=== PATIENT | female | born 1935 | race Caucasian/White ===

== ENCOUNTER → 2016-05-24 | Outpatient (CLI) | payer MEDICARE ==
[~2016-05-24] MED LIST: AMLO10TA4 PO; ASPI-587 PO; CARV12.5 PO; CATHETER FLUSH 10 ML SYR IV PRN; CEFU500T34 PO; CLN.1T PO; CLON-406 PO; HCT25T PO; IOHEXOL 350 MG/ML 100 ML (OMNIPAQUE 350) VIAL IV ONE; IRB150T PO; IRBE300T13 PO; LEVO75TA6 PO; MAGN250T7 PO; NS 100 ML (IVPB) BAG IV ONE; VERA240T PO
--- OUTSIDE RECORDS SUMMARY | 2016-05-24 09:01 | XMS REPORT ---
Author Author SOLO HERNANDEZ [facility] eClinicalWorks Address Unknown Phone Unavailable Care Team Providers Care Picker Tender Helper Name Role Phone SOLO HERNANDEZ CP Unavailable Allergies, Adverse Reactions, Alerts Substance Reaction Event Type N.K.D.A. Info Not Available Non Drug Allergy Problems Problem Type Condition Code Onset Dates Condition Status Assessment Dental examination Z01.20 Active Medications Medication Code System Code Instructions Start Date End Date Status Dosage Amlodipine Besylate [facility] [address]-53 not defined Aspirin [facility] [address]-04 not defined Irbesartan [facility] [address]-57 not defined Levothyroxine Sodium [facility] [address]-22 not defined Tramadol HCl ND 0 not defined Atorvastatin Calcium [facility] [address]-91 not defined Hydrochlorothiazide [facility] [address]-35 not defined Doxycycline [facility] [address]-91 not defined Clonidine HCl [facility] [address]-75 not defined ProAir HFA [facility] [address]-50 not defined Carvedilol [facility] [address]-10 not defined Procedures Procedure Coding System Code Date INTRAORL-PERIAPICAL 1 FILM 60753 CPT-4 D0220 Jun 01, 2015 BITEWING - SINGLE FILM CPT-4 D0270 Jun 01, 2015 LTD ORAL EVALUATION - PROBLEM FOCUS CPT-4 D0140 Jun 01, 2015 Vital Signs Date/Time: Jun 01, 2015 Blood Pressure Diastolic 65 mmHg Blood Pressure Systolic 136 mmHg Results No Known Results Summary Purpose eClinicalWorks Submission
[2016-05-24 09:54] LABS: ALBUMIN 4.3 G/DL (3.2-4.5); BILIRUBIN,TOTAL 0.6 MG/DL (0.1-1.0); CALCIUM 9.4 MG/DL (8.5-10.1); CREATININE SERUM 1.01 MG/DL (0.60-1.30); POTASSIUM 4.3 MMOL/L (3.6-5.0); TOTAL PROTEIN 7.5 G/DL (6.4-8.2)
--- NOTE | 2016-05-24 11:15 | Diagnostic Imaging Report ---
EXAMINATION: CT angiogram of the neck. TECHNIQUE: Thin section axial, coronal and sagittal images of the neck was performed in an angiogram protocol with MIP reconstruction algorithm utilized. INDICATION: Possible subclavian steal. Coronary artery disease. 80 mL of Omnipaque 350 is administered intravenously. FINDINGS: There is a segment of complete occlusion in the proximal left subclavian artery, about 1.7 cm in length. The ostium of the artery from the arch is patent. There is presumably retrograde flow in the left vertebral artery which appears patent. The left vertebral artery is slightly larger compared to the right vertebral artery. The basilar artery caliber is attenuated. The aortic arch otherwise appears patent. The proximal left common carotid artery demonstrates mild soft plaque with no significant stenosis. There is a calcified plaque at the carotid bifurcation on the left with no significant stenosis in the common or internal carotid artery. There is mild proximal stenosis in the left external carotid artery origin. The right internal carotid artery is patent with no significant stenosis. The right external carotid is also patent. The common carotid artery demonstrates mild soft plaque with less than 25% stenosis at its mid to distal segments. There is also 20% stenosis from mild soft plaque in the proximal brachiocephalic artery. The right subclavian artery is patent. The soft tissues in the neck demonstrate symmetric appearance of the parotid glands and the submandibular glands. The thyroid gland demonstrates a 0.9 cm hypodense lesion in the left thyroid lobe. This is nonspecific and its smooth margins may favor benign etiology. No significant lymphadenopathy is seen. The lung apices demonstrate mild paraseptal emphysema. The osseous structures demonstrate advanced degenerative changes in the cervical spine mostly around C5/6 discs. There is fusion of the right facet joints at C4/5 level. 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 The left vertebral artery is patent and has probably retrograde flow into the left subclavian artery, which can be confirmed by Doppler ultrasound. Report was stat faxed to office of KIM Gold, @ 11:11 AM/harry. Dictated by: Dictated on workstation # [id number]
--- NOTE | 2016-05-26 08:30 | ECHOCARDIOGRAPHY REPORT ---
PROCEDURE PHYSICIAN: SARAH ALCARAZ DATE OF PROCEDURE: 05/24/2016 TWO DIMENSIONAL ECHOCARDIOGRAM REPORT PRIMARY PHYSICIAN: OTHER PHYSICIAN: REFERRING PHYSICIAN: Dr. Romeo ORDERING PHYSICIAN: INDICATION FOR THE PROCEDURE: AV heart block, hypertension MEASUREMENTS DERIVED VALUES LV DIAMETER (LAX) NORMALS NORMALS Diastolic 3.6 (3.6-5.2) Eject. Fract. 60% (60%+/-6%) Systolic (2.3-3.9) Diastolic Vol. % Shortening (0.22-0.42) Systolic Vol. Aortic Root IVS THICKNESS Diastolic 1. (0.6-1.1) LVPW THICKNESS Diastolic 1. (0.6-1.1) LA DIAMETER Systolic 3. (2.1-3.7) FINDINGS: 1. Technical quality is good. 2. The left ventricle is normal in size with normal contractility. Systolic function appeared to be normal. Estimated ejection fraction is 60%. 3. The left atrium is normal in size. No clot or thrombus were seen within the left atrium. 4. The right atrium and right ventricle are normal in size. No clot or thrombus were seen within the right side. 5. Mitral valve is normal in morphology with mild mitral regurgitation noted by color Doppler flow. Doppler across the mitral valve showed equalization of E:A, which is suggestive of diastolic dysfunction. 6. Aortic valve was not well visualized. There is no significant aortic stenosis or regurgitation was seen. 7. Tricuspid valve is normal in morphology with mild tricuspid regurgitation noted by color Doppler flow. Doppler across tricuspid valve estimated pulmonary artery pressure of 27+ right atrial pressure. 8. Pulmonic valve is functioning normally. 9. No pericardial effusion. CONCLUSION: 1. Normal left ventricular size and systolic function. Estimated ejection fraction 60%. Diastolic dysfunction is suggested by Doppler. 2. Mild mitral and tricuspid regurgitation. 3. Estimated pulmonary artery pressure of 35 mmHg. 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
== END ==
LOC: RAD 08:56
PROVIDERS: ATTEND Physician Assistant
DX: I10 Essential (primary) hypertension (principal); E78.2 Mixed hyperlipidemia; I65.23 Occlusion and stenosis of bilateral carotid arteries; I44.30 Unspecified atrioventricular block
CPT/HCPCS: 36415; 70498; 80053; 80061; 93306

== ENCOUNTER → 2016-12-07 | Outpatient (CLI) | payer MEDICARE ==
[2016-12-07 13:00] LABS: CREATININE SERUM 1.01 MG/DL (0.60-1.30)
--- NOTE | 2016-12-07 14:27 | Diagnostic Imaging Report ---
PROCEDURE: CT abdomen and pelvis with contrast. TECHNIQUE: Multiple contiguous axial images were obtained through the abdomen and pelvis after administration of intravenous contrast. INDICATION: Diarrhea. Abdominal pain. Bloody stool. COMPARISON: None. FINDINGS: Included views of the lung bases are clear. CT abdomen: Moderate air and stool is seen scattered throughout the colon. Normal appendix cannot be adequately identified, but there is no pericecal inflammation. There is colonic diverticulosis, but no CT evidence of acute diverticulitis. The liver, kidneys, adrenal glands, spleen, and pancreas have a normal CT appearance. There is no loculated fluid collection, free fluid, nor free air within the abdomen. No abnormal mesenteric or retroperitoneal adenopathy is seen. Bony structures show no acute abnormalities. CT pelvis: Small droplet of gas is noted within the nongravity-dependent portion of the urinary bladder. Otherwise, urinary bladder is grossly unremarkable. There is no loculated fluid collection, free fluid, nor free air within the pelvis. No abnormal lymph nodes are seen. Bony structures show no acute abnormalities. Finally, there is moderate calcified aortic and arterial atherosclerosis. IMPRESSION: 1. Moderate colonic air and stool. Please correlate for constipation. 2. Colonic diverticulosis, but no CT evidence of acute diverticulitis. 3. Small droplet of gas within the non-gravity dependent portion of the urinary bladder. Correlation for history of recent instrumentation is recommended. Alternatively, findings can be seen with gas-forming cystitis. Dictated by: Dictated on workstation # [id number]
== END ==
LOC: RAD 12:09
PROVIDERS: ATTEND Family Medicine
DX: K57.30 Diverticulosis of large intestine without perforation or abscess without bleeding (principal); N32.9 Bladder disorder, unspecified; K59.00 Constipation, unspecified
CPT/HCPCS: 36415; 74177; 82565; 84520

== ENCOUNTER → 2017-08-21 | Outpatient (CLI) | payer MEDICARE ==
[~2017-08-21] MED LIST changes: -CATHETER FLUSH 10 ML SYR IV PRN; -IOHEXOL 350 MG/ML 100 ML (OMNIPAQUE 350) VIAL IV ONE; -NS 100 ML (IVPB) BAG IV ONE
[2017-08-21 09:42] LABS: ALBUMIN 4.3 GM/DL (3.2-4.5); BILIRUBIN,DIRECT 0.2 MG/DL (0.0-0.3); BILIRUBIN,INDIRECT 0.5 MG/DL; BILIRUBIN,TOTAL 0.7 MG/DL (0.1-1.0)
--- NOTE | 2017-08-21 10:47 | Diagnostic Imaging Report ---
INDICATION: Hypertension. TECHNIQUE: Multiple Real-time grayscale images were obtained over the kidneys in various projections bilaterally. Duplex Doppler and color Doppler images were also obtained of the renal arteries. FINDINGS: The right kidney measures 10.1 x 4.4 x 4.2 cm. The left kidney measures 9.6 x 4.9 x 5.1 cm. Both kidneys demonstrate normal renal cortical thickness and echogenicity. There is no hydronephrosis, calculus, or mass. Bilateral ureteral jets are seen within the bladder. The proximal renal arteries are not well-seen although the renal artery to aortic ratio is within normal limits bilaterally. The urinary bladder is normal in appearance. The IVC is not seen. IMPRESSION: Unremarkable sonographic appearance of the kidneys. Spectral analysis shows no definitive evidence of renal artery stenosis. Dictated by: Dictated on workstation # [id number]
== END ==
LOC: RAD 08:18
PROVIDERS: ATTEND Internal Medicine Cardiovascular Disease
DX: I10 Essential (primary) hypertension (principal); E78.2 Mixed hyperlipidemia; I49.5 Sick sinus syndrome; I65.23 Occlusion and stenosis of bilateral carotid arteries; R55 Syncope and collapse
CPT/HCPCS: 36415; 80061; 80076; 93975

== ENCOUNTER → 2017-12-28 | Outpatient (CLI) | payer MEDICARE ==
--- NOTE | 2017-12-28 14:53 | Diagnostic Imaging Report ---
PROCEDURE: CT chest without contrast. TECHNIQUE: Multiple contiguous axial images were obtained through the chest without the use of intravenous contrast. INDICATION: Followup pulmonary nodules. COMPARISON: No prior studies are available for comparison. FINDINGS: No axillary lymphadenopathy is seen. Hilar and mediastinal evaluation is limited without intravenous contrast, but no gross abnormality is identified. There is a left chest wall cardiac pacemaker. No pericardial or pleural fluid is identified. The central airways are patent. Tiny micronodule in the right upper lobe, image 8, is seen measuring 2 mm. Tiny 2-3 mm nodule in the superior segment of the right lower lobe is also seen, image 24, as well as right upper lobe, image 25. Subpleural nodule in the lateral aspect of the right middle lobe is seen measuring 4 mm, indeterminate. Lower lobes are clear. Upper abdomen is unremarkable. IMPRESSION: Micronodules, as described and likely of no clinical significance. No dominant parenchymal mass or evidence of thoracic lymphadenopathy is seen. Dictated by: Dictated on workstation # [id number]
== END ==
LOC: RAD 14:14
PROVIDERS: ATTEND Thoracic Surgery (Cardiothoracic Vascular Surgery)
DX: R91.8 Other nonspecific abnormal finding of lung field (principal)
CPT/HCPCS: 71250

== ENCOUNTER → 2018-10-19 | Outpatient (CLI) | payer MEDICARE | LOC: CARD 11:08 | PROVIDERS: ATTEND Physician Assistant | DX: I10 Essential (primary) hypertension (principal); E78.2 Mixed hyperlipidemia; I49.5 Sick sinus syndrome; I08.2 Rheumatic disorders of both aortic and tricuspid valves | CPT/HCPCS: 93306 ==

== ENCOUNTER 2020-05-05 21:07 | Inpatient (IN) | payer MEDICARE ==
[~2020-05-05] VITALS: Ht 157.5 cm; Wt 72.5 kg
--- NOTE | 2020-05-05 21:16 | ED Lower Extremity ---
General Stated Complaint: FALL/L HIP PAIN Source: patient Exam Limitations: no limitations History of Present Illness Date Seen by Provider: May 05, 2020 Time Seen by Provider: 21:14 Initial Comments By EMS from home after she tripped and fell landing directly on the left hip. She did was unable to get up and is now unable to move without left hip pain. S he did not hit her head. Onset: just prior to arrival Severity: moderate Pain/Injury Location: left hip Method of Injury: fell Modifying Factors: Worse With Movement Allergies and Home Medications Allergies Coded Allergies: No Known Drug Allergies (Unverified , 10/27/13) Home Medications Amlodipine Besylate 10 Mg Tablet, 10 MG PO DAILY Prescribed by: DANIELA NICOLE on 10/28/13 0948 Aspirin 81 Mg Tablet.dr, 81 MG PO DAILY, (Reported) Carvedilol 12.5 Mg Tablet, 12.5 MG PO BID Prescribed by: DANIELA NICOLE on 10/28/13 0948 Cefuroxime Axetil 500 Mg Tablet, 500 MG PO BID Prescribed by: DANIELA NICOLE on 10/28/13 0948 Clonidine Hcl 0.1 Mg Tab, 0.1 MG PO TID Prescribed by: DANIELA NICOLE on 10/28/13 0948 Hydrochlorothiazide 25 Mg Tab, 25 MG PO DAILY@0900 Prescribed by: DANIELA NICOLE on 10/28/13 0948 Irbesartan 150 Mg Tab, 300 MG PO DAILY Prescribed by: DANIELA NICOLE on 10/28/13 0948 Levothyroxine Sodium 75 Mcg Tablet, 75 MCG PO DAILY, (Reported) Magnesium Oxide 250 Mg Tablet, 250 MG PO DAILY, (Reported) Patient Home Medication List Home Medication List Reviewed: Yes Review of Systems Constitutional: see HPI EENTM: see HPI Respiratory: no symptoms reported Cardiovascular: no symptoms reported Genitourinary: no symptoms reported Musculoskeletal: see HPI Skin: no symptoms reported Psychiatric/Neurological: No Symptoms Reported Past Tdopjbo-Acmovx-Hoaoms Hx Immunizations Up To Date Tetanus Booster (TDap): Unknown PED Vaccines UTD: No Past Medical History Reproductive Disorders: Yes (HX TUBAL LIGATION) Female Reproductive Disorders: Denies Sexually Transmitted Disease: No HIV/AIDS: No Chronic Constipation Hypothyroidsim Cataract Hearing Impairment: Denies Adverse Reaction/Blood Tranf: No Family Medical History Family history: Cardiovascular disease 19 MOTHER (PT'S MOTHER AND 6 OR 8 SISTERS ALL WITH HEART ATTACKS) G8 SISTER Family history: Coronary thrombosis 19 MOTHER (PT'S MOM AND 6-8 SISTERS ALL FROM HEART ATTACKS) G8 SISTER Physical Exam Vital Signs Vital Signs - First Documented 05/05/20 21:07 Temp 36.5 Pulse 80 Resp 18 B/P (MAP) 180/69 (106) Pulse Ox 98 O2 Delivery Room Air Capillary Refill : Height, Weight, BMI Height: 5'2.00" Weight: 161lbs. oz. 73.935475hy; BMI Method: General Appearance: WD/WN, no apparent distress Neck: non-tender, full range of motion Respiratory: no respiratory distress, no accessory muscle use Gastrointestinal: normal bowel sounds, non tender, soft Hips: right hip non-tender, right hip normal inspection, right hip normal range of motion; left hip pain, left hip soft tissue tenderness Legs: bilateral leg non-tender, bilateral leg normal inspection, bilateral leg normal range of motion Knees: bilateral knee non-tender, bilateral knee normal inspection, bilateral knee normal range of motion Ankles: bilateral ankle non-tender, bilateral ankle normal inspection, bilateral ankle normal range of motion Feet: bilateral foot non-tender, bilateral foot normal inspection, bilateral foot normal range of motion Neurologic/Psychiatric: alert, normal mood/affect, oriented x 3 Skin: normal color, warm/dry DP foot 1+ symmetrical Progress/Results/Core Measures Results/Orders Lab Results Laboratory Tests Test 05/05/20 21:20 05/05/20 21:35 Range/Units White Blood Count 14.7 H 4.3-11.0 10^3/uL Red Blood Count 3.82 3.80-5.11 10^6/uL Hemoglobin 12.5 11.5-16.0 g/dL Hematocrit 37 35-52 % Mean Corpuscular Volume 98 80-99 fL Mean Corpuscular Hemoglobin 33 25-34 pg Mean Corpuscular Hemoglobin Concent 33 32-36 g/dL Red Cell Distribution Width 13.0 10.0-14.5 % Platelet Count 315 130-400 10^3/uL Mean Platelet Volume 9.6 9.0-12.2 fL Immature Granulocyte % (Auto) 1 % Neutrophils (%) (Auto) 78 H 42-75 % Lymphocytes (%) (Auto) 13 12-44 % Monocytes (%) (Auto) 6 0-12 % Eosinophils (%) (Auto) 3 0-10 % Basophils (%) (Auto) 1 0-10 % Neutrophils # (Auto) 11.5 H 1.8-7.8 10^3/uL Lymphocytes # (Auto) 1.9 1.0-4.0 10^3/uL Monocytes # (Auto) 0.9 0.0-1.0 10^3/uL Eosinophils # (Auto) 0.4 H 0.0-0.3 10^3/uL Basophils # (Auto) 0.1 0.0-0.1 10^3/uL Immature Granulocyte # (Auto) 0.1 0.0-0.1 10^3/uL Prothrombin Time 13.1 12.2-14.7 SEC INR Comment 1.0 0.8-1.4 Sodium Level 132 L 135-145 MMOL/L Potassium Level 4.3 3.6-5.0 MMOL/L Chloride Level 99 98-107 MMOL/L Carbon Dioxide Level 22 21-32 MMOL/L Anion Gap 11 5-14 MMOL/L Blood Urea Nitrogen 29 H 7-18 MG/DL Creatinine 1.16 0.60-1.30 MG/DL Estimat Glomerular Filtration Rate 45 BUN/Creatinine Ratio 25 Glucose Level 128 H 70-105 MG/DL Calcium Level 9.0 8.5-10.1 MG/DL Corrected Calcium 8.8 8.5-10.1 MG/DL Total Bilirubin 0.3 0.1-1.0 MG/DL Aspartate Amino Transf (AST/SGOT) 28 5-34 U/L Alanine Aminotransferase (ALT/SGPT) 27 0-55 U/L Alkaline Phosphatase 121 40-136 U/L Total Protein 8.3 H 6.4-8.2 GM/DL Albumin 4.2 3.2-4.5 GM/DL My Orders Orders - ERICKSON PARKER APRN Pelvis With Left Hip 2-3 Views (05/05/20 21:12) Cbc With Automated Diff (05/05/20 21:16) Comprehensive Metabolic Panel (05/05/20 21:16) Protime With Inr (05/05/20 21:16) Chest 1 View, Ap/Pa Only (05/05/20 21:16) Ua Culture If Indicated (05/05/20 21:16) Crowley Cath (05/05/20 21:16) Manual Differential (05/05/20 21:20) Vital Signs/I&O 05/05/20 21:07 Temp 36.5 Pulse 80 Resp 18 B/P (MAP) 180/69 (106) Pulse Ox 98 O2 Delivery Room Air Departure Communication (Admissions) Time/Spoke to Admitting Phy: 22:[address] MALAGON and Dr. Restrepo, will admit, n.p.o. after midnight plan to repair this tomorrow. Impression Primary Impression: Hip fracture, left Disposition: 09 ADMITTED INPATIENT Condition: Stable Admissions Decision to Admit Reason: Admit from ER (Trauma) Decision to Admit/Date: May 05, 2020 Time/Decision to Admit Time: 22:02 Departure-Patient Inst. Referrals: ISADORA MALAGON MD (PCP) Primary Care Physician SUSANA DELUCA DO (Family) Primary Care Physician ERICKSON PARKER APRN May 05, 2020 21:16
[2020-05-05 21:32] LABS: BASOPHILS # (AUTO) 0.1 10^3/uL (0.0-0.1); BASOPHILS % (AUTO) 1 % (0-10); EOSINOPHILS # (AUTO) 0.4 10^3/uL (0.0-0.3); EOSINOPHILS % (AUTO) 3 % (0-10); HEMATOCRIT 37 % (35-52); HEMOGLOBIN 12.5 g/dL (11.5-16.0); LYMPHOCYTES # (AUTO) 1.9 10^3/uL (1.0-4.0); LYMPHOCYTES % (AUTO) 13 % (12-44); MEAN CORPUSCULAR HEMOGLOBIN 33 pg (25-34); MEAN CORPUSCULAR HGB CONC 33 g/dL (32-36); MEAN CORPUSCULAR VOLUME 98 fL (80-99); MEAN PLATELET VOLUME 9.6 fL (9.0-12.2); MONOCYTES # (AUTO) 0.9 10^3/uL (0.0-1.0); MONOCYTES % (AUTO) 6 % (0-12); NEUTROPHILS # (AUTO) 11.5 10^3/uL (1.8-7.8); NEUTROPHILS % (AUTO) 78 % (42-75); PLATELET COUNT 315 10^3/uL (130-400); WHITE BLOOD COUNT 14.7 10^3/uL (4.3-11.0)
[2020-05-05 21:41] LABS: BILIRUBIN,URINE NEGATIVE (NEGATIVE); CLARITY,URINE CLEAR; COLOR,URINE YELLOW; GLUCOSE, URINE (UA) NEGATIVE (NEGATIVE); KETONES,URINE NEGATIVE (NEGATIVE); LEUKOCYTE ESTERASE ,URINE NEGATIVE (NEGATIVE); NITRITE,URINE NEGATIVE (NEGATIVE); PROTEIN,URINE NEGATIVE (NEGATIVE)
[2020-05-05 21:42] LABS: ALBUMIN 4.2 GM/DL (3.2-4.5)
[2020-05-05 21:43] LABS: POTASSIUM 4.3 MMOL/L (3.6-5.0)
[2020-05-05 21:44] LABS: PROTHROMBIN TIME PATIENT 13.1 SEC (12.2-14.7)
[2020-05-05 21:45] LABS: TOTAL PROTEIN 8.3 GM/DL (6.4-8.2)
[2020-05-05 21:47] LABS: BILIRUBIN,TOTAL 0.3 MG/DL (0.1-1.0)
[2020-05-05 21:49] LABS: CREATININE SERUM 1.16 MG/DL (0.60-1.30)
[2020-05-05 22:05] LABS: BACTERIA,URINE NEGATIVE /HPF
[2020-05-05 22:06] LABS: AMORPHOUS SEDIMENT,UR RARE AMOR URATES /LPF
[2020-05-05 22:18] LABS: EOSINOPHILS % (MANUAL) 1 %; LYMPHOCYTES % (MANUAL) 10 %; MONOCYTES % (MANUAL) 5 %; NEUTROPHILS % (MANUAL) 84 %; RBC MORPH NORMAL
[2020-05-05] MEDS ORDERED: fentaNYL INJECTION 100 MCG/2 ML AMP ONE (23:22)
[2020-05-05] MEDS ORDERED: fentaNYL INJECTION 100 MCG/2 ML AMP IVP ONE (23:30)
--- NOTE | 2020-05-05 23:55 | NUR ---
MARA VALDEZ admitted to room 420-1, with an admitting diagnosis of L HIP FRACTURE, on 05/05/20 from ED via [facility], accompanied by STAFF.MARA VALDEZ introduced to surroundings, call light, bed controls, phone, TV, temperature control, lights, meal times, smoking policy, visitor policy, side rail policy, bathrooms and showers. Patient Rights given to patient in the handbook. MARA VALDEZ verbalizes understanding that [facility] is not responsible for the loss or damage to any personal effects or valuables that are kept in the patients posession during their hospitalization. MARA VALDEZ verbalizes understanding of Interdisciplinary Patient Education. Patient and/or family were informed about the Rapid Response Team and its purpose.
[2020-05-06] VITALS (12 sets, daily range): BP systolic 111–197; BP diastolic 43–93
[2020-05-06] MEDS ORDERED: ONDANSETRON 4 MG/2 ML (SDV) Z0FRAN IV PRN (00:30)
[2020-05-06] MEDS: LACTATED RINGERS 1,000 ML IV SCH ×3 (00:41→20:01)
[2020-05-06] MEDS: fentaNYL INJECTION 100 MCG/2 ML AMP IV PRN ×3 (00:42→07:39)
--- NOTE | 2020-05-06 07:18 | Progress Note-Pre Operative ---
Pre-Operative Progress Note H&P Reviewed The H&P was reviewed, patient examined and no changes noted. Date Seen by Provider: May 06, 2020 Time Seen by Provider: 06:55 Date H&P Reviewed: May 06, 2020 Time H&P Reviewed: 06:05 Pre-Operative Diagnosis: displaced left neck of femur fracture ZAHIDA MONTAÑO MD May 06, 2020 07:18
--- NOTE | 2020-05-06 07:19 | Progress Note-Post Operative ---
Post-Operative Progess Note Surgeon (s)/Process Analyst (s) Surgeon ZAHIDA MONTAÑO MD Process Analyst: Frederick Do Pre-Operative Diagnosis displaced left neck of femur fracture Post-Operative Diagnosis displaced left neck of femur fracture Procedure & Operative Findings Date of Procedure 05/06/20 Procedure Performed/Findings left hip bipolar replacement Anesthesia Type GETA Estimated Blood Loss Estimated blood loss (mL): 200 ml Specimens/Packing Specimens Removed femoral head Packing: none ZAHIDA MONTAÑO MD May 06, 2020 07:19
--- NOTE | 2020-05-06 07:38 | Diagnostic Imaging Report ---
INDICATION: Left hip fracture. FINDINGS: Portable chest. The lungs are well-aerated. There are no infiltrates. Heart is mildly enlarged. Pacemaker present on the left with leads in good position. No pneumothorax or pleural effusion. No evidence of rib fracture. IMPRESSION: No acute abnormalities demonstrated in the chest when compared with previous CT scan of 12/28/2017. Dictated by: Dictated on workstation # [id number]
--- NOTE | 2020-05-06 07:40 | Diagnostic Imaging Report ---
INDICATION: Fall. FINDINGS: 3 views. Bony pelvis is intact. SI joints show mild degenerative change. There is a femoral neck fracture. Femoral head is in good alignment with the acetabulum. Pubic rami are intact. IMPRESSION: Left femoral neck fracture. Dictated by: Dictated on workstation # [id number]
[2020-05-06] MEDS ORDERED: TEMAZEPAM 15 MG (RESTORIL) CAP PO PRN (07:45)
[2020-05-06] MEDS ORDERED: ONDANSETRON 4 MG/2 ML (SDV) Z0FRAN IVP PRN ×2 (07:45→10:45)
[2020-05-06] MEDS ORDERED: diphenhydrAMINE 50 MG/ML INJ (BENADRYL) IVP PRN (07:45)
[2020-05-06] MEDS: DOCUSATE SODIUM 100 MG (COLACE) CAP PO SCH ×2 (07:55→20:13)
[2020-05-06] MEDS: polyethylene glycoL POWDER 17 GM (MIRALAX) PACK PO SCH ×2 (07:55→20:12)
[2020-05-06] MEDS: SENNOSIDES 8.6 MG (SENOKOT) TAB PO SCH ×2 (07:56→20:13)
[2020-05-06] MEDS: cloNIDine 0.1 MG (CATAPRES) TAB PO SCH ×2 (08:51→20:13)
--- NOTE | 2020-05-06 08:51 | HISTORY AND PHYSICAL ---
DATE OF SERVICE: ADMISSION HISTORY AND PHYSICAL REASON FOR ADMISSION: Displaced left femoral neck fracture. HISTORY OF PRESENT ILLNESS: The patient is an 84-year-old female, who fell at home landing on her left hip. She presented to the ER with complaints of left hip pain, was found to have a displaced left femoral neck fracture for which she was admitted. She denies antecedent pain. REVIEW OF SYSTEMS: No recent chest pain, shortness of breath or dysuria. ALLERGIES: No known drug allergies. MEDICATIONS: Amlodipine, aspirin, carvedilol, clonidine, hydrochlorothiazide and levothyroxine. PAST MEDICAL HISTORY: Significant for hypertension and hypothyroidism. PRIMARY CARE PROVIDER: Dr. Barton. PAST SURGICAL HISTORY: Tubal ligation and cataracts. FAMILY HISTORY: Significant for coronary artery disease. PHYSICAL EXAMINATION: GENERAL: The patient is a well-developed, well-nourished, in distress. HEENT: Normocephalic, atraumatic. Pupils are equal, round, reactive to light. Oropharynx is clear. NECK: Supple, no lymphadenopathy. LUNGS: Clear to auscultation bilaterally. HEART: Regular rate and rhythm. ABDOMEN: Soft, nontender and nondistended. EXTREMITIES: Left lower extremity is slightly shortened and rotated. She has symmetric pulses. She has intact dorsiflexion and plantarflexion of toes with intact sensation to light touch. No skin lesions are noted. Radiographs revealed a displaced left femoral neck fracture. IMPRESSION: Left displaced femoral neck fracture. PLAN: Left hip bipolar replacement. Risks, benefits, options, ramifications and recovery will be discussed with the patient. She understands and wishes to proceed. Job ID: [id number] DocumentID: [id number] Dictated Date: 05/06/2020 06:01:52 Core Filer Date: 05/06/2020 08:50:02 Dictated By: ZAHIDA MONTAÑO MD
--- NOTE | 2020-05-06 09:03 | History & Physical ---
History of Present Illness History of Present Illness Reason for visit/HPI PT IS AN 84 Y/O FEMALE WHO IS A CLINIC PATIENT IN MY PRACTICE. SHE PRESENTED TO THE HOSPITAL AFTER FALLING AT HOME WHEN TURNING FROM SHUTTING A DOOR. SHE STATES THAT SHE FELL AT HOME AND HIT HER LEFT HIP ON THE FLOOR. SHE STATES THAT SHE HAD IMMEDIATE PAIN AND KNEW THAT HE HAD FRACTURED HER HIP. SHE DENIES FEELING ILL, CHEST PAIN, SHORTNESS OF BREATH, ABDOMINAL PAIN, OR NAUSEA ON ADMISSION. Date of Admission May 05, 2020 at 21:47 Date Seen by a Provider: May 06, 2020 Time Seen by a Provider: 09:00 I consulted on this patient on 05/06/20 09:02 Attending Physician Connor Restrepo MD Admitting Physician Isadora Barton MD Consult Allergies and Home Medications Allergies Coded Allergies: No Known Drug Allergies (Unverified , 10/27/13) Home Medications Amlodipine Besylate 10 Mg Tablet, 10 MG PO DAILY Prescribed by: DANIELA NICOLE on 10/28/13 09 Aspirin 81 Mg Tablet.dr, 81 MG PO DAILY, (Reported) Carvedilol 12.5 Mg Tablet, 12.5 MG PO BID Prescribed by: DANIELA NICOLE on 10/28/1348 Cefuroxime Axetil 500 Mg Tablet, 500 MG PO BID Prescribed by: DANIELA NICOLE on 10/28/13 09 Clonidine Hcl 0.1 Mg Tab, 0.1 MG PO TID Prescribed by: DANIELA NICOLE on 10/28/13947 Hydrochlorothiazide 25 Mg Tab, 25 MG PO DAILY@0900 Prescribed by: DANIELA NICOLE on 10/28/13947 Irbesartan 150 Mg Tab, 300 MG PO DAILY Prescribed by: DANIELA NICOLE on 10/28/13 0948 Levothyroxine Sodium 75 Mcg Tablet, 75 MCG PO DAILY, (Reported) Magnesium Oxide 250 Mg Tablet, 250 MG PO DAILY, (Reported) Patient Home Medication List Home Medication List Reviewed: Yes Past Ecligow-Ajsjxx-Jdatxm Hx Past Med/Social Hx: Reviewed Nursing Past Med/Soc Hx Patient Social History Living Status: LIVES AT HOME ALONE Employed/Student: retired Alcohol Use: Denies Use Recreational Drug Use: No 2nd Hand Smoke Exposure: No Physical Abuse Screen: No Sexual Abuse: No Recent Foreign Travel: No Contact w/other who traveled: No Recent Hopitalizations: No Recent Infectious Disease Expo: No Immunizations Up To Date Tetanus Booster (TDap): Unknown Pediatric: No Seasonal Allergies Seasonal Allergies: No Past Medical History Surgeries: Pacemaker Currently Using CPAP: Yes Cardiac: Hypertension Reproductive: Yes (HX TUBAL LIGATION) Sexually Transmitted Disease: No HIV/AIDS: No Female Reproductive Disorders: Denies Tubal Ligation, Menopausal Gastrointestinal: Chronic Constipation Endocrine: Hypothyroidsim HEENT: Cataract Hearing Impairment: Denies History of Blood Disorders: No Adverse Reaction to Blood Bell: No Family History Reviewed Nursing Family Hx Family history: Cardiovascular disease 19 MOTHER (PT'S MOTHER AND 6 OR 8 SISTERS ALL WITH HEART ATTACKS) G8 SISTER Family history: Coronary thrombosis 19 MOTHER (PT'S MOM AND 6-8 SISTERS ALL FROM HEART ATTACKS) G8 SISTER Heart Disease, CAD Over 55 Years Old, Hypertension, Vascular Disease Review of Systems Constitutional: No chills, No fever, No malaise, No weakness EENTM: hearing loss; No hoarseness, No throat pain Respiratory: No cough, No dyspnea on exertion, No short of breath Cardiovascular: No chest pain, No palpitations Gastrointestinal: No abdominal pain, No constipation, No diarrhea, No nausea, No vomiting Genitourinary: no symptoms reported Musculoskeletal: joint pain (LEFT HIP PAIN) Skin: no symptoms reported Psychiatric/Neurological: Denies Anxiety, Denies Depressed, Denies Weakness All Other Systems Reviewed Negative Unless Noted: Yes Physical Exam Vital Signs Vital Signs - First Documented 05/05/20 05/06/20 21:07 04:00 Temp 36.5 Pulse 80 Resp 18 B/P (MAP) 180/69 (106) Pulse Ox 98 O2 Delivery Room Air O2 Flow Rate 2.00 Capillary Refill : Less Than 3 SecondsLess Than 3 Seconds Height, Weight, BMI Height: 5'2.00" Weight: 161lbs. oz. 73.114658zs; 29.22 BMI Method: General Appearance: No Apparent Distress, WD/WN Eyes: Bilateral Eye Normal Inspection, Bilateral Eye PERRL, Bilateral Eye EOMI HEENT: PERRL/EOMI, Pharynx Normal Neck: Full Range of Motion, Non Tender, Supple Respiratory: Chest Non Tender, Lungs Clear, Normal Breath Sounds, No Accessory Muscle Use, No Respiratory Distress Cardiovascular: Regular Rate, Rhythm, Normal Peripheral Pulses Gastrointestinal: Normal Bowel Sounds, No Organomegaly, No Pulsatile Mass, Non Tender, Soft Rectal: Deferred Extremity: Normal Capillary Refill, Non Tender, No Calf Tenderness, No Pedal Edema, Other (TENDERNESS TO PALPATION OVER LEFT LATERAL HIP) Neurologic/Psychiatric: Alert, Oriented x3, No Motor/Sensory Deficits, Normal Mood/Affect, 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 RESTREPO - PLANNING ON SURGICAL INTERVENTION THIS MORNING. - DISCUSSED WITH PATIENT, WILL CONSULT IRF TOMORROW FOR PLACEMENT ON MONDAY IF POSSIBLE. HYPERTENSION - WILL RESTART HOME REGIMEN AFTER SURGERY. HYPOTHYROIDISM - RESTART LEVOTHYROXINE DVT PROPHYLAXIS WITH LOVENOX. GI PROPHLYAXIS WITH PROTONIX Admission Diagnosis LEFT FEMORAL NECK FRACTURE HYPERTENSION HYPOTHYROIDISM Admission Status: Inpatient Order (span 2 midnights) Reason for Inpatient Admission: INPT ADMISSION FOR LEFT HIP FRACTURE - WILL NEED AT LEAST 48 HOURS FOR TREATMETN AND STABILIZATION Clinical Quality Measures DVT/VTE Risk/Contraindication: Risk Factor Score Per Nursin RFS Level Per Nursing on Admit: 4+=Very High ISADORA BARTON MD May 06, 2020 09:03
[2020-05-06] MEDS ORDERED: ISOFLURANE (FORANE) 15 ML/15 MIN INHALATION ONE (09:28)
[2020-05-06] MEDS ORDERED: LIDOCAINE PF 2% 5 ML (XYLOCAINE) VIAL ONE (09:28)
[2020-05-06] MEDS ORDERED: BUPIVACAINE 0.5% 30 ML (SENSORCAINE) VIAL ONE (09:28)
[2020-05-06] MEDS ORDERED: proPOfol 200 MG/20 ML (DIPRIVAN) VIAL IV ONE (09:28)
[2020-05-06] MEDS ORDERED: ROCURONIUM 10 MG/ML 5 ML SYRINGE IV ONE (09:28)
[2020-05-06] MEDS ORDERED: fentaNYL INJECTION 100 MCG/2 ML AMP ONE (09:28)
[2020-05-06] MEDS ORDERED: ONDANSETRON 4 MG/2 ML (SDV) Z0FRAN ONE ×2 (09:28→10:50)
[2020-05-06] MEDS ORDERED: MIDAZOLAM 2 MG/2 ML (VERSED) VIAL ONE (09:29)
[2020-05-06] MEDS ORDERED: SEVOFLURANE (ULTANE) 15 ML INHAL SOLN ONE ×6 (09:48→11:16)
[2020-05-06] MEDS: TROLAMINE (ASPERCREME) 10% CR 90 GM TUBE TOP SCH ×2 (09:56→20:12)
[2020-05-06] MEDS ORDERED: ceFAZolin INJECTION 2,000 MG ONE (10:25)
[2020-05-06] MEDS ORDERED: LACTATED RINGERS 1,000 ML IV PRN (10:45)
[2020-05-06] MEDS ORDERED: HYDROmorphone 2 MG/ML VIAL (DILAUDID) IV ONE (10:45)
[2020-05-06] MEDS ORDERED: morphine INJ 10 MG/ML 1ML (SYR OR VIAL) IVP ONE (10:45)
[2020-05-06] MEDS ORDERED: hydrALAZINE (APESOLINE) 20 MG/ML VIAL ONE (11:01)
[2020-05-06] MEDS ORDERED: ESMOLOL 100 MG/10 ML (BREVIBLOC) VIAL ONE (11:01)
[2020-05-06] MEDS ORDERED: ceFAZolin 2 GM IV Premixed 50 ML IV NR (11:30)
--- NOTE | 2020-05-06 12:01 | Progress Note ---
Standard Progress Note Progress Notes/Assess & Plan Date Seen by a Provider: May 06, 2020 Time Seen by a Provider: 11:57 Progress/Assessment & Plan post op check no complaints radiographs--HW well positioned without fracture LLE- 2 plus DP pulse with brisk cap refill intact DF and PF of toes and ankle s/p L hip bipolar mobilize as able ZAHIDA MONTAÑO MD May 06, 2020 12:01
--- NOTE | 2020-05-06 13:50 | Diagnostic Imaging Report ---
INDICATION: Left hip arthroplasty AP view left hip shows postoperative changes from left hip arthroplasty. Prosthesis position appears good. Alignment is normal. There is no acute fracture or dislocation. IMPRESSION: Good alignment left hip following joint arthroplasty. Dictated by: Dictated on workstation # [id number]
--- NOTE | 2020-05-06 14:06 | Physical Therapy Evaluation ---
PT Evaluation-General Medical Diagnosis Admission Date May 05, 2020 at 21:47 Medical Diagnosis: bipolar hip arthroplasty left side Onset Date: May 05, 2020 Therapy Diagnosis Therapy Diagnosis: impaired mobility, strength, endurance, ROM Height/Weight Height (Feet): 5 Height (Inches): 2.00 Weight (Pounds): 161 Precautions Precautions/Isolations: Fall Prevention, Standard Precautions Weight Bear Status Right Lower Extremity: Right Full Weight Bearing Left Lower Extremity: Left Weight Bearing/Tolerated n Referral Physician: Hi Reason for Referral: Evaluation/Treatment Medical History Additional Medical History Past Medical History Surgeries: Pacemaker Currently Using CPAP: Yes Cardiac: Hypertension Reproductive: Yes (HX TUBAL LIGATION) Sexually Transmitted Disease: No HIV/AIDS: No Female Reproductive Disorders: Denies Tubal Ligation, Menopausal Gastrointestinal: Chronic Constipation Endocrine: Hypothyroidsim HEENT: Cataract Reviewed History: Yes Social History Home: Single Level Prior Prior Level of Function SCALE: Activities may be completed with or without assistive devices. 3-Fvbyiyuhya-ualmigx completes the activity by him/herself with no assistance from a helper. 5-Set-up or Clean-up Assistance-helper sets up or cleans up; patient completes activity. [place] assists only prior to or following the activity. 4-Supervision or Touching Assistance-helper provides verbal cues and/or touching/steadying and/or contact guard assistance as patient completes activity. Assistance may be provided throughout the activity or intermittently. 3-Partial/Moderate Assistance-helper does LESS THAN HALF the effort. [place] lifts, holds or supports trunk or limbs, but provides less than half the effort. 2-Substantial/Maximal Assistance-helper does MORE THAN HALF the effort. [place] lifts or holds trunk or limbs and provides more than half the effort. 9-Znchfkwvh-sosyua does ALL the effort. Patient does none of the effort to complete the activity. Or, the assistance of 2 or more helpers is required for the patient to complete the activity. If activity was not attempted, code reason: 7-Patient Refused. 9-Not Applicable-not attempted and the patient did not perform the activity before the current illness, exacerbation or injury. 10-Not Attempted due to Environmental Limitations-(lack of equipment, weather restraints, etc.). 88-Not Attempted due to Medical Conditions or Safety Concerns. Bed Mobility: 6 Transfers (B,C,W/C): 6 Gait: 6 Indoor Mobility (Ambulation): Independent uses a 4 wheeled walker PT Evaluation-Current Subjective Patient in bed pre tx, agrees to PT, states she has no pain. Pt/Family Goals to be independent at home Objective Patient Orientation: Person, Place, Situation Attachments: Crowley Catheter, IV Sensory Hearing: Functional Sensation Right Lower Extremit: Intact Sensation Left Lower Extremity: Intact Transfers Roll Left to Right (QC): 4 Lying to Sitting/Side of Bed(Q: 3 Sit to Stand (QC): 4 Chair/Hya-cy-Xaopi Xfer(QC): 4 min assist for supine to sit, CGA for sit to stand and transfers, no dizziness or light headedness or nausea Gait Does the Patient Walk?: Yes Mode of Locomotion: Walk Anticipated Mode of Locomotion: Walk Distance: 3' Gait Assistive Device: FWW Comments/Gait Description slow, antalgic, but not unsteady, able to advance her left leg well Balance Sitting Static: Normal Sitting Dynamic: Normal Standing Static: Good Standing Dynamic: Good Treatment LLE hip protocol x10 (AP, QS, GS, HS, SAQ, hip abd/add) Assessment/Needs Patient has impaired mobility, strength, endurance, ROM post left hip arthroplasty. Patient in hip chair post tx with nurse call, phone, tray, all needs met. Patient did very well for her first time up. Rehab Potential: Fair PT Group Home Goals Speech Language Pathologist Assistant Goals PT Speech Language Pathologist Assistant Goals Time Frame: May 13, 2020 Roll Left & Right (QC): 6 Sit to Lying (QC): 4 Lying-Sitting on Side/Bed(QC): 4 Sit to Stand (QC): 4 Chair/Cod-de-Dvhqy Xfer(QC): 4 Walk 10 feet (QC): 4 Walk 50ft with 2 Turns (QC): 4 PT Plan Problem List Problem List: Activity Tolerance, Functional Strength, Safety, Balance, Gait, Transfer, Bed Mobility, ROM Treatment/Plan Treatment Plan: Continue Plan of Care Treatment Plan: Bed Mobility, Education, Functional Activity Geri, Functional Strength, Gait, Safety, Therapeutic Exercise, Transfers Treatment Duration: May 13, 2020 Frequency: 6 times per week Estimated Hrs Per Day: .25 hour per day Patient and/or Family Agrees t: Yes Safety Risks/Education Patient Education: Gait Training, Transfer Techniques, Reviewed Precautions, Correct Positioning, Safety Issues Teaching Recipient: Patient Teaching Methods: Demonstration, Discussion Response to Teaching: Reinforcement Needed Discharge Recommendations Plan Patient will perform bed mobility and transfer training, balance and endurance training, functional strengthening, stair training, gait training, and education, to improve functional mobility and independence at home. Therapy Discharge Recommendati: Scheduled Assistance, Home & Family, Post Acute PT Time/GCodes Time In: 1335 Time Out: 1400 Total Billed Treatment Time: 25 Total Billed Treatment 1 visit RIKA 10' FA 15' BECKIE MAYO PT May 06, 2020 14:05
[2020-05-06] MEDS ORDERED: CEFUROXIME INJECTION 750 MG in WATER (STERILE) FOR INJECTION 10 ML IV SCH (15:45)
--- NOTE | 2020-05-06 18:36 | OPERATIVE REPORT ---
DATE OF SERVICE: 05/06/2020 PREOPERATIVE DIAGNOSIS: Displaced left femoral neck fracture. POSTOPERATIVE DIAGNOSIS: Displaced left femoral neck fracture. PROCEDURE: Left hip bipolar replacement. SURGEON: Cnonor Montaño MD RIGGING FOREMAN: Frederick Do, who assisted throughout the procedure and closed the incision. ANESTHESIA: General endotracheal by Dr. Oh. ESTIMATED BLOOD LOSS: 200 mL. DRAINS: None. COMPLICATIONS: None. POSTOPERATIVE PLAN: Routine protocol. MATERIALS: Synthes pressfit 3 femur with a neutral 43 liner. Patient was transferred to recovery room awake and in stable condition. STATEMENT OF MEDICAL NECESSITY: The patient is an 84-year-old female who fell last evening and presented to the Emergency Department with a displaced left femoral neck fracture. In order to maintain her ambulatory status, she elected to proceed with surgical intervention. DESCRIPTION OF PROCEDURE: After risks and benefits of procedure were discussed and questions were answered, informed consent was signed and placed on chart, the operative site was confirmed in the preoperative holding area initialed by the surgeon. The patient was then transferred to the operating room and after adequate levels of general endotracheal anesthetic were obtained, the patient was carefully placed in the right lateral decubitus position, being careful to place an axillary roll and pad all bony prominences. The left hip and lower extremity were prepped and draped in the usual sterile fashion. A standard lateral approach was utilized. The iliotibial band was incised in line with the incision. The abductor tendon was released 2 cm proximal to its attachment leaving a good cuff for later reapproximation. The capsule was opened. The hip fracture was identified and the cutting guide was used to complete the femoral neck cut. The head was then removed and sized to a size 43. The acetabulum was irrigated. No loose bodies were noted on direct visualization and palpation. The proximal femur was then prepared with a box chisel followed by the T-handle reamer and sequential broaches up to a size 3 with the 3 broach. Excellent fill was noted. A neutral neck was placed with 43 mm liner. The hip was reduced and found to be stable in all planes with no impingement noted. The trials were removed. The joint was further irrigated with pulse lavage. The prosthesis was placed in 10 degrees of anteversion with excellent fill noted. The neck was irrigated and the head liner construct was placed. The hip was then reduced and taken through range of motion after inspecting the acetabulum to make sure that there were no loose bodies. The hip was then taken through range of motion with no impingement noted and no instability in any plane. The wound was further irrigated with pulse lavage. The capsule and abductor tendon were reapproximated with #5 Tevdek in gwhtmj-fy-fkupz interrupted fashion. The wound was further irrigated. The iliotibial band was closed in a running fashion with #1 Vicryl. Subcutaneous tissues were irrigated with pulse lavage. A 0 Vicryl was used for deep subcutaneous tissue, 2-0 Vicryl for the superficial subcutaneous tissue, fara used on the skin. A soft dressing was applied. The patient was transferred to the recovery room awake and in stable condition. Job ID: [id number] DocumentID: [id number] Dictated Date: 05/06/2020 11:30:54 Dining Room Coordinator Date: 05/06/2020 18:35:56 Dictated By: CONNOR MONTAÑO MD
--- NOTE | 2020-05-06 19:20 | NUR ---
notified dr nielsen that the patients BP is elevated at this time. Dr. Nielsen requested to administer BP medication at this time and to continue assessment
[2020-05-06] MEDS ORDERED: ceFAZolin INJECTION 1,000 MG in WATER (STERILE) FOR INJECTION 10 ML IV SCH (19:30)
[2020-05-06] MEDS: HYDROcodone/APAP 7.5 MG/325 MG (LORTAB, LORCET PLUS) TABLET PO PRN (20:13)
[2020-05-06] MEDS ORDERED: ENOXAPARIN 40 MG/0.4 ML (LOVENOX) SYR SC SCH (20:30)
[2020-05-06] MEDS ORDERED: amLODIPine 10 MG (NORVASC) TAB PO SCH (21:00)
[2020-05-06] MEDS: CARVEDILOL 12.5 MG (COREG) TABLET PO SCH (21:32)
[2020-05-06] MEDS: amLODIPine 5 MG (NORVASC) TAB PO SCH (21:32)
[2020-05-07] VITALS (8 sets, daily range): BP systolic 115–213; BP diastolic 65–84
[2020-05-07] MEDS: HYDROcodone/APAP 7.5 MG/325 MG (LORTAB, LORCET PLUS) TABLET PO PRN (01:06)
[2020-05-07] MEDS: ACETAMINOPHEN 325 MG TABLET PO PRN ×3 (01:23→21:21)
[2020-05-07] MEDS: fentaNYL INJECTION 100 MCG/2 ML AMP IVP PRN ×2 (01:29→23:51)
[2020-05-07] MEDS: LACTATED RINGERS 1,000 ML IV SCH ×2 (01:49→17:51)
[2020-05-07] MEDS ORDERED: ceFAZolin INJECTION 1,000 MG in WATER (STERILE) FOR INJECTION 10 ML IV SCH ×4 (04:00)
[2020-05-07 06:12] LABS: WHITE BLOOD COUNT 16.2 10^3/uL (4.3-11.0)
[2020-05-07] MEDS: PANTOPRAZOLE 40 MG (PROTONIX) TAB PO SCH (06:37)
[2020-05-07] MEDS: MULTIVIT W/MINERALS TAB (THERAGRAN M) PO SCH (06:37)
[2020-05-07 06:41] LABS: ALBUMIN 3.6 GM/DL (3.2-4.5); BILIRUBIN,TOTAL 0.3 MG/DL (0.1-1.0); CALCIUM 8.4 MG/DL (8.5-10.1); CREATININE SERUM 1.11 MG/DL (0.60-1.30); POTASSIUM 4.3 MMOL/L (3.6-5.0); TOTAL PROTEIN 6.9 GM/DL (6.4-8.2)
--- NOTE | 2020-05-07 07:53 | Progress Note ---
Standard Progress Note Progress Notes/Assess & Plan Date Seen by a Provider: May 07, 2020 Time Seen by a Provider: 07:52 Progress/Assessment & Plan post op check no complaints radiographs--HW well positioned without fracture LLE- 2 plus DP pulse with brisk cap refill intact DF and PF of toes and ankle s/p L hip bipolar mobilize as able Final Diagnosis no complaints Laboratory Tests Test 05/07/20 05:46 Range/Units White Blood Count 16.2 H 4.3-11.0 10^3/uL Red Blood Count 3.12 L 3.80-5.11 10^6/uL Hemoglobin 10.0 L 11.5-16.0 g/dL Hematocrit 31 L 35-52 % Mean Corpuscular Volume 98 80-99 fL Mean Corpuscular Hemoglobin 32 25-34 pg Mean Corpuscular Hemoglobin Concent 33 32-36 g/dL Red Cell Distribution Width 13.2 10.0-14.5 % Platelet Count 263 130-400 10^3/uL Mean Platelet Volume 10.0 9.0-12.2 fL Sodium Level 135 135-145 MMOL/L Potassium Level 4.3 3.6-5.0 MMOL/L Chloride Level 102 98-107 MMOL/L Carbon Dioxide Level 23 21-32 MMOL/L Anion Gap 10 5-14 MMOL/L Blood Urea Nitrogen 25 H 7-18 MG/DL Creatinine 1.11 0.60-1.30 MG/DL Estimat Glomerular Filtration Rate 47 BUN/Creatinine Ratio 23 Glucose Level 129 H 70-105 MG/DL Calcium Level 8.4 L 8.5-10.1 MG/DL Corrected Calcium 8.7 8.5-10.1 MG/DL Total Bilirubin 0.3 0.1-1.0 MG/DL Aspartate Amino Transf (AST/SGOT) 34 5-34 U/L Alanine Aminotransferase (ALT/SGPT) 20 0-55 U/L Alkaline Phosphatase 96 40-136 U/L Total Protein 6.9 6.4-8.2 GM/DL Albumin 3.6 3.2-4.5 GM/DL Vital Signs Date Time Temp Pulse Resp B/P (MAP) Pulse Ox O2 Delivery O2 Flow Rate FiO2 05/07/20 04:19 36.6 73 16 180/78 (112) 96 Room Air 05/07/20 01:53 37.4 05/07/20 01:23 38.0 05/07/20 00:59 37.4 80 18 187/79 (115) 95 Room Air 05/06/20 20:30 Room Air 05/06/20 19:07 36.7 78 19 197/79 (118) 96 Room Air 05/06/20 15:41 36.5 86 20 149/63 (91) 96 Room Air 05/06/20 12:20 36.4 18 143/87 (105) 96 Room Air 05/06/20 12:20 Room Air 05/06/20 12:10 Room Air 05/06/20 12:10 18 146/85 (105) 96 Room Air 05/06/20 12:06 OxyMask 3 05/06/20 12:00 18 128/89 (102) 100 OxyMask 3 05/06/20 12:00 36.9 63 18 182/72 (108) 92 Room Air 05/06/20 11:55 OxyMask 6 05/06/20 11:50 18 114/43 (66) 100 OxyMask 6 05/06/20 11:40 OxyMask 6 05/06/20 11:40 18 111/70 (84) 100 OxyMask 6 05/06/20 11:30 18 140/93 (109) 100 OxyMask 6 05/06/20 11:26 OxyMask 6 05/06/20 11:26 36.1 18 128/54 (78) 99 OxyMask 6 05/06/20 08:47 79 16 142/65 (90) 97 Room Air 05/06/20 08:00 Room Air I & O 05/07/20 06:59 Intake Total 1600 ml Output Total 1975 ml Balance -375 ml LLE--dressing in place, No calf tenderness. neg Carey's. NVI distally s/p L hip bipolar PT/OT IRU? ZAHIDA MONTAÑO MD May 07, 2020 07:53
--- NOTE | 2020-05-07 08:18 | Anesthesia-General Post-Op ---
General Patient Condition Mental Status/LOC: Same as Preop Cardiovascular: Satisfactory Nausea/Vomiting: Absent Respiratory: Satisfactory Pain: Controlled Complications: Absent Post Op Complications Complications None Follow Up Care/Instructions Patient Instructions None needed. Anesthesia/Patient Condition Patient Condition Patient is doing well, no complaints, stable vital signs, no apparent adverse anesthesia problems. No complications reported per nursing. HEATHER WHITTINGTON CRNA May 07, 2020 08:18
[2020-05-07] MEDS: cloNIDine 0.1 MG (CATAPRES) TAB PO SCH ×2 (08:22→20:40)
[2020-05-07] MEDS: ASPIRIN E.C. 81 MG (ECOTRIN) TAB PO SCH (08:22)
[2020-05-07] MEDS: SENNOSIDES 8.6 MG (SENOKOT) TAB PO SCH ×2 (08:22→20:40)
[2020-05-07] MEDS: DOCUSATE SODIUM 100 MG (COLACE) CAP PO SCH ×2 (08:22→20:40)
[2020-05-07] MEDS: CARVEDILOL 12.5 MG (COREG) TABLET PO SCH ×2 (08:23→20:39)
[2020-05-07] MEDS: amLODIPine 5 MG (NORVASC) TAB PO SCH ×2 (08:23→20:39)
[2020-05-07] MEDS: ENOXAPARIN 40 MG/0.4 ML (LOVENOX) SYR SC SCH (08:23)
[2020-05-07] MEDS: LOSARTAN 100 MG (COZAAR) TABLET PO SCH (08:23)
[2020-05-07] MEDS: polyethylene glycoL POWDER 17 GM (MIRALAX) PACK PO SCH ×2 (08:23→20:40)
--- NOTE | 2020-05-07 08:33 | Progress Note ---
Subjective All Other Systems Reviewed All Other Systems Reviewed: Yes Objective Exam Vital Signs Vital Signs - First Documented 05/05/20 05/06/20 21:07 04:00 Temp 36.5 Pulse 80 Resp 18 B/P (MAP) 180/69 (106) Pulse Ox 98 O2 Delivery Room Air O2 Flow Rate 2.00 Capillary Refill : Less Than 3 SecondsLess Than 3 Seconds General Appearance: No Apparent Distress, WD/WN Eyes: Bilateral Eye Normal Inspection, Bilateral Eye PERRL, Bilateral Eye EOMI HEENT: PERRL/EOMI, Pharynx Normal Neck: Full Range of Motion, Non Tender, Supple Respiratory: Chest Non Tender, Lungs Clear, Normal Breath Sounds, No Accessory Muscle Use, No Respiratory Distress Cardiovascular: Regular Rate, Rhythm, Normal Peripheral Pulses Gastrointestinal: Normal Bowel Sounds, No Organomegaly, No Pulsatile Mass, Non Tender, Soft Rectal: Deferred Extremity: Normal Capillary Refill, Non Tender, No Calf Tenderness, No Pedal Edema, Other (TENDERNESS TO PALPATION OVER LEFT LATERAL HIP) Neurologic/Psychiatric: Alert, Oriented x3, No Motor/Sensory Deficits, Normal Mood/Affect, circular tank cooper II-XII Norm as Tested Skin: Normal Color, Warm/Dry Lymphatic: No Adenopathy Results Lab Laboratory Tests 05/07/20 05:46: White Blood Count 16.2H, Red Blood Count 3.12L, Hemoglobin 10.0L, Hematocrit 31L , Mean Corpuscular Volume 98, Mean Corpuscular Hemoglobin 32, Mean Corpuscular Hemoglobin Concent 33, Red Cell Distribution Width 13.2, Platelet Count 263, Mean Platelet Volume 10.0, Sodium Level 135, Potassium Level 4.3, Chloride Level 102, Carbon Dioxide Level 23, Anion Gap 10, Blood Urea Nitrogen 25H, Creatinine 1.11, Estimat Glomerular Filtration Rate 47, BUN/Creatinine Ratio 23, Glucose Level 129H, Calcium Level 8.4L, Corrected Calcium 8.7, Total Bilirubin 0.3, Aspartate Amino Transf (AST/SGOT) 34, Alanine Aminotransferase (ALT/SGPT) 20, Alkaline Phosphatase 96, Total Protein 6.9, Albumin 3.6 Assessment/Plan Assessment/Plan Admission Dx LEFT FEMORAL NECK FRACTURE HYPERTENSION HYPOTHYROIDISM Admission Dx LEFT FEMORAL NECK FRACTURE HYPERTENSION HYPOTHYROIDISM Clinical Quality Measures Admission Status Admission Dx LEFT FEMORAL NECK FRACTURE HYPERTENSION HYPOTHYROIDISM DVT/VTE Risk/Contraindication: Risk Factor Score Per Nursin RFS Level Per Nursing on Admit: 4+=Very High ISADORA MALAGON MD May 07, 2020 08:33
[2020-05-07] MEDS: TROLAMINE (ASPERCREME) 10% CR 90 GM TUBE TOP SCH ×2 (08:46→20:40)
[2020-05-07] MEDS ORDERED: IRBESARTAN 150 MG (AVAPRO) TAB PO SCH (09:00)
--- NOTE | 2020-05-07 09:14 | NUR ---
IRF Evaluation Determination: Accepted Chart review complete and findings discussed with Dr. Meadows - patient accepted. Anticipated admit date is unknown. Will continue to follow. Thank you for this referral. Addendum: 05/07/20 at 0954 by AUGUST Madelyn ISAAC SW notified of acceptance and intends to visit with patient about options. This chief writer is working remotely; therefore, unable to visit with patient in-person. SW to update this chief writer of conversation.
--- NOTE | 2020-05-07 10:02 | NUR ---
Notified Dr. Barton that patients BP is 190/79 at this time. Patient states she feels as if she is having a hot flash. Dr. Barton calls and requests a one time dose of her clonidine and 25mg of IV Benadryl at this time. Orders placed and medications administered.
[2020-05-07] MEDS ORDERED: cloNIDine 0.1 MG (CATAPRES) TAB PO NR (10:15)
[2020-05-07] MEDS ORDERED: diphenhydrAMINE 50 MG/ML INJ (BENADRYL) IVP NR (10:15)
--- NOTE | 2020-05-07 10:20 | NUR ---
Contacted Dr. Barton and informed her that the patient is crying in her room and very upset. Patient states she feels like everything has gotten "off track" since she did not get her BP medication yesterday AM because of her surgery. Dr. Barton orders a one time .5mg of IV lorazepam now and 0.5 q6 PRN. Orders placed and medications administered at this time.
[2020-05-07] MEDS ORDERED: LORazepam INJ 2 MG/ML (ATIVAN) VIAL ONE (10:29)
[2020-05-07] MEDS ORDERED: LORazepam INJ 2 MG/ML (ATIVAN) VIAL IVP NR (10:30)
[2020-05-07] MEDS ORDERED: LORazepam 0.5 MG (ATIVAN) TABLET PO PRN (10:30)
--- NOTE | 2020-05-07 11:18 | Physical Therapy Daily Note ---
PT Daily Note-Current Subjective Patient very anxious and tearful up on PT entering room. PT was able to calm patient and encourage patient recovery and returning to home soon. Pain Numeric Pain Scale: 8 Location: Left Location Body Site: Hip Pain Description: Acute Mental Status Patient Orientation: Normal For Age Attachments: Crowley Catheter, IV Transfers SCALE: Activities may be completed with or without assistive devices. 9-Rvazsfadqu-dkalsko completes the activity by him/herself with no assistance from a helper. 5-Set-up or Clean-up Assistance-helper sets up or cleans up; patient completes activity. Homer assists only prior to or following the activity. 4-Supervision or Touching Assistance-helper provides verbal cues and/or touching/steadying and/or contact guard assistance as patient completes activity. Assistance may be provided throughout the activity or intermittently. 3-Partial/Moderate Assistance-helper does LESS THAN HALF the effort. Homer lifts, holds or supports trunk or limbs, but provides less than half the effort. 2-Substantial/Maximal Assistance-helper does MORE THAN HALF the effort. Homer lifts or holds trunk or limbs and provides more than half the effort. 7-Tsfgjvpue-ghmtof does ALL the effort. Patient does none of the effort to comp lete the activity. Or, the assistance of 2 or more helpers is required for the patient to complete the activity. If activity was not attempted, code reason: 7-Patient Refused. 9-Not Applicable-not attempted and the patient did not perform the activity before the current illness, exacerbation or injury. 10-Not Attempted due to Environmental Limitations-(lack of equipment, weather restraints, etc.). 88-Not Attempted due to Medical Conditions or Safety Concerns. Lying to Sitting/Side of Bed(Q: 2 Sit to Stand (QC): 3 Chair/Kys-nb-Jrwuk Xfer(QC): 3 Weight Bearing Right Lower Extremity: Right Full Weight Bearing Left Lower Extremity: Left Weight Bearing/Tolerated n Gait Training Does the Patient Walk?: Yes Distance: 75' Walk 10 feet (QC): 4 Walk 50 ft with 2 Turns(QC): 4 Walk 150 ft (QC): 88 Gait Assistive Device: FWW slow, steady, slightly antalgic Exercises Supine Ex: Ankle pumps, Quad Set, Heel Slides Supine Reps: 10 (AAROM left LE) Assessment Patient tolerated treatment well and reports desire to transition to ARU when physician is "okay" with it. PT to increase activity as tolerated. Review of hip precautions. PT Fpc Goals Fpc Goals PT Fpc Goals Time Frame: May 13, 2020 Roll Left & Right (QC): 6 Sit to Lying (QC): 4 Lying-Sitting on Side/Bed(QC): 4 Sit to Stand (QC): 4 Chair/Ixz-ja-Crsnn Xfer(QC): 4 Walk 10 feet (QC): 4 Walk 50ft with 2 Turns (QC): 4 PT Plan Treatment/Plan Treatment Plan: Continue Plan of Care Treatment Plan: Bed Mobility, Education, Functional Activity Geri, Functional Strength, Gait, Safety, Therapeutic Exercise, Transfers Treatment Duration: May 13, 2020 Frequency: 6 times per week Estimated Hrs Per Day: .25 hour per day Patient and/or Family Agrees t: Yes Time/GCodes Time In: 1022 Time Out: 1050 Total Billed Treatment Time: 28 Total Billed Treatment 1 visit EX 13 min GT 15 min JOELLE GARZON PT May 07, 2020 11:18
--- NOTE | 2020-05-07 11:51 | NUR ---
CM/SS: Visited with pt as per plan for discharge related to her recent injury. Plan: Undetermined at this time - possible in patient rehabilitation services Summary- Pt reports having a rough morning and that she is feeling better. She reports being from home living with her daughter and son in law. She seems open at this time to go to rehab to get to feeling better and stronger, and be able to return home. Pt just wants to do what she needs to in order to be able to go home. This worker will follow up.
--- NOTE | 2020-05-07 12:07 | Occupational Therapy Eval ---
OT Evaluation-General/PLF Medical Diagnosis Admission Date May 05, 2020 at 21:47 Medical Diagnosis: bipolar hip arthroplasty left side Onset Date: May 05, 2020 Therapy Diagnosis Therapy Diagnosis: Decreased ADL skills Height/Weight Height (Feet): 5 Height (Inches): 2.00 Weight (Pounds): 161 Precautions Precautions/Isolations: Fall Prevention, Standard Precautions Weight Bear Status Weight Bearing Restriction: Weight Bearing/Tolerated Referral Physician: Lauro Referral Reason: Activity Tolerance, Self Care, Evaluation/Treatment, Strengthening/ROM Medical History Reviewed History: Yes Social History Home: Single Level Current Living Status: Children (Daughter and son in law) Entry Into Home: Ramp ADL-Prior Level of Function SCALE: Activities may be completed with or without assistive devices. 7-Hvvsiubeyg-nsjyyoh completes the activity by him/herself with no assistance from a helper. 5-Set-up or Clean-up Assistance-helper sets up or cleans up; patient completes activity. Branch assists only prior to or following the activity. 4-Supervision or Touching Assistance-helper provides verbal cues and/or touching/steadying and/or contact guard assistance as patient completes act ivity. Assistance may be provided throughout the activity or intermittently. 3-Partial/Moderate Assistance-helper does LESS THAN HALF the effort. Branch lifts, holds or supports trunk or limbs, but provides less than half the effort. 2-Substantial/Maximal Assistance-helper does MORE THAN HALF the effort. Branch lifts or holds trunk or limbs and provides more than half the effort. 0-Rmzdggsvh-dxbixf does ALL the effort. Patient does none of the effort to complete the activity. Or, the assistance of 2 or more helpers is required for the patient to complete the activity. If activity was not attempted, code reason: 7-Patient Refused. 9-Not Applicable-not attempted and the patient did not perform the activity before the current illness, exacerbation or injury. 10-Not Attempted due to Environmental Limitations-(lack of equipment, weather restraints, etc.). 88-Not Attempted due to Medical Conditions or Safety Concerns. ADL PLOF Comments Pt. reports that she lives with her daughter and son in law. They both work during the day but check in on her. Pt. uses a 4 ww for mobility in the home, and uses it to transport items such as laundry. Pt. verbalizes that she cooks and cleans, and has been fully independent with her personal care needs such as bathing/dressing/toileting. She also states that she has a lift chair at home, but does not use the "lift" part of it. Self Care: Independent Functional Cognition: Independent DME/Equipment: Bath Chair, Shower Hose Brace Maker, Tub/Shower OT Current Status Subjective Pt. reports no pain. She is having a hard time keeping her eyes open and states that she is "really comfortable" right now. She has received pain medication and states, "I'm just dozing a little." Appearance Pt. is up in hip chair. She reports that she was up approximately 15 minutes prior to this with PT, and that she ambulated. She has been up in chair since that time, and is waiting on lunch. Mental Status/Objective Patient Orientation: Person, Place Attachments: IV Current Upper Extremity ROM WFL. Pt. is able to flex bilateral shoulders to functional level to take care of her needs. Upper Extremity Coordination intact Upper Extremity Strength WFL ADL-Treatment Eating (QC): 6 (Per pt., she is eating well. She requested coffee while OT in there. OT brought coffee to her and pt. was able to hold cup and drink with no difficulty.) Lower Body Dressing (QC): 2 (Due to hip precautions and activity analysis, pt. will require max assist to complete LE dressing tasks.) On/Off Footwear (QC): 2 (See above) Other Treatments Pt. up in chair. Participates in UE assessment. Pt. is groggy and reports that she was just up with PT, and now is resting comfortably in chair. Pt. is educated regarding her hip precautions, and OT goals. Including being independent with daily tasks such as LE dressing and bathing. OT also educates pt. that AE will be brought in and used with pt to increase independence overall. Pt. verbalizes understanding and agrees to treatment. All needs were met for pt. Coffee retrieved and call light/phone within reach. Education OT Patient Education: Correct positioning, Modified ADL techniques, Progress toward Goal/Update tx plan, Purpose of tx/functional activities, Reviewed precautions, Rehab process Teaching Recipient: Patient Teaching Methods: Demonstration, Discussion Response to Teaching: Verbalize Understanding OT Short Term Goals Short Term Goals Time Frame: May 14, 2020 Eatin Oral hygiene: 5 Toileting hygiene: 3 Shower/bathe self: 3 Upper body dressin Lower body dressin Putting on/taking off footwear: 4 OT Prison Goals Construction Engineer Goals Time Frame: May 21, 2020 Eating (QC): 6 Oral Hygiene (QC): 6 Toileting Hygiene (QC): 6 Shower/Bathe Self (QC): 4 Upper Body Dressing (QC): 6 Lower Body Dressing (QC): 6 On/Off Footwear (QC): 6 Additional Goals: 1-Demonstrate ADL Tasks, 2-Verbalize Understanding, 3- ImproveStrength/Geri 1=Demonstrate adherence to instructed precautions during ADL tasks. 2=Patient will verbalize/demonstrate understanding of assistive devices/modifications for ADL. 3=Patient will improve strength/tolerance for activity to enable patient to perform ADL's. OT Education/Plan Problem List/Assessment Assessment: Decreased Activ Tolerance, Impaired I ADL's, Impaired Self-Care Skills Discharge Recommendations Plan/Recommendations: Continue POC Therapy Discharge Recommendati: Post Acute OT Equpiment Recommendations-D/C: Extended Bath Bench, Hip Kit Treatment Plan/Plan of Care Treatment,Training & Education: Yes Patient would benefit from OT for education, treatment and training to promote independence in ADL's, mobility, safety and/or upper extremity function for ADL 's. Plan of Care: ADL Retraining, Functional Mobility, UE Funct Exercise/Act Treatment Duration: May 21, 2020 Frequency: 5 times per week Estimated Hrs Per Day: .25 hour per day Agreement: Yes Rehab Potential: Good Time/GCodes Start Time: 11:20 Stop Time: 11:33 Total Time Billed (hr/min): 13 Billed Treatment Time 1, MARILYN PARR OT May 07, 2020 12:07
--- NOTE | 2020-05-07 14:21 | Physical Therapy Daily Note ---
PT Daily Note-Current Subjective Patient is very lethargic and groggy. Per RN, she issued patient IV ativan. Patient is currently not safe to perform activity and is currently up in chair. Mental Status Patient Orientation: Listless Attachments: IV Transfers SCALE: Activities may be completed with or without assistive devices. 7-Lfhusakhfm-tgrhwxm completes the activity by him/herself with no assistance from a helper. 5-Set-up or Clean-up Assistance-helper sets up or cleans up; patient completes activity. Orange assists only prior to or following the activity. 4-Supervision or Touching Assistance-helper provides verbal cues and/or touching/steadying and/or contact guard assistance as patient completes activity. Assistance may be provided throughout the activity or intermittently. 3-Partial/Moderate Assistance-helper does LESS THAN HALF the effort. Orange lifts, holds or supports trunk or limbs, but provides less than half the effort. 2-Substantial/Maximal Assistance-helper does MORE THAN HALF the effort. Orange lifts or holds trunk or limbs and provides more than half the effort. 8-Odoiblsts-zgsuhi does ALL the effort. Patient does none of the effort to complete the activity. Or, the assistance of 2 or more helpers is required for the patient to complete the activity. If activity was not attempted, code reason: 7-Patient Refused. 9-Not Applicable-not attempted and the patient did not perform the activity before the current illness, exacerbation or injury. 10-Not Attempted due to Environmental Limitations-(lack of equipment, weather restraints, etc.). 88-Not Attempted due to Medical Conditions or Safety Concerns. Sit to Lying (QC): 1 Sit to Stand (QC): 2 Chair/Cvs-cq-Uqcis Xfer(QC): 2 PT assist with return to bed with abduction pillow in place. Weight Bearing Right Lower Extremity: Right Full Weight Bearing Left Lower Extremity: Left Weight Bearing/Tolerated n Assessment Patient had difficulty keeping eyes open and is unsafe to perform activity. Physician notified. Plan to transfer to ARU in a.m. PT Long-Term Goals Soil Sampler Goals PT Long-Term Goals Time Frame: May 13, 2020 Roll Left & Right (QC): 6 Sit to Lying (QC): 4 Lying-Sitting on Side/Bed(QC): 4 Sit to Stand (QC): 4 Chair/Kxd-hx-Cbckn Xfer(QC): 4 Walk 10 feet (QC): 4 Walk 50ft with 2 Turns (QC): 4 PT Plan Treatment/Plan Treatment Plan: Continue Plan of Care Treatment Plan: Bed Mobility, Education, Functional Activity Geri, Functional Strength, Gait, Safety, Therapeutic Exercise, Transfers Treatment Duration: May 13, 2020 Frequency: 6 times per week Estimated Hrs Per Day: .25 hour per day Patient and/or Family Agrees t: Yes Time/GCodes Time In: 1300 Time Out: 1314 Total Billed Treatment Time: 14 Total Billed Treatment 1 visit FA 14 min JOELLE GARZON PT May 07, 2020 14:21
[2020-05-08] MEDS: LACTATED RINGERS 1,000 ML IV SCH (02:30)
[2020-05-08 03:35] VITALS: BP 114/56
[2020-05-08] MEDS: MULTIVIT W/MINERALS TAB (THERAGRAN M) PO SCH (06:01)
[2020-05-08] MEDS: PANTOPRAZOLE 40 MG (PROTONIX) TAB PO SCH (06:01)
[2020-05-08] MEDS: ACETAMINOPHEN 325 MG TABLET PO PRN (06:02)
[2020-05-08 06:54] LABS: HEMOGLOBIN 8.9 g/dL (11.5-16.0); WHITE BLOOD COUNT 12.5 10^3/uL (4.3-11.0)
--- NOTE | 2020-05-08 06:57 | Progress Note ---
Standard Progress Note Progress Notes/Assess & Plan Date Seen by a Provider: May 08, 2020 Time Seen by a Provider: 06:56 Progress/Assessment & Plan post op check no complaints radiographs--HW well positioned without fracture LLE- 2 plus DP pulse with brisk cap refill intact DF and PF of toes and ankle s/p L hip bipolar mobilize as able Final Diagnosis feeling better today Vital Signs Date Time Temp Pulse Resp B/P (MAP) Pulse Ox O2 Delivery O2 Flow Rate FiO2 05/08/20 03:35 37.0 83 20 114/56 (75) 94 Room Air 05/07/20 23:36 37.2 84 20 115/67 (83) 96 Room Air 05/07/20 21:33 94 Room Air 05/07/20 20:40 Room Air 05/07/20 20:01 36.4 82 18 139/65 (89) 95 Room Air 05/07/20 16:49 36.4 76 16 158/67 (97) 97 Room Air 05/07/20 12:00 36.5 83 20 151/65 (93) 96 Room Air 05/07/20 09:59 79 16 190/80 (116) 97 Room Air 05/07/20 08:00 37.2 76 16 213/84 (127) 96 Room Air 05/07/20 08:00 Room Air I & O 05/08/20 07:00 Intake Total 1400 ml Output Total 2175 ml Balance -775 ml Laboratory Tests Test 05/07/20 16:01 05/08/20 06:37 Range/Units Glucometer 114 H 70-110 MG/DL L hip incision clean and dry. no calf tenderness. Neg Carey's s/p L hip bipolar heplock IV DC Carline SANTIAGO to IRU continue PT/OT ZAHIDA MONTAÑO MD May 08, 2020 06:57
--- NOTE | 2020-05-08 07:00 | NUR ---
IVF's discontinued and Crowley catheter removed at this time. 400cc urine noted in bag. Patient instructed to call for assistance when needing to toilet; she verbalizes understanding and has call light within reach.
[2020-05-08 08:00] VITALS: BP 193/76
--- NOTE | 2020-05-08 09:33 | Progress Note ---
Subjective Subjective Date Seen by Provider: May 08, 2020 Time Seen by Provider: 07:45 Pt doing well and is being discharged to IRU today. Has been able to ambulate some with a walker. Does complain of some constipation. Wants her pain medication changed to Tramadol because the medication she is on is making her hot and itchy. Review of Systems General: No Chills, No Appetite HEENT: No Head Aches, No Visual Changes Pulmonary: No Dyspnea, No Cough Cardiovascular: No: Chest Pain, Palpitations Gastrointestinal: Constipation; No: Diarrhea Genitourinary: No Dysuria, No Hematuria Musculoskeletal: No: neck pain, shoulder pain Neurological: No: Weakness, Confusion All Other Systems Reviewed All Other Systems Reviewed: Yes Objective Exam Vital Signs Vital Signs - First Documented 05/05/20 05/06/20 21:07 04:00 Temp 36.5 Pulse 80 Resp 18 B/P (MAP) 180/69 (106) Pulse Ox 98 O2 Delivery Room Air O2 Flow Rate 2.00 Capillary Refill : Less Than 3 SecondsLess Than 3 Seconds General Appearance: No Apparent Distress, WD/WN Eyes: Bilateral Eye Normal Inspection, Bilateral Eye PERRL, Bilateral Eye EOMI HEENT: PERRL/EOMI, Pharynx Normal Neck: Normal Inspection, Supple Respiratory: Chest Non Tender, Lungs Clear, Normal Breath Sounds, No Accessory Muscle Use, No Respiratory Distress Cardiovascular: Regular Rate, Rhythm, Normal Peripheral Pulses Gastrointestinal: Non Tender; No Guarding, No Rebound; Tenderness (mild, upper abdomen) Rectal: Deferred Extremity: Normal Capillary Refill, Non Tender, No Calf Tenderness, No Pedal Edema, Other (TENDERNESS TO PALPATION OVER LEFT LATERAL HIP; mild tenderness to left calf diffusely, negative Carey's sign) Neurologic/Psychiatric: Alert, Oriented x3, No Motor/Sensory Deficits, Normal Mood/Affect Skin: Normal Color, Warm/Dry Lymphatic: No Adenopathy Results Lab Laboratory Tests 05/07/20 16:01: Glucometer 114H 05/08/20 06:37: White Blood Count 12.5H, Red Blood Count 2.70L, Hemoglobin 8.9L, Hematocrit 27L, Mean Corpuscular Volume 100H, Mean Corpuscular Hemoglobin 33, Mean Corpuscular Hemoglobin Concent 33, Red Cell Distribution Width 13.2, Platelet Count 223, Mean Platelet Volume 10.0 Microbiology 05/06/20 MRSA Screen - Final, Complete MRSA not isolated Assessment/Plan Assessment/Plan Assessment and Plan Left hip fracture with bipolar hip replacement -discharge to IRU -change pain medication to Tramadol Insomnia -requesting Tylenol PM HTN -continue to monitor BP constipation -suppository Lovenox for DVT prophylaxis. Protonix for GI prophylaxis. Clinical Quality Measures DVT/VTE Risk/Contraindication: Risk Factor Score Per Nursin RFS Level Per Nursing on Admit: 4+=Very High MORENITA CHAO MED STUDENT May 08, 2020 09:33
[2020-05-08] MEDS ORDERED: ENOX40DI8 SC (09:34)
[2020-05-08] MEDS ORDERED: ACET-3075 PO (09:35)
[2020-05-08] MEDS ORDERED: LIDO1ADH78 TP (09:35)
[2020-05-08] MEDS ORDERED: TROL85CR11 TOP (09:35)
[2020-05-08] MEDS ORDERED: TRAM50TA3 PO (09:35)
[2020-05-08] MEDS: LOSARTAN 100 MG (COZAAR) TABLET PO SCH (09:41)
[2020-05-08] MEDS: CARVEDILOL 12.5 MG (COREG) TABLET PO SCH (09:41)
[2020-05-08] MEDS: SENNOSIDES 8.6 MG (SENOKOT) TAB PO SCH (09:41)
[2020-05-08] MEDS: DOCUSATE SODIUM 100 MG (COLACE) CAP PO SCH (09:42)
[2020-05-08] MEDS: polyethylene glycoL POWDER 17 GM (MIRALAX) PACK PO SCH (09:42)
[2020-05-08] MEDS: cloNIDine 0.1 MG (CATAPRES) TAB PO SCH (09:42)
[2020-05-08] MEDS: amLODIPine 5 MG (NORVASC) TAB PO SCH (09:42)
[2020-05-08] MEDS: ASPIRIN E.C. 81 MG (ECOTRIN) TAB PO SCH (09:42)
[2020-05-08] MEDS: ENOXAPARIN 40 MG/0.4 ML (LOVENOX) SYR SC SCH (09:49)
[2020-05-08] MEDS: TROLAMINE (ASPERCREME) 10% CR 90 GM TUBE TOP SCH (09:49)
[2020-05-08] MEDS ORDERED: BISACODYL 10 MG SUPP (DULCOLAX) PR NR (10:15)
--- NOTE | 2020-05-08 10:15 | NUR ---
MARA VALDEZ discharged to ARU. notified of discharge and report given to PAOLA HUANG. MARA VALDEZ belongings sent with PATIENT. Skin dry and intact; no breakdown noted. MARA VALDEZ discharged with saline lock, . Vital signs are/are stable at time of discharge. Condition is/ stable at time of discharge. Discharge instructions and copies of H&P, discharge summary, physician's order, lab reports, consultation reports, other dictated reports, diagnostic imaging reports, Advance Directive, eMAR, vital signs, intake and output sent with PATIENT. Patient discharged from 1 on at . MARA VALDEZ left floor via WC, accompanied by STAFF. MARA VALDEZ and family/DPOA notified and verbalize understanding of discharge to ARU.
--- NOTE | 2020-05-08 12:20 | NUR ---
CM/SS: Pt will be discharged today to ARU -Inpatient Rehab Unit. Pt was moved to the 2nd floor to ARU at time of discharge from 4th floor medical. Flying Squad Worker for ARU is Isabelle Santiago. She will follow up with pt related to discharge planning when deemed appropriate.
--- NOTE | 2020-05-08 18:34 | DISCHARGE SUMMARY ---
DATE OF SERVICE: 05/08/2020 DIAGNOSES: 1. Displaced left femoral neck fracture. 2. Hypertension. 3. Hypothyroidism. PROCEDURE: Left hip bipolar replacement. HISTORY: The patient is an 84-year-old female who was admitted following a fall at home. She was found to have a displaced left femoral neck fracture. She underwent treatment with the bipolar hip replacement the morning following her injury. Postoperatively, she was doing very well. Her wound was clean and dry. She was advancing well with physical therapy. She was tolerating her diet well and tolerating pain with oral pain medication. CONDITION AT DISCHARGE: Good. DISCHARGE DISPOSITION: Transfer to the inpatient rehabilitation unit for continued physical and occupational therapy. Job ID: [id number] DocumentID: [id number] Dictated Date: 05/08/2020 06:54:15 College Professor Date: 05/08/2020 18:34:30 Dictated By: ZAHIDA MONTAÑO MD
[2020-05-08] MEDS ORDERED: polyethylene glycoL POWDER 17 GM (MIRALAX) PACK PO SCH (21:00)
== END 2020-05-08 10:15 | DRG 522 ==
LOC: EDUNIT# 21:07 → ER 21:08 → 4TH 21:47
PROVIDERS: ADMIT Orthopaedic Surgery; ATTEND Orthopaedic Surgery
PROC: 0SRB0JZ Replacement of Left Hip Joint with Synthetic Substitute, Open Approach (ICD-10-PCS; principal; 2020-05-06 10:02)
DX: S72.002A Fracture of unspecified part of neck of left femur, initial encounter for closed fracture (principal); I10 Essential (primary) hypertension; E03.9 Hypothyroidism, unspecified; G47.00 Insomnia, unspecified; K59.09 Other constipation; Z20.828 Contact with and (suspected) exposure to other viral communicable diseases; Z79.82 Long term (current) use of aspirin; Z79.899 Other long term (current) drug therapy
CPT/HCPCS: 36415; 51702; 71045; 73501; 80053; 81000; 82962; 85007; 85027; 85610; 87081; 87635

== ENCOUNTER 2020-05-08 10:15 | Inpatient (IN) | payer MEDICARE ==
[~2020-05-08] VITALS: Ht 160 cm; Wt 70.8 kg
[~2020-05-08 10:15] MED LIST changes: +ACET-3075 PO; +ACETAMINOPHEN 500 MG TAB (TYLENOL) PO PRN; +ALPRAZolam 0.25 MG (XANAX) TAB PO PRN; +BISACODYL 10 MG SUPP (DULCOLAX) PR PRN; +CALCIUM CARBONATE 500 MG (TUMS) TAB.CHEW PO PRN; +DOCUSATE SODIUM 100 MG (COLACE) CAP PO PRN; +DOCUSATE SODIUM 100 MG (COLACE) CAP PO SCH; +ENOX40DI8 SC; +FLEET ENEMA ADULT 1 EA BTL PR PRN; +LACTULOSE SYRUP 10GM/15ML (ENULOSE) 30ML UDC PO PRN; +LIDO1ADH78 TP; +LOPERAMIDE 2 MG (IMODIUM) TABLET PO PRN; +MELATONIN 3 MG TABLET PO PRN; +ONDANSETRON 4 MG (ZOFRAN) ORAL DISSOLVE TAB PO PRN; +SENNA W/DOCUSATE (SENOKOT S) TABLET PO SCH; +TRAM50TA3 PO; +TROL85CR11 TOP; +diphenhydrAMINE 25 MG TAB (BENADRYL) PO PRN; +guaiFENesin/CODEINE (ROBITUSSIN AC) 10ML UDC PO PRN; +polyethylene glycoL POWDER 17 GM (MIRALAX) PACK PO SCH
--- NOTE | 2020-05-08 10:15 | NUR ---
MARA VALDEZ admitted to room 224-1, with an admitting diagnosis of ORIF OF LEFT HIP, on 05/08/20 from 4TH FLOOR via W/C, accompanied by STAFF.MARA VALDEZ introduced to surroundings, call light, bed controls, phone, TV, temperature control, lights, meal times, smoking policy, visitor policy, side rail policy, bathrooms and showers. Patient Rights given to patient in the handbook.MARA VALDEZ verbalizes understanding that [facility] is not responsible for the loss or damage to any personal effects or valuables that are kept in the patients posession during their hospitalization. The following Patient Care Plans were discussed with the PT: Discharge Planning,PAIN CONTROL],TESTS AND PROCEDURES, and PT/OT/ST. MARA VALDEZ verbalizes understanding of Interdisciplinary Patient Education. Patient and/or family were informed about the Rapid Response Team and its purpose.
[2020-05-08] MEDS ORDERED: ONDANSETRON 4 MG (ZOFRAN) ORAL DISSOLVE TAB PO PRN (10:30)
[2020-05-08] MEDS ORDERED: guaiFENesin/CODEINE (ROBITUSSIN AC) 10ML UDC PO PRN (10:30)
[2020-05-08] MEDS ORDERED: DOCUSATE SODIUM 100 MG (COLACE) CAP PO SCH (10:30)
[2020-05-08] MEDS ORDERED: polyethylene glycoL POWDER 17 GM (MIRALAX) PACK PO SCH (10:30)
[2020-05-08] MEDS ORDERED: DOCUSATE SODIUM 100 MG (COLACE) CAP PO PRN (10:30)
[2020-05-08] MEDS ORDERED: LACTULOSE SYRUP 10GM/15ML (ENULOSE) 30ML UDC PO PRN (10:30)
[2020-05-08] MEDS ORDERED: CALCIUM CARBONATE 500 MG (TUMS) TAB.CHEW PO PRN (10:30)
[2020-05-08] MEDS ORDERED: diphenhydrAMINE 25 MG TAB (BENADRYL) PO PRN (10:30)
[2020-05-08] MEDS ORDERED: ACETAMINOPHEN 500 MG TAB (TYLENOL) PO PRN (10:30)
[2020-05-08] MEDS ORDERED: FLEET ENEMA ADULT 1 EA BTL PR PRN (10:30)
[2020-05-08] MEDS ORDERED: LOPERAMIDE 2 MG (IMODIUM) TABLET PO PRN (10:30)
[2020-05-08] MEDS ORDERED: SENNA W/DOCUSATE (SENOKOT S) TABLET PO SCH (10:30)
[2020-05-08] MEDS ORDERED: ALPRAZolam 0.25 MG (XANAX) TAB PO PRN (10:30)
--- NOTE | 2020-05-08 11:13 | Occupational Therapy Eval ---
OT Evaluation-General/PLF Medical Diagnosis Admission Date May 08, 2020 at 10:15 Medical Diagnosis: bipolar hip L Onset Date: May 06, 2020 Therapy Diagnosis Therapy Diagnosis: Decreased ADL skills Height/Weight Height (Feet): 5 Height (Inches): 2.00 Weight (Pounds): 161 Precautions Precautions/Isolations: Standard Precautions Weight Bear Status Weight Bearing Restriction: Weight Bearing/Tolerated Location Restriction: L LE Referral Physician: Abdiel Referral Reason: Activity Tolerance, Self Care, Evaluation/Treatment, Strengthening/ROM Medical History Pertinent Medical History: HTN Additional Medical History HTN, pacemaker Current History Pt underwent bipolar hip: L side precautions Reviewed History: Yes Social History Home: Single Level Current Living Status: Children (daughter and son in law) Entry Into Home: Ramp ADL-Prior Level of Function SCALE: Activities may be completed with or without assistive devices. 7-Smmtdmrhaj-esazsqz completes the activity by him/herself with no assistance from a helper. 5-Set-up or Clean-up Assistance-helper sets up or cleans up; patient completes activity. [place] assists only prior to or following the activity. 4-Supervision or Touching Assistance-helper provides verbal cues and/or touching/steadying and/or contact guard assistance as patient completes activity. Assistance may be provided throughout the activity or intermittently. 3-Partial/Moderate Assistance-helper does LESS THAN HALF the effort. [place] lifts, holds or supports trunk or limbs, but provides less than half the effort. 2-Substantial/Maximal Assistance-helper does MORE THAN HALF the effort. [place] lifts or holds trunk or limbs and provides more than half the effort. 0-Zucykdaqd-xaaint does ALL the effort. Patient does none of the effort to complete the activity. Or, the assistance of 2 or more helpers is required for the patient to complete the activity. If activity was not attempted, code reason: 7-Patient Refused. 9-Not Applicable-not attempted and the patient did not perform the activity before the current illness, exacerbation or injury. 10-Not Attempted due to Environmental Limitations-(lack of equipment, weather restraints, etc.). 88-Not Attempted due to Medical Conditions or Safety Concerns. 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 Seen with PT for OT/ PT co-treat this morning. Pt states pain upon stance/ ambulation, though does not rate. Pt very pleasant. PT evaluation OT evaluation: [id number] (10) OT/ PT co-treat: 5630-6475 (50) OT addresses ADLs, UE movement, strength of UE, problem solving, sequencing as PT addresses fx transfers, gait, LE movement/ strength. OT individual tx: [id number] (15) Current Glasses/Contacts: Yes Hearing Aids: No Dentures/Partials: No Hand Dominance: Right Upper Extremity ROM WFL BUE Upper Extremity Coordination WFL BUE Upper Extremity Sensation WFL BUE Upper Extremity Strength WFL BUE Edema: none noted. ADL-Treatment Eating (QC): 6 Oral Hygiene (QC): 6 (seated in chair per clinical judgment) Shower/Bathe Self (QC): 4 (CGA in stance, SBA all tasks with cues for LHS use due to precautions.) Upper Body Dressing (QC): 5 (s/u) Lower Body Dressing (QC): 2 (max prior to treatment due to precautions and inability to bend >90*. Pt is educated on AE and given cues throughout dressing task. Completes with SBA-CGA in stance.) On/Off Footwear (QC): 1 (TD due to precautions. Pt is educated on sock aide and dressing stick for donning/ doffing. Completes with minimal cues for socks. Requires assist for REYNA hose. ) Toileting Hygiene (QC): 4 (CGA in stance. ) Other Treatments OT evaluation: 2625-4873 (10) OT/ PT co-treat: [id number] (50) OT addresses ADLs, UE movement, strength of UE, problem solving, sequencing as PT addresses fx transfers, gait, LE movement/ strength. OT/ PT co-treat. Pt completes sit to stands with SBA-CGA with increased time allotted. Pt ambulates to gym, completes bed transfer with A from PT. Pt states pain upon supine position. Pt is educated on ARU process and OT role. Pt completes all tasks with increased time, good cognition/ problem solving. Pt is educated on precautions. Sit to stand and ambulates across uneven surface/ small step with CGA. Pt introduced to room, desires shower. Pt is prepped, completes shower transfer with CGA and cues for hand/ body placement. Pt sit to clinical office technician shower during bottom care with CGA and use of gbs. Pt doffs hands from gbs in stance during sarthak care with SBA throughout. No LOB. Pt able to recall 1/3 post shower to prep for dressing tasks. Socks donned prior to transfers. Pt sit to stand and SPT to w/c to complete dressing in bathroom. Completes as outlined with increased cues/ education on AE. Pt ambulates from bathroom to chair, completing LB exercises while OT explains sock aide process. Pt dons B socks with min cues/ SBA. Pt is left in recliner with all needs met, call light in reach. OT individual tx: [id number] (15) Pt in bathroom upon entry. Pt completes sarthak care in sit. Pt commode transfer from sit with CGA, use of walker for support in stance. Pt's pants drop to floor upon stance, states, "I need my grabber." Pt is handed bakery assistant, completes pant donning with CGA. Pt ambulates to bed, sit to supine with mod A with LB. Pt is adjusted in bed, denies abductor pillow as desires suppository from nursing. Pt is educated on HEP/ handout with demonstration throughout. Pt completes each exercise, instructed to complete 10- 15 reps, 2-3x per day. Pt denies questions, all needs met, call light in reach, pt in bed. Education OT Patient Education: Correct positioning, Exercise program, Home exercise program, Modified ADL techniques, Purpose of tx/functional activities, Reviewed precautions, Rehab process, Safety issues, Transfer techniques, Use of adapted equipment Teaching Recipient: Patient Teaching Methods: Demonstration, Handout, Discussion Response to Teaching: Verbalize Understanding, Return Demonstration OT Short Term Goals Short Term Goals Time Frame: May 15, 2020 Toileting hygiene: 4 Shower/bathe self: 4 Upper body dressin Lower body dressin Putting on/taking off footwear: 6 OT Half-Way Goals Nanotechnician Goals Time Frame: May 22, 2020 Eating (QC): 6 Oral Hygiene (QC): 6 Toileting Hygiene (QC): 6 Shower/Bathe Self (QC): 6 Upper Body Dressing (QC): 6 Lower Body Dressing (QC): 6 On/Off Footwear (QC): 6 Additional Goals: 1-Demonstrate ADL Tasks, 2-Verbalize Understanding, 3- ImproveStrength/Geri 1=Demonstrate adherence to instructed precautions during ADL tasks. 2=Patient will verbalize/demonstrate understanding of assistive devices/modifications for ADL. 3=Patient will improve strength/tolerance for activity to enable patient to perform ADL's. OT Education/Plan Problem List/Assessment Assessment: Decreased Activ Tolerance, Dependent Transfers, Impaired Bed Mobility, Impaired Funct Balance, Impaired I ADL's, Impaired Self-Care Skills Discharge Recommendations Plan/Recommendations: Continue POC Therapy Discharge Recommendati: Home & Family Equpiment Recommendations-D/C: Sock Aide, Dressing Stick Treatment Plan/Plan of Care Treatment,Training & Education: Yes Patient would benefit from OT for education, treatment and training to promote independence in ADL's, mobility, safety and/or upper extremity function for ADL's. Plan of Care: ADL Retraining, Caregiver Training, Concurrent Therapy, Functional Mobility, Group Exercise/Act as Ind, UE Funct Exercise/Act Treatment Duration: May 22, 2020 Frequency: At least 5 of 7 days/Wk (IRF) Estimated Hrs Per Day: 1.5 hours per day Agreement: Yes Rehab Potential: Good Time/GCodes Start Time: 10:30 Stop Time: 11:30 Total Time Billed (hr/min): 75 (60+15) Billed Treatment Time OT evaluation: 9301-3423 (10) OT/ PT co-treat: [id number] (50) OT addresses ADLs, UE movement, strength of UE, problem solving, sequencing as PT addresses fx transfers, gait, LE movement/ strength. 1, EVM (10), ADL 2 (30), FA (20)= 60 OT individual tx: [id number] (15) 1, ADL (15) Total: 75 MONTEZ AVITIA OTR May 08, 2020 11:13
--- NOTE | 2020-05-08 11:43 | Physical Therapy Evaluation ---
PT Evaluation-General Medical Diagnosis Admission Date May 08, 2020 at 10:15 Medical Diagnosis: bipolar hip L Onset Date: May 07, 2020 Therapy Diagnosis Therapy Diagnosis: impaired mobility, strength, endurance, ROM Height/Weight Height (Feet): 5 Height (Inches): 2.00 Weight (Pounds): 161 Precautions Precautions/Isolations: Fall Prevention, Standard Precautions Referral Physician: Flor Meadows DO Reason for Referral: Evaluation/Treatment Medical History Pertinent Medical History: HTN Additional Medical History Past Medical History Surgeries: Pacemaker Currently Using CPAP: Yes Cardiac: Hypertension Reproductive: Yes (HX TUBAL LIGATION) Sexually Transmitted Disease: No HIV/AIDS: No Female Reproductive Disorders: Denies Tubal Ligation, Menopausal Gastrointestinal: Chronic Constipation Endocrine: Hypothyroidsim HEENT: Cataract Reviewed History: Yes Social History Home: Single Level Prior Prior Level of Function SCALE: Activities may be completed with or without assistive devices. 4-Srxwyzulbc-wzthegt completes the activity by him/herself with no assistance from a helper. 5-Set-up or Clean-up Assistance-helper sets up or cleans up; patient completes activity. [place] assists only prior to or following the activity. 4-Supervision or Touching Assistance-helper provides verbal cues and/or touching/steadying and/or contact guard assistance as patient completes activity. Assistance may be provided throughout the activity or intermittently. 3-Partial/Moderate Assistance-helper does LESS THAN HALF the effort. [place] lifts, holds or supports trunk or limbs, but provides less than half the effort. 2-Substantial/Maximal Assistance-helper does MORE THAN HALF the effort. [place] lifts or holds trunk or limbs and provides more than half the effort. 3-Ufcrvnmmk-ovcwdi does ALL the effort. Patient does none of the effort to complete the activity. Or, the assistance of 2 or more helpers is required for the patient to complete the activity. If activity was not attempted, code reason: 7-Patient Refused. 9-Not Applicable-not attempted and the patient did not perform the activity before the current illness, exacerbation or injury. 10-Not Attempted due to Environmental Limitations-(lack of equipment, weather restraints, etc.). 88-Not Attempted due to Medical Conditions or Safety Concerns. Bed Mobility: 6 Transfers (B,C,W/C): 6 Gait: 6 Indoor Mobility (Ambulation): Independent uses a 4 wheeled walker at home PT Evaluation-Current Subjective Patient on commode pre tx, agrees to PT, states she has very little pain in left hip at this time, will be co-treating with OT due to poor patient mobility, strength, endurance, safety and decrease risk of falls, coordinate UE and LE during activity. Pt/Family Goals to be independent at home Objective Patient Orientation: Person, Place, Situation Sensory Vision: Wears Glasses Hearing: Functional Sensation Right Lower Extremit: Intact Sensation Left Lower Extremity: Intact Transfers Roll Left & Right (QC): 3 Sit to Lying (QC): 3 Lying to Sitting/Side of Bed(Q: 3 Sit to Stand (QC): 4 Chair/Uks-wb-Karfg Xfer(QC): 4 Toilet Transfer (QC): 4 Car Transfer (QC): 3 Patient performed bed mobility with min assist, supine <-> sit with mod assist, sit <-> stand CGA, transfers CGA, car transfer min assist. Occasional cues for hand placement and safety. Educated on hip precautions. Gait Does the Patient Walk?: Yes Mode of Locomotion: Walk Anticipated Mode of Locomotion: Walk Walk 10 feet (QC): 4 Walk 50 ft with 2 Turns(QC): 4 Walk 150 ft (QC): 88 Walking 10ft/uneven surface-QC: 4 Distance: 120', 100' Gait Assistive Device: FWW Comments/Gait Description Patient can ambulate 120' with a rolling walker with CGA (including 50' with at least 2 turns of 90 degrees and 10' over an uneven surface), gait is antalgic, slow, circumducts left leg Wheelchair Training Does the Pt Use a Wheelchair?: No Wheel 50 ft with 2 turns (QC): 9 Wheel 150 ft (QC): 9 Stairs #of Steps: 1 1 Step (curb) (QC): 4 4 Steps (QC): 88 12 Steps (QC): 88 Walking Assistive Device: Walker Patient can go up and down 1 step using a rolling walker with CGA, cues or foot placement. Balance Sitting Static: Normal Sitting Dynamic: Normal Standing Static: Good Standing Dynamic: Good Picking up an Object (QC): 88 Treatment Dressing and bathing, seated LE exercises x20 (LAQ and AP). PT worked on bed mobility and transfers, ambulation, stairs, positioning and safety during dressing and bathing, LE exercise, OT worked on dressing and bathing, UE positioning and safety during activity. Assessment/Needs Rehab Potential: Fair PT Short Term Goals Short Term Goals Time Frame: May 15, 2020 Roll Left & Right: 6 Sit to lyin (Jennifer) Lying to sitting on side of be: 3 (Jennifer) Sit to stand: 4 (SBA) Chair/pbw-ey-aavcg transfer: 4 (SBA) Walk 10 feet: 4 Walk 50 feet with two turns: 4 Walk 150 feet: 4 PT Group Home Goals Group Home Goals PT Group Home Goals Time Frame: May 29, 2020 Roll Left & Right (QC): 6 Sit to Lying (QC): 6 Lying-Sitting on Side/Bed(QC): 6 Sit to Stand (QC): 6 Chair/Jsg-bd-Jhsjp Xfer(QC): 6 Toilet Transfer (QC): 6 Car Transfer (QC): 4 Does the Patient Walk: Yes Walk 10 feet (QC): 6 Walk 50ft with 2 Turns (QC): 6 Walk 150 ft (QC): 6 Walking 10ft on Uneven Surface: 4 1 Step (curb) (QC): 4 4 Steps (QC): 4 12 Steps (QC): 88 Picking up an Object (QC): 88 Wheel 50 feet with 2 turns (QC: 9 Wheel 150 feet: 9 PT Plan Problem List Problem List: Activity Tolerance, Functional Strength, Safety, Balance, Gait, Transfer, Bed Mobility, ROM Treatment/Plan Treatment Plan: Continue Plan of Care Treatment Plan: Bed Mobility, Education, Functional Activity Geri, Functional Strength, Group Therapy, Gait, Safety, Therapeutic Exercise, Transfers Treatment Duration: May 29, 2020 Frequency: At least 5 of 7 days/Wk (IRF) Estimated Hrs Per Day: 1.5 hours per day Patient and/or Family Agrees t: Yes Safety Risks/Education Patient Education: Gait Training, Transfer Techniques, Steps, Reviewed Precautions, Correct Positioning, Safety Issues Teaching Recipient: Patient Teaching Methods: Demonstration, Discussion Response to Teaching: Reinforcement Needed Discharge Recommendations Plan Patient will perform bed mobility and transfer training, balance and endurance training, functional strengthening, stair training, gait training, and education, to improve functional mobility and independence at home. Therapy Discharge Recommendati: Home & Family Time/GCodes Time In: 1015 Time Out: 1130 Total Billed Treatment PT eval from 7608-2061, OT eval from [id number], co-treat from [id number]. RIKA 15' FA 50' BECKIE MAYO PT May 08, 2020 11:43
[2020-05-08] MEDS ORDERED: ACETAMINOPHEN 325 MG TABLET PO PRN ×2 (13:00→18:15)
--- NOTE | 2020-05-08 13:36 | ST Cognitive Linguistic Eval ---
Speech Evaluation-General Medical Diagnosis bipolar hip L Onset Date: May 07, 2020 Therapy Diagnosis Therapy Diagnosis: Cognitive-communication Referral Referring Physician: Dr. Meadows Medical History Pertinent Medical History: HTN Reviewed History: Yes Social History Current Living Status: Children (daughter and son in law) Speech PLF-Current Status Prior Level of Function Patient lived at home with her daughter and son in law where she was independent with her daily needs. Subjective Patient was pleasant and cooperative with the cognitive assessment. Language Eval: Auditory Comprehends Simple Yes/No Ques: Functional Indent/Objects Multiple [place]: Functional Ident/Pics in Multiple [place]: Functional Follows 1-Step Commands: Functional Follows Complex Directions: Functional Follows General Conversations: Functional Language Eval: Verbal Language Completes Spontaneous Greeting: Functional Produces Auto, Serial Info: Functional Imitates Simple Words/Phrases: Functional Word Finding: Functional Requests Basic Needs: Functional States Basic Personal Info: Functional Expresses Complex Ideas: Functional Objective Cognitive Domain Attention: WNL Memory: WNL Problem Solving: Functional Executive Functions: WNL Visuospatial Skills: WNL Composite Severity Rating: WNL Clock Drawing Severity Rating: WNL Objective Formal/Standardized Tests [facility] Mental Status ([facility]) Results 28/30, within normal limits Oral Motor/Speech Production Within Normal Limits Impression Patient is a pleasant 84 y/o female who was admitted to the ARU s/p fractured hip from a fall. Patient was given the SLUMS with a score of 28/30 obtained. This score is within the normal range of function. Patient does not need further ST services at this time. Speech Patient Assess Expression of Ideas/Wants: Expression (4) Understanding Verbal Content: Understands (4) Brief Interview-Mental Status: Yes Repetition of Three Words: Three (3) Temporal Orientation: Year: Correct (3) Temporal Orientation: Month: Accurate within 5 days(2) Temporal Orientation: Day: Correct (1) Recall : Wear to say "Sock": Yes, no cue required (2) Recall : Color: Yes, no cue required (2) Recall : Bed: Yes,after cueing (1) Memory/Recall Ability: Current season, That he or she is in a hsp/hsp unit Speech-Plan Patient/Family Goals Patient/Family Goals: Patient plans on returning to her home upon discharge from rehab. Treatment Plan Speech Therapy Treatment Plan: Discontinue ST Treatment Duration: May 08, 2020 Frequency: 1 time per week Estimated Hrs Per Day: .5 hour per day Rehab Potential: Fair Barriers to Learning: Patient's age Pt/Family Agrees to Plan: Yes Safety Risks/Education Teaching Recipient: Patient Teaching Methods: Demonstration, Discussion Response to Teaching: Verbalize Understanding, Return Demonstration Education Topics Provided: Safety within her room, communication of wants/needs. Time Speech Therapy Time In: 11:45 Speech Therapy Time Out: 12:15 Total Billed Time: 30 Billed Treatment Time 1, PAMELANDDEWAYNE Beal May 08, 2020 13:36
--- NOTE | 2020-05-08 13:59 | Physical Therapy Daily Note ---
PT Daily Note-Current Subjective Patient agrees to PT. No c/o. Pain Numeric Pain Scale: 3 Location: Left Location Body Site: Hip Pain Description: Acute Mental Status Patient Orientation: Normal For Age Transfers SCALE: Activities may be completed with or without assistive devices. 3-Wanseemokf-uxrtueq completes the activity by him/herself with no assistance from a helper. 5-Set-up or Clean-up Assistance-helper sets up or cleans up; patient completes activity. [place] assists only prior to or following the activity. 4-Supervision or Touching Assistance-helper provides verbal cues and/or touching/steadying and/or contact guard assistance as patient completes activity. Assistance may be provided throughout the activity or intermittently. 3-Partial/Moderate Assistance-helper does LESS THAN HALF the effort. [place] lifts, holds or supports trunk or limbs, but provides less than half the effort. 2-Substantial/Maximal Assistance-helper does MORE THAN HALF the effort. [place] lifts or holds trunk or limbs and provides more than half the effort. 8-Wsnkizzvp-kzvksu does ALL the effort. Patient does none of the effort to complete the activity. Or, the assistance of 2 or more helpers is required for the patient to complete the activity. If activity was not attempted, code reason: 7-Patient Refused. 9-Not Applicable-not attempted and the patient did not perform the activity before the current illness, exacerbation or injury. 10-Not Attempted due to Environmental Limitations-(lack of equipment, weather restraints, etc.). 88-Not Attempted due to Medical Conditions or Safety Concerns. Sit to Stand (QC): 4 Toilet Transfer (QC): 4 Gait Training Does the Patient Walk?: Yes Distance: 15' Walk 10 feet (QC): 4 Gait Assistive Device: FWW slow and antalgic Exercises Seated Therapy Exercises: Ankle pumps, Long arc quads Seated Reps: 15 Assessment Patient tolerated treatment well. Increase activity as tolerated by patient. PT Short Term Goals Short Term Goals Time Frame: May 15, 2020 Roll Left & Right: 6 Sit to lyin (Jennifer) Lying to sitting on side of be: 3 (Jennifer) Sit to stand: 4 (SBA) Chair/hje-hf-hircf transfer: 4 (SBA) Walk 10 feet: 4 Walk 50 feet with two turns: 4 Walk 150 feet: 4 PT Mcc Goals Crown Buffer Goals PT Crown Buffer Goals Time Frame: May 29, 2020 Roll Left & Right (QC): 6 Sit to Lying (QC): 6 Lying-Sitting on Side/Bed(QC): 6 Sit to Stand (QC): 6 Chair/Gxv-jm-Mmbmb Xfer(QC): 6 Toilet Transfer (QC): 6 Car Transfer (QC): 4 Walk 10 feet (QC): 6 Walk 50ft with 2 Turns (QC): 6 Walk 150 ft (QC): 6 Walking 10ft on Uneven Surface: 4 1 Step (curb) (QC): 4 4 Steps (QC): 4 12 Steps (QC): 88 Picking up an Object (QC): 88 Wheel 50 feet with 2 turns (QC: 9 Wheel 150 feet: 9 PT Plan Treatment/Plan Treatment Plan: Continue Plan of Care Treatment Plan: Bed Mobility, Education, Functional Activity Geri, Functional Strength, Group Therapy, Gait, Safety, Therapeutic Exercise, Transfers Treatment Duration: May 29, 2020 Frequency: At least 5 of 7 days/Wk (IRF) Estimated Hrs Per Day: 1.5 hours per day Patient and/or Family Agrees t: Yes Time/GCodes Time In: 1325 Time Out: 1335 Total Billed Treatment Time: 10 Total Billed Treatment 1 visit FA 10 min JOELLE GARZON PT May 08, 2020 13:59
[2020-05-08] MEDS: BISACODYL 10 MG SUPP (DULCOLAX) PR PRN (14:58)
[2020-05-08 18:00] VITALS: BP 180/70
[2020-05-08 18:11] VITALS: BP 122/62
[2020-05-08] MEDS ORDERED: ONDANSETRON 4 MG/2 ML (SDV) Z0FRAN IVP PRN (18:15)
[2020-05-08] MEDS ORDERED: diphenhydrAMINE 50 MG/ML INJ (BENADRYL) IVP PRN (18:15)
[2020-05-08] MEDS ORDERED: TEMAZEPAM 15 MG (RESTORIL) CAP PO PRN (18:15)
[2020-05-08] MEDS: DOCUSATE SODIUM 100 MG (COLACE) CAP PO SCH (20:25)
[2020-05-08] MEDS: CARVEDILOL 12.5 MG (COREG) TABLET PO SCH (20:25)
[2020-05-08] MEDS: cloNIDine 0.1 MG (CATAPRES) TAB PO SCH (20:25)
[2020-05-08] MEDS: polyethylene glycoL POWDER 17 GM (MIRALAX) PACK PO SCH (20:25)
[2020-05-08] MEDS: amLODIPine 5 MG (NORVASC) TAB PO SCH (20:25)
[2020-05-08] MEDS: SENNOSIDES 8.6 MG (SENOKOT) TAB PO SCH (20:25)
[2020-05-08] MEDS: TROLAMINE (ASPERCREME) 10% CR 90 GM TUBE TOP SCH (20:26)
--- NOTE | 2020-05-08 20:27 | PM&R Post Admission Assessment ---
PM&R HP Date of Visit: May 08, 2020 Time of Visit: 11:30 History of Present Illness CC: Left femoral neck fracture s/p repair Dr Restrepo POD # 2 HPI: This is an 84yoWF clinic patient of Dr Barton who presents to IRF in need of aggressive therapy in order to return to independent living after suffering a fall and left femoral neck fracture s/p uncomplicated repair. Currently she has labile HTN and pain is controlled. BM regimen will be maintained. Reviewed H&P and therapy notes. PLOF was independent without use of AD. Lives with daughter. Past Filiqqi-Cmiuml-Kbmxkc Hx Past Med/Social Hx: Reviewed Nursing Past Med/Soc Hx, Reviewed and Corrections made Patient Social History Marrital Status: single Employed/Student: retired Alcohol Use: Denies Use Recreational Drug Use: No Smoking Status: Never a Smoker 2nd Hand Smoke Exposure: No Physical Abuse Screen: No Sexual Abuse: No Recent Foreign Travel: No Contact w/other who traveled: No Recent Hopitalizations: No Recent Infectious Disease Expo: No Immunizations Up To Date Tetanus Booster (TDap): Unknown Pediatric: No Seasonal Allergies Seasonal Allergies: No Past Medical History Surgeries: Orthopedic, Pacemaker Currently Using CPAP: Yes Cardiac: Hypertension Reproductive: Yes (HX TUBAL LIGATION) Sexually Transmitted Disease: No HIV/AIDS: No Female Reproductive Disorders: Denies Tubal Ligation, Menopausal Gastrointestinal: Chronic Constipation Endocrine: Hypothyroidsim HEENT: Cataract Hearing Impairment: Denies History of Blood Disorders: No Adverse Reaction to Blood Bell: No Family History Family history: Cardiovascular disease 19 MOTHER (PT'S MOTHER AND 6 OR 8 SISTERS ALL WITH HEART ATTACKS) G8 SISTER Family history: Coronary thrombosis 19 MOTHER (PT'S MOM AND 6-8 SISTERS ALL FROM HEART ATTACKS) G8 SISTER Heart Disease, CAD Over 55 Years Old, Hypertension, Vascular Disease Prior Level of Function Bed Mobility: 6 Transfers: 6 Gait: 6 Indoor Mobility (Ambulation): Independent Self Care: Independent Functional Cognition: Independent 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 Drive Self: No Current Level of Fuctioning Roll Left to Right: 3 Sit to Lyin Lying to Sitting/Side of Bed: 3 Sit to Stand: 4 Chair/Mnc-xe-Hnjyy Xfer: 4 Car Transfer: 3 Does the Patient Walk: Yes Mode of Locomotion: Walk Anticipated Mode of Locomotion: Walk Walk 10 feet: 4 Walk 50 ft with 2 Turns: 4 Walk 150 ft: 88 Walking 10ft on uneven surface: 4 Gait Assistive Device: FWW Does the Pt Use a Wheelchair: No Wheel 50 ft with 2 turns: 9 Wheel 150 ft: 9 #of Steps: 1 1 Step (curb): 4 4 Steps: 88 Walking Assistive Device: Walker 12 Steps: 88 Picking up an Object: 88 Eatin Oral Hygiene: 6 (seated in chair per clinical judgment) Shower/Bathe Self: 4 (CGA in stance, SBA all tasks with cues for LHS use due to precautions.) Upper Body Dressin (s/u) Lower Body Dressin (max prior to treatment due to precautions and inability to bend >90*. Pt is educated on AE and given cues throughout dressing task. Completes with SBA-CGA in stance.) On/Off Footwear: 1 (TD due to precautions. Pt is educated on sock aide and dressing stick for donning/ doffing. Completes with minimal cues for socks. Requires assist for REYNA hose. ) Toileting Hygiene: 4 (CGA in stance. ) PM&R Allergy/Meds/Data Review Allergies Coded Allergies: hydrocodone (Verified Allergy, Unknown, Rash, 05/08/20) Home Medications Scheduled Acetaminophen/Diphenhydramine (Tylenol Pm Ex-Strength Caplet), 1 EACH PO HS Amlodipine Besylate (Norvasc), 10 MG PO DAILY Aspirin (Aspir 81), 81 MG PO DAILY, (Reported) Carvedilol (Coreg Tablet), 12.5 MG PO BID Clonidine Hcl (Catapres Tab), 0.1 MG PO TID Enoxaparin Sodium (Enoxaparin Sodium), 40 MG SC DAILY@0900 Irbesartan (Avapro), 300 MG PO DAILY Levothyroxine Sodium (Levothyroxine 75 Mcg Tab), 75 MCG PO DAILY, (Reported) Lidocaine (Lidocaine), 1 EACH TP Q12H Magnesium Oxide (Magnesium), 250 MG PO DAILY, (Reported) Tramadol HCl (Tramadol HCl), 50 MG PO QID Trolamine Salicylate (Trolamine Salicylate), 0 GM TOP QID Discontinued Medications Cefuroxime Axetil (Ceftin Tablet (Non-Formulary)), 500 MG PO BID Hydrochlorothiazide (Hctz), 25 MG PO DAILY@0900 Current Medications Current Medications Reviewed Review of Systems Constitutional: see HPI, weakness Gastrointestinal: constipation Musculoskeletal: back pain, joint pain Physical Exam Physical Exam Vital Signs Vital Signs - First Documented 05/08/20 18:00 Temp 37.0 Pulse 76 Resp 18 B/P (MAP) 180/70 (106) Pulse Ox 97 O2 Delivery Room Air Capillary Refill : Height, Weight, BMI Height: 5'2.00" Weight: 161lbs. oz. 73.452131pk; 28.75 BMI Method: General Appearance: No Apparent Distress, WD/WN, Chronically ill Eyes: Bilateral Eye Normal Inspection, Bilateral Eye PERRL HEENT: PERRL/EOMI, Normal ENT Inspection, Pharynx Normal Neck: Full Range of Motion, Normal Inspection, Non Tender, Supple, Carotid Bruit Respiratory: Chest Non Tender, Lungs Clear, Normal Breath Sounds, No Accessory Muscle Use, No Respiratory Distress Cardiovascular: Regular Rate, Rhythm, No Edema, No Gallop, No JVD, No Murmur, Normal Peripheral Pulses Gastrointestinal: Normal Bowel Sounds, No Organomegaly, No Pulsatile Mass, Non Tender, Soft Back: Normal Inspection, No CVA Tenderness, No Vertebral Tenderness Extremity: Normal Capillary Refill, Normal Inspection, Normal Range of Motion (except left leg due to post op site), Non Tender, No Calf Tenderness, No Pedal Edema Neurologic/Psychiatric: Alert, Oriented x3, No Motor/Sensory Deficits, Normal Mood/Affect Skin: Normal Color, Warm/Dry Lymphatic: No Adenopathy PM&R Medical Assessment & Plan REHAB/MEDICAL ASSESSMENT AND PLAN: REHAB IMPAIRMENT GROUP: Left hip fracture ETIOLOGIC DIAGNOSIS: Left hip fracture The comorbidities that impact the patients function and/or functional outcome by: advanced age, falls risk, HTN OOC REHAB PLAN: The patient is being admitted to our comprehensive inpatient rehabilitation facility and can tolerate the intensity of service consisting of at least: 180 minutes of therapy a day, 5 out of 7 days a week Rehab treatment will consist of: PT OT will focus on regaining function of left leg after hip fracture in order to return to independent living The patient/family has a good understanding of our discharge process and will benefit from an interdisciplinary inpatient rehabilitation program. The patient has potential to make improvement and is in need of at least two of the following multidisciplinary therapies including but not limited to physical, occupational, speech, and prosthetics and orthotics. Additionally the patient will need services from respiratory, nutritional services, wound care, psychology, etc. (Customize this to each patient). Given the patients complex condition and risk of further medical complications, rehabilitation services cannot be safely or effectively provided at a lower level of care such as a chcf facility. BARRIERS TO DISCHARGE: Advanced age ESTIMATED LOS: 10 days DISPOSITION: Home with daughter RELEVANT CHANGES SINCE PREADMISSION SCREENING: I have compared the patients medical and functional status at the time of the preadmission screening and there are: no changes PROGNOSIS: Good REHABILITATION GOALS: 1.PT OT will focus on regaining function of left leg after hip fracture in order to return to independent living All the above goals were reviewed with the patient and he/she is in agreement. By signing this document, I acknowledge that I have personally performed a full physical examination on this patient within 24 hours of admission to this inpatient rehabilitation facility and have determined the patient to be able to tolerate the above course of treatment at an intensive level for a reasonable period of time. I will be completing a detailed individualized Plan of Care for this patient by day #4 of the patients stay based upon the Preadmission Screen, the Post-Admission Evaluation, and the therapy evaluations. Admission Dx/Comorbidities: (1) Hip fracture, left Status: Acute ICD Codes: S72.002A - Fracture of unspecified part of neck of left femur, initial encounter for closed fracture (2) Hypertension ICD Codes: I10 - Essential (primary) hypertension (3) Hypothyroidism ICD Codes: E03.9 - Hypothyroidism, unspecified (4) Advanced age ICD Codes: R54 - Age-related physical debility (5) Fall ICD Codes: W19.XXXA - Unspecified fall, initial encounter (6) Anemia ICD Codes: D64.9 - Anemia, unspecified Assessment/Plan Assessment and Plan Assess & Plan/Chief Complaint Assessment: Left hip fracture s/p repair HTN Hypothyroidism Advanced age Post op anemia Fall Plan: IRF protocol Home meds Monitor BP ART SEBASTIAN DO May 08, 2020 20:27
[2020-05-08] MEDS: LORazepam 0.5 MG (ATIVAN) TABLET PO PRN (20:36)
[2020-05-08] MEDS ORDERED: SENNOSIDES 8.6 MG (SENOKOT) TAB PO SCH (21:00)
--- NOTE | 2020-05-08 21:31 | Individualized Plan of Care ---
Individualized Plan of Care Rehab Nursing IPOC Order Admission Date May 08, 2020 at 10:15 Current Orders Orders Admission Order(Inpt,Obs,Sdc) (05/08/20 05:18) Vital Signs: Per Unit Policy ( 08,16,00 (05/08/20 05:18) Felix Sanford 09,21 (05/08/20 05:18) Sequential Compression Device Q4H (05/08/20 05:18) Spray Booth Operator-Inpt Rehab Con (05/08/20 05:18) Rehab Nursing Orders-Ipoc (05/08/20 05:18) Physical Therapy Rehab Orders (05/08/20 05:18) Occupational Therapy Rehab Ord (05/08/20 05:18) Speech Therapy Rehab Orders (05/08/20 05:18) General/Regular (05/08/20 Breakfast) Intake & Output 06,14,22 (05/08/20 05:18) Precautions (Aru) (05/08/20 05:18) Weekly Weight WEEK (05/08/20 05:18) Rehab-Intensity Of Therapy (05/08/20 05:18) Initiate Admission Nursing Pro .admission (05/08/20 05:18) Acetaminophen Tablet (Tylenol Tablet) (05/08/20 05:30) Alprazolam Tablet (Xanax Tablet) (05/08/20 05:30) Calcium Carbonate Chew Tablet (Antacid C (05/08/20 05:30) Diphenhydramine Tablet (Benadryl Tablet) (05/08/20 05:30) Docusate Sodium Capsule (Colace Capsule) (05/08/20 09:00) Docusate Sodium Capsule (Colace Capsule) (05/08/20 05:30) Bisacodyl Suppository (Dulcolax Supposit (05/08/20 05:30) Lactulose Oral Solution (Enulose Oral So (05/08/20 05:30) Na Phos/Na Biphos Enema (Fleet Enema Sami (05/08/20 05:30) Guaifenesin/Codeine Syrup (Robitussin Ac (05/08/20 05:30) Loperamide Tablet (Imodium Tablet) (05/08/20 05:30) Melatonin Tablet (Melatonin Tablet) (05/08/20 05:30) Polyethylene Glycol Powder Pkt (Miralax (05/08/20 09:00) Ondansetron Oral Dissolve Tab (Zofran (05/08/20 05:30) Senna S Tablet (Senokot S Tablet) (05/08/20 09:00) Admission Arrival Bed Request (05/08/20 10:42) Ambulate 08,, (05/08/20 11:35) Sequential Compression Device Q4H (05/08/20 11:35) Dvt/Vte Risk - Notifiy Physici Q4H (05/08/20 11:35) Tramadol Tablet (Ultram Tablet) (05/08/20 12:00) Tramadol Tablet (Ultram Tablet) (05/08/20 11:49) Acetaminophen Tablet (Tylenol Tablet) (05/08/20 10:30) Alprazolam Tablet (Xanax Tablet) (05/08/20 10:30) Calcium Carbonate Chew Tablet (Antacid C (05/08/20 10:30) Diphenhydramine Tablet (Benadryl Tablet) (05/08/20 10:30) Docusate Sodium Capsule (Colace Capsule) (05/08/20 10:30) Docusate Sodium Capsule (Colace Capsule) (05/08/20 10:30) Bisacodyl Suppository (Dulcolax Supposit (05/08/20 10:30) Lactulose Oral Solution (Enulose Oral So (05/08/20 10:30) Na Phos/Na Biphos Enema (Fleet Enema Sami (05/08/20 10:30) Guaifenesin/Codeine Syrup (Robitussin Ac (05/08/20 10:30) Loperamide Tablet (Imodium Tablet) (05/08/20 10:30) Melatonin Tablet (Melatonin Tablet) (05/08/20 10:30) Polyethylene Glycol Powder Pkt (Miralax (05/08/20 10:30) Ondansetron Oral Dissolve Tab (Zofran (05/08/20 10:30) Senna S Tablet (Senokot S Tablet) (05/08/20 10:30) Tramadol Tablet (Ultram Tablet) (05/08/20 12:15) Acetaminophen Tablet/Caplet (Tylenol T (05/08/20 13:00) Patient Visit (05/08/20 ) Functional Activities, Ea 15 (05/08/20 ) Patient Visit (05/08/20 ) Pt Eval Moderate Complexity (05/08/20 ) Functional Activities, Ea 15 (05/08/20 ) Patient Visit (05/08/20 ) Speech Sound Lang Comp (05/08/20 ) General/Regular (05/08/20 Dinner) Code/Resuscitation (05/08/20 18:10) Abduction Pillow: Apply (Order (05/08/20 18:10) Catheter(Urinary) Discontinue (05/08/20 18:10) Dressing Order (Intervention) DAILY (05/08/20 18:10) Hemovac Drain Care (05/08/20 18:10) Incentive Spirometry (Nursing) Q2H (05/08/20 18:10) Aspirin Enteric Coated Tablet (Ecotrin T (05/09/20 09:00) Carvedilol Tablet (Coreg Tablet) (05/08/20 21:00) Docusate Sodium Capsule (Colace Capsule) (05/08/20 21:00) Enoxaparin Injection (Lovenox Injection) (05/09/20 09:00) Lorazepam Tablet (Ativan Tablet) (05/08/20 18:15) Losartan Tablet (Cozaar Tablet) (05/09/20 09:00) Therapeutic Multivitamin Tab (Vitamins, (05/09/20 07:00) Pantoprazole Tablet (Protonix Tablet) (05/09/20 07:00) Temazepam Capsule (Restoril Capsule) (05/08/20 18:15) Sennosides Tablet (Senokot Tablet) (05/08/20 21:00) Trolamine 10% Cream (Aspercreme 10% Crea (05/08/20 21:00) Acetaminophen Tablet/Caplet (Tylenol T (05/08/20 18:15) Ondansetron Injection (Zofran Injectio (05/08/20 18:15) Amlodipine Tablet (Norvasc Tablet) (05/08/20 21:00) Clonidine Tablet (Catapres Tablet) (05/08/20 21:00) Diphenhydramine Injection (Benadryl Inje (05/08/20 18:15) Fentanyl Injection (Sublimaze Injection (05/08/20 18:15) Polyethylene Glycol Powder Pkt (Miralax (05/08/20 21:00) Tramadol Tablet (Ultram Tablet) (05/08/20 18:15) Sennosides Tablet (Senokot Tablet) (05/08/20 21:00) Cbc With Automated Diff (05/09/20 06:00) Comprehensive Metabolic Panel (05/09/20 06:00) Rehab Nursing Orders: Ongoing Assess. of Cognitive Status, Ongoing Assess. of Function Status, Bladder Management, Bladder Scan, Bladder Training, Bowel Management, Bowel Training, Disease Management & Educaiton, DVT Prophylaxis, Fall Prevention, Fluid/Electrolyte/Nutrition Mgmt, Infection Prevention, Medication Management & Education, Management of Risks & Complications, Nutrition Management, Pain Management, Patient/Family Support, Safety Management Intensity of Therapy to be met Patient to be seen: Min.3h per day/5 of 7d PT IPOC Problem List: Activity Tolerance, Functional Strength, Safety, Balance, Gait, Transfer, Bed Mobility, ROM Treatment Plan: Continue Plan of Care Bed Mobility, Education, Functional Activity Geri, Functional Strength, Group Therapy, Gait, Safety, Therapeutic Exercise, Transfers Treatment Duration: May 29, 2020 Frequency: At least 5 of 7 days/Wk (IRF) Estimated Hrs Per Day: 1.5 hours per day OT IPOC Problems: Decreased Activ Tolerance, Dependent Transfers, Impaired Bed Mobility, Impaired Funct Balance, Impaired I ADL's, Impaired Self-Care Skills OT Treatment, Training and Edu: Yes Plan of Care: ADL Retraining, Caregiver Training, Concurrent Therapy, Functional Mobility, Group Exercise/Act as Ind, UE Funct Exercise/Act Treatment Duration: May 22, 2020 Frequency: At least 5 of 7 days/Wk (IRF) Estimated Hrs Per Day: 1.[address] IPOC Speech Therapy Treatment Plan: Discontinue ST Treatment Duration: May 08, 2020 Frequency: 1 time per week Estimated Hrs Per Day: .5 hour per day Spray Booth Operator/Case Mgmt Spray Booth Operator/Case Managemen: Discharge Planning Dietitian/Test Administrator Dietitian/Test Administrator to monitor nutritional status and make changes and/or recommendations as needed and work with speech pathology on dietary upgrades as the occur. Physician IPOC Medical Issues being managed closely and that require the 24 hour availability of a physician: Recent fall and left hip fracture with labile HTN will require close monitoring of decompensation Medical Issues: Bowel/Bladder Function, DVT Prophylaxis, Falls Precautions, Fluid/Electrolyte/Nutrition Balance, Infection Protection, Pain Management Brief Synthesis of Preadmission Screen, Post-Admission Evaluation, and Therapy Evaluations: PT OT will focus on regaining function with the use of AD in order to strengthen left leg after hip fracture and prevent falls in order to return to independent living Medical Prognosis: Good Anticipated Length of Stay: 14 days ART SEBASTIAN DO May 08, 2020 21:31
[2020-05-09 05:27] VITALS: BP 180/70
[2020-05-09] MEDS: MULTIVIT W/MINERALS TAB (THERAGRAN M) PO SCH (05:46)
[2020-05-09] MEDS: PANTOPRAZOLE 40 MG (PROTONIX) TAB PO SCH (05:46)
[2020-05-09 06:36] LABS: BASOPHILS % (AUTO) 0 % (0-10); EOSINOPHILS # (AUTO) 0.1 10^3/uL (0.0-0.3); EOSINOPHILS % (AUTO) 1 % (0-10); HEMATOCRIT 28 % (35-52); HEMOGLOBIN 9.1 g/dL (11.5-16.0); LYMPHOCYTES # (AUTO) 3.3 10^3/uL (1.0-4.0); LYMPHOCYTES % (AUTO) 28 % (12-44); MEAN CORPUSCULAR HEMOGLOBIN 33 pg (25-34); MEAN CORPUSCULAR HGB CONC 33 g/dL (32-36); MEAN CORPUSCULAR VOLUME 99 fL (80-99); MEAN PLATELET VOLUME 10.4 fL (9.0-12.2); MONOCYTES # (AUTO) 1.2 10^3/uL (0.0-1.0); MONOCYTES % (AUTO) 10 % (0-12); NEUTROPHILS % (AUTO) 59 % (42-75); PLATELET COUNT 244 10^3/uL (130-400); WHITE BLOOD COUNT 11.8 10^3/uL (4.3-11.0)
[2020-05-09 06:53] LABS: ALBUMIN 3.6 GM/DL (3.2-4.5); POTASSIUM 4.5 MMOL/L (3.6-5.0)
[2020-05-09 06:54] LABS: CALCIUM 8.6 MG/DL (8.5-10.1)
[2020-05-09 06:56] LABS: TOTAL PROTEIN 7.1 GM/DL (6.4-8.2)
[2020-05-09 06:58] LABS: BILIRUBIN,TOTAL 0.5 MG/DL (0.1-1.0)
[2020-05-09 06:59] LABS: CREATININE SERUM 0.93 MG/DL (0.60-1.30)
[2020-05-09 08:00] VITALS: BP 125/54
--- NOTE | 2020-05-09 08:33 | Physical Therapy Daily Note ---
PT Daily Note-Current Subjective Pt rates pain 2-3/10 during activity. No pain at rest. "The more I do the better it feels." Mental Status Patient Orientation: Person, Place, Situation Transfers SCALE: Activities may be completed with or without assistive devices. 8-Injgpghemi-canpfem completes the activity by him/herself with no assistance from a helper. 5-Set-up or Clean-up Assistance-helper sets up or cleans up; patient completes activity. [place] assists only prior to or following the activity. 4-Supervision or Touching Assistance-helper provides verbal cues and/or touching/steadying and/or contact guard assistance as patient completes activity. Assistance may be provided throughout the activity or intermittently. 3-Partial/Moderate Assistance-helper does LESS THAN HALF the effort. [place] lifts, holds or supports trunk or limbs, but provides less than half the effort. 2-Substantial/Maximal Assistance-helper does MORE THAN HALF the effort. [place] lifts or holds trunk or limbs and provides more than half the effort. 0-Fzsmxmupy-vundig does ALL the effort. Patient does none of the effort to complete the activity. Or, the assistance of 2 or more helpers is required for the patient to complete the activity. If activity was not attempted, code reason: 7-Patient Refused. 9-Not Applicable-not attempted and the patient did not perform the activity before the current illness, exacerbation or injury. 10-Not Attempted due to Environmental Limitations-(lack of equipment, weather restraints, etc.). 88-Not Attempted due to Medical Conditions or Safety Concerns. Exercises Supine Ex: LE Protocol Supine Reps: 15 Treatments Pt donned shorts with manager urology, mod (I). Pt transfers CGA. Pt amb with FWW and WBAT (L) x 125ft. Pt performed LE ther ex per protocol. Assessment Current Status: Excellent Progress Pt progressing nicely. All mobility mod (I). Pt aware and shows safe mobility. Pt back in recliner with call light and all needs met. PT Short Term Goals Short Term Goals Time Frame: May 15, 2020 Roll Left & Right: 6 Sit to lyin (Jennifer) Lying to sitting on side of be: 3 (Jennifer) Sit to stand: 4 (SBA) Chair/xno-gp-lgpsj transfer: 4 (SBA) Walk 10 feet: 4 Walk 50 feet with two turns: 4 Walk 150 feet: 4 PT Lance Crewmember/Mlrs Sergeant Goals Custodial Goals PT Custodial Goals Time Frame: May 29, 2020 Roll Left & Right (QC): 6 Sit to Lying (QC): 6 Lying-Sitting on Side/Bed(QC): 6 Sit to Stand (QC): 6 Chair/Cgq-ap-Neivm Xfer(QC): 6 Toilet Transfer (QC): 6 Car Transfer (QC): 4 Does the Patient Walk: Yes Walk 10 feet (QC): 6 Walk 50ft with 2 Turns (QC): 6 Walk 150 ft (QC): 6 Walking 10ft on Uneven Surface: 4 1 Step (curb) (QC): 4 4 Steps (QC): 4 12 Steps (QC): 88 Picking up an Object (QC): 88 Wheel 50 feet with 2 turns (QC: 9 Wheel 150 feet: 9 PT Plan Treatment/Plan Treatment Plan: Continue Plan of Care Treatment Plan: Bed Mobility, Education, Functional Activity Geri, Functional Strength, Group Therapy, Gait, Safety, Therapeutic Exercise, Transfers Treatment Duration: May 29, 2020 Frequency: At least 5 of 7 days/Wk (IRF) Estimated Hrs Per Day: 1.5 hours per day Patient and/or Family Agrees t: Yes Time/GCodes Time In: 810 Time Out: 835 Total Billed Treatment Time: 25 Total Billed Treatment 1, gait 15', ther ex 10' BO MONTES DE OCA CPTA May 09, 2020 08:33
[2020-05-09] MEDS: CARVEDILOL 12.5 MG (COREG) TABLET PO SCH ×2 (08:44→19:49)
[2020-05-09] MEDS: ASPIRIN E.C. 81 MG (ECOTRIN) TAB PO SCH (08:44)
[2020-05-09] MEDS: cloNIDine 0.1 MG (CATAPRES) TAB PO SCH ×2 (08:44→19:48)
[2020-05-09] MEDS: SENNOSIDES 8.6 MG (SENOKOT) TAB PO SCH ×2 (08:44→19:48)
[2020-05-09] MEDS: DOCUSATE SODIUM 100 MG (COLACE) CAP PO SCH ×2 (08:47→19:49)
[2020-05-09] MEDS: amLODIPine 5 MG (NORVASC) TAB PO SCH ×2 (08:47→19:50)
[2020-05-09] MEDS: LOSARTAN 100 MG (COZAAR) TABLET PO SCH (08:49)
[2020-05-09] MEDS: TROLAMINE (ASPERCREME) 10% CR 90 GM TUBE TOP SCH ×2 (08:51→19:51)
[2020-05-09] MEDS: ENOXAPARIN 40 MG/0.4 ML (LOVENOX) SYR SC SCH (08:55)
--- NOTE | 2020-05-09 09:00 | NUR ---
Stated rested well after Ativan at HS, has own home CPAP machine but mask not fitting well and states new one ordered but not received yet; RT notified for possible new mask or different machine. Medicated with Ultram prior to PT treatment. Denies pain at rest but 4/10 with ambulation. States no difficulty in voiding since baxter catheter DC'd yesterday.
[2020-05-09] MEDS: BISACODYL 10 MG SUPP (DULCOLAX) PR PRN (11:40)
--- NOTE | 2020-05-09 11:50 | PM&R Progress Note ---
Subjective HPI/CC On Admission Date Seen by Provider: May 09, 2020 Time Seen by Provider: 10:30 Subjective/Events-last exam Pain controlled with Ultram Hgb 9.1 BP labile No BM yet so will need to increase laxatives Non-compliant with CPAP at home Standby assist currently Ativan helped her Review of Systems Musculoskeletal: leg pain Objective Exam Vital Signs Vital Signs Date Time Temp Pulse Resp B/P (MAP) Pulse Ox O2 Delivery O2 Flow Rate FiO2 05/10/20 05:08 37.2 73 18 112/56 (74) 96 Room Air Capillary Refill : Less Than 3 Seconds General Appearance: No Apparent Distress, WD/WN, Chronically ill HEENT: PERRL/EOMI, Normal ENT Inspection, Pharynx Normal Neck: Full Range of Motion, Normal Inspection, Non Tender, Supple, Carotid Bruit Respiratory: Chest Non Tender, Lungs Clear, Normal Breath Sounds, No Accessory Muscle Use, No Respiratory Distress Cardiovascular: Regular Rate, Rhythm, No Edema, No Gallop, No JVD, No Murmur, Normal Peripheral Pulses Gastrointestinal: Normal Bowel Sounds, No Organomegaly, No Pulsatile Mass, Non Tender, Soft Back: Normal Inspection, No CVA Tenderness, No Vertebral Tenderness Extremity: Normal Capillary Refill, Normal Inspection, Normal Range of Motion (except left leg due to post op site), Non Tender, No Calf Tenderness, No Pedal Edema Neurologic/Psychiatric: Alert, Oriented x3, No Motor/Sensory Deficits, Normal Mood/Affect Skin: Normal Color, Warm/Dry Lymphatic: No Adenopathy Results/Procedures Lab Patient resulted labs reviewed. FIM Transfers Therapy Code Descriptions/Definitions Functional [place] Measure: 0=Not Assessed/NA 4=Minimal Assistance 1=Total Assistance 5=Supervision or Setup 2=Maximal Assistance 6=Modified [place] 3=Moderate Assistance 7=Complete IndependenceSCALE: Activities may be completed with or without assistive devices. 6-Iqjtfollgp-gwaeqto completes the activity by him/herself with no assistance from a helper. 5-Set-up or Clean-up Assistance-helper sets up or cleans up; patient completes activity. [place] assists only prior to or following the activity. 4-Supervision or Touching Assistance-helper provides verbal cues and/or touching/steadying and/or contact guard assistance as patient completes activity. Assistance may be provided throughout the activity or intermittently. 3-Partial/Moderate Assistance-helper does LESS THAN HALF the effort. [place] lifts, holds or supports trunk or limbs, but provides less than half the effort. 2-Substantial/Maximal Assistance-helper does MORE THAN HALF the effort. [place] lifts or holds trunk or limbs and provides more than half the effort. 3-Uahjopfkw-xzcdug does ALL the effort. Patient does none of the effort to complete the activity. Or, the assistance of 2 or more helpers is required for the patient to complete the activity. If activity was not attempted, code reason: 7-Patient Refused. 9-Not Applicable-not attempted and the patient did not perform the activity before the current illness, exacerbation or injury. 10-Not Attempted due to Environmental Limitations-(lack of equipment, weather restraints, etc.). 88-Not Attempted due to Medical Conditions or Safety Concerns. Roll Left to Right (QC): 3 Sit to Lying (QC): 3 Sit to Stand (QC): 4 Chair/Ppx-ed-Swfpb Xfer(QC): 4 Car Transfer (QC): 3 Gait Training Does the Patient Walk?: Yes Distance: 15' Walk 10 feet (QC): 4 Walk 50 ft with 2 Turns(QC): 4 Walk 150 ft (QC): 88 Walking 10ft/uneven surface-QC: 4 Gait Assistive Device: FWW Wheelchair Training Does the Pt Use a Wheelchair?: No Wheel 50 ft with 2 turns (QC): 9 Wheel 150 ft (QC): 9 Stair Training #of Steps: 1 1 Step (curb) (QC): 4 4 Steps (QC): 88 12 Steps (QC): 88 Balance Picking up an Object (QC): 88 ADL-Treatment Eating (QC): 6 Oral Hygiene (QC): 6 (seated in chair per clinical judgment) Shower/Bathe Self (QC): 4 (CGA in stance, SBA all tasks with cues for LHS use due to precautions.) Upper Body Dressing (QC): 5 (s/u) Lower Body Dressing (QC): 2 (max prior to treatment due to precautions and inability to bend >90*. Pt is educated on AE and given cues throughout dressing task. Completes with SBA-CGA in stance.) On/Off Footwear (QC): 1 (TD due to precautions. Pt is educated on sock aide and dressing stick for donning/ doffing. Completes with minimal cues for socks. Requires assist for REYNA hose. ) Toileting Hygiene (QC): 4 (CGA in stance. ) Assessment/Plan Assessment and Plan Assess & Plan/Chief Complaint Assessment: Left hip fracture s/p repair HTN Hypothyroidism Advanced age Post op anemia Fall Plan: IRF protocol Home meds Monitor BP 05/09/20: Pain control Monitor closely Monitor O2 at night due to no CPAP (1) Hip fracture, left Status: Acute (2) Hypertension (3) Hypothyroidism (4) Advanced age (5) Fall (6) Anemia ART SEBASTIAN DO May 09, 2020 11:50
--- NOTE | 2020-05-09 14:00 | NUR ---
No BM x3 days, medicated with dulcolax suppository, expelled small BM.
[2020-05-09] MEDS ORDERED: CATHETER FLUSH 10 ML SYR IV PRN (17:00)
[2020-05-09 17:29] VITALS: BP 160/71
[2020-05-09] MEDS: LORazepam 0.5 MG (ATIVAN) TABLET PO PRN (19:48)
[2020-05-09] MEDS: MELATONIN 3 MG TABLET PO PRN (19:48)
[2020-05-09] MEDS: polyethylene glycoL POWDER 17 GM (MIRALAX) PACK PO SCH (19:50)
[2020-05-09] MEDS: CATHETER FLUSH 10 ML SYR IV SCH ×2 (19:55→20:36)
[2020-05-09] MEDS: fentaNYL INJECTION 100 MCG/2 ML AMP IVP PRN ×2 (20:36→22:13)
[2020-05-09] MEDS ORDERED: BACLOFEN 10 MG (LIORESAL) TAB ONE (22:22)
[2020-05-09] MEDS: BACLOFEN 10 MG (LIORESAL) TAB PO PRN (22:43)
[2020-05-10] MEDS: fentaNYL INJECTION 100 MCG/2 ML AMP IVP PRN ×2 (00:41→02:43)
[2020-05-10] MEDS: LORazepam 0.5 MG (ATIVAN) TABLET PO PRN (04:24)
[2020-05-10 05:08] VITALS: BP 112/56
[2020-05-10] MEDS: PANTOPRAZOLE 40 MG (PROTONIX) TAB PO SCH (06:40)
[2020-05-10] MEDS: CATHETER FLUSH 10 ML SYR IV SCH ×3 (06:40→21:23)
[2020-05-10] MEDS: BACLOFEN 10 MG (LIORESAL) TAB PO PRN ×2 (06:40→20:40)
[2020-05-10] MEDS: MULTIVIT W/MINERALS TAB (THERAGRAN M) PO SCH (06:40)
--- NOTE | 2020-05-10 06:49 | NUR ---
Pt has complained of pain in left hip and both legs all night long. Fentanyl IV given several times and is effective for a short period of time. New order received for Baclofen q6hrs prn muscle spasms and has helped some but pt cont to rate pain at 7-8 on a scale of 1-10. Will cont to monitor.
--- NOTE | 2020-05-10 07:30 | PM&R Progress Note ---
Subjective HPI/CC On Admission Date Seen by Provider: May 10, 2020 Time Seen by Provider: 10:00 Subjective/Events-last exam 05/10/20: Pain issues at night last night required multiple meds Oxycodone will be Rx in case that happens again Nerve pain in the legs and feet seemed to be the issue BM after suppository Pain controlled with Ultram Hgb 9.1 BP labile No BM yet so will need to increase laxatives Non-compliant with CPAP at home Standby assist currently [facility] helped her Review of Systems General: Fatigue, Malaise Objective Exam Vital Signs Vital Signs Date Time Temp Pulse Resp B/P (MAP) Pulse Ox O2 Delivery O2 Flow Rate FiO2 05/11/20 06:31 136/63 (87) 05/11/20 05:17 36.5 72 18 96 Room Air Capillary Refill : Less Than 3 Seconds General Appearance: No Apparent Distress, WD/WN, Chronically ill HEENT: PERRL/EOMI, Normal ENT Inspection, Pharynx Normal Neck: Full Range of Motion, Normal Inspection, Non Tender, Supple, Carotid Bruit Respiratory: Chest Non Tender, Lungs Clear, Normal Breath Sounds, No Accessory Muscle Use, No Respiratory Distress Cardiovascular: Regular Rate, Rhythm, No Edema, No Gallop, No JVD, No Murmur, Normal Peripheral Pulses Gastrointestinal: Normal Bowel Sounds, No Organomegaly, No Pulsatile Mass, Non Tender, Soft Back: Normal Inspection, No CVA Tenderness, No Vertebral Tenderness Extremity: Normal Capillary Refill, Normal Inspection, Normal Range of Motion (except left leg due to post op site), Non Tender, No Calf Tenderness, No Pedal Edema Neurologic/Psychiatric: Alert, Oriented x3, No Motor/Sensory Deficits, Normal Mood/Affect Skin: Normal Color, Warm/Dry Lymphatic: No Adenopathy Results/Procedures Lab Laboratory Tests 05/11/20 05:40 Patient resulted labs reviewed. FIM Transfers Therapy Code Descriptions/Definitions Functional [place] Measure: 0=Not Assessed/NA 4=Minimal Assistance 1=Total Assistance 5=Supervision or Setup 2=Maximal Assistance 6=Modified [place] 3=Moderate Assistance 7=Complete IndependenceSCALE: Activities may be completed with or without assistive devices. 0-Bonynvdfap-ythjinm completes the activity by him/herself with no assistance from a helper. 5-Set-up or Clean-up Assistance-helper sets up or cleans up; patient completes activity. [place] assists only prior to or following the activity. 4-Supervision or Touching Assistance-helper provides verbal cues and/or touching/steadying and/or contact guard assistance as patient completes activity. Assistance may be provided throughout the activity or intermittently. 3-Partial/Moderate Assistance-helper does LESS THAN HALF the effort. [place] lifts, holds or supports trunk or limbs, but provides less than half the effort. 2-Substantial/Maximal Assistance-helper does MORE THAN HALF the effort. [place] lifts or holds trunk or limbs and provides more than half the effort. 3-Bsgzucmct-nhypzq does ALL the effort. Patient does none of the effort to complete the activity. Or, the assistance of 2 or more helpers is required for the patient to complete the activity. If activity was not attempted, code reason: 7-Patient Refused. 9-Not Applicable-not attempted and the patient did not perform the activity before the current illness, exacerbation or injury. 10-Not Attempted due to Environmental Limitations-(lack of equipment, weather restraints, etc.). 88-Not Attempted due to Medical Conditions or Safety Concerns. Roll Left to Right (QC): 3 Sit to Lying (QC): 3 Sit to Stand (QC): 4 Chair/Gwq-sn-Qglbl Xfer(QC): 4 Car Transfer (QC): 3 Gait Training Does the Patient Walk?: Yes Distance: 15' Walk 10 feet (QC): 4 Walk 50 ft with 2 Turns(QC): 4 Walk 150 ft (QC): 88 Walking 10ft/uneven surface-QC: 4 Gait Assistive Device: FWW Wheelchair Training Does the Pt Use a Wheelchair?: No Wheel 50 ft with 2 turns (QC): 9 Wheel 150 ft (QC): 9 Stair Training #of Steps: 1 1 Step (curb) (QC): 4 4 Steps (QC): 88 12 Steps (QC): 88 Balance Picking up an Object (QC): 88 ADL-Treatment Eating (QC): 6 Oral Hygiene (QC): 6 (seated in chair per clinical judgment) Shower/Bathe Self (QC): 4 (CGA in stance, SBA all tasks with cues for LHS use due to precautions.) Upper Body Dressing (QC): 5 (s/u) Lower Body Dressing (QC): 2 (max prior to treatment due to precautions and inability to bend >90*. Pt is educated on AE and given cues throughout dressing task. Completes with SBA-CGA in stance.) On/Off Footwear (QC): 1 (TD due to precautions. Pt is educated on sock aide and dressing stick for donning/ doffing. Completes with minimal cues for socks. Requires assist for REYNA hose. ) Toileting Hygiene (QC): 4 (CGA in stance. 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
[2020-05-10] MEDS: SENNOSIDES 8.6 MG (SENOKOT) TAB PO SCH ×2 (08:25→20:41)
[2020-05-10] MEDS: ASPIRIN E.C. 81 MG (ECOTRIN) TAB PO SCH (08:26)
[2020-05-10] MEDS: CARVEDILOL 12.5 MG (COREG) TABLET PO SCH ×2 (08:26→20:41)
[2020-05-10] MEDS: LOSARTAN 100 MG (COZAAR) TABLET PO SCH (08:26)
[2020-05-10] MEDS: amLODIPine 5 MG (NORVASC) TAB PO SCH ×2 (08:26→20:41)
[2020-05-10] MEDS: cloNIDine 0.1 MG (CATAPRES) TAB PO SCH ×2 (08:26→20:41)
[2020-05-10] MEDS: DOCUSATE SODIUM 100 MG (COLACE) CAP PO SCH ×2 (08:26→20:41)
[2020-05-10] MEDS: TROLAMINE (ASPERCREME) 10% CR 90 GM TUBE TOP SCH ×2 (08:32→20:43)
[2020-05-10] MEDS: ENOXAPARIN 40 MG/0.4 ML (LOVENOX) SYR SC SCH (08:32)
[2020-05-10 17:59] VITALS: BP 150/66
--- NOTE | 2020-05-10 18:00 | NUR ---
A MUCH BETTER DAY WITH LITTLE PAIN. WAS MEDICATED X 2 DURING THE DAY. PAIN HAS INCREASED SINCE EVENING. BM X 3 TODAY.
[2020-05-10 18:40] VITALS: BP_SYST 150; BP_SYST 94; BP_DIAS 50; BP_DIAS 66
[2020-05-10] MEDS: polyethylene glycoL POWDER 17 GM (MIRALAX) PACK PO SCH (20:41)
[2020-05-11] MEDS: MULTIVIT W/MINERALS TAB (THERAGRAN M) PO SCH (04:26)
[2020-05-11] MEDS: PANTOPRAZOLE 40 MG (PROTONIX) TAB PO SCH (04:26)
[2020-05-11] MEDS: CATHETER FLUSH 10 ML SYR IV SCH ×3 (04:26→19:59)
[2020-05-11] MEDS: amLODIPine 5 MG (NORVASC) TAB PO SCH ×2 (04:26→19:59)
[2020-05-11] MEDS: cloNIDine 0.1 MG (CATAPRES) TAB PO SCH ×2 (04:26→19:59)
[2020-05-11] MEDS: CARVEDILOL 12.5 MG (COREG) TABLET PO SCH ×2 (04:26→19:58)
[2020-05-11] MEDS: LOSARTAN 100 MG (COZAAR) TABLET PO SCH (04:28)
[2020-05-11 05:17] VITALS: BP 188/75
[2020-05-11 06:03] LABS: BASOPHILS # (AUTO) 0.1 10^3/uL (0.0-0.1); BASOPHILS % (AUTO) 1 % (0-10); EOSINOPHILS # (AUTO) 0.4 10^3/uL (0.0-0.3); EOSINOPHILS % (AUTO) 4 % (0-10); HEMATOCRIT 24 % (35-52); HEMOGLOBIN 7.9 g/dL (11.5-16.0); LYMPHOCYTES # (AUTO) 2.6 10^3/uL (1.0-4.0); LYMPHOCYTES % (AUTO) 27 % (12-44); MEAN CORPUSCULAR HEMOGLOBIN 32 pg (25-34); MEAN CORPUSCULAR HGB CONC 33 g/dL (32-36); MEAN CORPUSCULAR VOLUME 99 fL (80-99); MEAN PLATELET VOLUME 10.4 fL (9.0-12.2); MONOCYTES % (AUTO) 11 % (0-12); NEUTROPHILS # (AUTO) 5.5 10^3/uL (1.8-7.8); NEUTROPHILS % (AUTO) 57 % (42-75); PLATELET COUNT 275 10^3/uL (130-400); WHITE BLOOD COUNT 9.7 10^3/uL (4.3-11.0)
[2020-05-11 06:25] LABS: ALBUMIN 3.2 GM/DL (3.2-4.5); POTASSIUM 4.3 MMOL/L (3.6-5.0)
[2020-05-11 06:26] LABS: CALCIUM 8.1 MG/DL (8.5-10.1)
[2020-05-11 06:27] LABS: TOTAL PROTEIN 6.3 GM/DL (6.4-8.2)
[2020-05-11 06:29] LABS: BILIRUBIN,TOTAL 0.6 MG/DL (0.1-1.0)
[2020-05-11 06:31] VITALS: BP 136/63
[2020-05-11 06:31] LABS: CREATININE SERUM 0.99 MG/DL (0.60-1.30)
[2020-05-11] MEDS: SENNOSIDES 8.6 MG (SENOKOT) TAB PO SCH ×2 (08:59→20:00)
[2020-05-11] MEDS: DOCUSATE SODIUM 100 MG (COLACE) CAP PO SCH ×2 (08:59→19:59)
[2020-05-11] MEDS: ASPIRIN E.C. 81 MG (ECOTRIN) TAB PO SCH (08:59)
--- NOTE | 2020-05-11 08:59 | Occupational Ther Daily Note ---
OT Current Status-Daily Note Subjective Pt alert, sitting in recliner. Pt agrees to therapy. No c/o pain at this time. Mental Status/Objective Patient Orientation: Person, Place, Time, Situation Attachments: IV ADL-Treatment Pt stated that she had a shower yesterday and did not need one today. Pt then stated that she had already brushed teeth, toileted. Pt able to complete lower body dressing using customer service correspondence clerk with SBA after set up. Therapy Code Descriptions/Definitions Functional [place] Measure: 0=Not Assessed/NA 4=Minimal Assistance 1=Total Assistance 5=Supervision or Setup 2=Maximal Assistance 6=Modified [place] 3=Moderate Assistance 7=Complete IndependenceSCALE: Activities may be completed with or without assistive devices. 1-Gpzmumgcjp-eepmwsp completes the activity by him/herself with no assistance from a helper. 5-Set-up or Clean-up Assistance-helper sets up or cleans up; patient completes activity. [place] assists only prior to or following the activity. 4-Supervision or Touching Assistance-helper provides verbal cues and/or touc robin/steadying and/or contact guard assistance as patient completes activity. Assistance may be provided throughout the activity or intermittently. 3-Partial/Moderate Assistance-helper does LESS THAN HALF the effort. [place] lifts, holds or supports trunk or limbs, but provides less than half the effort. 2-Substantial/Maximal Assistance-helper does MORE THAN HALF the effort. [place] lifts or holds trunk or limbs and provides more than half the effort. 9-Bolbhoymj-vsycbh does ALL the effort. Patient does none of the effort to complete the activity. Or, the assistance of 2 or more helpers is required for the patient to complete the activity. If activity was not attempted, code reason: 7-Patient Refused. 9-Not Applicable-not attempted and the patient did not perform the activity before the current illness, exacerbation or injury. 10-Not Attempted due to Environmental Limitations-(lack of equipment, weather restraints, etc.). 88-Not Attempted due to Medical Conditions or Safety Concerns. Lower Body Dressing (QC): 4 (SBA) Other Treatment Pt ambulated to therapy gym using FWW, SBA. Pt completed 10 min arm bike at 20 miguel resistance, 5 min forward rotation/5 min backward rotation, to increase strength and activity tolerance for daily functional tasks. Resistive clothes pin exercises with 1# wt attached to wrists completed 1 set each hand in sitting then 1 set each hand in standing. Pt then ambulated to kitchen area to work on kitchen mobility for safety. Pt was able to demonstrate understanding of safe mobility. Pt then ambulated back to therapy gym to complete B UE exercises with 2# wts, 3 exercises 2sets of 15 reps(bicep curls and shldr presses) then 2 sets of 10 reps (lateral shldr lifts). Pt then ambulated back to room. After session, pt sitting in recliner with call light/phone in reach. All needs met in room. 2nd session-Pt alert, sitting in recliner. Pt was able to complete 1 of 6 theraband exercises by self, skilled instruction for technique and sequence to complete the other 5. Pt was able to demonstrate knowledge of each exercise after education. Pt will need continued skilled instruction to be able to complete exercises. After session, pt sitting in recliner with call light/phone in reach. All needs met in room. Education OT Patient Education: Other (kitchen mobility/safety.) Teaching Recipient: Patient Teaching Methods: Demonstration, Discussion Response to Teaching: Verbalize Understanding, Return Demonstration, Reinforcement Needed OT Short Term Goals Short Term Goals Time Frame: May 15, 2020 Toileting hygiene: 4 Shower/bathe self: 4 Upper body dressin Lower body dressin Putting on/taking off footwear: 6 OT Rn Faculty Goals Care Home Goals Time Frame: May 22, 2020 Eating (QC): 6 Oral Hygiene (QC): 6 Toileting Hygiene (QC): 6 Shower/Bathe Self (QC): 6 Upper Body Dressing (QC): 6 Lower Body Dressing (QC): 6 On/Off Footwear (QC): 6 Additional Goals: 1-Demonstrate ADL Tasks, 2-Verbalize Understanding, 3- ImproveStrength/Geri 1=Demonstrate adherence to instructed precautions during ADL tasks. 2=Patient will verbalize/demonstrate understanding of assistive devices/modifications for ADL. 3=Patient will improve strength/tolerance for activity to enable patient to perform ADL's. OT Education/Plan Problem List/Assessment Assessment: Decreased Activ Tolerance, Decreased UE Strength, Impaired Self- Care Skills Discharge Recommendations Plan/Recommendations: Continue POC Treatment Plan/Plan of Care Patient would benefit from OT for education, treatment and training to promote independence in ADL's, mobility, safety and/or upper extremity function for ADL's. Plan of Care: ADL Retraining, Caregiver Training, Concurrent Therapy, Functional Mobility, Group Exercise/Act as Ind, UE Funct Exercise/Act Treatment Duration: May 22, 2020 Frequency: At least 5 of 7 days/Wk (IRF) Estimated Hrs Per Day: 1.5 hours per day Agreement: Yes Rehab Potential: Fair Time/GCodes Start Time: 07:45 ([id number]) Stop Time: 13:00 ([id number]) Billed Treatment Time 1st session: 1 visit-ADL 1 (20 min) EX 2 (30 min) FA 2 (25 min) 2nd session: 1 visit-EX 1 (15 min) LUIS MANUEL FLAHERTY May 11, 2020 08:59
[2020-05-11] MEDS: TROLAMINE (ASPERCREME) 10% CR 90 GM TUBE TOP SCH ×2 (09:00→19:58)
[2020-05-11] MEDS: ENOXAPARIN 40 MG/0.4 ML (LOVENOX) SYR SC SCH (09:00)
--- NOTE | 2020-05-11 10:25 | PM&R Progress Note ---
Subjective HPI/CC On Admission Date Seen by Provider: May 11, 2020 Time Seen by Provider: 10:30 Subjective/Events-last exam 05/11/20: Pain medication of Oxycodone at night really helped her along with the Baclofen and she slept all night long Lidocaine Patch will be placed, ordered by Dr. Barton Labile BP monitored 05/10/20: Pain issues at night last night required multiple meds Oxycodone will be Rx in case that happens again Nerve pain in the legs and feet seemed to be the issue BM after suppository Pain controlled with Ultram Hgb 9.1 BP labile No BM yet so will need to increase laxatives Non-compliant with CPAP at home Standby assist currently Ativan helped her Review of Systems General: Fatigue, Malaise Musculoskeletal: leg pain Neurological: Weakness, Incoordination Objective Exam Vital Signs Vital Signs Date Time Temp Pulse Resp B/P (MAP) Pulse Ox O2 Delivery O2 Flow Rate FiO2 05/12/20 06:06 36.7 80 18 141/63 (89) 99 Room Air Capillary Refill : Less Than 3 Seconds General Appearance: No Apparent Distress, WD/WN, Chronically ill HEENT: PERRL/EOMI, Normal ENT Inspection, Pharynx Normal Neck: Full Range of Motion, Normal Inspection, Non Tender, Supple, Carotid Bruit Respiratory: Chest Non Tender, Lungs Clear, Normal Breath Sounds, No Accessory Muscle Use, No Respiratory Distress Cardiovascular: Regular Rate, Rhythm, No Edema, No Gallop, No JVD, No Murmur, Normal Peripheral Pulses Gastrointestinal: Normal Bowel Sounds, No Organomegaly, No Pulsatile Mass, Non Tender, Soft Back: Normal Inspection, No CVA Tenderness, No Vertebral Tenderness Extremity: Normal Capillary Refill, Normal Inspection, Normal Range of Motion (except left leg due to post op site), Non Tender, No Calf Tenderness, No Pedal Edema Neurologic/Psychiatric: Alert, Oriented x3, No Motor/Sensory Deficits, Normal Mood/Affect Skin: Normal Color, Warm/Dry Lymphatic: No Adenopathy Results/Procedures Lab Patient resulted labs reviewed. FIM Transfers Therapy Code Descriptions/Definitions Functional [place] Measure: 0=Not Assessed/NA 4=Minimal Assistance 1=Total Assistance 5=Supervision or Setup 2=Maximal Assistance 6=Modified [place] 3=Moderate Assistance 7=Complete IndependenceSCALE: Activities may be completed with or without assistive devices. 1-Cgknbpsjft-xxxmjjz completes the activity by him/herself with no assistance from a helper. 5-Set-up or Clean-up Assistance-helper sets up or cleans up; patient completes activity. [place] assists only prior to or following the activity. 4-Supervision or Touching Assistance-helper provides verbal cues and/or touching/steadying and/or contact guard assistance as patient completes activity. Assistance may be provided throughout the activity or intermittently. 3-Partial/Moderate Assistance-helper does LESS THAN HALF the effort. [place] lifts, holds or supports trunk or limbs, but provides less than half the effort. 2-Substantial/Maximal Assistance-helper does MORE THAN HALF the effort. [place] lifts or holds trunk or limbs and provides more than half the effort. 1-Yxaugeygi-eubxju does ALL the effort. Patient does none of the effort to complete the activity. Or, the assistance of 2 or more helpers is required for the patient to complete the activity. If activity was not attempted, code reason: 7-Patient Refused. 9-Not Applicable-not attempted and the patient did not perform the activity before the current illness, exacerbation or injury. 10-Not Attempted due to Environmental Limitations-(lack of equipment, weather restraints, etc.). 88-Not Attempted due to Medical Conditions or Safety Concerns. Roll Left to Right (QC): 3 Sit to Lying (QC): 3 Sit to Stand (QC): 4 Chair/Afe-vx-Hzder Xfer(QC): 4 Car Transfer (QC): 3 Gait Training Does the Patient Walk?: Yes Distance: 15' Walk 10 feet (QC): 4 Walk 50 ft with 2 Turns(QC): 4 Walk 150 ft (QC): 88 Walking 10ft/uneven surface-QC: 4 Gait Assistive Device: FWW Wheelchair Training Does the Pt Use a Wheelchair?: No Wheel 50 ft with 2 turns (QC): 9 Wheel 150 ft (QC): 9 Stair Training #of Steps: 1 1 Step (curb) (QC): 4 4 Steps (QC): 88 12 Steps (QC): 88 Balance Picking up an Object (QC): 88 ADL-Treatment Eating (QC): 6 Oral Hygiene (QC): 6 (seated in chair per clinical judgment) Shower/Bathe Self (QC): 4 (CGA in stance, SBA all tasks with cues for LHS use due to precautions.) Upper Body Dressing (QC): 5 (s/u) Lower Body Dressing (QC): 2 (max prior to treatment due to precautions and inability to bend >90*. Pt is educated on AE and given cues throughout dressing task. Completes with SBA-CGA in stance.) On/Off Footwear (QC): 1 (TD due to precautions. Pt is educated on sock aide and dressing stick for donning/ doffing. Completes with minimal cues for socks. Requires assist for REYNA hose. ) Toileting Hygiene (QC): 4 (CGA in stance. 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
--- NOTE | 2020-05-11 10:44 | NUR ---
States slept better and felt "like a brand new woman" this morning. Dr. Barton made morning rounds and started lidocaine patch. Did not use CPAP last night but states slept well without it. B/P much improved after antihypertensives to 139/62.
--- NOTE | 2020-05-11 12:05 | Physical Therapy Daily Note ---
PT Daily Note-Current Subjective Pt. very pleasant and agrees to Rx. No c/o pain, very motivated Pain Location: No Pain Reported Mental Status Patient Orientation: Normal For Age Attachments: Other-See Comments (mask while out of room) Transfers SCALE: Activities may be completed with or without assistive devices. 4-Fwislngtvx-lofabea completes the activity by him/herself with no assistance from a helper. 5-Set-up or Clean-up Assistance-helper sets up or cleans up; patient completes activity. [place] assists only prior to or following the activity. 4-Supervision or Touching Assistance-helper provides verbal cues and/or touching/steadying and/or contact guard assistance as patient completes activity. Assistance may be provided throughout the activity or intermittently. 3-Partial/Moderate Assistance-helper does LESS THAN HALF the effort. [place] lifts, holds or supports trunk or limbs, but provides less than half the effort. 2-Substantial/Maximal Assistance-helper does MORE THAN HALF the effort. [place] lifts or holds trunk or limbs and provides more than half the effort. 5-Infxfzutl-rxntnt does ALL the effort. Patient does none of the effort to complete the activity. Or, the assistance of 2 or more helpers is required for the patient to complete the activity. If activity was not attempted, code reason: 7-Patient Refused. 9-Not Applicable-not attempted and the patient did not perform the activity before the current illness, exacerbation or injury. 10-Not Attempted due to Environmental Limitations-(lack of equipment, weather restraints, etc.). 88-Not Attempted due to Medical Conditions or Safety Concerns. Roll Left & Right (QC): 6 Sit to Lying (QC): 4 Lying to Sitting/Side of Bed(Q: 4 Sit to Stand (QC): 6 Chair/Uft-ie-Lpftf Xfer(QC): 6 Gait Training Does the Patient Walk?: Yes Walk 10 feet (QC): 6 Walk 50 ft with 2 Turns(QC): 6 Walk 150 ft (QC): 6 Gait Persons Needed: 1 Gait Assistive Device: FWW great alignment, equal step length, appropriate use of device, abides precautions etc. Stair Training pt. declines stairs stating she has a ramp at home and has difficulty with stairs for years and would rather not Exercises Supine Ex: Ankle pumps, Quad Set, Rolling, Glut sets, Heel Slides, Short Arc Quads, Scooting, Straight leg raise (assisted left), Hip abd/add (assisted left) Supine Reps: 15 Seated Therapy Exercises: Ankle pumps, Sit to stand, Long arc quads Seated Reps: 15 NuStep Minutes: 8 NuStep Workload: 3 Treatments 5 m on Nustep using hands and LEs, 5 mins no hands, legs only and 10 shallow leg presses on Nustep Assessment Current Status: Good Progress pt. is dependent for in out bed and requires min assist LLE, and expresses that she wants to work on this aspect specifically in the afternoon PT Short Term Goals Short Term Goals Time Frame: May 15, 2020 Roll Left & Right: 6 Sit to lyin (Jennifer) Lying to sitting on side of be: 3 (Jennifer) Sit to stand: 4 (SBA) Chair/uvw-nl-jfzbq transfer: 4 (SBA) Walk 10 feet: 4 Walk 50 feet with two turns: 4 Walk 150 feet: 4 PT Zone Maintenance Technician Goals Penit[facility]iary Goals PT Zone Maintenance Technician Goals Time Frame: May 29, 2020 Roll Left & Right (QC): 6 Sit to Lying (QC): 6 Lying-Sitting on Side/Bed(QC): 6 Sit to Stand (QC): 6 Chair/Nrj-kg-Sipif Xfer(QC): 6 Toilet Transfer (QC): 6 Car Transfer (QC): 4 Does the Patient Walk: Yes Walk 10 feet (QC): 6 Walk 50ft with 2 Turns (QC): 6 Walk 150 ft (QC): 6 Walking 10ft on Uneven Surface: 4 1 Step (curb) (QC): 4 4 Steps (QC): 4 12 Steps (QC): 88 Picking up an Object (QC): 88 Wheel 50 feet with 2 turns (QC: 9 Wheel 150 feet: 9 PT Plan Treatment/Plan Treatment Plan: Continue Plan of Care Treatment Plan: Bed Mobility, Education, Functional Activity Geri, Functional Strength, Group Therapy, Gait, Safety, Therapeutic Exercise, Transfers Treatment Duration: May 29, 2020 Frequency: At least 5 of 7 days/Wk (IRF) Estimated Hrs Per Day: 1.5 hours per day Patient and/or Family Agrees t: Yes Safety Risks/Education Patient Education: Gait Training, Transfer Techniques, Reviewed Precautions, Correct Positioning, Disease Process, Safety Issues Teaching Recipient: Patient Teaching Methods: Demonstration, Discussion Response to Teaching: Verbalize Understanding, Return Demonstration Time/GCodes Time In: 1100 Time Out: 1200 Total Billed Treatment Time: 60 Total Billed Treatment 1,GT15m,EX25m,FA20m ELVIRA ARREGUIN PATIENT TRANSITION SPECIALIST May 11, 2020 12:05
--- NOTE | 2020-05-11 13:29 | Physical Therapy Daily Note ---
PT Daily Note-Current Subjective Pt. up in chair, agrees to Rx. Pain Numeric Pain Scale: 5-Moderate Pain Location: Left Location Body Site: Hip Pain Description: Pressure Mental Status Patient Orientation: Normal For Age Attachments: Other-See Comments (mask) Transfers SCALE: Activities may be completed with or without assistive devices. 4-Gpldoazkhd-udrzgwg completes the activity by him/herself with no assistance from a helper. 5-Set-up or Clean-up Assistance-helper sets up or cleans up; patient completes activity. [place] assists only prior to or following the activity. 4-Supervision or Touching Assistance-helper provides verbal cues and/or touching/steadying and/or contact guard assistance as patient completes activity. Assistance may be provided throughout the activity or intermittently. 3-Partial/Moderate Assistance-helper does LESS THAN HALF the effort. [place] lifts, holds or supports trunk or limbs, but provides less than half the effort. 2-Substantial/Maximal Assistance-helper does MORE THAN HALF the effort. [place] lifts or holds trunk or limbs and provides more than half the effort. 8-Xsguhzxui-ssbvvt does ALL the effort. Patient does none of the effort to complete the activity. Or, the assistance of 2 or more helpers is required for the patient to complete the activity. If activity was not attempted, code reason: 7-Patient Refused. 9-Not Applicable-not attempted and the patient did not perform the activity before the current illness, exacerbation or injury. 10-Not Attempted due to Environmental Limitations-(lack of equipment, weather restraints, etc.). 88-Not Attempted due to Medical Conditions or Safety Concerns. worked on sup to sit and sit to sup x 2 trials with pt needing CGA to min for LLE in to bed but SBA out of bed Gait Training Gait Assistive Device: FWW 165ft x 2 SBA Exercises Supine Ex: Ankle pumps, Heel Slides, Hip abd/add Supine Reps: 12 Assessment Current Status: Good Progress PT Short Term Goals Short Term Goals Time Frame: May 15, 2020 Roll Left & Right: 6 Sit to lyin (Jennifer) Lying to sitting on side of be: 3 (Jennifer) Sit to stand: 4 (SBA) Chair/fte-km-mkrbv transfer: 4 (SBA) Walk 10 feet: 4 Walk 50 feet with two turns: 4 Walk 150 feet: 4 PT Deaf And Hard Of Hearing Teacher Goals Deaf And Hard Of Hearing Teacher Goals PT Deaf And Hard Of Hearing Teacher Goals Time Frame: May 29, 2020 Roll Left & Right (QC): 6 Sit to Lying (QC): 6 Lying-Sitting on Side/Bed(QC): 6 Sit to Stand (QC): 6 Chair/Nbf-yz-Luuxf Xfer(QC): 6 Toilet Transfer (QC): 6 Car Transfer (QC): 4 Does the Patient Walk: Yes Walk 10 feet (QC): 6 Walk 50ft with 2 Turns (QC): 6 Walk 150 ft (QC): 6 Walking 10ft on Uneven Surface: 4 1 Step (curb) (QC): 4 4 Steps (QC): 4 12 Steps (QC): 88 Picking up an Object (QC): 88 Wheel 50 feet with 2 turns (QC: 9 Wheel 150 feet: 9 PT Plan Treatment/Plan Treatment Plan: Continue Plan of Care Treatment Plan: Bed Mobility, Education, Functional Activity Geri, Functional Strength, Group Therapy, Gait, Safety, Therapeutic Exercise, Transfers Treatment Duration: May 29, 2020 Frequency: At least 5 of 7 days/Wk (IRF) Estimated Hrs Per Day: 1.5 hours per day Patient and/or Family Agrees t: Yes Safety Risks/Education Patient Education: Gait Training, Transfer Techniques Time/GCodes Time In: 1300 Time Out: 1330 Total Billed Treatment Time: 30 Total Billed Treatment 1,GT15m,DANNIm ELVIRA ARREGUIN SUPERVISOR PASTRY May 11, 2020 13:29
[2020-05-11] MEDS: LIDOCAINE 4% (SALONPAS) PATCH TOP SCH (13:42)
--- NOTE | 2020-05-11 15:35 | NUR ---
RD ASSESSMENT PMHx: HTN; chronic constipation; hypothyroidism; PT INTERACTION: Pt was awake and pleasant during nutrition assessment. Pt states current appetite is good, and that we provide "too much food." Note avg PO intake 72% x3d, per chart review. Pt states following a regular diet at home, and has no issues with chewing/swallowing food. Pt states some recent issues with nausea, and constipation. Note last BM was 05/10, and pt currently on bowel regimen of colace BID, senna BID, and miralax BID, per chart review. Pt states no recent wt changes. Note unable to determine recent wt hx, per chart review. ABNORMAL NUTRITION-RELATED LAB VALUES LOW: Na 132; Ca 8.1; Pro 6.3; HIGH: BUN 32; glu 111; AST 35 Est. kcal needs: 6918-9497 kcal | 20-25 kcal/kg Est. Pro needs: 57-71 g Pro | 0.8-1.0 g Pro/kg PES STATEMENT: Given current appetite and PO intake, no nutrition diagnosis at this time (NO-1.1). INTERVENTION: Continue with current diet order of Regular diet. Will continue to follow and reassess as pt needs, intake, and status change. Mercedes FORD, MS RD LD [phone] cell
--- NOTE | 2020-05-11 16:25 | Progress Note ---
Standard Progress Note Progress Notes/Assess & Plan Date Seen by a Provider: May 11, 2020 Time Seen by a Provider: 16:24 Progress/Assessment & Plan no complaints LLE--no calf tenderness. Neg Carey's s/p L hip bipolar september fu with me in two weeks ZAHIDA MONTAÑO MD May 11, 2020 16:25
--- NOTE | 2020-05-11 16:34 | NUR ---
CM/SS ADMISSION Patient was admitted to ARU 05/08 from internal referral for left hip fracture. She was functioning independently before without any assistive devices but suffered a fracture after a trip and a fall. Patient resides with her daughter Bakari Maldonado and PRASANNA. She will return there when medically and functionally able to do so. PCP: Dr. Gwendolyn Barton MD [place], [place] PHARMACY: [facility] INSURANCE: Medicare only DME: Has CPAP, new mask ordered through her established provider, Cheryl Rodriguez. Has 4WW with seat, walk-in tub with seat and hand held wand, handicap commode, grab bars left in shower. Discussed hip kit as private pay item for patient/family to pursue. HHC: Patient has selected [facility] for any HHC needs after review of Medicare Compare HHC agencies in her service area. BARRIERS TO DISCHARGE: None noted,will continue intermittent review for post hospital care planning. CONTACTS: Bakari Maldonado, Daughter [address] [place] [address] One child in [place] and two in [place]. Patient understands the purpose and process of the weekly patient care conference and that her first review would be May 13. She, however, has personally targeted that date for her discharge and has communicated that to staff, to be determined by her progress, performance, safety.
[2020-05-11 18:06] VITALS: BP 161/69
[2020-05-11] MEDS: BACLOFEN 10 MG (LIORESAL) TAB PO PRN (19:58)
[2020-05-11] MEDS: polyethylene glycoL POWDER 17 GM (MIRALAX) PACK PO SCH (20:00)
[2020-05-11] MEDS: PATCH REMOVAL TP SCH (20:00)
[2020-05-11] MEDS: LORazepam 0.5 MG (ATIVAN) TABLET PO PRN (21:40)
[2020-05-11] MEDS: MELATONIN 3 MG TABLET PO PRN (21:40)
[2020-05-12] MEDS: CATHETER FLUSH 10 ML SYR IV SCH ×4 (05:25→21:26)
[2020-05-12 06:06] VITALS: BP 141/63
[2020-05-12] MEDS: MULTIVIT W/MINERALS TAB (THERAGRAN M) PO SCH (06:19)
[2020-05-12] MEDS: PANTOPRAZOLE 40 MG (PROTONIX) TAB PO SCH (06:19)
[2020-05-12] MEDS: CARVEDILOL 12.5 MG (COREG) TABLET PO SCH ×2 (08:34→20:31)
[2020-05-12] MEDS: LOSARTAN 100 MG (COZAAR) TABLET PO SCH (08:34)
[2020-05-12] MEDS: LIDOCAINE 4% (SALONPAS) PATCH TOP SCH (08:34)
[2020-05-12] MEDS: cloNIDine 0.1 MG (CATAPRES) TAB PO SCH ×2 (08:34→20:32)
[2020-05-12] MEDS: amLODIPine 5 MG (NORVASC) TAB PO SCH ×2 (08:34→20:32)
[2020-05-12] MEDS: ENOXAPARIN 40 MG/0.4 ML (LOVENOX) SYR SC SCH (08:34)
[2020-05-12] MEDS: SENNOSIDES 8.6 MG (SENOKOT) TAB PO SCH ×2 (08:34→20:32)
[2020-05-12] MEDS: DOCUSATE SODIUM 100 MG (COLACE) CAP PO SCH ×2 (08:34→20:31)
[2020-05-12] MEDS: ASPIRIN E.C. 81 MG (ECOTRIN) TAB PO SCH (08:34)
[2020-05-12] MEDS: TROLAMINE (ASPERCREME) 10% CR 90 GM TUBE TOP SCH ×2 (08:35→20:36)
--- NOTE | 2020-05-12 08:58 | Occupational Ther Daily Note ---
OT Current Status-Daily Note Subjective Pt alert, sitting in recliner. Pt agrees to therapy. Pt c/o fatigue, no pain. Mental Status/Objective Patient Orientation: Person, Place, Time, Situation ADL-Treatment Pt agrees to shower. Pt ambulated using FWW to gather clothing from closet with SBA. Pt then transported clothing using FWW to bathroom. Transferred to toilet with supervision. Clothing manipulation, supervision using grabbars. Doffed lower body clothing using delinquent tax collector by self. Transferred into shower with supervision. Completed shower using shower bench, grabbar, long handle sponge and hand held shower. SBA while standing to cleanse buttocks and sarthak area, all other areas sitting on shower bench. Pt rinsed and dried self sitting on shower bench. Transferred out of shower with supervision. Pt then was able to complete donning upper body clothing independently. Used delinquent tax collector to thread brief/shorts over feet then SBA while pt stood to hike pants over hips. Used sock aide to don socks, independently. Independently completed oral care standing at sink. Therapy Code Descriptions/Definitions Functional [place] Measure: 0=Not Assessed/NA 4=Minimal Assistance 1=Total Assistance 5=Supervision or Setup 2=Maximal Assistance 6=Modified [place] 3=Moderate Assistance 7=Complete IndependenceSCALE: Activities may be completed with or without assistive devices. 7-Nhmmnowyzm-aeygbln completes the activity by him/herself with no assistance fr om a helper. 5-Set-up or Clean-up Assistance-helper sets up or cleans up; patient completes activity. [place] assists only prior to or following the activity. 4-Supervision or Touching Assistance-helper provides verbal cues and/or touching/steadying and/or contact guard assistance as patient completes activity. Assistance may be provided throughout the activity or intermittently. 3-Partial/Moderate Assistance-helper does LESS THAN HALF the effort. [place] lifts, holds or supports trunk or limbs, but provides less than half the effort. 2-Substantial/Maximal Assistance-helper does MORE THAN HALF the effort. [place] lifts or holds trunk or limbs and provides more than half the effort. 9-Xujclnyzp-rzdxmc does ALL the effort. Patient does none of the effort to complete the activity. Or, the assistance of 2 or more helpers is required for the patient to complete the activity. If activity was not attempted, code reason: 7-Patient Refused. 9-Not Applicable-not attempted and the patient did not perform the activity before the current illness, exacerbation or injury. 10-Not Attempted due to Environmental Limitations-(lack of equipment, weather restraints, etc.). 88-Not Attempted due to Medical Conditions or Safety Concerns. Eating (QC): 6 (Per clinical judgement, pt able to complete independently.) Oral Hygiene (QC): 6 Bathing Location: L Arm, R Arm, L Upper Leg, R Upper Leg, L Lower Leg (including foot), R Lower Leg (including foot), Chest, Abdomen, Buttocks, Perineal Area Shower/Bathe Self (QC): 4 Upper Body Dressing (QC): 6 Lower Body Dressing (QC): 4 On/Off Footwear: 4 Toileting Hygiene (QC): 4 Toilet Transfer (QC): 4 Other Treatment Pt ambulated to laundry room to wash clothing. SBA for pt to complete placing clothing in washer, adding detergent and manipulating controls. Pt then ambu lated to therapy gym to complete B UE strengthening for daily functional tasks. Arm bike for 12 min at 20 miguel resistance, 6 min forward and 6 min backward rotation. Resistive clothes pins with 1# wt attached to wrists, 25 each hand. After session, pt sitting in recliner with call light/phone in reach. All needs met in room. OT Short Term Goals Short Term Goals Time Frame: May 15, 2020 Toileting hygiene: 4 Shower/bathe self: 4 Upper body dressin Lower body dressin Putting on/taking off footwear: 6 OT Half-Way Goals Half-Way Goals Time Frame: May 22, 2020 Eating (QC): 6 Oral Hygiene (QC): 6 Toileting Hygiene (QC): 6 Shower/Bathe Self (QC): 6 Upper Body Dressing (QC): 6 Lower Body Dressing (QC): 6 On/Off Footwear (QC): 6 Additional Goals: 1-Demonstrate ADL Tasks, 2-Verbalize Understanding, 3- ImproveStrength/Geri 1=Demonstrate adherence to instructed precautions during ADL tasks. 2=Patient will verbalize/demonstrate understanding of assistive devices/modifications for ADL. 3=Patient will improve strength/tolerance for activity to enable patient to perform ADL's. OT Education/Plan Problem List/Assessment Assessment: Decreased Activ Tolerance, Decreased UE Strength, Impaired Funct Balance, Impaired Self-Care Skills Discharge Recommendations Plan/Recommendations: Continue POC Treatment Plan/Plan of Care Patient would benefit from OT for education, treatment and training to promote independence in ADL's, mobility, safety and/or upper extremity function for ADL's. Plan of Care: ADL Retraining, Caregiver Training, Concurrent Therapy, Functional Mobility, Group Exercise/Act as Ind, UE Funct Exercise/Act Treatment Duration: May 22, 2020 Frequency: At least 5 of 7 days/Wk (IRF) Estimated Hrs Per Day: 1.5 hours per day Agreement: Yes Rehab Potential: Fair Time/GCodes Start Time: 07:30 Stop Time: 09:00 Total Time Billed (hr/min): 90 Billed Treatment Time 1 visit-ADL 4 (60 min) EX 2 (30 min) LUIS MANUEL FLAHERTY May 12, 2020 08:58
--- NOTE | 2020-05-12 10:13 | PM&R Progress Note ---
Subjective HPI/CC On Admission Date Seen by Provider: May 12, 2020 Time Seen by Provider: 10:30 Subjective/Events-last exam 05/12/20: Pt doing pretty well Dramatically improved Hgb stable Iron is within normal limits at 68 Pain is well controlled DC is planned tomorrow 05/11/20: Pain medication of Oxycodone at night really helped her along with the Baclofen and she slept all night long Lidocaine Patch will be placed, ordered by Dr. Barton Labile BP monitored 05/10/20: Pain issues at night last night required multiple meds Oxycodone will be Rx in case that happens again Nerve pain in the legs and feet seemed to be the issue BM after suppository Pain controlled with Ultram Hgb 9.1 BP labile No BM yet so will need to increase laxatives Non-compliant with CPAP at home Standby assist currently Ativan helped her Review of Systems General: Fatigue Musculoskeletal: leg pain Objective Exam Vital Signs Vital Signs Date Time Temp Pulse Resp B/P (MAP) Pulse Ox O2 Delivery O2 Flow Rate FiO2 05/13/20 05:55 36.5 74 18 178/73 (108) 97 Room Air Capillary Refill : Less Than 3 Seconds General Appearance: No Apparent Distress, WD/WN, Chronically ill HEENT: PERRL/EOMI, Normal ENT Inspection, Pharynx Normal Neck: Full Range of Motion, Normal Inspection, Non Tender, Supple, Carotid Bruit Respiratory: Chest Non Tender, Lungs Clear, Normal Breath Sounds, No Accessory Muscle Use, No Respiratory Distress Cardiovascular: Regular Rate, Rhythm, No Edema, No Gallop, No JVD, No Murmur, Normal Peripheral Pulses Gastrointestinal: Normal Bowel Sounds, No Organomegaly, No Pulsatile Mass, Non Tender, Soft Back: Normal Inspection, No CVA Tenderness, No Vertebral Tenderness Extremity: Normal Capillary Refill, Normal Inspection, Normal Range of Motion (except left leg due to post op site), Non Tender, No Calf Tenderness, No Pedal Edema Neurologic/Psychiatric: Alert, Oriented x3, No Motor/Sensory Deficits, Normal Mood/Affect Skin: Normal Color, Warm/Dry Lymphatic: No Adenopathy Results/Procedures Lab Patient resulted labs reviewed. FIM Transfers Therapy Code Descriptions/Definitions Functional [place] Measure: 0=Not Assessed/NA 4=Minimal Assistance 1=Total Assistance 5=Supervision or Setup 2=Maximal Assistance 6=Modified [place] 3=Moderate Assistance 7=Complete IndependenceSCALE: Activities may be completed with or without assistive devices. 6-Onexawlvgr-khqylyz completes the activity by him/herself with no assistance from a helper. 5-Set-up or Clean-up Assistance-helper sets up or cleans up; patient completes activity. [place] assists only prior to or following the activity. 4-Supervision or Touching Assistance-helper provides verbal cues and/or touching/steadying and/or contact guard assistance as patient completes activity. Assistance may be provided throughout the activity or intermittently. 3-Partial/Moderate Assistance-helper does LESS THAN HALF the effort. [place] lifts, holds or supports trunk or limbs, but provides less than half the effort. 2-Substantial/Maximal Assistance-helper does MORE THAN HALF the effort. [place] lifts or holds trunk or limbs and provides more than half the effort. 0-Iullhpyvc-y[place]yuk does ALL the effort. Patient does none of the effort to complete the activity. Or, the assistance of 2 or more helpers is required for the patient to complete the activity. If activity was not attempted, code reason: 7-Patient Refused. 9-Not Applicable-not attempted and the patient did not perform the activity bef ore the current illness, exacerbation or injury. 10-Not Attempted due to Environmental Limitations-(lack of equipment, weather r estraints, etc.). 88-Not Attempted due to Medical Conditions or Safety Concerns. Roll Left to Right (QC): 6 Sit to Lying (QC): 4 Sit to Stand (QC): 6 Chair/Sgg-sf-Qsteo Xfer(QC): 6 Car Transfer (QC): 3 Gait Training Does the Patient Walk?: Yes Distance: 15' Walk 10 feet (QC): 6 Walk 50 ft with 2 Turns(QC): 6 Walk 150 ft (QC): 6 Walking 10ft/uneven surface-QC: 4 Gait Persons Needed: 1 Gait Assistive Device: FWW Wheelchair Training Does the Pt Use a Wheelchair?: No Wheel 50 ft with 2 turns (QC): 9 Wheel 150 ft (QC): 9 Stair Training #of Steps: 1 1 Step (curb) (QC): 4 4 Steps (QC): 88 12 Steps (QC): 88 Balance Picking up an Object (QC): 88 ADL-Treatment Eating (QC): 6 Oral Hygiene (QC): 6 (seated in chair per clinical judgment) Shower/Bathe Self (QC): 4 (CGA in stance, SBA all tasks with cues for LHS use due to precautions.) Upper Body Dressing (QC): 5 (s/u) Lower Body Dressing (QC): 4 (SBA) On/Off Footwear (QC): 1 (TD due to precautions. Pt is educated on sock aide and dressing stick for donning/ doffing. Completes with minimal cues for socks. Requires assist for REYNA hose. ) Toileting Hygiene (QC): 4 (CGA in stance. ) Assessment/Plan Assessment and Plan Assess & Plan/Chief Complaint Assessment: Left hip fracture s/p repair HTN Hypothyroidism Advanced age Post op anemia Fall Plan: IRF protocol Home meds Monitor BP 05/09/20: Pain control Monitor closely Monitor O2 at night due to no CPAP 05/10/20: Oxycodone added for severe pain last general operator closely 05/11/20: Pain management Monitor BP 05/12/20: DC tomorrow Monitor closely (1) Hip fracture, left Status: Acute (2) Hypertension (3) Hypothyroidism (4) Advanced age (5) Fall (6) Anemia ART SEBASTIAN DO May 12, 2020 10:13
--- NOTE | 2020-05-12 10:57 | Physical Therapy Daily Note ---
PT Daily Note-Current Subjective Patient in recliner pre tx, agrees to PT, has 6/10 pain in left hip. Appearance Patient in recliner post tx with nurse call, phone, tray, all needs met. Mental Status Patient Orientation: Normal For Age Transfers SCALE: Activities may be completed with or without assistive devices. 3-Ktkulvkhgg-sbkguyh completes the activity by him/herself with no assistance from a helper. 5-Set-up or Clean-up Assistance-helper sets up or cleans up; patient completes activity. [place] assists only prior to or following the activity. 4-Supervision or Touching Assistance-helper provides verbal cues and/or touching/steadying and/or contact guard assistance as patient completes activity. Assistance may be provided throughout the activity or intermittently. 3-Partial/Moderate Assistance-helper does LESS THAN HALF the effort. [place] lifts, holds or supports trunk or limbs, but provides less than half the effort. 2-Substantial/Maximal Assistance-helper does MORE THAN HALF the effort. [place] lifts or holds trunk or limbs and provides more than half the effort. 3-Dmnyhvcvo-zfmvkw does ALL the effort. Patient does none of the effort to complete the activity. Or, the assistance of 2 or more helpers is required for the patient to complete the activity. If activity was not attempted, code reason: 7-Patient Refused. 9-Not Applicable-not attempted and the patient did not perform the activity before the current illness, exacerbation or injury. 10-Not Attempted due to Environmental Limitations-(lack of equipment, weather restraints, etc.). 88-Not Attempted due to Medical Conditions or Safety Concerns. Roll Left & Right (QC): 6 Sit to Lying (QC): 3 Lying to Sitting/Side of Bed(Q: 6 Sit to Stand (QC): 6 Chair/Ovh-at-Qoeyg Xfer(QC): 6 Toilet Transfer (QC): 6 Car Transfer (QC): 3 Patient performs bed mobility with independence, supine to sit with indepen dence, sit to supine with min assist, sit <-> stand and transfers with independence, car transfer min assist. Gait Training Distance: 400', 150' Walk 10 feet (QC): 6 Walk 50 ft with 2 Turns(QC): 6 Walk 150 ft (QC): 6 Walking 10ft/uneven surface-QC: 6 Gait Assistive Device: FWW Patient can ambulate 400' with a rolling walker with independence (including 50' with at least 2 turns of 90 degrees and 10' over an uneven surface), she ambulates slowly, circumducts left leg and has decreased knee flexion Wheelchair Training Does the Pt Use a Wheelchair?: No Wheel 50 ft with 2 turns (QC): 9 Wheel 150 ft (QC): 9 Stair Training Stair Training: Handrails/: 2 handrails #of Steps: 4 1 Step (curb) (QC): 4 4 Steps (QC): 4 12 Steps (QC): 88 Stairs: Pattern: Step to Patient can go up and down 4 steps using 2 handrails with CGA, cues for foot placement Balance Picking up an Object (QC): 88 Exercises Standing: Hip Abduction, Heel/toe raises, Marching, Mini squats Standing Reps: 15 NuStep Minutes: 15 NuStep Workload: 4 (seat adjusted to not violate her hip flexion precautions) Treatments bed mobility and transfers, ambulation, stairs, functional strengthening Assessment Current Status: Fair Progress Patient is now independent with most mobility but needs assist with left leg getting into bed and into and out of car. PT Short Term Goals Short Term Goals Time Frame: May 15, 2020 Roll Left & Right: 6 Sit to lyin (Jennifer) Lying to sitting on side of be: 3 (Jennifer) Sit to stand: 4 (SBA) Chair/kjm-ny-ytrbn transfer: 4 (SBA) Walk 10 feet: 4 Walk 50 feet with two turns: 4 Walk 150 feet: 4 PT Sales Representative Adding Mach[employer] Goals Custodial Goals PT Custodial Goals Time Frame: May 29, 2020 Roll Left & Right (QC): 6 Sit to Lying (QC): 6 Lying-Sitting on Side/Bed(QC): 6 Sit to Stand (QC): 6 Chair/Spj-cw-Ezejp Xfer(QC): 6 Toilet Transfer (QC): 6 Car Transfer (QC): 4 Does the Patient Walk: Yes Walk 10 feet (QC): 6 Walk 50ft with 2 Turns (QC): 6 Walk 150 ft (QC): 6 Walking 10ft on Uneven Surface: 4 1 Step (curb) (QC): 4 4 Steps (QC): 4 12 Steps (QC): 88 Picking up an Object (QC): 88 Wheel 50 feet with 2 turns (QC: 9 Wheel 150 feet: 9 PT Plan Problem List Problem List: Activity Tolerance, Functional Strength, Safety, Balance, Gait, Transfer, Bed Mobility, ROM Treatment/Plan Treatment Plan: Continue Plan of Care Treatment Plan: Bed Mobility, Education, Functional Activity Geri, Functional Strength, Group Therapy, Gait, Safety, Therapeutic Exercise, Transfers Treatment Duration: May 29, 2020 Frequency: At least 5 of 7 days/Wk (IRF) Estimated Hrs Per Day: 1.5 hours per day Patient and/or Family Agrees t: Yes Safety Risks/Education Patient Education: Gait Training, Transfer Techniques, Steps, Correct Positioning, Safety Issues Teaching Recipient: Patient Teaching Methods: Demonstration, Discussion Response to Teaching: Reinforcement Needed Time/GCodes Time In: 1000 Time Out: 1100 Total Billed Treatment Time: 60 Total Billed Treatment 1 visit EX 25' FA 35' BECKIE MAYO PT May 12, 2020 10:57
--- NOTE | 2020-05-12 13:03 | NUR ---
CM/SS DISCHARGE PLANNING As discussed yesterday, patient had targeted May 13 as her date of discharge. Explored with physician and therapy team, all were in agreement. Notified patient and she is very pleased. Updated daughter Bakari Maldonado and she is equally pleased and supportive. Patient resides with Bakari and her spouse, they have prepared the home for her return and will be available to her to monitor/assist as needed. Bakari inquired about throw rugs in the home and agreed to remove those until a future date in patient's recovery. HHC: Reviewed patient status, no need identified. DME: FWW was ordered through patient/daughter preferred agency, [facility]. Agency understands to deliver walker to patient room before 1000 tomorrow. Daughter Bakari will purchase a Hip Kit at [facility] later today, scenario writer reserved. Therapy team and communication board updated. Finalize discharge tomorrow.
--- NOTE | 2020-05-12 14:35 | Physical Therapy Daily Note ---
PT Daily Note-Current Subjective Pt agreeable and denies pain. Pt says she is going home tomorrow. Mental Status Patient Orientation: Person, Place, Situation Transfers SCALE: Activities may be completed with or without assistive devices. 0-Hrakmvjxlq-tkahqmj completes the activity by him/herself with no assistance from a helper. 5-Set-up or Clean-up Assistance-helper sets up or cleans up; patient completes activity. [place] assists only prior to or following the activity. 4-Supervision or Touching Assistance-helper provides verbal cues and/or touching/steadying and/or contact guard assistance as patient completes activity. Assistance may be provided throughout the activity or intermittently. 3-Partial/Moderate Assistance-helper does LESS THAN HALF the effort. [place] lift s, holds or supports trunk or limbs, but provides less than half the effort. 2-Substantial/Maximal Assistance-helper does MORE THAN HALF the effort. [place] lifts or holds trunk or limbs and provides more than half the effort. 1-Ekvfpajgf-efvmau does ALL the effort. Patient does none of the effort to complete the activity. Or, the assistance of 2 or more helpers is required for the patient to complete the activity. If activity was not attempted, code reason: 7-Patient Refused. 9-Not Applicable-not attempted and the patient did not perform the activity before the current illness, exacerbation or injury. 10-Not Attempted due to Environmental Limitations-(lack of equipment, weather restraints, etc.). 88-Not Attempted due to Medical Conditions or Safety Concerns. Gait Training Gait Assistive Device: FWW Pt amb with FWW and CGA 2 x 125ft at good speed, WBAT (L) LE. Exercises Supine Ex: LE Protocol Supine Reps: 20 Treatments Pt used BR mod (I) Assessment Current Status: Excellent Progress Pt sofia very well. Pt demonstrates mod (I) functional mobility. Pt resting in recliner with call light and all needs met. PT Short Term Goals Short Term Goals Time Frame: May 15, 2020 Roll Left & Right: 6 Sit to lyin (Jennifer) Lying to sitting on side of be: 3 (Jennifer) Sit to stand: 4 (SBA) Chair/uay-mf-vgykw transfer: 4 (SBA) Walk 10 feet: 4 Walk 50 feet with two turns: 4 Walk 150 feet: 4 PT Prison Goals Prison Goals PT Wood Grainer Goals Time Frame: May 29, 2020 Roll Left & Right (QC): 6 Sit to Lying (QC): 6 Lying-Sitting on Side/Bed(QC): 6 Sit to Stand (QC): 6 Chair/Zfl-bx-Evpgl Xfer(QC): 6 Toilet Transfer (QC): 6 Car Transfer (QC): 4 Does the Patient Walk: Yes Walk 10 feet (QC): 6 Walk 50ft with 2 Turns (QC): 6 Walk 150 ft (QC): 6 Walking 10ft on Uneven Surface: 4 1 Step (curb) (QC): 4 4 Steps (QC): 4 12 Steps (QC): 88 Picking up an Object (QC): 88 Wheel 50 feet with 2 turns (QC: 9 Wheel 150 feet: 9 PT Plan Treatment/Plan Treatment Plan: Continue Plan of Care Treatment Plan: Bed Mobility, Education, Functional Activity Geri, Functional Strength, Group Therapy, Gait, Safety, Therapeutic Exercise, Transfers Treatment Duration: May 29, 2020 Frequency: At least 5 of 7 days/Wk (IRF) Estimated Hrs Per Day: 1.5 hours per day Patient and/or Family Agrees t: Yes Time/GCodes Time In: 1430 Time Out: 1500 Total Billed Treatment Time: 30 Total Billed Treatment 1, ther ex 15', Gait 15' BO MONTES DE OCA CPTA May 12, 2020 14:35
[2020-05-12 16:14] VITALS: BP 145/64
[2020-05-12] MEDS: polyethylene glycoL POWDER 17 GM (MIRALAX) PACK PO SCH (19:50)
[2020-05-12] MEDS: PATCH REMOVAL TP SCH (19:51)
[2020-05-12] MEDS: BACLOFEN 10 MG (LIORESAL) TAB PO PRN (20:32)
[2020-05-13 05:55] VITALS: BP 178/73
[2020-05-13] MEDS: PANTOPRAZOLE 40 MG (PROTONIX) TAB PO SCH (06:21)
[2020-05-13] MEDS: MULTIVIT W/MINERALS TAB (THERAGRAN M) PO SCH (06:21)
[2020-05-13] MEDS ORDERED: AMLO-250 PO (06:40)
[2020-05-13] MEDS ORDERED: SNN187T PO (06:40)
[2020-05-13] MEDS ORDERED: TRM50T PO (06:40)
[2020-05-13] MEDS ORDERED: CLN.1T PO (06:40)
[2020-05-13] MEDS ORDERED: PANT40TA52 PO (06:40)
[2020-05-13] MEDS ORDERED: OXC5T PO (06:40)
[2020-05-13] MEDS ORDERED: LORA-404 PO (06:40)
[2020-05-13] MEDS ORDERED: TEMA15CA PO (06:40)
[2020-05-13] MEDS ORDERED: BACL10TA PO (06:40)
--- NOTE | 2020-05-13 06:44 | Discharge Summary ---
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 05/11/20: Pain management Monitor BP 05/12/20: DC tomorrow Monitor closely (1) Hip fracture, left Status: Acute (2) Hypertension (3) Hypothyroidism (4) Advanced age (5) Fall (6) Anemia Discharge Summary Discharge Physical Examination Allergies: Coded Allergies: hydrocodone (Verified Allergy, Unknown, Rash, 05/08/20) Vitals & I&Os Vital Signs Date Time Temp Pulse Resp B/P (MAP) Pulse Ox O2 Delivery O2 Flow Rate FiO2 05/13/20 10:51 36.5 92 18 142/65 99 Room Air General Appearance: Alert, Oriented X3, Cooperative Respiratory: Clear to Auscultation Cardiovascular: Regular Rate Psych/Mental Status: Mental Status NL Hospital Course Was the Problem List Reviewed?: Yes Short course after suffering from a fall and hip fracture s/p uncomplicated rep air by ortho. Patient remained stable during IRF stay and labs remained stable. Overall her pain was well controlled on Oxycodone and Ultram and Baclofen and bowel regimen maintained with good return of bowel function. Patient was deemed stable for DC. Labs (last 24 hrs) Laboratory Tests 05/09/20 06:20: White Blood Count 11.8H, Red Blood Count 2.79L, Hemoglobin 9.1L, Hematocrit 28L, Mean Corpuscular Volume 99, Mean Corpuscular Hemoglobin 33, Mean Corpuscular Hemoglobin Concent 33, Red Cell Distribution Width 13.0, Platelet Count 244, Mean Platelet Volume 10.4, Immature Granulocyte % (Auto) 1, Neutrophils (%) (Auto) 59, Lymphocytes (%) (Auto) 28, Monocytes (%) (Auto) 10, Eosinophils (%) (Auto) 1, Basophils (%) (Auto) 0, Neutrophils # (Auto) 7.0, Lymphocytes # (Auto) 3.3, Monocytes # (Auto) 1.2H, Eosinophils # (Auto) 0.1, Basophils # (Auto) 0.0, Immature Granulocyte # (Auto) 0.1, Sodium Level 133L, Potassium Level 4.5, Chloride Level 100, Carbon Dioxide Level 23, Anion Gap 10, Blood Urea Nitrogen 29H, Creatinine 0.93, Estimat Glomerular Filtration Rate 57, BUN/Creatinine Ratio 31, Glucose Level 112H, Calcium Level 8.6, Corrected Calcium 8.9, Total Bilirubin 0.5, Aspartate Amino Transf (AST/SGOT) 42H, Alanine Aminotransferase (ALT/SGPT) 18, Alkaline Phosphatase 90, Total Protein 7.1, Albumin 3.6 05/11/20 05:40: White Blood Count 9.7, Red Blood Count 2.44L, Hemoglobin 7.9L, Hematocrit 24L, Mean Corpuscular Volume 99, Mean Corpuscular Hemoglobin 32, Mean Corpuscular Hemoglobin Concent 33, Red Cell Distribution Width 12.9, Platelet Count 275, Mean Platelet Volume 10.4, Immature Granulocyte % (Auto) 1, Neutrophils (%) (Auto) 57, Lymphocytes (%) (Auto) 27, Monocytes (%) (Auto) 11, Eosinophils (%) (Auto) 4, Basophils (%) (Auto) 1, Neutrophils # (Auto) 5.5, Lymphocytes # (Auto) 2.6, Monocytes # (Auto) 1.0, Eosinophils # (Auto) 0.4H, Basophils # (Auto) 0.1, Immature Granulocyte # (Auto) 0.1, Sodium Level 132L, Potassium Level 4.3, Chloride Level 99, Carbon Dioxide Level 24, Anion Gap 9, Blood Urea Nitrogen 32H , Creatinine 0.99, Estimat Glomerular Filtration Rate 53, BUN/Creatinine Ratio 32, Glucose Level 111H, Calcium Level 8.1L, Corrected Calcium 8.7, Total Bilirubin 0.6, Aspartate Amino Transf (AST/SGOT) 35H, Alanine Aminotransferase (ALT/SGPT) 19, Alkaline Phosphatase 84, Total Protein 6.3L, Albumin 3.2, Iron Level 68 Pending Labs Laboratory Tests 05/09/20 06:20: White Blood Count 11.8, Red Blood Count 2.79, Hemoglobin 9.1, Hematocrit 28, Ny n Corpuscular Volume 99, Mean Corpuscular Hemoglobin 33, Mean Corpuscular Hemoglobin Concent 33, Red Cell Distribution Width 13.0, Platelet Count 244, Mean Platelet Volume 10.4, Immature Granulocyte % (Auto) 1, Neutrophils (%) (Auto) 59, Lymphocytes (%) (Auto) 28, Monocytes (%) (Auto) 10, Eosinophils (%) (Auto) 1, Basophils (%) (Auto) 0, Neutrophils # (Auto) 7.0, Lymphocytes # (Auto) 3.3, Monocytes # (Auto) 1.2, Eosinophils # (Auto) 0.1, Basophils # (Auto) 0.0, Immature Granulocyte # (Auto) 0.1, Sodium Level 133, Potassium Level 4.5, Chloride Level 100, Carbon Dioxide Level 23, Anion Gap 10, Blood Urea Nitrogen 29, Creatinine 0.93, Estimat Glomerular Filtration Rate 57, BUN/Creatinine Ratio 31, Glucose Level 112, Calcium Level 8.6, Corrected Calcium 8.9, Total Bilirubin 0.5, Aspartate Amino Transf (AST/SGOT) 42, Alanine Aminotransferase (ALT/SGPT) 18, Alkaline Phosphatase 90, Total Protein 7.1, Albumin 3.6 05/11/20 05:40: White Blood Count 9.7, Red Blood Count 2.44, Hemoglobin 7.9, Hematocrit 24, Mean Corpuscular Volume 99, Mean Corpuscular Hemoglobin 32, Mean Corpuscular Hemoglobin Concent 33, Red Cell Distribution Width 12.9, Platelet Count 275, Mean Platelet Volume 10.4, Immature Granulocyte % (Auto) 1, Neutrophils (%) (Auto) 57, Lymphocytes (%) (Auto) 27, Monocytes (%) (Auto) 11, Eosinophils (%) (Auto) 4, Basophils (%) (Auto) 1, Neutrophils # (Auto) 5.5, Lymphocytes # (Auto) 2.6, Monocytes # (Auto) 1.0, Eosinophils # (Auto) 0.4, Basophils # (Auto) 0.1, Immature Granulocyte # (Auto) 0.1, Sodium Level 132, Potassium Level 4.3, Chloride Level 99, Carbon Dioxide Level 24, Anion Gap 9, Blood Urea Nitrogen 32, Creatinine 0.99, Estimat Glomerular Filtration Rate 53, BUN/Creatinine Ratio 32, Glucose Level 111, Calcium Level 8.1, Corrected Calcium 8.7, Total Bilirubin 0.6, Aspartate Amino Transf (AST/SGOT) 35, Alanine Aminotransferase (ALT/SGPT) 19, Alkaline Phosphatase 84, Total Protein 6.3, Albumin 3.2, Iron Level 68 Discharge Home Medications: Active Scripts Active Ativan (Lorazepam) 0.5 Mg Tablet 0.5 Mg PO Q6H PRN Pantoprazole Sodium 40 Mg Tablet.dr 40 Mg PO DAILY@0700 Senna Lax (Sennosides) 8.6 Mg Tablet 17.2 Mg PO BID Temazepam 15 Mg Capsule 15 Mg PO HS PRN Tramadol HCl 50 Mg Tablet 50 Mg PO Q4HR PRN Oxyir Tablet (Oxycodone HCl) 5 Mg Tab 5 Mg PO Q4H PRN Amlodipine Besylate 5 Mg Tablet 5 Mg PO BID Clonidine HCl 0.1 Mg Tablet 0.1 Mg PO BID Baclofen 10 Mg Tablet 10 Mg PO Q6HR PRN Tylenol Pm Ex-Strength Caplet (Acetaminophen/Diphenhydramine) 1 Each Tablet 1 Each PO HS Trolamine Salicylate 85 Gm Cream..g. 0 Gm TOP QID APPLY TO NECK Enoxaparin Sodium 40 Mg/0.4 Ml Syringe 40 Mg SC DAILY@0900 Avapro (Irbesartan) 150 Mg Tab 300 Mg PO DAILY Coreg Tablet (Carvedilol) 12.5 Mg Tablet 12.5 Mg PO BID Reported Levothyroxine 75 Mcg Tab (Levothyroxine Sodium) 75 Mcg Tablet 75 Mcg PO DAILY Aspir 81 (Aspirin) 81 Mg Tablet.dr 81 Mg PO DAILY Magnesium (Magnesium Oxide) 250 Mg Tablet 250 Mg PO DAILY Instructions to patient/family Please see electronic discharge instructions given to patient. Diagnosis/Problems Diagnosis/Problems (1) Hip fracture, left Status: Acute (2) Hypertension (3) Hypothyroidism (4) Advanced age (5) Fall (6) Anemia Clinical Quality Measures DVT/VTE Risk/Contraindication: Risk Factor Score Per Nursin RFS Level Per Nursing on Admit: 4+=Very High ART SEBASTIAN DO May 13, 2020 06:44
--- NOTE | 2020-05-13 07:27 | Progress Note ---
Standard Progress Note Progress Notes/Assess & Plan Date Seen by a Provider: May 13, 2020 Time Seen by a Provider: 07:26 Progress/Assessment & Plan no complaints LLE--no calf tenderness. Neg Carey's s/p L hip bipolar september DC monday fu with me in two weeks Final Diagnosis no complaints L hip incision clean and dry. No calf tenderness. neg Carey's doing well s/p L hip bipolar DC today FU in two weeks ZAHIDA MONTAÑO MD May 13, 2020 07:27
[2020-05-13 08:00] VITALS: BP 142/65
[2020-05-13] MEDS: LOSARTAN 100 MG (COZAAR) TABLET PO SCH (08:17)
[2020-05-13] MEDS: DOCUSATE SODIUM 100 MG (COLACE) CAP PO SCH (08:17)
[2020-05-13] MEDS: ASPIRIN E.C. 81 MG (ECOTRIN) TAB PO SCH (08:17)
[2020-05-13] MEDS: CARVEDILOL 12.5 MG (COREG) TABLET PO SCH (08:17)
[2020-05-13] MEDS: SENNOSIDES 8.6 MG (SENOKOT) TAB PO SCH (08:17)
[2020-05-13] MEDS: amLODIPine 5 MG (NORVASC) TAB PO SCH (08:17)
[2020-05-13] MEDS: LIDOCAINE 4% (SALONPAS) PATCH TOP SCH (08:17)
[2020-05-13] MEDS: cloNIDine 0.1 MG (CATAPRES) TAB PO SCH (08:17)
[2020-05-13] MEDS: ENOXAPARIN 40 MG/0.4 ML (LOVENOX) SYR SC SCH (08:18)
[2020-05-13] MEDS: TROLAMINE (ASPERCREME) 10% CR 90 GM TUBE TOP SCH (08:18)
--- NOTE | 2020-05-13 08:36 | Progress Note ---
Subjective Subjective Date Seen by Provider: May 13, 2020 Time Seen by Provider: 07:40 Pt has been doing well with PT/OT and feels like she is ready to go home. Denies any complaints and says her pain is under control, but does have some breakthrough pain at night. Notes some mild LE swelling that increases througho ut the day. Review of Systems General: Fatigue HEENT: No Head Aches Pulmonary: No Dyspnea Cardiovascular: No: Chest Pain Gastrointestinal: No: Vomiting, Abdominal Pain Genitourinary: No Hematuria Musculoskeletal: leg pain Neurological: Weakness; No: Confusion All Other Systems Reviewed All Other Systems Reviewed: Yes (Negative excepted noted.) Objective Exam Vital Signs Vital Signs - First Documented 05/08/20 18:00 Temp 37.0 Pulse 76 Resp 18 B/P (MAP) 180/70 (106) Pulse Ox 97 O2 Delivery Room Air Capillary Refill : Less Than 3 Seconds General Appearance: No Apparent Distress, WD/WN, Chronically ill Eyes: Bilateral Eye Normal Inspection, Bilateral Eye PERRL, Bilateral Eye EOMI HEENT: PERRL/EOMI, Normal ENT Inspection Neck: Normal Inspection, Supple Respiratory: Chest Non Tender, Lungs Clear, Normal Breath Sounds, No Accessory Muscle Use, No Respiratory Distress Cardiovascular: Regular Rate, Rhythm, No JVD, No Murmur Gastrointestinal: Non Tender, Soft; No Distended, No Guarding, No Rebound Rectal: Deferred Back: Normal Inspection Extremity: Normal Inspection, Normal Range of Motion (except left leg due to post op site), No Calf Tenderness, Other (mild BLE swelling) Neurologic/Psychiatric: Alert, Oriented x3, No Motor/Sensory Deficits, Normal Mood/Affect Skin: Normal Color, Warm/Dry Lymphatic: No Adenopathy Assessment/Plan Assessment/Plan Assessment and Plan Left hip fracture with replacement -improved with PT/OT -follow up with Dr. Restrepo in 2 weeks -OR home with pain medication, recommended splitting lidocaine patch and putting on each side of surgical site overnight for pain LE swelling -elevate and wear compression stockings Anemia -hgb 7.9 today HTN -home meds Pt to follow up in office in 1-2 weeks. Problems: (1) Hip fracture, left (2) Hypertension (3) Hypothyroidism (4) Advanced age (5) Fall (6) Anemia Clinical Quality Measures DVT/VTE Risk/Contraindication: Risk Factor Score Per Nursin RFS Level Per Nursing on Admit: 4+=Very High MORENITA CHAO MED STUDENT May 13, 2020 08:36
--- NOTE | 2020-05-13 10:23 | NUR ---
CM/SS DISCHARGE Patient discharge to home with her daughter and PRASANNA as planned. DME: Daughter Bakari picked up the Hip Kit yesterday, she will garbage pick up worker the FWW from [facility] on her way to get patient. Referral completed this a.m. with all final orders. HHC: None ordered. Financial Assistance application provided to patient because she is insured Medicare only without supplement. Unit RN updated on all discharge activities and timelines.
[2020-05-13 10:51] VITALS: BP 142/65
--- NOTE | 2020-05-14 11:34 | Therapy Team Discharge Summary ---
Therapy Discharge Summary Discharge Recommendations Date of Discharge May 13, 2020 at 10:35 Occupational Therapy Pt admits with bipolar L hip replacement. Pt requires assist with the following ADLs upon admission due to limitations/ hip precautions: showering 4, UB dressing 5, LB dressing 2, footwear 1, and toileting 4. Pt and OT staff work towards higher fx IND through ADLs, AE training, precaution training, safety training, fx activity tolerance, UB endurance/ strength, etc. Pt d/c's with ability to complete the following: showering 4, UB dressing 6, LB dressing/ fo otwear/ toileting 4 with use of AE properly. Pt d/c's home alone. D/c OT at this time. Decreased Activ Tolerance, Decreased UE Strength, Impaired Funct Balance, Impaired Self-Care Skills PT Senior Living Goals Senior Living Goals PT Senior Living Goals Time Frame: May 29, 2020 Roll Left to Right (QC): 6 Sit to Lying (QC): 6 Lying-Sitting on Side/Bed(QC): 6 Sit to Stand (QC): 6 Chair/Tez-qz-Wwklw Xfer(QC): 6 Car Transfer (QC): 4 Does the Patient Walk: Yes Walk 10 feet (QC): 6 Walk 10ft-Uneven Surface(QC): 4 Walk 50ft with 2 Turns (QC): 6 Walk 150 ft (QC): 6 Wheel 50 feet with 2 turns (QC: 9 1 Step (curb) (QC): 4 4 Steps (QC): 4 12 Steps (QC): 88 Picking up an Object (QC): 88 OT Viscose Department Worker Goals Senior Living Goals Time Frame: May 22, 2020 Eating (QC): 6 Oral Hygiene (QC): 6 Shower/Bathe Self (QC): 6 Upper Body Dressing (QC): 6 Lower Body Dressing (QC): 6 On/Off Footwear (QC): 6 Toileting Hygiene (QC): 6 Toilet/Commode Transfer (QC): 6 Additional Goals: 1-Demonstrate ADL Tasks, 2-Verbalize Understanding, 3-ImproveStrength/Geri 1=Demonstrate adherence to instructed precautions during ADL tasks. 2=Patient will verbalize/demonstrate understanding of assistive devices/modifications for ADL. 3=Patient will improve strength/tolerance for activity to enable patient to perform ADL's. MONTEZ AVITIA OTR May 14, 2020 11:34
== END 2020-05-13 10:35 | disposition home or self-care (01) | DRG 561 ==
LOC: UNDODISIN 10:15
PROVIDERS: ADMIT Internal Medicine; ATTEND Internal Medicine
DX: S72.002D Fracture of unspecified part of neck of left femur, subsequent encounter for closed fracture with routine healing (principal); I10 Essential (primary) hypertension; E03.9 Hypothyroidism, unspecified; D64.9 Anemia, unspecified; Z96.642 Presence of left artificial hip joint; Z95.0 Presence of cardiac pacemaker; Z79.82 Long term (current) use of aspirin; Z79.899 Other long term (current) drug therapy; Z88.6 Allergy status to analgesic agent; W19.XXXD Unspecified fall, subsequent encounter
CPT/HCPCS: 36415; 80053; 83540; 85025

== ENCOUNTER 2020-06-21 00:50 | Inpatient (IN) | payer MEDICARE ==
[~2020-06-21] VITALS: Ht 157.4 cm; Wt 72.5 kg
[2020-06-21] VITALS (12 sets, daily range): BP systolic 113–178; BP diastolic 41–81
[~2020-06-21 00:50] MED LIST changes: -ACETAMINOPHEN 500 MG TAB (TYLENOL) PO PRN; -ALPRAZolam 0.25 MG (XANAX) TAB PO PRN; +AMLO-250 PO; +BACL10TA PO; -BISACODYL 10 MG SUPP (DULCOLAX) PR PRN; -CALCIUM CARBONATE 500 MG (TUMS) TAB.CHEW PO PRN; -DOCUSATE SODIUM 100 MG (COLACE) CAP PO PRN; -DOCUSATE SODIUM 100 MG (COLACE) CAP PO SCH; -FLEET ENEMA ADULT 1 EA BTL PR PRN; -LACTULOSE SYRUP 10GM/15ML (ENULOSE) 30ML UDC PO PRN; -LOPERAMIDE 2 MG (IMODIUM) TABLET PO PRN; +LORA-404 PO; -MELATONIN 3 MG TABLET PO PRN; -ONDANSETRON 4 MG (ZOFRAN) ORAL DISSOLVE TAB PO PRN; +OXC5T PO; +PANT40TA52 PO; -SENNA W/DOCUSATE (SENOKOT S) TABLET PO SCH; +SNN187T PO; +TEMA15CA PO; +TRM50T PO; -diphenhydrAMINE 25 MG TAB (BENADRYL) PO PRN; -guaiFENesin/CODEINE (ROBITUSSIN AC) 10ML UDC PO PRN; -polyethylene glycoL POWDER 17 GM (MIRALAX) PACK PO SCH
[2020-06-21] MEDS ORDERED: fentaNYL INJECTION 100 MCG/2 ML AMP IVP STA (01:00)
[2020-06-21 01:24] LABS: BASOPHILS % (AUTO) 0 % (0-10); EOSINOPHILS % (AUTO) 0 % (0-10); HEMATOCRIT 32 % (35-52); HEMOGLOBIN 10.8 g/dL (11.5-16.0); LYMPHOCYTES # (AUTO) 2.3 10^3/uL (1.0-4.0); LYMPHOCYTES % (AUTO) 12 % (12-44); MEAN CORPUSCULAR HEMOGLOBIN 31 pg (25-34); MEAN CORPUSCULAR HGB CONC 33 g/dL (32-36); MEAN CORPUSCULAR VOLUME 93 fL (80-99); MEAN PLATELET VOLUME 9.9 fL (9.0-12.2); MONOCYTES # (AUTO) 1.5 10^3/uL (0.0-1.0); MONOCYTES % (AUTO) 8 % (0-12); NEUTROPHILS # (AUTO) 15.5 10^3/uL (1.8-7.8); NEUTROPHILS % (AUTO) 80 % (42-75); PLATELET COUNT 445 10^3/uL (130-400); WHITE BLOOD COUNT 19.5 10^3/uL (4.3-11.0)
[2020-06-21 01:43] LABS: ALBUMIN 3.5 GM/DL (3.2-4.5); POTASSIUM 5.4 MMOL/L (3.6-5.0)
[2020-06-21 01:44] LABS: PROTHROMBIN TIME PATIENT 13.5 SEC (12.2-14.7)
[2020-06-21 01:44] LABS: CALCIUM 9.1 MG/DL (8.5-10.1)
[2020-06-21 01:45] LABS: TOTAL PROTEIN 8.1 GM/DL (6.4-8.2)
[2020-06-21] MEDS ORDERED: fentaNYL INJECTION 100 MCG/2 ML AMP IVP ONE (01:45)
[2020-06-21 01:47] LABS: BILIRUBIN,TOTAL 0.3 MG/DL (0.1-1.0)
[2020-06-21 01:49] LABS: CREATININE SERUM 1.26 MG/DL (0.60-1.30)
--- NOTE | 2020-06-21 02:12 | ED Hip Pain/Injury ---
General Chief Complaint: Hip/Pelvic Problems Stated Complaint: HIP PAIN Nursing Triage Note: TO ED VIA [facility] TO ROOM 4 WITH C/O LEFT HIP, PELVIC, KNEE PAIN. RECENT LEFT HIP REPAIR. Source: patient History of Present Illness Date Seen by Provider: Jun 21, 2020 Time Seen by Provider: 00:52 Initial Comments PT ARRIVES VIA EMS FROM HOME PT HAD LEFT HIP REPLACEMENT DONE BY DR. MONTAÑO ON 05/05/20 PT HAS C/O INCREASED PAIN FOR THE LAST 4 DAYS, AND IS SEVERE TONIGHT HAD FOLLOW UP WITH DR. MONTAÑO ON 06/18/20 AND WAS HAVING THIS PAIN THEN BUT NOT NEARLY BAD TONIGHT, AND XRAYS WERE DONE, AND WERE GOING TO TRY TO SCHEDULE AN MRI OR CT SCAN. PT HAS PACEMAKER, AND WERE CHECKING ON MRI COMPATABILITY, PER PT. PT STATES PAIN IS MUCH WORSE THAN WHEN SHE WAS SEEN BY DR. MONTAÑO NO PARESTHESIAS OR MOTOR DEFICITS NO FEVER/SWEATS/CHILLS PT HAS BEEN GETTING AROUND WITH A WALKER, AND DENIES ANY INJURY. PT STATES SHE HAS BEEN ALTERNATING TRAMADOL AND OXYCODONE. LAST DOSE OF PAIN MEDICATION WAS 1/2 OXYCODONE AT 1930 TONIGHT. NO RELIEF OF PAIN RATES PAIN 10/10 NOW. STATES PAIN IS FROM LEFT HIP, GROIN, ALL THE WAY DOWN THIGH TO THE KNEE--BOTH FRONT AND BACK. EMS GAVE FENTANYL 100 MCG PRIOR TO ARRIVAL Other PCP: DR. MALAGON SUPERVISOR CONCRETE PIPE PLANT: DR. ALCARAZ ORTHOPEDIC SURGEON: DR. MONTAÑO Allergies and Home Medications Allergies Coded Allergies: hydrocodone (Verified Allergy, Unknown, Rash, 05/08/20) Home Medications Acetaminophen/Diphenhydramine 1 Each Tablet, 1 EACH PO HS Prescribed by: ISADORA MALAGON on 05/08/20 0935 Amlodipine Besylate 5 Mg Tablet, 5 MG PO BID Prescribed by: ART SEBASTIAN on 05/13/20 0640 Aspirin 81 Mg Tablet.dr 81 MG PO DAILY, (Reported) Baclofen 10 Mg Tablet, 10 MG PO Q6HR PRN for SPASMS Prescribed by: ART SEBASTIAN on 05/13/20 0640 Carvedilol 12.5 Mg Tablet, 12.5 MG PO BID Prescribed by: DANIELA NICOLE on 10/28/13 0948 Clonidine HCl 0.1 Mg Tablet, 0.1 MG PO BID Prescribed by: ART SEBASTIAN on 05/13/20 06 Enoxaparin Sodium 40 Mg/0.4 Ml Syringe, 40 MG SC DAILY@0900 Prescribed by: ISADORA MALAGON on 05/08/20 0934 Irbesartan 150 Mg Tab, 300 MG PO DAILY Prescribed by: DANIELA NICOLE on 10/28/13 0948 Levothyroxine Sodium 75 Mcg Tablet, 75 MCG PO DAILY, (Reported) Lidocaine 1 Each Adh..patch, 1 EACH TP Q12H 1/2 PATCH 1.5 INCHES EACH SIDE OF THE SURGICAL INCISION OR SURG BANDAGE !!!DO NOT PLACE ON THE SURGICAL SITE ITESELF!!! Prescribed by: ISADORA MALAGON on 05/08/20 0935 Lorazepam 0.5 Mg Tablet, 0.5 MG PO Q6H PRN for ANXIETY Prescribed by: ART SEBASTIAN on 05/13/20 06 Magnesium Oxide 250 Mg Tablet, 250 MG PO DAILY, (Reported) Oxycodone Hcl 5 Mg Tab, 5 MG PO Q4H PRN for PAIN-SEVERE (8-10) Prescribed by: ART SEBASTIAN on 05/13/20 06 Pantoprazole Sodium 40 Mg Tablet.dr, 40 MG PO DAILY@0700 Prescribed by: ART SEBASTIAN on 05/13/20 06 Sennosides 8.6 Mg Tablet, 17.2 MG PO BID Prescribed by: ART SEBASTIAN on 05/13/20639 Temazepam 15 Mg Capsule, 15 MG PO HS PRN for INSOMNIA Prescribed by: ART SEBASTIAN on 05/13/20639 Tramadol HCl 50 Mg Tablet, 50 MG PO Q4HR PRN for PAIN-MODERATE (5-7) Prescribed by: ART SEBASTIAN on 05/13/20 06 Trolamine Salicylate 85 Gm Cream..g., 0 GM TOP QID APPLY TO NECK Prescribed by: ISADORA MALAGON on 05/08/20 09 Patient Home Medication List Home Medication List Reviewed: Yes Review of Systems Constitutional: no symptoms reported Respiratory: no symptoms reported; No cough, No short of breath Cardiovascular: no symptoms reported; No chest pain Gastrointestinal: No abdominal pain; constipation; No nausea, No vomiting Genitourinary: no symptoms reported Musculoskeletal: see HPI Skin: no symptoms reported Psychiatric/Neurological: No Symptoms Reported; Denies Numbness, Denies Paresthesia, Denies Tingling, Denies Weakness Past Npjssgh-Dznsgh-Botziv Hx Past Med/Social Hx: Reviewed and Corrections made Patient Social History Alcohol Use: Denies Use Smoking Status: Never a Smoker 2nd Hand Smoke Exposure: No Recent Infectious Disease Expo: No Recent Hopitalizations: No Immunizations Up To Date Tetanus Booster (TDap): Unknown PED Vaccines UTD: No Seasonal Allergies Seasonal Allergies: No Past Medical History Surgeries: Yes (TUBAL LIGATION; PACEMAKER (BY DR ALCARAZ); LEFT HIP FX/REPLACEMENT ) Joint Replacement, Orthopedic, Pacemaker, Tubal Ligation Respiratory: No (CPAP- NO O2) Sleep Apnea Currently Using CPAP: Yes Cardiac: Yes ( HEART BLOCK--S/P PACEMAKER) Hypertension Neurological: No Reproductive Disorders: Yes (HX TUBAL LIGATION) Female Reproductive Disorders: Denies 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, 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 Sexually Transmitted Disease: No HIV/AIDS: No Genitourinary: No Gastrointestinal: Yes (CONSTIPATION) Chronic Constipation Musculoskeletal: Yes (UNDIAGNOSED LEG PAIN, TESTING REVEALED GOOD CIRCULATION;L HIP FX) Fractures Endocrine: Yes Hypothyroidsim HEENT: Yes Cataract Hearing Impairment: Denies Cancer: No Psychosocial: No Integumentary: No Blood Disorders: No Adverse Reaction/Blood Tranf: No Family Medical History Family history: Cardiovascular disease 19 MOTHER (PT'S MOTHER AND 6 OR 8 SISTERS ALL WITH HEART ATTACKS) G8 SISTER Family history: Coronary thrombosis 19 MOTHER (PT'S MOM AND 6-8 SISTERS ALL FROM HEART ATTACKS) G8 SISTER Heart Disease, CAD Over 55 Years Old, Hypertension, Vascular Disease PAST SURGICAL HISTORY: -LEFT HIP/FEMORAL NECK FRACTURE WITH BIPOLAR REPLACEMENT BY DR. MONTAÑO 05/05/20 Physical Exam Vital Signs Vital Signs - First Documented 06/21/20 06/21/20 00:50 03:20 Temp 36.8 Pulse 75 Resp 18 B/P (MAP) 162/87 (112) Pulse Ox 91 O2 Delivery Room Air O2 Flow Rate 2.00 Capillary Refill : Less Than 3 Seconds Height, Weight, BMI Height: 5'2.00" Weight: 161lbs. oz. 73.929709qm; 29.00 BMI Method: General Appearance: No Apparent Distress, WD/WN, Other (FACE VERY FLUSHED, SKIN WARM) HEENT: PERRL/EOMI, Other (ORAL MUCOSA DRY) Cardiovascular: Regular Rate, Rhythm, No Murmur Respiratory: Normal Breath Sounds, No Accessory Muscle Use, No Respiratory Distress Gastrointestinal: Normal Bowel Sounds, Non Tender, Other (SOMEWHAT FIRM) Back: No CVA Tenderness Extremity: Pedal Edema (1+ EDEMA ON LEFT, TRACE EDEMA ON RIGHT; ), Other (LEFT HIP SURGICAL SITE--WOUND WELL HEALED. ENTIRE LEFT HIP AROUND SURGICAL SITE WITH SIGNIFICANT SWELLING, VERY WARM AND ERYTHEMATOUS, AND TENDER TO TOUCH, PAINFUL MOVEMENT OF HIP. AREAS OF FLUCTUANCE NOTED ANTERIOR TO INCISION, WITH FIRM INDURATED AREAS POSTERIOR TO INCISION. NO DRAINAGE, NO STREAKS. DISTAL MOTOR/SENSORY/VASCULAR INTACT. ) Procedures/Interventions LEFT HIP AREA, ANTERIOR TO SURGICAL INCISION SITE WITH LARGE AREA OF FLUCTUANCE AREA CLEANSED WITH BETADINE AND CHLORHEXADINE USING STERILE TECHNIQUE, AREA ASPIRATED WITH 18 G NEEDLE--ASPIRATED 230 ML SEROUS APPEARING FLUID. FIRST 200 ML WERE RELATIVELY CLEAR, LAST 30 ML WERE GROSSLY PURULENT. SPECIMEN SENT TO LAB FOR TESTING. DRESSED THE WOUND WITH LARGE BANDAID PT TOLERATED WELL. SLEPT THROUGH MOST OF PROCEDURE. Progress/Results/Core Measures Results/Orders Lab Results Laboratory Tests Test 06/21/20 00:55 06/21/20 01:00 06/21/20 01:55 06/21/20 03:25 Range/Units White Blood Count 19.5 H 4.3-11.0 10^3/uL Red Blood Count 3.48 L 3.80-5.11 10^6/uL Hemoglobin 10.8 L 11.5-16.0 g/dL Hematocrit 32 L 35-52 % Mean Corpuscular Volume 93 80-99 fL Mean Corpuscular Hemoglobin 31 25-34 pg Mean Corpuscular Hemoglobin Concent 33 32-36 g/dL Red Cell Distribution Width 12.7 10.0-14.5 % Platelet Count 445 H 130-400 10^3/uL Mean Platelet Volume 9.9 9.0-12.2 fL Immature Granulocyte % (Auto) 1 % Neutrophils (%) (Auto) 80 H 42-75 % Lymphocytes (%) (Auto) 12 12-44 % Monocytes (%) (Auto) 8 0-12 % Eosinophils (%) (Auto) 0 0-10 % Basophils (%) (Auto) 0 0-10 % Neutrophils # (Auto) 15.5 H 1.8-7.8 10^3/uL Lymphocytes # (Auto) 2.3 1.0-4.0 10^3/uL Monocytes # (Auto) 1.5 H 0.0-1.0 10^3/uL Eosinophils # (Auto) 0.0 0.0-0.3 10^3/uL Basophils # (Auto) 0.0 0.0-0.1 10^3/uL Immature Granulocyte # (Auto) 0.2 H 0.0-0.1 10^3/uL Neutrophils % (Manual) 82 % Lymphocytes % (Manual) 11 % Monocytes % (Manual) 6 % Atypical Lymphocytes 1 % Blood Morphology Comment NORMAL Prothrombin Time 13.5 12.2-14.7 SEC INR Comment 1.0 0.8-1.4 Activated Partial Thromboplast Time 38 H 24-35 SEC Lactic Acid Level 0.70 0.50-2.00 MMOL/L Procalcitonin 0.88 H <0.10 NG/ML Sodium Level 121 *L 135-145 MMOL/L Potassium Level 5.4 H 3.6-5.0 MMOL/L Chloride Level 87 L 98-107 MMOL/L Carbon Dioxide Level 20 L 21-32 MMOL/L Anion Gap 14 5-14 MMOL/L Blood Urea Nitrogen 60 H 7-18 MG/DL Creatinine 1.26 0.60-1.30 MG/DL Estimat Glomerular Filtration Rate 40 BUN/Creatinine Ratio 48 Glucose Level 139 H 70-105 MG/DL Calcium Level 9.1 8.5-10.1 MG/DL Corrected Calcium 9.5 8.5-10.1 MG/DL Total Bilirubin 0.3 0.1-1.0 MG/DL Aspartate Amino Transf (AST/SGOT) 25 5-34 U/L Alanine Aminotransferase (ALT/SGPT) 20 0-55 U/L Alkaline Phosphatase 154 H 40-136 U/L Total Protein 8.1 6.4-8.2 GM/DL Albumin 3.5 3.2-4.5 GM/DL Urine Color YELLOW Urine Clarity CLEAR Urine pH 5.0 5-9 Urine Specific Branch 1.010 L 1.016-1.022 Urine Protein NEGATIVE NEGATIVE Urine Glucose (UA) NEGATIVE NEGATIVE Urine Ketones NEGATIVE NEGATIVE Urine Nitrite NEGATIVE NEGATIVE Urine Bilirubin NEGATIVE NEGATIVE Urine Urobilinogen 0.2 < = 1.0 MG/DL Urine Leukocyte Esterase NEGATIVE NEGATIVE Urine RBC (Auto) NEGATIVE NEGATIVE Urine RBC NONE /HPF Urine WBC 0-2 /HPF Urine Squamous Epithelial Cells RARE /HPF Urine Crystals PRESENT H /LPF Urine Amorphous Sediment MOD PATRICIA URATES H /LPF Urine Bacteria TRACE /HPF Urine Casts NONE /LPF Urine Mucus NEGATIVE /LPF Urine Culture Indicated NO Body Fluid Source SEE NOTE Body Fluid Color GEMINI Body Fluid Appearance MKD CLDY Body Fluid WBC 34333.5 /uL Body Fluid RBC 1012.5 /uL Body Fluid Polynuclear WBCs 95 % Body Fluid Mononuclear WBCs 0 % Body Fluid Lymphocytes 5 % Body Fluid Other Cells 0 % Micro Results Microbiology 06/21/20 Blood Culture - Preliminary, Resulted Gram Positive Cocci 06/21/20 Blood Culture - Preliminary, Resulted Gram Positive Cocci My Orders Orders - KYLE VERA DO Ed Iv/Invasive Line Start (06/21/20 01:00) Ct Extremity Lower Left Wo (06/21/20 01:00) Pelvis With Left Hip 2-3 Views (06/21/20 01:00) Cbc With Automated Diff (06/21/20 01:00) Comprehensive Metabolic Panel (06/21/20 01:00) Lactic Acid Analyzer (06/21/20 01:00) Protime With Inr (06/21/20 01:00) Partial Thromboplastin Time (06/21/20 01:00) Blood Culture (06/21/20 01:00) Fentanyl Injection (Sublimaze Injection (06/21/20 01:00) Fentanyl Injection (Sublimaze Injection (06/21/20 01:45) Catheter(Urinary) Insert & Ass 03,15 (06/21/20 01:47) Manual Differential (06/21/20 00:55) Lidocaine/Epi 2% 1:100,000 (Xylocaine/Ep (06/21/20 02:53) Piperacillin Sodium/Tazobactam (Zosyn Vi (06/21/20 03:45) Vancomycin Injection (Vancomycin Injecti (06/21/20 03:45) O2 (06/21/20 03:32) Monitor-Rhythm Ecg Trace Only (06/21/20 03:32) Body Fluid Cell Count (06/21/20 03:32) Body Fluid Culture (06/21/20 03:32) Ua Culture If Indicated (06/21/20 03:35) Ed Iv/Invasive Line Start (06/21/20 03:35) Ns Iv 1000 Ml (Sodium Chloride 0.9%) (06/21/20 03:45) Medications Given in ED Vital Signs/I&O 06/21/20 06/21/20 06/21/20 00:50 03:20 04:04 Temp 36.8 37.3 Pulse 75 73 Resp 18 B/P (MAP) 162/87 (112) 164/68 Pulse Ox 91 94 O2 Delivery Room Air Nasal Cannula Nasal Cannula O2 Flow Rate 2.00 2.00 Blood Pressure Mean: 112 Progress Progress Note : Progress Note GIVEN IV FLUIDS, FENTANYL FOR PAIN, AND ANTIBIOTICS PT DID BEGIN TO HAVE LOW GRADE TEMP, BUT VITALS REMAINED STABLE, BP 150'S/70'S, HR IN 70'S WITH 100% PACED RHYTHM O2 SATS 91% WHEN SLEEPING--PLACED ON O2 AT 2L/NC, AND O2 SATS UP TO MID 90'S. PT WEARS CPAP AT BEDTIME AT HOME NO DETERIORATION IN PT'S CONDITION Diagnostic Imaging Comments CXR--NO ACUTE PROCESS, PENDING RADIOLOGIST REVIEW XRAYS PELVIS/LEFT HIP--POST SURGICAL CHANGES, HARDWARE INTACT, CONSTIPATION, NO ACUTE PROCESS, PENDING RADIOLOGIST REVIEW CT LEFT LOWER EXTREMITY---LEFT HIP ARTHROPLASTY, NO FX OR DISLOCATION. LEFT LATERAL HIP/GLUTEAL AREA WITH 8 X 5 X 17 CM FLUID COLLECTION WITH SMALL AIR WHICH MAY BE POST OP, HEMATOMA VS INFLAMMATION/ABSCESS--PER [facility] VIA FAX AT [phone] Reviewed: Reviewed by Me Departure Communication (Admissions) Family Conversation 0416--ATTEMPTING TO CONTACT PT'S DAUGHTER, NO ANSWER 0432--SPOKE WITH PT'S DAUGHTER AND UPDATED HER ON PT'S CONDITION 0248--SPOKE WITH DR. TRACEY, SURGEON FIELD CONTROL INSPECTOR, NO ORTHO COVERAGE, HE ADVISES TO TRY TO CONTACT DR. MONTAÑO. 0250--SPOKE WITH DR. MONTAÑO, HE ADVISES NEEDLE ASPIRATION, ADMIT TO HOSPITALIST, AGREES WITH ZOSYN + VANCOMYCIN 0330--SPOKE WITH DR. SANDERS, HOSPITALIST, ACCEPTS PT FOR ADMIT. Impression Primary Impression: Left hip postoperative wound infection Additional Impressions: Hyponatremia Dehydration Sepsis S/P LEFT HIP FRACTURE WITH REPLACEMENT Disposition: ADMITTED INPATIENT Condition: Stable Admissions Decision to Admit Reason: Admit from ER (General) Decision to Admit/Date: Jun 21, 2020 Time/Decision to Admit Time: 02:50 Departure-Patient Inst. Referrals: ISADORA MALAGON MD (PCP) Primary Care Physician SUSANA DELUCA DO (Family) Primary Care Physician KYLE VERA DO Jun 21, 2020 02:12
[2020-06-21 02:49] LABS: ATYPICAL LYMPHOCYTES 1 %; LYMPHOCYTES % (MANUAL) 11 %; MONOCYTES % (MANUAL) 6 %; NEUTROPHILS % (MANUAL) 82 %; RBC MORPH NORMAL
[2020-06-21] MEDS ORDERED: LIDOCAINE/EPI 2% 1:100,00 (XYLOCAINE) 20 ML VIAL ONE (02:53)
--- NOTE | 2020-06-21 03:25 | NUR ---
DR. VERA ASPIRATED 230CC FLUID FROM LEFT HIP SITE AND FLUID SENT TO LAB.
[2020-06-21] MEDS ORDERED: NS IV 1000 ML 1,000 ML IV SCH (03:45)
[2020-06-21] MEDS ORDERED: VANCOMYCIN INJECTION 1,000 MG in NS (IVPB) 250 ML IV ONE (03:45)
[2020-06-21] MEDS ORDERED: PIPERACILLIN SODIUM/TAZOBACTAM 4.5 GM in NS (IVPB) 100 ML IV ONE (03:45)
[2020-06-21 03:50] LABS: BILIRUBIN,URINE NEGATIVE (NEGATIVE); CLARITY,URINE CLEAR; COLOR,URINE YELLOW; GLUCOSE, URINE (UA) NEGATIVE (NEGATIVE); KETONES,URINE NEGATIVE (NEGATIVE); LEUKOCYTE ESTERASE ,URINE NEGATIVE (NEGATIVE); NITRITE,URINE NEGATIVE (NEGATIVE); PROTEIN,URINE NEGATIVE (NEGATIVE)
[2020-06-21] MEDS ORDERED: NS (IVPB) 100 ML ONE (04:08)
[2020-06-21] MEDS ORDERED: PIPERACILLIN/TAZO 4.5 GM VIAL (ZOSYN) IV ONE (04:08)
[2020-06-21] MEDS ORDERED: VANCOMYCIN 1000 MG/VIAL ONE ×2 (04:09→04:22)
[2020-06-21] MEDS ORDERED: NS (IVPB) 250 ML ONE (04:09)
[2020-06-21] MEDS ORDERED: fentaNYL INJECTION 100 MCG/2 ML AMP IVP PRN (04:15)
[2020-06-21 04:21] LABS: AMORPHOUS SEDIMENT,UR MOD AMOR URATES /LPF; BACTERIA,URINE TRACE /HPF; SQUAMOUS EPITHELIAL CELL,UR RARE /HPF; WBC,URINE 0-2 /HPF
[2020-06-21] MEDS ORDERED: PIPERACILLIN/TAZO 4.5 GM/NS 100 ML IV SCH ×2 (04:30)
--- NOTE | 2020-06-21 04:30 | NUR ---
DR. VERA UPDATED PT DAUGHTER HUI ON CONDITION AND WILL BE ADMITTED TO MEDICAL UNIT. DAUGHTER NOTIFIED MEDICAL STAFF ARE SUPPOSED TO CALL WITH UPDATES AND THE SPECIFIC TIMES. HUI'S PHONE # [phone].
--- NOTE | 2020-06-21 05:25 | NUR ---
MARA VALDEZ admitted to room 409-1, with an admitting diagnosis of L HIP WOUND INFECTION; SEPSIS; HYPONATREMIA; DEHYDRATION, on 06/21/20 from ED via [facility], accompanied by STAFF.MARA VALDEZ introduced to surroundings, call light, bed controls, phone, TV, temperature control, lights, meal times, smoking policy, visitor policy, side rail policy, bathrooms and showers. Patient Rights given to patient in the handbook.MARA VALDEZ verbalizes understanding that [facility] is not responsible for the loss or damage to any personal effects or valuables that are kept in the patients posession during their hospitalization.
[2020-06-21] MEDS ORDERED: ACETAMINOPHEN 500 MG TAB (TYLENOL) PO PRN (06:15)
[2020-06-21] MEDS ORDERED: ONDANSETRON 4 MG/2 ML (SDV) Z0FRAN IVP PRN ×2 (06:15→11:45)
[2020-06-21 06:16] LABS: BF OTHER CELLS 0 %; BODY FLUID APPEARENCE MKD CLDY; BODY FLUID COLOR AMBER; BODY FLUID RBC COUNT 1012.5 /uL; BODY FLUID WBC TOTAL COUNT 11687.5 /uL; LYMPHOCYTES,BODY FLUID 5 %
[2020-06-21] MEDS: fentaNYL INJECTION 100 MCG/2 ML AMP IVP PRN ×3 (06:24→12:57)
[2020-06-21] MEDS: NS IV 1000 ML 1,000 ML IV SCH ×3 (06:25→22:44)
--- NOTE | 2020-06-21 06:45 | Diagnostic Imaging Report ---
EXAMINATION: Pelvis, single view. Left hip, 2 additional views. COMPARISON: May 05, 2020. HISTORY: 84-year-old female, pelvic and hip pain. FINDINGS: There is a left hip prosthesis. The pubic symphysis and sacroiliac joints are normally aligned. The right hip is not obviously dislocated. The left hip is not dislocated. There is no identified acute fracture. There is no cortical or aggressive bone destruction. There is no periosteal reaction. The left hip prosthesis hardware appears intact without periprosthetic lucency. There are degenerative changes of the lower lumbar spine at L4-L5 and L5-S1. IMPRESSION: 1. No acute bony abnormality of the pelvis or left hip. Dictated by: Dictated on workstation # [id number]
--- NOTE | 2020-06-21 07:01 | Diagnostic Imaging Report ---
PROCEDURE: CT left hip without contrast. TECHNIQUE: Multiple contiguous axial images were obtained through the left hip without the use of intravenous contrast. Sagittal and coronal reformations were then performed. Auto Exposure Controls were utilized during the CT exam to meet ALARA standards for radiation dose reduction. DATE: June 21, 2020. INDICATION: 84-year-old female, left hip pain. Redness and swelling. COMPARISON: Radiographs June 21, 2020. May 06, 2020. FINDINGS: There is a left total hip prosthesis. The hardware appears intact. There is no periprosthetic lucency. There is no identified acute fracture. There is no cortical or aggressive bone destruction. There is no concerning periosteal reaction. There is a gas containing fluid collection within the lateral subcutaneous tissues extending from the level of the left proximal femoral diaphysis to the superior margin of the included field of view over a craniocaudal distance of at least 18 cm. This measures 5.3 cm in transverse dimension and 8.2 cm in anterior to posterior dimension. There is overlying skin thickening and adjacent subcutaneous edema. There are atherosclerotic calcifications. There is a Crowley catheter present. IMPRESSION: 1. Large gas containing fluid collection in the lateral subcutaneous tissues measuring 5.3 x 8.2 x 18 cm in size which may relate to an abscess or other nonspecific fluid collection. There is overlying skin thickening and adjacent subcutaneous edema. 2. No CT evidence of osteomyelitis or other acute bony abnormality. Dictated by: Dictated on workstation # [id number]
[2020-06-21] MEDS ORDERED: FLEET ENEMA ADULT 1 EA BTL PR PRN (07:45)
[2020-06-21] MEDS: PIPERACILLIN/TAZO 4.5 GM/NS 100 ML IV SCH ×4 (08:43→18:02)
[2020-06-21] MEDS: polyethylene glycoL POWDER 17 GM (MIRALAX) PACK PO SCH ×2 (09:00→20:21)
--- NOTE | 2020-06-21 09:32 | History & Physical-Hospitalist ---
FLORENCE LION,MED STUDENT 06/21/20 0932: History of Present Illness HPI/Chief Complaint Patient is an 84yo female with a PMH of HTN, AV block with pacemaker, and hypothyroidism who is s/p L hip bipolar replacement on 05/05/[address] Restrepo c/o increasing pain for the last week. She had been ambulating with a walker without complications until the last week when she began having pain in her left hip, back, and behind her knees. She had a follow up appointment with Dr. Restrepo on 06/18/20 and was having some pain then, but this has progressed and become severe since then. She denies fevers, chills, CP, SOB. X-rays were obtained at her follow up appointment, but due to her pacemaker CT or MRI were not obtained. She denies any recent injury or trauma since the surgery. X-rays obtained in the ED revealed hardware intact and no bony abnormalities. Per radiology, CT of the L hip revealed a large fluid collection in the subcutaneous tissues resembling an abscess or other nonspecific collection. She was started on Zosyn and vancomycin, and Dr. Restrepo was consulted. The area was aspirated and 230mL of fluid was obtained, 30mL of which was purulent. She is NPO in preparation for irrigation and debridement. Source: patient Exam Limitations: no limitations Date Seen 06/21/20 Attending Physician Sydni Neville MD PCP Gwendolyn Barton MD Referring Physician Date of Admission Jun 21, 2020 at 04:05 Home Medications & Allergies Home Medications Reviewed patient Home Medication Reconciliation performed by pharmacy medication reconciliations chemical lab technician and/or nursing. Patients Allergies have been reviewed. Allergies Allergies Coded Allergies hydrocodone (Verified Allergy, Unknown, Rash, 05/08/20) Past Nkdmyqh-Ytpozw-Kfvxcz Hx Patient Social History Alcohol Use: Denies Use Recreational Drug Use: No Smoking Status: Never a Smoker 2nd Hand Smoke Exposure: No Recent Foreign Travel: No Contact w/other who traveled: No Recent Hopitalizations: No Recent Infectious Disease Expo: No Immunizations Up To Date Tetanus Booster (TDap): Unknown Pediatric: No Seasonal Allergies Seasonal Allergies: No Past Medical History Surgeries: Joint Replacement, Orthopedic, Pacemaker Currently Using CPAP: Yes Cardiac: Hypertension Reproductive: Yes (HX TUBAL LIGATION) Sexually Transmitted Disease: No HIV/AIDS: No Female Reproductive Disorders: Denies Tubal Ligation, Menopausal Gastrointestinal: Chronic Constipation Musculoskeletal: Fractures Endocrine: Hypothyroidsim HEENT: Cataract Hearing Impairment: Denies History of Blood Disorders: No Adverse Reaction to Blood Bell: No Family History Family history: Cardiovascular disease 19 MOTHER (PT'S MOTHER AND 6 OR 8 SISTERS ALL WITH HEART ATTACKS) G8 SISTER Family history: Coronary thrombosis 19 MOTHER (PT'S MOM AND 6-8 SISTERS ALL FROM HEART ATTACKS) G8 SISTER Heart Disease, CAD Over 55 Years Old, Hypertension, Vascular Disease PAST SURGICAL HISTORY: -LEFT HIP/FEMORAL NECK FRACTURE WITH BIPOLAR REPLACEMENT BY DR. RESTREPO 05/05/20 Review of Systems Constitutional: No chills, No dizziness, No fever EENTM: other (Dry mouth); No hearing loss, No vision loss Respiratory: No cough, No short of breath, No wheezing Cardiovascular: No chest pain, No palpitations, No syncope Gastrointestinal: No abdominal pain; constipation; No diarrhea, No nausea, No v omiting Genitourinary: no symptoms reported Musculoskeletal: see HPI, back pain, joint pain Skin: no symptoms reported Physical Exam Physical Exam Vital Signs Vital Signs - First Documented 06/21/20 06/21/20 00:50 03:20 Temp 36.8 Pulse 75 Resp 18 B/P (MAP) 162/87 (112) Pulse Ox 91 O2 Delivery Room Air O2 Flow Rate 2.00 Capillary Refill : Less Than 3 Seconds Height, Weight, BMI Height: 5'2.00" Weight: 161lbs. oz. 73.198626kz; 29.26 BMI Method: General Appearance: No Apparent Distress, WD/WN HEENT: PERRL/EOMI, Pharynx Normal, Other (Mucous membranes somewhat dry) Neck: Non Tender, Supple Respiratory: Lungs Clear, No Accessory Muscle Use, No Respiratory Distress Cardiovascular: Regular Rate, Rhythm, No Murmur, Normal Peripheral Pulses Gastrointestinal: Normal Bowel Sounds, Soft, Tenderness Extremity: Normal Capillary Refill, No Calf Tenderness, Pedal Edema Neurologic/Psychiatric: Alert, Oriented x3 Results Results/Procedures Labs Laboratory Tests 06/21/20 00:55 06/21/20 01:00 Patient resulted labs reviewed. Assessment/Plan Assessment and Plan Left hip septic arthritis On Zosyn and vancomycin Orthopedics consulted, planning irrigation and debridement NPO in preparation for procedure Hyponatremia Receiving NS at 150ml/hr Repeat labs pending Hyperkalemia On IV fluids, continue NS Continue to monitor SYDNI NEVILLE MD 06/21/20 1358: History of Present Illness Time Seen by a Provider: 13:42 Past Ejvwqct-Hspysf-Pzelvj Hx Past Med/Social Hx: Reviewed Nursing Past Med/Soc Hx Patient Social History Employed/Student: retired Family History Reviewed Nursing Family Hx Family history: Cardiovascular disease 19 MOTHER (PT'S MOTHER AND 6 OR 8 SISTERS ALL WITH HEART ATTACKS) G8 SISTER Family history: Coronary thrombosis 19 MOTHER (PT'S MOM AND 6-8 SISTERS ALL FROM HEART ATTACKS) G8 SISTER Results Results/Procedures Imaging: Reviewed Imaging Report Imaging [facility], [place] NAME: MARA VALDEZ [facility] REC#: [id number] PT STATUS: ADM IN : 1935 PHYSICIAN: KYLE VERA DO ADMIT DATE: 06/21/20 Signed Date of Exam:06/21/20 PELVIS WITH LEFT HIP 2-3 VIEWS EXAMINATION: Pelvis, single view. Left hip, 2 additional views. COMPARISON: May 05, 2020. HISTORY: 84-year-old female, pelvic and hip pain. FINDINGS: There is a left hip prosthesis. The pubic symphysis and sacroiliac joints are normally aligned. The right hip is not obviously dislocated. The left hip is not dislocated. There is no identified acute fracture. There is no cortical or aggressive bone destruction. There is no periosteal reaction. The left hip prosthesis hardware appears intact without periprosthetic lucency. There are degenerative changes of the lower lumbar spine at L4-L5 and L5-S1. IMPRESSION: 1. No acute bony abnormality of the pelvis or left hip. Dictated by: Dictated on workstation # [id number] Dict: 06/21/20 0641 Trans: 06/21/[address] [facility] [id number] Interpreted by: NANCIE ROSARIO MD Electronically signed by: NANCIE ROSARIO MD 06/21/20 0849 Assessment/Plan Admission Diagnosis Septic Arthritis s/p joint replacement Admission Status: Inpatient Order (span 2 midnights) Reason for Inpatient Admission: see below Assessment and Plan Pt admitted with septic arthritis following a joint replacement last month. Pain had been under control but recently started to worsen. She was seen at Dr Restrepo's office and imaging was going to be arranged as an outpatient but pain worsened overnight prompting her to come to the ER for evaluation. CT was doing here with revealed fluid collection. This was aspirated in the ER and cultures were sent. She is being admitted for IV abx and ortho evaluation. By the time I had seen she she had already been to the OR for exploration and reports feeling much better. She denies any pain now. Her only complaint is that her lips are dry. Informed her of her concurrent electrolyte abnormalities. Will continue her on IV abx broad spectrum until cultures are back. Replace sodium slowly. Repeat BMP ordered to ensure that correction is going at appropriate rate. Also will recheck K with that which was mildly elevated. BP has been high so will resume her home medications and monitor this as well. Diagnosis/Problems Diagnosis/Problems (1) Essential (primary) hypertension (2) Hyperlipidemia (3) Leukocytosis Qualifiers: Leukocytosis type: unspecified Qualified Codes: D72.829 - Elevated white blood cell count, unspecified (4) Septic arthritis Qualifiers: Septic arthritis location: hip Septic arthritis organism: due to unspecified organism Laterality: left Qualified Codes: M00.9 - Pyogenic arthritis, unspecified (5) Left hip postoperative wound infection Status: Acute (6) Hyponatremia Status: Acute (7) Dehydration Status: Acute (8) Hypertension Qualifiers: Hypertension type: essential hypertension Qualified Codes: I10 - Essential (primary) hypertension (9) Hypothyroidism Status: Chronic Qualifiers: Hypothyroidism type: acquired Qualified Codes: E03.9 - Hypothyroidism, unspecified (10) Anemia Supervisory-Addendum Brief Verification & Attestation Participated in pt care: history, MDM, physical Personally performed: exam, history, MDM, supervision of care Care discussed with: Medical Student Procedures: n/a Results interpretation: Verified all documentation Verification and Attestation of Medical Student E/M Service A medical student performed and documented this service in my presence. I reviewed and verified all information documented by the medical student and made modifications to such information, when appropriate. I personally performed the physical exam and medical decision making. Sydni Neville, Jun 21, 2020,13:59 FLORENCE LION,MED STUDENT Jun 21, 2020 09:32 SYDNI NEVILLE MD Jun 21, 2020 13:58
--- NOTE | 2020-06-21 10:08 | Progress Note-Pre Operative ---
Pre-Operative Progress Note H&P Reviewed The H&P was reviewed, patient examined and no changes noted. Date Seen by Provider: Jun 21, 2020 Time Seen by Provider: 10:08 Date H&P Reviewed: Jun 21, 2020 Time H&P Reviewed: 10:08 Pre-Operative Diagnosis: Left hip septic arthritis ZAHIDA MONTAÑO MD Jun 21, 2020 10:08
--- NOTE | 2020-06-21 10:09 | Progress Note-Post Operative ---
Post-Operative Progess Note Surgeon (s)/Credit Administration Officer (s) Surgeon ZAHIDA MONTAÑO MD Credit Administration Officer: Frederick Do Pre-Operative Diagnosis Left hip septic arthritis Post-Operative Diagnosis Left hip septic arthritis Procedure & Operative Findings Date of Procedure 06/21/20 Procedure Performed/Findings left hip irrigation and debridement Anesthesia Type GETA Estimated Blood Loss Estimated blood loss (mL): 100 ml Specimens/Packing Specimens Removed cultures sent Packing: none ZAHIDA MONTAÑO MD Jun 21, 2020 10:09
[2020-06-21] MEDS ORDERED: morphine INJ 10 MG/ML 1ML (SYR OR VIAL) IVP ONE (10:15)
[2020-06-21] MEDS ORDERED: MEPERIDINE (DEMEROL) INJ 50 MG/ML IVP ONE (10:15)
[2020-06-21] MEDS ORDERED: SUCCINYLCHOLINE INJ 100 MG/5 ML SYR/VIAL ONE (10:19)
[2020-06-21] MEDS ORDERED: proPOfol 200 MG/20 ML (DIPRIVAN) VIAL IV ONE (10:19)
[2020-06-21] MEDS ORDERED: LIDOCAINE PF 2% 5 ML (XYLOCAINE) VIAL ONE (10:19)
[2020-06-21] MEDS ORDERED: SEVOFLURANE (ULTANE) 15 ML INHAL SOLN ONE ×4 (10:19→11:29)
[2020-06-21] MEDS ORDERED: fentaNYL INJECTION 100 MCG/2 ML AMP ONE (10:19)
--- NOTE | 2020-06-21 10:56 | CONSULTATION REPORT ---
DATE OF SERVICE: 06/21/2020 INPATIENT CONSULTATION REASON FOR CONSULTATION: Left hip infection, status post bipolar replacement. HISTORY OF PRESENT ILLNESS: The patient is an 84-year-old female, who underwent a left type bipolar replacement on 05/05/2020. Her postoperative course was uncomplicated; however, she began to experience increasing left leg pain about a week ago. She was evaluated in the clinic on and had no signs of sepsis, erythema or warmth. In fact, her symptoms appeared to be more of a radiculopathy type component. She presented to the emergency room early this morning with erythema and warmth at her hip. This was aspirated with serous and purulent fluid obtained. This was sent for pathologic examination. PHYSICAL EXAMINATION: On exam, her left lower extremity demonstrates a well-healed incision. There is no gross purulence. There is erythema and warmth and some induration noted. She has pain with internal and external rotation of the hip. RADIOGRAPHS: Reveal well-placed components without evidence of loosening. CT scan demonstrates what appears to be a subcutaneous fluid collection. IMPRESSION: Left hip abscess, status post bipolar replacement with possible septic arthritis. PLAN: Irrigation and debridement of the left hip. The patient may require multiple irrigations and debridement with the possible component removal depending on the operative findings. This was discussed with the patient. Risks, benefits, options, ramifications and recovery were also discussed. She understands and wishes to proceed. Job ID: [id number] DocumentID: [id number] Dictated Date: 06/21/2020 10:12:32 Kennel Staff Member Date: 06/21/2020 10:55:32 Dictated By: ZAHIDA MONTAÑO MD
[2020-06-21] MEDS ORDERED: LACTATED RINGERS 1,000 ML IV PRN (11:00)
[2020-06-21] MEDS ORDERED: ONDANSETRON 4 MG/2 ML (SDV) Z0FRAN ONE (11:29)
[2020-06-21] MEDS ORDERED: ACETAMINOPHEN 325 MG TABLET PO PRN (11:45)
--- NOTE | 2020-06-21 11:45 | Anesthesia-General Post-Op ---
General Patient Condition Mental Status/LOC: Same as Preop Cardiovascular: Satisfactory Nausea/Vomiting: Absent Respiratory: Satisfactory Pain: Controlled Complications: Absent Post Op Complications Complications None Follow Up Care/Instructions Patient Instructions None needed. Anesthesia/Patient Condition Patient Condition Patient is doing well, no complaints, stable vital signs, no apparent adverse anesthesia problems. No complications reported per nursing. JAREK CEDENO CRNA Jun 21, 2020 11:45
[2020-06-21] MEDS ORDERED: HYDROCHLOROTHIAZIDE 25 MG (HCTZ) TAB PO ONE (13:00)
--- NOTE | 2020-06-21 13:10 | OPERATIVE REPORT ---
DATE OF SERVICE: 06/21/2020 DIAGNOSIS: Left hip septic arthritis. PROCEDURE: Left hip irrigation and debridement. SURGEON: Connor Montaño MD MAILING MACHINE HELPER: Frederick Do, who assisted throughout the procedure and closed the incision. ANESTHESIA: General endotracheal by Earnest Milton CRNA. ESTIMATED BLOOD LOSS: 100 mL. DRAINS: None. COMPLICATIONS: None. CULTURES: Were sent. FINDINGS: Gross purulence in the subcutaneous area, which did communicate with the hip prosthesis. The patient was transferred to the recovery room awake and stable condition. POSTOPERATIVE PLAN: Repeat irrigation and debridement this week with polyethylene hardware exchange. STATEMENT OF MEDICAL NECESSITY: The patient is an 84-year-old female, who is approximately 6 weeks status post left hip bipolar replacement. She was doing very well and had an uncomplicated postoperative course until last week and when she began to experience increasing leg pain. She was evaluated and had no systemic illnesses. No fever, chills or night sweats. No erythema or warmth, but had findings consistent with radiculopathy. She then presented to the emergency room early this morning where she was found to have erythema and warmth at her incision site. This was aspirated by the ER physician and there was gross purulence. The patient was admitted and taken for urgent irrigation and debridement. DESCRIPTION OF PROCEDURE: After risks and benefits of procedure were discussed and questions were answered, informed consent was signed and placed on chart, the operative site was confirmed in the preoperative holding area initialed by the surgeon. The patient was then transferred to the operating room and after adequate levels of general endotracheal anesthetic were obtained, a timeout was called, confirming the operative site. The patient was carefully placed in the right lateral decubitus position, being careful to place an axillary roll and pad all bony prominences. Left hip and lower extremity were prepped and draped in the usual sterile fashion. The previous incision was utilized. Underlying soft tissues were carefully dissected. There was gross purulence in the subcutaneous area. The iliotibial band repair was disrupted and there was communication into the hip joint though the adductor repair was intact. The abductors were released and the previous sutures were removed. The hip was then dislocated and an extensive synovectomy was then performed. Necrotic tissue at the superficial layer was excised sharply. The hip joint was then irrigated with 3 liters of pulse lavage. The hip was then reduced abductor was repaired with #5 Tevdek in oltnul-kg-bhwsm interrupted fashion. Subcutaneous tissues were then irrigated with an additional 6 liters of pulse lavage. The iliotibial band was loosely approximated with #1 Vicryl, 0 Vicryl was used to deep subcutaneous tissue, 2-0 Vicryl for the superficial subcutaneous tissue, fara used on the skin. A soft dressing was applied. The patient was transferred to the recovery room awake and in stable condition with plans for repeat irrigation and debridement and hardware exchange later this week. Job ID: [id number] DocumentID: [id number] Dictated Date: 06/21/2020 11:55:18 Residential Sales Representative Date: 06/21/2020 13:09:59 Dictated By: CONNOR MONTAÑO MD
[2020-06-21 13:25] LABS: CALCIUM 8.4 MG/DL (8.5-10.1)
[2020-06-21 13:29] LABS: CREATININE SERUM 0.99 MG/DL (0.60-1.30)
[2020-06-21] MEDS ORDERED: VANCOMYCIN 750 MG/NS 250 ML IVPB IV SCH ×2 (17:00)
[2020-06-21] MEDS: VANCOMYCIN INJECTION 750 MG in NS (IVPB) 250 ML IV SCH (18:02)
[2020-06-21] MEDS: oxyCODONE/APAP 5/325MG (PERCOCET 5) TABLET PO PRN ×3 (18:02→23:40)
[2020-06-21] MEDS: amLODIPine 5 MG (NORVASC) TAB PO SCH (20:21)
[2020-06-21] MEDS: cloNIDine 0.1 MG (CATAPRES) TAB PO SCH (20:21)
[2020-06-21] MEDS: eZETimibe 10 MG (ZETIA) TABLET PO SCH (20:21)
[2020-06-22] VITALS (7 sets, daily range): BP systolic 128–174; BP diastolic 61–75
[2020-06-22] MEDS: PIPERACILLIN/TAZO 4.5 GM/NS 100 ML IV SCH ×6 (01:09→16:58)
[2020-06-22] MEDS: oxyCODONE/APAP 5/325MG (PERCOCET 5) TABLET PO PRN ×6 (03:37→23:07)
--- NOTE | 2020-06-22 05:47 | NUR ---
This RN contacted pt daughter Kaur and updated her on pt condition, no further questions or concerns at this time.
[2020-06-22 06:43] LABS: BASOPHILS # (AUTO) 0.1 10^3/uL (0.0-0.1); BASOPHILS % (AUTO) 0 % (0-10); EOSINOPHILS # (AUTO) 0.1 10^3/uL (0.0-0.3); EOSINOPHILS % (AUTO) 0 % (0-10); HEMATOCRIT 24 % (35-52); HEMOGLOBIN 7.9 g/dL (11.5-16.0); LYMPHOCYTES # (AUTO) 2.1 10^3/uL (1.0-4.0); LYMPHOCYTES % (AUTO) 11 % (12-44); MEAN CORPUSCULAR HEMOGLOBIN 31 pg (25-34); MEAN CORPUSCULAR HGB CONC 33 g/dL (32-36); MEAN CORPUSCULAR VOLUME 95 fL (80-99); MONOCYTES # (AUTO) 1.3 10^3/uL (0.0-1.0); MONOCYTES % (AUTO) 7 % (0-12); NEUTROPHILS # (AUTO) 14.7 10^3/uL (1.8-7.8); NEUTROPHILS % (AUTO) 79 % (42-75); PLATELET COUNT 385 10^3/uL (130-400); WHITE BLOOD COUNT 18.6 10^3/uL (4.3-11.0)
[2020-06-22] MEDS: LEVOTHYROXINE 50 MCG (LEVOTHROID) TAB PO SCH (06:48)
[2020-06-22 07:00] LABS: ALBUMIN 2.7 GM/DL (3.2-4.5); POTASSIUM 4.3 MMOL/L (3.6-5.0)
[2020-06-22 07:01] LABS: CALCIUM 7.8 MG/DL (8.5-10.1)
[2020-06-22 07:02] LABS: TOTAL PROTEIN 6.5 GM/DL (6.4-8.2)
[2020-06-22 07:04] LABS: BILIRUBIN,TOTAL 0.3 MG/DL (0.1-1.0)
[2020-06-22 07:06] LABS: CREATININE SERUM 1.07 MG/DL (0.60-1.30)
--- NOTE | 2020-06-22 08:07 | Progress Note ---
Standard Progress Note Progress Notes/Assess & Plan Date Seen by a Provider: Jun 22, 2020 Time Seen by a Provider: 08:06 Progress/Assessment & Plan feeling better Vital Signs Date Time Temp Pulse Resp B/P (MAP) Pulse Ox O2 Delivery O2 Flow Rate FiO2 06/22/20 04:00 36.6 64 16 152/67 (95) 96 Nasal Cannula 2.50 06/22/20 01:00 60 06/22/20 00:08 36.8 65 17 133/61 (85) 97 Nasal Cannula 2.50 06/21/20 20:20 Nasal Cannula 2.00 06/21/20 20:14 37.2 74 18 134/64 (87) 93 Nasal Cannula 2.00 06/21/20 19:00 76 06/21/20 17:00 Nasal Cannula 2.00 06/21/20 16:00 37.0 77 18 178/64 (102) 95 Nasal Cannula 3.00 06/21/20 13:40 36.6 74 18 148/75 (99) 98 Nasal Cannula 3.00 06/21/20 13:00 71 06/21/20 12:53 36.5 74 176/65 (102) 93 Nasal Cannula 3.00 06/21/20 12:35 Nasal Cannula 4 06/21/20 12:35 36.5 20 150/81 (104) 96 Nasal Cannula 4 06/21/20 12:30 20 150/81 (104) 96 Nasal Cannula 4 06/21/20 12:25 Nasal Cannula 4 06/21/20 12:20 21 164/64 (97) 96 Nasal Cannula 4 06/21/20 12:10 Nasal Cannula 4 06/21/20 12:10 22 156/69 (98) 94 Nasal Cannula 4 06/21/20 12:00 18 149/62 (91) 96 OxyMask 4 06/21/20 11:55 OxyMask 4 06/21/20 11:50 22 125/61 (82) 96 OxyMask 4 06/21/20 11:40 36.2 16 113/41 (65) 96 OxyMask 10 06/21/20 11:40 OxyMask 10 06/21/20 09:22 80 06/21/20 08:13 Nasal Cannula 2.00 I & O 06/22/20 07:00 Intake Total 620 ml Output Total 1600 ml Balance -980 ml Laboratory Tests Test 06/21/20 10:30 06/21/20 13:06 06/22/20 06:02 Range/Units Coronavirus (COVID-19)(PCR) Negative Negative Sodium Level 125 *L 128 L 135-145 MMOL/L Potassium Level 5.0 4.3 3.6-5.0 MMOL/L Chloride Level 94 L 96 L 98-107 MMOL/L Carbon Dioxide Level 19 L 22 21-32 MMOL/L Anion Gap 12 10 5-14 MMOL/L Blood Urea Nitrogen 40 H 37 H 7-18 MG/DL Creatinine 0.99 1.07 0.60-1.30 MG/DL Estimat Glomerular Filtration Rate 53 49 BUN/Creatinine Ratio 40 35 Glucose Level 130 H 111 H 70-105 MG/DL Calcium Level 8.4 L 7.8 L 8.5-10.1 MG/DL White Blood Count 18.6 H 4.3-11.0 10^3/uL Red Blood Count 2.52 L 3.80-5.11 10^6/uL Hemoglobin 7.9 #L 11.5-16.0 g/dL Hematocrit 24 L 35-52 % Mean Corpuscular Volume 95 80-99 fL Mean Corpuscular Hemoglobin 31 25-34 pg Mean Corpuscular Hemoglobin Concent 33 32-36 g/dL Red Cell Distribution Width 12.9 10.0-14.5 % Platelet Count 385 130-400 10^3/uL Mean Platelet Volume 10.0 9.0-12.2 fL Immature Granulocyte % (Auto) 2 % Neutrophils (%) (Auto) 79 H 42-75 % Lymphocytes (%) (Auto) 11 L 12-44 % Monocytes (%) (Auto) 7 0-12 % Eosinophils (%) (Auto) 0 0-10 % Basophils (%) (Auto) 0 0-10 % Neutrophils # (Auto) 14.7 H 1.8-7.8 10^3/uL Lymphocytes # (Auto) 2.1 1.0-4.0 10^3/uL Monocytes # (Auto) 1.3 H 0.0-1.0 10^3/uL Eosinophils # (Auto) 0.1 0.0-0.3 10^3/uL Basophils # (Auto) 0.1 0.0-0.1 10^3/uL Immature Granulocyte # (Auto) 0.4 H 0.0-0.1 10^3/uL Corrected Calcium 8.8 8.5-10.1 MG/DL Total Bilirubin 0.3 0.1-1.0 MG/DL Aspartate Amino Transf (AST/SGOT) 27 5-34 U/L Alanine Aminotransferase (ALT/SGPT) 16 0-55 U/L Alkaline Phosphatase 115 40-136 U/L Total Protein 6.5 6.4-8.2 GM/DL Albumin 2.7 L 3.2-4.5 GM/DL cxs--presumed MSSA L hip dressing intact. NVI distally s/p I and D left hip to OR tomorrow for repeat I and D and hardware exchange NPO after midnight Focused Exam Lactate Level 06/21/20 00:55: Lactic Acid Level 0.70 ZAHIDA MONTAÑO MD Jun 22, 2020 08:07
--- NOTE | 2020-06-22 08:19 | NUR ---
DR. MONTAÑO HERE. CONSENT SIGNED FOR OR TOMORROW AND ADD ON TO OR DONE.
[2020-06-22] MEDS: HYDROCHLOROTHIAZIDE 25 MG (HCTZ) TAB PO SCH (08:39)
[2020-06-22] MEDS: polyethylene glycoL POWDER 17 GM (MIRALAX) PACK PO SCH ×2 (08:39→20:21)
[2020-06-22] MEDS: ENOXAPARIN 40 MG/0.4 ML (LOVENOX) SYR SC SCH (08:39)
[2020-06-22] MEDS: cloNIDine 0.1 MG (CATAPRES) TAB PO SCH ×2 (08:39→20:21)
[2020-06-22] MEDS: amLODIPine 5 MG (NORVASC) TAB PO SCH ×2 (08:39→20:21)
--- NOTE | 2020-06-22 08:39 | Progress Note ---
Subjective Subjective Date Seen by Provider: Jun 22, 2020 Time Seen by Provider: 08:20 PT IS AN 84 Y/O FEMALE WHO IS KNOWN TO ME FROM CLINIC. SHE PRESENTED TO THE EMERGENCY DEPARTMENT AFTER HAVING SEVERE AND PROGRESSIVE HIP PAIN. THE PATIENT WAS STATUS POST LEFT HIP FRACTURE WITH REPAIR AROUND 05/05/2021 AND DID WELL POST-OPERATIVELY UNTIL THIS WEEKEND WHEN SHE STARTED TO HAVE AN INCREASE IN HER PAIN. SHE WAS FOUND TO HAVE A LARGE PUSTULAR COLLECTION AT THE SURGICAL SITE WHICH WAS EVACUATED IN THE OPERATING ROOM. Review of Systems General: No Chills; Fatigue, Malaise HEENT: No Head Aches, No Visual Changes Pulmonary: Dyspnea; No Cough; Pleuritic Chest Pain (BOTH LOWER RIBS) Cardiovascular: Chest Pain; No: Palpitations, Edema Gastrointestinal: No: Nausea, Abdominal Pain Musculoskeletal: leg pain (LEFT HIP) Neurological: Weakness; No: Confusion All Other Systems Reviewed All Other Systems Reviewed: Yes Objective Exam Vital Signs Vital Signs - First Documented 06/21/20 06/21/20 00:50 03:20 Temp 36.8 Pulse 75 Resp 18 B/P (MAP) 162/87 (112) Pulse Ox 91 O2 Delivery Room Air O2 Flow Rate 2.00 Capillary Refill : Less Than 3 SecondsLess Than 3 Seconds General Appearance: No Apparent Distress, WD/WN, Other (FACE VERY FLUSHED, SKIN WARM) HEENT: PERRL/EOMI, Other (ORAL MUCOSA DRY) Neck: Full Range of Motion, Non Tender, Supple Respiratory: Chest Non Tender, Lungs Clear, Normal Breath Sounds, No Accessory Muscle Use, No Respiratory Distress Cardiovascular: Regular Rate, Rhythm, No Murmur Gastrointestinal: Normal Bowel Sounds, Non Tender, Soft Rectal: Deferred Extremity: Pedal Edema (1+ EDEMA ON LEFT, TRACE EDEMA ON RIGHT; ), Other (LEFT HIP SURGICAL DRESSING IN PLACE) Neurologic/Psychiatric: Alert, Oriented x3, No Motor/Sensory Deficits, Normal Mood/Affect Skin: Warm/Dry Lymphatic: No Adenopathy Results Lab Laboratory Tests 06/21/20 10:30: Coronavirus (COVID-19)(PCR) Negative 06/21/20 13:06: Sodium Level 125*L, Potassium Level 5.0, Chloride Level 94L, Carbon Dioxide Level 19L, Anion Gap 12, Blood Urea Nitrogen 40H, Creatinine 0.99, Estimat Glomerular Filtration Rate 53, BUN/Creatinine Ratio 40, Glucose Level 130H, Calcium Level 8.4L 06/22/20 06:02: Sodium Level 128L, Potassium Level 4.3, Chloride Level 96L, Carbon Dioxide Level 22, Anion Gap 10, Blood Urea Nitrogen 37H, Creatinine 1.07, Estimat Glomerular Filtration Rate 49, BUN/Creatinine Ratio 35, Glucose Level 111H, Calcium Level 7.8L, White Blood Count 18.6H, Red Blood Count 2.52L, Hemoglobin 7.9#L, Hematocrit 24L, Mean Corpuscular Volume 95, Mean Corpuscular Hemoglobin 31, Mean Corpuscular Hemoglobin Concent 33, Red Cell Distribution Width 12.9, Platelet Count 385, Mean Platelet Volume 10.0, Immature Granulocyte % (Auto) 2, Neutrophils (%) (Auto) 79H, Lymphocytes (%) (Auto) 11L, Monocytes (%) (Auto) 7, Eosinophils (%) (Auto) 0, Basophils (%) (Auto) 0, Neutrophils # (Auto) 14.7H, Lymphocytes # (Auto) 2.1, Monocytes # (Auto) 1.3H, Eosinophils # (Auto) 0.1, Basophils # (Auto) 0.1, Immature Granulocyte # (Auto) 0.4H, Corrected Calcium 8.8, Total Bilirubin 0.3, Aspartate Amino Transf (AST/SGOT) 27, Alanine Aminotransferase (ALT/SGPT) 16, Alkaline Phosphatase 115, Total Protein 6.5, Albumin 2.7L Microbiology 06/21/20 Gram Stain - Final, Resulted 06/21/20 Anaerobic Culture, Resulted Pending 06/21/20 Surgical Culture - Preliminary, Resulted Staphylococcus aureus 06/21/20 Gram Stain - Final, Resulted 06/21/20 Body Fluid Culture - Preliminary, Resulted Staphylococcus aureus 06/21/20 Blood Culture - Preliminary, Resulted Staphylococcus aureus Assessment/Plan Assessment/Plan Admission Status: Inpatient Order (span 2 midnights) Problems: (1) Left hip postoperative wound infection Assessment & Plan: STATUS POST SURGICAL EVACUATION AND CLEANING. DEFER TO DR. MONTAÑO (2) Septic arthritis Qualifiers: Qualified Codes: M00.052 - Staphylococcal arthritis, left hip (3) Hypertension Qualifiers: Qualified Codes: I10 - Essential (primary) hypertension (4) Hyponatremia Assessment & Plan: IMPROVED WITH FLUIDS, MONITOR SERIAL LABS. (5) Leukocytosis Qualifiers: Qualified Codes: D72.829 - Elevated white blood cell count, unspecified Assessment & Plan: ELEVATED WHITE COUNT DUE TO ACUTE LEFT HIP INFECTION (6) Anemia Qualifiers: Qualified Codes: D64.89 - Other specified anemias Assessment & Plan: CHECKING IRON PANEL TODAY- MAY END UP WITH IV IRON VERSUS BLOOD TRANSFUSION DEPENDING ON FUTURE H AND H. (7) Hyperlipidemia Qualifiers: Qualified Codes: E78.2 - Mixed hyperlipidemia (8) Dehydration (9) Hypothyroidism Qualifiers: Qualified Codes: E03.9 - Hypothyroidism, unspecified Assessment & Plan: RESUMED HOME REGIMEN ISADORA MALAGON MD Jun 22, 2020 08:38
--- NOTE | 2020-06-22 09:39 | Diagnostic Imaging Report ---
INDICATION: Shortness of breath. COMPARISON: 05/05/2020. FINDINGS: There is cardiomegaly. There is some patchy right basilar infiltrate. There is no pleural effusion or pneumothorax. The mediastinum is unremarkable. A pacemaker overlies the left hemithorax. IMPRESSION: Cardiomegaly and patchy right basilar infiltrate. Dictated by: Dictated on workstation # [id number]
--- NOTE | 2020-06-22 11:05 | NUR ---
PERCOCET PO FOR PAIN. FAMILY AT BEDSIDE.
[2020-06-22] MEDS: NS IV 1000 ML 1,000 ML IV SCH ×3 (12:52→23:07)
--- NOTE | 2020-06-22 13:23 | NUR ---
"RD ASSESSMENT PMHx: HTN; chronic constipation; PT INTERACTION: Pt was awake and pleasant during consult for MST score. Pt states current appetite is not good. Note PO intake 25% x1meal, per chart review. Pt states following a regular diet at home, and has no issues with chewing/swallowing food. Pt states recent issues with constipation, and that her last BM was 06/20. Note pt currently on bowel regimen of miralax BID, per chart review. Pt states unsure of recent wt changes. Note recent 4# wt gain x6w, per chart review. Given wt hx and PO intake, pt does not meet criteria for malnutrition per ASPEN guidelines. Est. kcal needs: 6108-6544 kcal | 20-25 kcal/kg Est. Pro needs: 58-73 g Pro | 0.8-1.0 g Pro/kg PES STATEMENT: Inadequate oral intake (NI-2.1) related to loss of appetite and constipation, as evidenced by pt interview, and PO intake 25% x1meal. INTERVENTION: Continue with current diet order of Regular diet. Pt may benefit from nutrition supplementation if PO intake remains low. Encouraged pt to eat when able. Will continue to follow and reassess as pt needs, intake, and status change. Mercedes FORD, MS RD LD [phone] cell"
[2020-06-22] MEDS ORDERED: HYDR25TA4 PO (14:15)
[2020-06-22] MEDS ORDERED: OMG1KC PO (14:15)
[2020-06-22] MEDS ORDERED: MULT-1136 PO (14:15)
[2020-06-22] MEDS ORDERED: VITA100033 PO (14:15)
[2020-06-22] MEDS ORDERED: PANT40TA52 PO (14:15)
[2020-06-22] MEDS ORDERED: CLN.2T PO (14:15)
[2020-06-22] MEDS ORDERED: EZET10TA49 PO (14:15)
[2020-06-22] MEDS ORDERED: ASPI-1238 PO (14:15)
[2020-06-22] MEDS ORDERED: LEVO50TA6 PO (14:15)
[2020-06-22] MEDS ORDERED: OXYC5TAB PO (14:15)
[2020-06-22] MEDS ORDERED: ASCO100024 PO (14:15)
[2020-06-22] MEDS ORDERED: AMLO-251 PO (14:15)
[2020-06-22] MEDS ORDERED: CARV25TA PO (14:15)
[2020-06-22] MEDS ORDERED: IRBE300T17 PO (14:15)
[2020-06-22] MEDS ORDERED: TRAM50TA3 PO (14:15)
--- NOTE | 2020-06-22 14:19 | NUR ---
I SPOKE WITH THE PATIENT, WENT THROUGH THE EXTERNAL MED HISTORY, CALLED DR. ALCARAZ'S OFFICE AND DR. MALAGON'S OFFICE TO COMPLETE THIS MED REC. PATIENT WAS TAKING CLONIDINE 0.1MG BID BUT STATES THAT WHEN SHE RAN OUT OF THOSE SHE SWITCHED BACK TO HER OLD DOSE OF CLONIDINE 0.2MG TID. SHE WAS TAKING AMLODIPINE 5MG BID BUT SAID THAT WHEN SHE RAN OUT SHE SWITCHED BACK TO HER OLD DOSE OF AMLODIPINE 10MG DAILY. PATIENT WAS TAKING TRAMADOL BID BUT SAID THAT HER DOCTOR TOLD HER TO START TAKING THEM Q4H INSTEAD. OTC: VITAMIN C ASPIRIN MULTIVITAMIN FISH OIL VITAMIN E
--- NOTE | 2020-06-22 14:35 | NUR ---
PERCOCET 2 PO FOR PAIN.
[2020-06-22] MEDS: VANCOMYCIN INJECTION 750 MG in NS (IVPB) 250 ML IV SCH (16:58)
[2020-06-22] MEDS: eZETimibe 10 MG (ZETIA) TABLET PO SCH (20:21)
[2020-06-23] VITALS (15 sets, daily range): BP systolic 92–182; BP diastolic 43–72
[2020-06-23] MEDS: PIPERACILLIN/TAZO 4.5 GM/NS 100 ML IV SCH ×4 (00:46→08:53)
[2020-06-23] MEDS: oxyCODONE/APAP 5/325MG (PERCOCET 5) TABLET PO PRN (02:08)
[2020-06-23 05:16] LABS: HEMOGLOBIN 7.6 g/dL (11.5-16.0); MEAN PLATELET VOLUME 9.7 fL (9.0-12.2); WHITE BLOOD COUNT 20.1 10^3/uL (4.3-11.0)
[2020-06-23 05:39] LABS: POTASSIUM 4.1 MMOL/L (3.6-5.0)
[2020-06-23 05:40] LABS: CALCIUM 7.9 MG/DL (8.5-10.1)
[2020-06-23 05:45] LABS: CREATININE SERUM 0.95 MG/DL (0.60-1.30)
[2020-06-23] MEDS: LEVOTHYROXINE 50 MCG (LEVOTHROID) TAB PO SCH (05:45)
[2020-06-23] MEDS ORDERED: fentaNYL INJECTION 100 MCG/2 ML AMP ONE (07:29)
[2020-06-23] MEDS ORDERED: proPOfol 200 MG/20 ML (DIPRIVAN) VIAL IV ONE (08:19)
[2020-06-23] MEDS ORDERED: LIDOCAINE PF 2% 5 ML (XYLOCAINE) VIAL ONE (08:19)
[2020-06-23] MEDS ORDERED: ONDANSETRON 4 MG/2 ML (SDV) Z0FRAN ONE (08:19)
[2020-06-23] MEDS ORDERED: SEVOFLURANE (ULTANE) 15 ML INHAL SOLN ONE ×3 (08:19→11:09)
[2020-06-23] MEDS ORDERED: ROCURONIUM 10 MG/ML 5 ML SYRINGE IV ONE (08:19)
[2020-06-23] MEDS ORDERED: BUPIVACAINE 0.5% 30 ML (SENSORCAINE) VIAL ONE (08:27)
--- NOTE | 2020-06-23 08:27 | Progress Note ---
Subjective Subjective Date Seen by Provider: Jun 23, 2020 Time Seen by Provider: 08:27 PT IS AN 84 Y/O FEMALE WHO IS KNOWN TO ME FROM CLINIC. SHE PRESENTED TO THE EMERGENCY DEPARTMENT AFTER HAVING SEVERE AND PROGRESSIVE HIP PAIN. THE PATIENT WAS STATUS POST LEFT HIP FRACTURE WITH REPAIR AROUND 05/05/2021 AND DID WELL POST-OPERATIVELY UNTIL THIS WEEKEND WHEN SHE STARTED TO HAVE AN INCREASE IN HER PAIN. SHE WAS FOUND TO HAVE A LARGE PUSTULAR COLLECTION AT THE SURGICAL SITE WHICH WAS EVACUATED IN THE OPERATING ROOM. SHE REPORTS INCREASE IN PAIN, HER DTR IS WONDERING ABOUT WHEN HER MOM WILL BE TAKEN TO THE OR TODAY. Review of Systems General: No Chills; Fatigue, Malaise HEENT: No Head Aches, No Visual Changes Pulmonary: Dyspnea; No Cough; Pleuritic Chest Pain (BOTH LOWER RIBS) Cardiovascular: Chest Pain; No: Palpitations, Edema Gastrointestinal: No: Nausea, Abdominal Pain Musculoskeletal: leg pain (LEFT HIP) Neurological: Weakness; No: Confusion All Other Systems Reviewed All Other Systems Reviewed: Yes Objective Exam Vital Signs Vital Signs - First Documented 06/21/20 06/21/20 00:50 03:20 Temp 36.8 Pulse 75 Resp 18 B/P (MAP) 162/87 (112) Pulse Ox 91 O2 Delivery Room Air O2 Flow Rate 2.00 Capillary Refill : Less Than 3 SecondsLess Than 3 Seconds General Appearance: No Apparent Distress, WD/WN, Other (FACE VERY FLUSHED, SKIN WARM) HEENT: PERRL/EOMI, Other (ORAL MUCOSA DRY) Neck: Full Range of Motion, Non Tender, Supple Respiratory: Chest Non Tender, Lungs Clear, Normal Breath Sounds, No Accessory Muscle Use, No Respiratory Distress Cardiovascular: Regular Rate, Rhythm, No Murmur Gastrointestinal: Normal Bowel Sounds, Non Tender, Soft Rectal: Deferred Extremity: Pedal Edema (1+ EDEMA ON LEFT, TRACE EDEMA ON RIGHT; ), Other (LEFT HIP SURGICAL DRESSING IN PLACE) Neurologic/Psychiatric: Alert, Oriented x3, No Motor/Sensory Deficits, Normal Mood/Affect Skin: Warm/Dry Lymphatic: No Adenopathy Results Lab Laboratory Tests 06/23/20 04:34: White Blood Count 20.1H, Red Blood Count 2.41L, Hemoglobin 7.6L, Hematocrit 23L, Mean Corpuscular Volume 97, Mean Corpuscular Hemoglobin 32, Mean Corpuscular Hemoglobin Concent 33, Red Cell Distribution Width 13.0, Platelet Count 445H, Mean Platelet Volume 9.7, Sodium Level 131L, Potassium Level 4.1, Chloride Level 99, Carbon Dioxide Level 21, Anion Gap 11, Blood Urea Nitrogen 26H, Creatinine 0.95, Estimat Glomerular Filtration Rate 56, BUN/Creatinine Ratio 27, Glucose Level 129H, Calcium Level 7.9L Microbiology 06/21/20 Gram Stain - Final, Resulted 06/21/20 Anaerobic Culture, Resulted Pending 06/21/20 Surgical Culture - Preliminary, Resulted Staphylococcus aureus 06/21/20 Gram Stain - Final, Resulted 06/21/20 Body Fluid Culture - Preliminary, Resulted Staphylococcus aureus 06/21/20 Blood Culture - Preliminary, Resulted Staphylococcus aureus Assessment/Plan Assessment/Plan Problems: (1) Left hip postoperative wound infection Assessment & Plan: STATUS POST SURGICAL EVACUATION AND CLEANING. DEFER TO DR. MONTAÑO (2) Septic arthritis Qualifiers: Qualified Codes: M00.052 - Staphylococcal arthritis, left hip (3) Hypertension Qualifiers: Qualified Codes: I10 - Essential (primary) hypertension (4) Hyponatremia Assessment & Plan: IMPROVED WITH FLUIDS, MONITOR SERIAL LABS. (5) Leukocytosis Qualifiers: Qualified Codes: D72.829 - Elevated white blood cell count, unspecified Assessment & Plan: ELEVATED WHITE COUNT DUE TO ACUTE LEFT HIP INFECTION (6) Anemia Qualifiers: Qualified Codes: D64.89 - Other specified anemias Assessment & Plan: WILL GET BLOOD IN OR TODAY AND IV IRON POST-OPERATIVELY (7) Hyperlipidemia Qualifiers: Qualified Codes: E78.2 - Mixed hyperlipidemia (8) Dehydration (9) Hypothyroidism Qualifiers: Qualified Codes: E03.9 - Hypothyroidism, unspecified Assessment & Plan: RESUMED HOME REGIMEN ISADORA MALAGON MD Jun 23, 2020 08:27
[2020-06-23] MEDS ORDERED: NS IV 500 ML 500 ML IV SCH ×2 (08:30→10:30)
[2020-06-23] MEDS ORDERED: RT-ALBUTEROL SULF 2.5 MG/3 ML PRE-MIX VIAL IH PRN (08:30)
[2020-06-23] MEDS ORDERED: HYDROCORTISONE 100 MG/2 ML (Solu-CORTEF) VIAL IV PRN (08:30)
[2020-06-23] MEDS ORDERED: IRON DEXTRAN INJECTION 25 MG in NS (IVPB) 5.75 ML IV NR (08:30)
[2020-06-23] MEDS ORDERED: EPINEPHrine INJECTION 1 MG/ML AMP IM PRN (08:30)
[2020-06-23] MEDS ORDERED: diphenhydrAMINE 50 MG/ML INJ (BENADRYL) IV PRN (08:30)
[2020-06-23] MEDS ORDERED: TOBRAMYCIN 1.2 GM TOP ONE (08:45)
[2020-06-23] MEDS ORDERED: ACETAMINOPHEN 325 MG TABLET PO PRN (08:45)
[2020-06-23] MEDS ORDERED: ONDANSETRON 4 MG/2 ML (SDV) Z0FRAN IVP PRN (08:45)
[2020-06-23] MEDS ORDERED: IRON DEXTRAN INJECTION 1,000 MG in NS (IVPB) 250 ML IV ONE (08:45)
[2020-06-23] MEDS ORDERED: LACTATED RINGERS 1,000 ML IV PRN (08:45)
[2020-06-23] MEDS ORDERED: VANCOMYCIN 1000 MG/VIAL ONE (08:52)
[2020-06-23] MEDS: ENOXAPARIN 40 MG/0.4 ML (LOVENOX) SYR SC SCH (08:52)
[2020-06-23] MEDS: NS IV 1000 ML 1,000 ML IV SCH ×2 (08:54→17:45)
[2020-06-23] MEDS ORDERED: fentaNYL INJECTION 100 MCG/2 ML AMP IVP PRN (09:00)
[2020-06-23] MEDS ORDERED: GENTAMICIN 40 MG/ML 2 ML INJ SDV ONE (09:09)
--- NOTE | 2020-06-23 09:16 | Progress Note-Pre Operative ---
Pre-Operative Progress Note H&P Reviewed The H&P was reviewed, patient examined and no changes noted. Date Seen by Provider: Jun 23, 2020 Time Seen by Provider: 09:15 Date H&P Reviewed: Jun 21, 2020 Time H&P Reviewed: 10:08 Pre-Operative Diagnosis: left hip septic arthritis ZAHIDA MONTAÑO MD Jun 23, 2020 09:16
[2020-06-23] MEDS: polyethylene glycoL POWDER 17 GM (MIRALAX) PACK PO SCH ×2 (09:17→20:30)
[2020-06-23] MEDS: cloNIDine 0.1 MG (CATAPRES) TAB PO SCH ×2 (09:17→20:15)
[2020-06-23] MEDS: amLODIPine 5 MG (NORVASC) TAB PO SCH ×2 (09:17→20:16)
[2020-06-23] MEDS: HYDROCHLOROTHIAZIDE 25 MG (HCTZ) TAB PO SCH (09:17)
--- NOTE | 2020-06-23 09:17 | Progress Note-Post Operative ---
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
[2020-06-23] MEDS ORDERED: SUCCINYLCHOLINE INJ 100 MG/5 ML SYR/VIAL ONE (09:54)
[2020-06-23] MEDS ORDERED: morphine INJ 10 MG/ML 1ML (SYR OR VIAL) IVP ONE (11:00)
[2020-06-23] MEDS ORDERED: MEPERIDINE (DEMEROL) INJ 50 MG/ML IVP ONE (11:00)
--- NOTE | 2020-06-23 11:01 | Anesthesia-General Post-Op ---
General Patient Condition Mental Status/LOC: Same as Preop Cardiovascular: Satisfactory Nausea/Vomiting: Absent Respiratory: Satisfactory Pain: Controlled Complications: Absent Post Op Complications Complications None Follow Up Care/Instructions Patient Instructions None needed. Anesthesia/Patient Condition Patient Condition Patient is doing well, no complaints, stable vital signs, no apparent adverse anesthesia problems. No complications reported per nursing. JAREK CEDENO CRNA Jun 23, 2020 11:01
[2020-06-23] MEDS ORDERED: morphine INJ 10 MG/ML 1ML (SYR OR VIAL) ONE (11:13)
[2020-06-23] MEDS: ONDANSETRON 4 MG/2 ML (SDV) Z0FRAN IVP PRN ×2 (11:20→11:34)
[2020-06-23] MEDS: ceFAZolin 2 GM IV Premixed 50 ML IV SCH ×2 (13:04→21:21)
--- NOTE | 2020-06-23 13:06 | OPERATIVE REPORT ---
DATE OF SERVICE: 06/23/2020 PREOPERATIVE DIAGNOSIS: Left hip septic arthritis, status post bipolar replacement. POSTOPERATIVE DIAGNOSIS: Left hip septic arthritis, status post bipolar replacement. PROCEDURES: 1. Repeat irrigation and debridement of the left hip. 2. Hardware exchange, left hip prosthesis. SURGEON: Connor Montaño MD PHYSICAL CHEMIST: Frederick Do, who assisted throughout the procedure and closed the incisions. ANESTHESIA: General endotracheal by Earnest Milton CRNA. ESTIMATED BLOOD LOSS: 200 mL (mainly old clot from previous surgery). DRAINS: None. COMPLICATIONS: None. POSTOPERATIVE PLAN: IV antibiotics for 6 to eight weeks. The patient can weightbear as tolerated on left lower extremity. The patient was transferred to recovery room awake and stable condition. STATEMENT OF MEDICAL NECESSITY: The patient is an 84-year-old female who 2 days ago underwent irrigation and debridement for left hip septic arthritis following a bipolar replacement. Initial cultures revealed evidence of a sensitive staph aureus, but the plan was for repeat irrigation and debridement today with exchange of her liner and head with antibiotic bead placement. DESCRIPTION OF PROCEDURE: After risks and benefits of procedure were discussed and questions were answered, informed consent was signed and placed on chart, the operative site was confirmed in the preoperative holding area initialed by the surgeon. The patient was then transferred to the operating room and after adequate levels of general endotracheal anesthetic were obtained, a timeout was called, confirming the operative site. The patient was then carefully placed in the right lateral decubitus position, being careful to place an axillary roll and pad all bony prominences. The left hip and lower extremity were prepped and draped in the usual sterile fashion. The previous fara were removed and passed off of the field. The wound was then opened and there was extensive fresh clot noted, but no purulence and no necrotic tissue was noted. This was evacuated and the wound was irrigated. The previously placed abductor sutures were removed and the hip was dislocated without difficulty. The joint was then irrigated with pulse lavage. The head and liner were removed and then total of 8 liters was used to irrigate the wound and joint. The new 43 liner with neutral head was placed and the hip was reduced. The hip was taken through range of motion and found to be stable. The hip joint was then packed with antibiotic impregnated absorbable calcium phosphate beads, which were infiltrated with vancomycin and gentamicin. The abductor was repaired with #5 Tevdek in [id number] interrupted fashion. The subcutaneous tissues were irrigated with pulse lavage. The iliotibial band was approximated over the hip joint with #1 Vicryl in [id number] interrupted fashion, 0 Vicryl was used to deep subcutaneous layer, 2-0 Vicryl for the superficial subcutaneous layer, fara used on the skin. A soft dressing was applied. The patient was transferred to the recovery room awake and in stable condition. Job ID: [id number] DocumentID: [id number] Dictated Date: 06/23/2020 10:52:43 Facility Maintenance Supervisor Date: 06/23/2020 13:04:38 Dictated By: CONNOR MONTAÑO MD
[2020-06-23] MEDS: fentaNYL INJECTION 100 MCG/2 ML AMP IVP PRN ×2 (13:46→20:16)
--- NOTE | 2020-06-23 14:48 | Diagnostic Imaging Report ---
INDICATION: PICC line placement. COMPARISON: June 22, 2020. TECHNIQUE: Single radiograph of the chest dated June 23, 2020. FINDINGS: Interval placement of right-sided PICC line with the distal tip overlying the expected location of the mid aspect of the superior vena cava. No evidence of a pneumothorax. Pacer device is again noted with battery pack overlying the left chest. The cardiac silhouette is mildly enlarged. No significant pulmonary vascular congestion. Minimal right basilar interstitial opacities are present. Slight blunting of the bilateral costophrenic angles. No pneumothorax. No acute osseous abnormality. IMPRESSION: Interval placement of right-sided PICC line with the distal tip overlying the expected location of the mid aspect of the superior vena cava without pneumothorax. Persistent right basilar infiltrate and/or atelectasis. Bibasilar pleural thickening versus trace pleural effusions. Dictated by: Dictated on workstation # [id number]
--- NOTE | 2020-06-23 15:46 | NUR ---
PATIENT IS HAVING LOW URINE OUTPUT 75ML FOR SURGERY AND 50ML FOR THIS NURSE TODAY. DR. MALAGON NOTIFIED AT THIS TIME.
[2020-06-23] MEDS ORDERED: TROUGH ORDER-PHARMACY XX NR ×2 (16:00)
--- NOTE | 2020-06-23 16:22 | NUR ---
CALLED DR. MALAGON AND THEN CALLED AND LEFT A MESSAGE WITH HER NURSE AT HER OFFICE.
[2020-06-23] MEDS ORDERED: NS IV 500 ML 500 ML ONE (16:58)
[2020-06-23] MEDS ORDERED: NS IV 500 ML 500 ML IV ONE (17:00)
[2020-06-23] MEDS ORDERED: PIPERACILLIN/TAZOBACTAM (BULK) 4.5 GM in NS (IVPB) 100 ML IV SCH (17:00)
[2020-06-23] MEDS ORDERED: VANCOMYCIN INJECTION 750 MG in NS (IVPB) 250 ML IV SCH (17:00)
[2020-06-23] MEDS ORDERED: FUROSEMIDE 40 MG/4 ML INJ (LASIX) IVP ONE (17:30)
[2020-06-23] MEDS: eZETimibe 10 MG (ZETIA) TABLET PO SCH (20:16)
[2020-06-24] VITALS (8 sets, daily range): BP systolic 91–128; BP diastolic 52–83
--- NOTE | 2020-06-24 00:51 | NUR ---
When this nurse assessed patient at 2000 and checked VS patient SaO2 was 85% on 2L NC. O2 titrated to 5.5L HiFlo NC and SaO2 was 91%. WOOD CHOPPER checked patient VS at midnight and SaO2 82% on 5.5L [place]lo NC. This nurse assessed patient and titrated O2 to 10L [place] NC and SaO2 was only 86%. Call to RT. RT came and assessed and asked for an order for Vapotherm. Call to Dr Barton and order received for Vapotherm, CXR stat, Laix 20mg IV once, and Ativan 0.25mg once and may repeat in 2 hours if patient is still anxious.
[2020-06-24] MEDS ORDERED: RT-ALBUTEROL SULF 2.5 MG/3 ML PRE-MIX VIAL INH ONE (01:00)
[2020-06-24] MEDS ORDERED: FUROSEMIDE 40 MG/4 ML INJ (LASIX) IVP ONE (01:00)
[2020-06-24] MEDS ORDERED: LORazepam 0.5 MG (ATIVAN) TABLET PO ONE (01:00)
[2020-06-24] MEDS ORDERED: RT-ALBUTEROL SULF 2.5 MG/3 ML PRE-MIX VIAL ONE (01:04)
--- NOTE | 2020-06-24 01:28 | NUR ---
This nurse called patient's daughter Kaur and updated her about patient.
--- NOTE | 2020-06-24 01:43 | NUR ---
Dr Barton notified that patient is at 40/100 on vapotherm and SaO2 is 90% (did come up to 94% when patient used IS). Order received for Lorazepam 0.25mg IV once now.
[2020-06-24] MEDS ORDERED: LORazepam INJ 2 MG/ML (ATIVAN) VIAL ONE (01:45)
[2020-06-24] MEDS ORDERED: LORazepam INJ 2 MG/ML (ATIVAN) VIAL IVP ONE (01:45)
[2020-06-24] MEDS: LEVOTHYROXINE 50 MCG (LEVOTHROID) TAB PO SCH (04:26)
[2020-06-24] MEDS: NS IV 1000 ML 1,000 ML IV SCH ×2 (04:26→20:32)
[2020-06-24] MEDS: ceFAZolin 2 GM IV Premixed 50 ML IV SCH ×3 (05:05→21:16)
[2020-06-24 05:20] LABS: HEMOGLOBIN 7.5 g/dL (11.5-16.0); MEAN PLATELET VOLUME 9.3 fL (9.0-12.2); WHITE BLOOD COUNT 23.7 10^3/uL (4.3-11.0)
[2020-06-24 05:36] LABS: POTASSIUM 3.7 MMOL/L (3.6-5.0)
[2020-06-24 05:41] LABS: CREATININE SERUM 0.91 MG/DL (0.60-1.30)
--- NOTE | 2020-06-24 07:09 | Diagnostic Imaging Report ---
INDICATION: Shortness of breath. Comparison with 06/23/2020. FINDINGS: There has been significant increase in bilateral diffuse interstitial infiltrates with mild alveolar infiltrate especially in the lung bases. Heart mildly enlarged. Pacemaker on the left unchanged. PICC line on the right unchanged. Probable small bilateral pleural effusions now present. IMPRESSION: 1. Significant increase in interstitial and alveolar infiltrates throughout both lungs since previous exam. Dictated by: Dictated on workstation # [id number]
--- NOTE | 2020-06-24 07:45 | Anesthesia-General Post-Op ---
General Patient Condition Mental Status/LOC: Same as Preop Cardiovascular: Satisfactory Nausea/Vomiting: Absent Respiratory: Satisfactory Pain: Controlled Complications: Absent Post Op Complications Complications None Follow Up Care/Instructions Patient Instructions None needed. Anesthesia/Patient Condition Patient Condition Patient is doing well, no complaints, stable vital signs, no apparent adverse anesthesia problems. No complications reported per nursing. JAREK CEDENO CRNA Jun 24, 2020 07:45
[2020-06-24] MEDS ORDERED: FUROSEMIDE 40 MG/4 ML INJ (LASIX) IVP NR (08:45)
[2020-06-24] MEDS ORDERED: diphenhydrAMINE 50 MG/ML INJ (BENADRYL) IV PRN (09:00)
[2020-06-24] MEDS ORDERED: NS IV 500 ML 500 ML IV SCH (09:00)
[2020-06-24] MEDS ORDERED: EPINEPHrine INJECTION 1 MG/ML AMP IM PRN (09:00)
[2020-06-24] MEDS ORDERED: IRON DEXTRAN INJECTION 1,000 MG in NS (IVPB) 250 ML IV NR (09:00)
[2020-06-24] MEDS ORDERED: HYDROCORTISONE 100 MG/2 ML (Solu-CORTEF) VIAL IV PRN (09:00)
[2020-06-24] MEDS ORDERED: IRON DEXTRAN INJECTION 25 MG in NS (IVPB) 5.75 ML IV NR (09:00)
[2020-06-24] MEDS: POTASSIUM CL 10MEQ/50ML IVPB 50 ML IV SCH ×2 (09:09→10:12)
[2020-06-24] MEDS: oxyCODONE/APAP 5/325MG (PERCOCET 5) TABLET PO PRN ×4 (09:13→18:06)
[2020-06-24] MEDS: HYDROCHLOROTHIAZIDE 25 MG (HCTZ) TAB PO SCH (09:13)
[2020-06-24] MEDS: cloNIDine 0.1 MG (CATAPRES) TAB PO SCH (09:13)
[2020-06-24] MEDS: amLODIPine 5 MG (NORVASC) TAB PO SCH (09:13)
[2020-06-24] MEDS: polyethylene glycoL POWDER 17 GM (MIRALAX) PACK PO SCH ×2 (09:14→20:21)
[2020-06-24] MEDS: ENOXAPARIN 40 MG/0.4 ML (LOVENOX) SYR SC SCH (09:14)
--- NOTE | 2020-06-24 09:19 | Progress Note ---
Subjective Subjective Date Seen by Provider: Jun 24, 2020 Time Seen by Provider: 08:40 PT IS AN 84 Y/O FEMALE WHO IS KNOWN TO ME FROM CLINIC. SHE PRESENTED TO THE EMERGENCY DEPARTMENT AFTER HAVING SEVERE AND PROGRESSIVE HIP PAIN. THE PATIENT WAS STATUS POST LEFT HIP FRACTURE WITH REPAIR AROUND 05/05/2021 AND DID WELL POST-OPERATIVELY UNTIL THIS WEEKEND WHEN SHE STARTED TO HAVE AN INCREASE IN HER PAIN. SHE WAS FOUND TO HAVE A LARGE PUSTULAR COLLECTION AT THE SURGICAL SITE WHICH WAS EVACUATED IN THE OPERATING ROOM. PT WENT BACK TO THE OR YESTERDAY FOR PLASTIC HARDWARE REPLACEMENT AND ANTIBIOTIC BEAD PLACEMENT. SHE HAD A ROUGH NIGHT WITH UNCONTROLLED PAIN, ANXIETY AND PROGRESSIVE SHORTNESS OF BREATH, SHE WAS PLACED ON VAPOTHERM AND IS FEELING A LITTLE BETTER NOW, BUT SHE REPORTS EXCESSIVE LOOSE STOOLS. Review of Systems General: No Chills; Fatigue, Malaise HEENT: No Head Aches, No Visual Changes Pulmonary: Dyspnea; No Cough; Pleuritic Chest Pain (BOTH LOWER RIBS) Cardiovascular: Chest Pain; No: Palpitations, Edema Gastrointestinal: Diarrhea; No: Nausea, Abdominal Pain Genitourinary: Other (CORTES IN PLACE) Musculoskeletal: leg pain (LEFT HIP) Neurological: Weakness; No: Confusion All Other Systems Reviewed All Other Systems Reviewed: Yes Objective Exam Vital Signs Vital Signs - First Documented 06/21/20 06/21/20 06/24/20 00:50 03:20 01:17 Temp 36.8 Pulse 75 Resp 18 B/P (MAP) 162/87 (112) Pulse Ox 91 O2 Delivery Room Air O2 Flow Rate 2.00 FiO2 100 Capillary Refill : Less Than 3 SecondsLess Than 3 Seconds General Appearance: WD/WN, Moderate Distress (WITH SHORTNESS OF BREATH) HEENT: PERRL/EOMI, Other (ORAL MUCOSA DRY) Neck: Full Range of Motion, Non Tender, Supple Respiratory: Chest Non Tender, Decreased Breath Sounds (IN BASES), Respiratory Distress Cardiovascular: Regular Rate, Rhythm, No Murmur Gastrointestinal: Normal Bowel Sounds, Non Tender, Soft, Other (HYPERACTIVE BOWEL SOUNDS) Rectal: Deferred Extremity: Pedal Edema (1+ EDEMA ON LEFT, TRACE EDEMA ON RIGHT; ), Other (LEFT HIP SURGICAL DRESSING IN PLACE) Neurologic/Psychiatric: Alert, Oriented x3, No Motor/Sensory Deficits, Normal Mood/Affect Skin: Warm/Dry (SURGICAL DRESSING C/D/I) Lymphatic: No Adenopathy Results Lab Laboratory Tests 06/24/20 05:10: White Blood Count 23.7H, Red Blood Count 2.42L, Hemoglobin 7.5L, Hematocrit 22L, Mean Corpuscular Volume 93, Mean Corpuscular Hemoglobin 31, Mean Corpuscular Hemoglobin Concent 34, Red Cell Distribution Width 14.5, Platelet Count 373, Mean Platelet Volume 9.3, Sodium Level 129L, Potassium Level 3.7, Chloride Level 98, Carbon Dioxide Level 18L, Anion Gap 13, Blood Urea Nitrogen 24H, Creatinine 0.91, Estimat Glomerular Filtration Rate 59, BUN/Creatinine Ratio 26, Glucose Level 111H, Calcium Level 8.0L Microbiology 06/23/20 Gram Stain - Final, Resulted 06/23/20 Anaerobic Culture, Resulted Pending 06/23/20 Surgical Culture - Preliminary, Resulted Staphylococcus aureus 06/21/20 Gram Stain - Final, Resulted 06/21/20 Body Fluid Culture - Preliminary, Resulted Staphylococcus aureus 06/21/20 Blood Culture - Final, Complete Staphylococcus aureus Assessment/Plan Assessment/Plan Problems: (1) Left hip postoperative wound infection Assessment & Plan: STATUS POST SURGICAL EVACUATION AND CLEANING. DEFER TO DR. MONTAÑO (2) Septic arthritis Qualifiers: Qualified Codes: M00.052 - Staphylococcal arthritis, left hip Assessment & Plan: STATUS POST SURGICAL HARDWARE REPLACEMENT OF PARTS AND ANTIBIOTIC BEAD PLACEMENT. DISCUSSED WITH PT AND HER DTR, WILL NEED TO BE ON IV ANTIBIOTICS FOR AT LEAST 6 WEEKS POST-OP AND WE WILL NEED TO RE-EVAL FREQUENTLY. (3) Hypertension Qualifiers: Qualified Codes: I10 - Essential (primary) hypertension Assessment & Plan: RESUMED HOME REGIMEN (4) Hyponatremia Assessment & Plan: IMPROVED WITH FLUIDS, MONITOR SERIAL LABS. (5) Leukocytosis Qualifiers: Qualified Codes: D72.829 - Elevated white blood cell count, unspecified Assessment & Plan: ELEVATED WHITE COUNT DUE TO ACUTE LEFT HIP INFECTION (6) Anemia Qualifiers: Qualified Codes: D64.89 - Other specified anemias Assessment & Plan: PT RECEIVED BLOOD YESTERDAY, SHE HAD SO MUCH FLUID THAT I HAD THEM HOLD OFF ON IV IRON UNTIL TODAY, REPEAT LABS (7) Hyperlipidemia Qualifiers: Qualified Codes: E78.2 - Mixed hyperlipidemia (8) Dehydration (9) Hypothyroidism Qualifiers: Qualified Codes: E03.9 - Hypothyroidism, unspecified Assessment & Plan: RESUMED HOME REGIMEN (10) Diarrhea Qualifiers: Qualified Codes: R19.7 - Diarrhea, unspecified Assessment & Plan: CHECK STOOL FOR CDIFF, WILL NEED TO BE ON CONTACT PRECAUTION UNTIL STOOL REPORT IS BACK ISADORA MALAGON MD Jun 24, 2020 09:19
--- NOTE | 2020-06-24 09:36 | NUR ---
MESSAGE RELAYED TO THIS RN THAT ELIECER HUI CALLED TO CHECK ON PATIENT. SURGICAL SERVICES ASST NOTIFIED ELIECER OF SCHEDULED TIME OF FAMILY UPDATE. ELIECER REPORTED THAT HER SISTER, WHO HAD BEEN HERE TO VISIT THIS AM, REPORTED TO MARIANNA THAT HER MOTHER, (MARA) MIGHT NOT MKE IT. HUI DID NOT LEAVE NUMBER [facility]'S NUMBER LOCATED ON THE CHART. THIS RN ATTEMPTED TO REACH HUI TO UPDATE ON PATIENT CONDITION. ATTEMPT X2. LEFT MESSAGE WITH LAST ATTEMPT. AWAITING RETURN CALL. PATIENT REPORTS RELIEF FROM OXYCODONE. AWAITING AIR MATRESS. ISOLATION ORDERED, STOOL SENT TO LAB FOR ANALYSIS. PATIENT EDUCATED ON INCENTIVE SPIROMETER AND IMPORTANCE OF USING. RETURN DEMO AND VERBALIZED UNDERSTANDING OF USE HOURLY. CONT TO MONITOR PATIENT. NO NEEDS OR C/O AT THIS TIME. Addendum: 06/24/20 at 0945 by WEST MALIK RN HUI IS THE DAUGHTER THAT CAME TODAY. THE SISTER THAT CALLED IS THE SISTER FROM [place].
--- NOTE | 2020-06-24 09:59 | NUR ---
HUI, DAUGHTER RETURNED CALL. THIS RN HAS THE WRONG RELATIVE THAT CALLED. HUI CAME THIS A.M. TO SEE PATIENT. HUI REPORTED THAT SHE DID IN FACT TELL HER SISTER HER MOTHER IS DYING. HUI REPORTS SHE SPOKE WITH DR MALAGON THIS A.M. DR MALAGON NOTIFIED FOR CLARIFICATION BEFORE THIS RN REACHES OUT TO OTHER FAMILY MEMEBER DRIVING FROM [place].
[2020-06-24] MEDS: LACTOBACILLUS ACIDOPHILUS (PROBIOTIC) CAPSULE PO SCH ×3 (10:12→18:08)
--- NOTE | 2020-06-24 10:26 | NUR ---
SPOKE WITH DR MALAGON. RELAYED INFORMATION TO NGUYỄN ARIAS, ELIECER, FROM DR MALAGON REGARDING RISK OF ADVANCED AGE AND DIAGNOSIS. PAULIETR STATES SHE IS EN ROUTE AND BROTHER WILL BE THERE TO SEE PATIENT WELL.
--- NOTE | 2020-06-24 10:31 | Progress Note ---
Standard Progress Note Progress Notes/Assess & Plan Date Seen by a Provider: Jun 24, 2020 Time Seen by a Provider: 09:30 Progress/Assessment & Plan feeling better Vital Signs Date Time Temp Pulse Resp B/P (MAP) Pulse Ox O2 Delivery O2 Flow Rate FiO2 06/22/20 04:00 36.6 64 16 152/67 (95) 96 Nasal Cannula 2.50 06/22/20 01:00 60 06/22/20 00:08 36.8 65 17 133/61 (85) 97 Nasal Cannula 2.50 06/21/20 20:20 Nasal Cannula 2.00 06/21/20 20:14 37.2 74 18 134/64 (87) 93 Nasal Cannula 2.00 06/21/20 19:00 76 06/21/20 17:00 Nasal Cannula 2.00 06/21/20 16:00 37.0 77 18 178/64 (102) 95 Nasal Cannula 3.00 06/21/20 13:40 36.6 74 18 148/75 (99) 98 Nasal Cannula 3.00 06/21/20 13:00 71 06/21/20 12:53 36.5 74 176/65 (102) 93 Nasal Cannula 3.00 06/21/20 12:35 Nasal Cannula 4 06/21/20 12:35 36.5 20 150/81 (104) 96 Nasal Cannula 4 06/21/20 12:30 20 150/81 (104) 96 Nasal Cannula 4 06/21/20 12:25 Nasal Cannula 4 06/21/20 12:20 21 164/64 (97) 96 Nasal Cannula 4 06/21/20 12:10 Nasal Cannula 4 06/21/20 12:10 22 156/69 (98) 94 Nasal Cannula 4 06/21/20 12:00 18 149/62 (91) 96 OxyMask 4 06/21/20 11:55 OxyMask 4 06/21/20 11:50 22 125/61 (82) 96 OxyMask 4 06/21/20 11:40 36.2 16 113/41 (65) 96 OxyMask 10 06/21/20 11:40 OxyMask 10 06/21/20 09:22 80 06/21/20 08:13 Nasal Cannula 2.00 I & O 06/22/20 07:00 Intake Total 620 ml Output Total 1600 ml Balance -980 ml Laboratory Tests Test 06/21/20 10:30 06/21/20 13:06 06/22/20 06:02 Range/Units Coronavirus (COVID-19)(PCR) Negative Negative Sodium Level 125 *L 128 L 135-145 MMOL/L Potassium Level 5.0 4.3 3.6-5.0 MMOL/L Chloride Level 94 L 96 L 98-107 MMOL/L Carbon Dioxide Level 19 L 22 21-32 MMOL/L Anion Gap 12 10 5-14 MMOL/L Blood Urea Nitrogen 40 H 37 H 7-18 MG/DL Creatinine 0.99 1.07 0.60-1.30 MG/DL Estimat Glomerular Filtration Rate 53 49 BUN/Creatinine Ratio 40 35 Glucose Level 130 H 111 H 70-105 MG/DL Calcium Level 8.4 L 7.8 L 8.5-10.1 MG/DL White Blood Count 18.6 H 4.3-11.0 10^3/uL Red Blood Count 2.52 L 3.80-5.11 10^6/uL Hemoglobin 7.9 #L 11.5-16.0 g/dL Hematocrit 24 L 35-52 % Mean Corpuscular Volume 95 80-99 fL Mean Corpuscular Hemoglobin 31 25-34 pg Mean Corpuscular Hemoglobin Concent 33 32-36 g/dL Red Cell Distribution Width 12.9 10.0-14.5 % Platelet Count 385 130-400 10^3/uL Mean Platelet Volume 10.0 9.0-12.2 fL Immature Granulocyte % (Auto) 2 % Neutrophils (%) (Auto) 79 H 42-75 % Lymphocytes (%) (Auto) 11 L 12-44 % Monocytes (%) (Auto) 7 0-12 % Eosinophils (%) (Auto) 0 0-10 % Basophils (%) (Auto) 0 0-10 % Neutrophils # (Auto) 14.7 H 1.8-7.8 10^3/uL Lymphocytes # (Auto) 2.1 1.0-4.0 10^3/uL Monocytes # (Auto) 1.3 H 0.0-1.0 10^3/uL Eosinophils # (Auto) 0.1 0.0-0.3 10^3/uL Basophils # (Auto) 0.1 0.0-0.1 10^3/uL Immature Granulocyte # (Auto) 0.4 H 0.0-0.1 10^3/uL Corrected Calcium 8.8 8.5-10.1 MG/DL Total Bilirubin 0.3 0.1-1.0 MG/DL Aspartate Amino Transf (AST/SGOT) 27 5-34 U/L Alanine Aminotransferase (ALT/SGPT) 16 0-55 U/L Alkaline Phosphatase 115 40-136 U/L Total Protein 6.5 6.4-8.2 GM/DL Albumin 2.7 L 3.2-4.5 GM/DL cxs--presumed MSSA L hip dressing intact. NVI distally s/p I and D left hip to OR tomorrow for repeat I and D and hardware exchange NPO after midnight Final Diagnosis feeling better re hip today Laboratory Tests Test 06/24/20 05:10 Range/Units White Blood Count 23.7 H 4.3-11.0 10^3/uL Red Blood Count 2.42 L 3.80-5.11 10^6/uL Hemoglobin 7.5 L 11.5-16.0 g/dL Hematocrit 22 L 35-52 % Mean Corpuscular Volume 93 80-99 fL Mean Corpuscular Hemoglobin 31 25-34 pg Mean Corpuscular Hemoglobin Concent 34 32-36 g/dL Red Cell Distribution Width 14.5 10.0-14.5 % Platelet Count 373 130-400 10^3/uL Mean Platelet Volume 9.3 9.0-12.2 fL Sodium Level 129 L 135-145 MMOL/L Potassium Level 3.7 3.6-5.0 MMOL/L Chloride Level 98 98-107 MMOL/L Carbon Dioxide Level 18 L 21-32 MMOL/L Anion Gap 13 5-14 MMOL/L Blood Urea Nitrogen 24 H 7-18 MG/DL Creatinine 0.91 0.60-1.30 MG/DL Estimat Glomerular Filtration Rate 59 BUN/Creatinine Ratio 26 Glucose Level 111 H 70-105 MG/DL Calcium Level 8.0 L 8.5-10.1 MG/DL S aureus from intra op cultures yesterday Vital Signs Date Time Temp Pulse Resp B/P (MAP) Pulse Ox O2 Delivery O2 Flow Rate FiO2 06/24/20 08:00 37.1 60 22 121/83 (96) 96 Vapotherm 40.00 33.00 06/24/20 07:57 Vapotherm 40.00 100 06/24/20 07:10 92 Vapotherm 40.00 100 06/24/20 06:40 80 06/24/20 04:15 37.0 74 20 103/55 (71) 94 Vapotherm 40.00 100.00 06/24/20 02:40 95 Vapotherm 40.00 100 06/24/20 02:30 68 95 Vapotherm 40.00 100.00 06/24/20 01:17 93 Vapotherm 40.00 100 06/24/20 01:00 61 06/24/20 00:22 37.3 89 22 110/54 (72) 86 High Flow N/C 10.00 06/23/20 20:16 36.0 93 20 121/69 (86) 90 High Flow N/C 5.50 06/23/20 19:26 Nasal Cannula 2.00 06/23/20 19:00 81 06/23/20 17:20 37.7 89 113/65 94 06/23/20 16:00 35.9 81 20 120/53 (75) 96 Nasal Cannula 4.00 06/23/20 15:23 36.2 65 120/53 95 06/23/20 15:08 36.4 76 92/51 95 Nasal Cannula 2.00 06/23/20 12:00 36.2 68 18 170/72 (104) 95 Nasal Cannula 4.00 06/23/20 11:55 Nasal Cannula 4 06/23/20 11:55 36.3 20 160/56 (90) 93 Nasal Cannula 4 06/23/20 11:45 Nasal Cannula 4 06/23/20 11:40 20 160/59 (92) 94 Nasal Cannula 4 06/23/20 11:30 20 159/56 (90) 95 OxyMask 5 06/23/20 11:30 20 156/61 (92) 94 OxyMask 6 06/23/20 11:30 OxyMask 5 06/23/20 11:20 20 156/58 (90) 95 OxyMask 8 06/23/20 11:15 OxyMask 8 06/23/20 11:10 20 169/58 (95) 95 OxyMask 8 06/23/20 11:00 20 137/61 (86) 96 OxyMask 10 06/23/20 11:00 OxyMask 10 06/23/20 10:56 OxyMask 10 06/23/20 10:56 36.3 16 131/43 (72) 96 OxyMask 10 I & O 06/24/20 07:00 Intake Total 3740 ml Output Total 1575 ml Balance 2165 ml L hip dressing intact NVI distally s/p L hip I and D continue abx will require 6-8 wks of IV abx ZAHIDA MONTAÑO MD Jun 24, 2020 10:30
--- NOTE | 2020-06-24 11:29 | NUR ---
REMAINED AT BEDSIDE DURING INFED INFUSION. NO S/S RXN NOTED. PHARMACY NOTIFIED TO SEND OTHER DOSE. PATIENT DENIES NEEDS OR C/O AT THIS TIME. CONT TO MONITOR.
--- NOTE | 2020-06-24 14:37 | NUR ---
CM/SS visited with patient for discharge planning. The patient way laying in bed at time of visit. She reports that she is feeling better today but is very tired and unable to sleep the last couple of nights. She is pleasant and willing to discuss discharge planning. SNF: The physician reports that the patient may need a skilled placement depending on the patient's physical capacity and families ability to assist. The patient verbalized understanding; however, reports her preferred discharge plan would be to return home with her 2 daughters for a week then her daughter and son-in-law. The patient reports that her family is against long-term half-way placement but she would be willing for this sw to send a referral for a short term stay. Her choice is [facility]. CM/SS contacted [facility] and sent a referral. Awaiting acceptance/denial. Equipment: CPAP and FWW. Patient cannot remember the medical equipment company. Summary: The patient lives at home with her Daughter. The patient report's that her daughter is still currently working and would not be able to do time study clerk care. However, she report's she will contact her other daughter and son-in-law to come stay with them if needed. CM/SS explained that she may need a higher level of care that family cannot provide at first. CM/SS discussed seeing the physical therapist assessment to assist with discharge planning. She verbalized understanding. The patient reports that she was getting around with a FWW prior to this admission and after her first surgery was able to participate in Inpatient Rehab then discharge home. CM/SS will continue to follow.
--- NOTE | 2020-06-24 14:59 | Physical Therapy Evaluation ---
PT Evaluation-General Medical Diagnosis Admission Date Jun 21, 2020 at 04:05 Medical Diagnosis: septic arthritis left hip Onset Date: Jun 24, 2020 Therapy Diagnosis Therapy Diagnosis: weakness; abn gait Height/Weight Height (Feet): 5 Height (Inches): 2.00 Weight (Pounds): 161 Precautions Precautions/Isolations: Fall Prevention Weight Bear Status Right Lower Extremity: Right Weight Bearing/Tolerated Left Lower Extremity: Left Weight Bearing/Tolerated Hip precautions. Referral Physician: Lauro Reason for Referral: Evaluation/Treatment Medical History Pertinent Medical History: HTN, Hypothroidism Additional Medical History pacemaker Current History Pt is post fall with left hip fx with repair (THR ) in April 2020. Recently started experiencing exquisite pain and was found to have a septic joint. 06/23/20, I and D with hardware replacement. Reviewed History: Yes Social History Home: Single Level Current Living Status: Other Family (daughter) Entry Into Home: Ramp Prior Prior Level of Function SCALE: Activities may be completed with or without assistive devices. 8-Bqrvjqrgmu-zraedfu completes the activity by him/herself with no assistance from a helper. 5-Set-up or Clean-up Assistance-helper sets up or cleans up; patient completes activity. [place] assists only prior to or following the activity. 4-Supervision or Touching Assistance-helper provides verbal cues and/or touching/steadying and/or contact guard assistance as patient completes activity. Assistance may be provided throughout the activity or intermittently. 3-Partial/Moderate Assistance-helper does LESS THAN HALF the effort. [place] lifts, holds or supports trunk or limbs, but provides less than half the effort. 2-Substantial/Maximal Assistance-helper does MORE THAN HALF the effort. [place] lifts or holds trunk or limbs and provides more than half the effort. 9-Watyndkyz-fuerry does ALL the effort. Patient does none of the effort to complete the activity. Or, the assistance of 2 or more helpers is required for the patient to complete the activity. If activity was not attempted, code reason: 7-Patient Refused. 9-Not Applicable-not attempted and the patient did not perform the activity before the current illness, exacerbation or injury. 10-Not Attempted due to Environmental Limitations-(lack of equipment, weather restraints, etc.). 88-Not Attempted due to Medical Conditions or Safety Concerns. Bed Mobility: 6 Transfers (B,C,W/C): 6 Gait: 6 Stairs: 9 Indoor Mobility (Ambulation): Independent Stairs: Independent Pt reports she had recently returned to community mobiltiy and activities post original THR. PT Evaluation-Current Subjective Agrees to PT. Agrees to sit EOB and stand. No complaints. Objective Patient Orientation: Person, Place, Time, Situation ROM/Strength ROM Lower Extremities WFL Strength Lower Extremities Right LE WNL: left LE grossly 2/5 Integumentary/Posture Integumentary Refer to nursing notes. Bowel Incontinence: No Bladder Incontinence: [place] Cath Posture slightly rounded shoulders Neuromuscular (Tone, Coordination, Reflexes) intact and functional Sensory Vision: Functional Hearing: Functional Hand Dominance: Right Sensation Right Lower Extremit: Intact Sensation Left Lower Extremity: Intact Transfers Sit to Lying (QC): 2 Lying to Sitting/Side of Bed(Q: 2 Sit to Stand (QC): 3 Max assist with bed mobility to include scooting in bed. Pt able to stand EOB with min assist and blocking her feet. Stood 30 seconds, unable to sidestep at EOB. Limited WB through left LE. Balance Sitting Static: Fair Sitting Dynamic: Fair Standing Static: Fair Standing Dynamic: Fair Treatment PT eval complete. Standing EOB with attempts to sidestep; unable. Worked on deep breathing and upright posture in sitting. AP while sitting EOB. Pt in bed post treatment with needs met, vapotherm in situ, SCD's in place and abd wedge in place. Oxygen sats >90% throughout treatment. Assessment/Needs Post left THR revision due to septic arthritis. Limited strength and mobility impairs funcitonal bed mobility, transfers an she is unable to attempt weight shift to take steps at this time. She will benefit from skilled PT to addres functional mobiltiy to allow her to return home as before. Rehab Potential: Good PT [place] Goals [facility]pc Goals PT [place] Goals Time Frame: Jul 01, 2020 Sit to Lying (QC): 4 Lying-Sitting on Side/Bed(QC): 4 Sit to Stand (QC): 4 Walk 50ft with 2 Turns (QC): 4 PT Plan Problem List Problem List: Activity Tolerance, Functional Strength, Safety, Balance, Gait, Transfer, Bed Mobility Treatment/Plan Treatment Plan: Continue Plan of Care Treatment Plan: Bed Mobility, Education, Functional Activity Geri, Functional Strength, Gait, Safety, Therapeutic Exercise, Transfers Treatment Duration: Jul 01, 2020 Frequency: 11 times per week Estimated Hrs Per Day: .5 hour per day Patient and/or Family Agrees t: Yes Safety Risks/Education Patient Education: Transfer Techniques, Reviewed Precautions, Safety Issues Teaching Recipient: Patient Teaching Methods: Discussion Response to Teaching: Reinforcement Needed Discharge Recommendations Therapy Discharge Recommendati: Post Acute PT Time/GCodes Time In: 1415 Time Out: 1445 Total Billed Treatment Time: 30 Total Billed Treatment visit EVM 15 FA 15 LUIS MANUEL SALOMON PT Jun 24, 2020 14:59
--- NOTE | 2020-06-24 16:17 | NUR ---
DR MALAGON NOTIFIED OF PATIENT'S BP 90/50'S . NEW ORDERS TO D/C NORVASC AND CATAPRESS. HOLD HCTZ, REPEAT BP @ 10PM AND NOTIFIED DR MALAGON OF RESULTS. ORDERS ENTERED. PATIENT IS ASYMPTOMATIC WITH HYPOTENSION. TRANSFERRED TO CHAIR WITH [facility]. DENIES ANY C/O OR SYMPTOMS. . CONT TO MONITOR.
[2020-06-24] MEDS: eZETimibe 10 MG (ZETIA) TABLET PO SCH (20:22)
--- NOTE | 2020-06-24 21:55 | NUR ---
Dr. Barton notified of BP as instructed - 106/58 with hr at 73. New order rec to decrease IV fluids to 50 mls/hr - Also, to make sure Clonidine 0.1 mg po is on HOLD, and Chest xray Pa & Lat is ordered for AM. also informed of pt's output for 2199 I/O's is at 200 mls. Will continue to monitor. Addendum: 06/24/20 at 2225 by NIKO ARAUZ RN reiterated to make sure HCTZ and Norvasc has been Discontinued.
[2020-06-25] VITALS (7 sets, daily range): BP systolic 110–144; BP diastolic 57–68
[2020-06-25] MEDS: ceFAZolin 2 GM IV Premixed 50 ML IV SCH ×3 (05:07→23:21)
[2020-06-25 05:29] LABS: MEAN PLATELET VOLUME 9.3 fL (9.0-12.2); WHITE BLOOD COUNT 19.3 10^3/uL (4.3-11.0)
[2020-06-25 05:32] LABS: HEMOGLOBIN 6.9 g/dL (11.5-16.0)
[2020-06-25 05:40] LABS: CALCIUM 8.6 MG/DL (8.5-10.1); CREATININE SERUM 0.91 MG/DL (0.60-1.30); POTASSIUM 3.4 MMOL/L (3.6-5.0)
[2020-06-25] MEDS: LEVOTHYROXINE 50 MCG (LEVOTHROID) TAB PO SCH (05:41)
[2020-06-25] MEDS ORDERED: NS IV 500 ML 500 ML IV SCH (07:00)
--- NOTE | 2020-06-25 08:08 | Progress Note ---
Standard Progress Note Progress Notes/Assess & Plan Date Seen by a Provider: Jun 25, 2020 Time Seen by a Provider: 08:06 Progress/Assessment & Plan feeling better Vital Signs Date Time Temp Pulse Resp B/P (MAP) Pulse Ox O2 Delivery O2 Flow Rate FiO2 06/22/20 04:00 36.6 64 16 152/67 (95) 96 Nasal Cannula 2.50 06/22/20 01:00 60 06/22/20 00:08 36.8 65 17 133/61 (85) 97 Nasal Cannula 2.50 06/21/20 20:20 Nasal Cannula 2.00 06/21/20 20:14 37.2 74 18 134/64 (87) 93 Nasal Cannula 2.00 06/21/20 19:00 76 06/21/20 17:00 Nasal Cannula 2.00 06/21/20 16:00 37.0 77 18 178/64 (102) 95 Nasal Cannula 3.00 06/21/20 13:40 36.6 74 18 148/75 (99) 98 Nasal Cannula 3.00 06/21/20 13:00 71 06/21/20 12:53 36.5 74 176/65 (102) 93 Nasal Cannula 3.00 06/21/20 12:35 Nasal Cannula 4 06/21/20 12:35 36.5 20 150/81 (104) 96 Nasal Cannula 4 06/21/20 12:30 20 150/81 (104) 96 Nasal Cannula 4 06/21/20 12:25 Nasal Cannula 4 06/21/20 12:20 21 164/64 (97) 96 Nasal Cannula 4 06/21/20 12:10 Nasal Cannula 4 06/21/20 12:10 22 156/69 (98) 94 Nasal Cannula 4 06/21/20 12:00 18 149/62 (91) 96 OxyMask 4 06/21/20 11:55 OxyMask 4 06/21/20 11:50 22 125/61 (82) 96 OxyMask 4 06/21/20 11:40 36.2 16 113/41 (65) 96 OxyMask 10 06/21/20 11:40 OxyMask 10 06/21/20 09:22 80 06/21/20 08:13 Nasal Cannula 2.00 I & O 06/22/20 07:00 Intake Total 620 ml Output Total 1600 ml Balance -980 ml Laboratory Tests Test 06/21/20 10:30 06/21/20 13:06 06/22/20 06:02 Range/Units Coronavirus (COVID-19)(PCR) Negative Negative Sodium Level 125 *L 128 L 135-145 MMOL/L Potassium Level 5.0 4.3 3.6-5.0 MMOL/L Chloride Level 94 L 96 L 98-107 MMOL/L Carbon Dioxide Level 19 L 22 21-32 MMOL/L Anion Gap 12 10 5-14 MMOL/L Blood Urea Nitrogen 40 H 37 H 7-18 MG/DL Creatinine 0.99 1.07 0.60-1.30 MG/DL Estimat Glomerular Filtration Rate 53 49 BUN/Creatinine Ratio 40 35 Glucose Level 130 H 111 H 70-105 MG/DL Calcium Level 8.4 L 7.8 L 8.5-10.1 MG/DL White Blood Count 18.6 H 4.3-11.0 10^3/uL Red Blood Count 2.52 L 3.80-5.11 10^6/uL Hemoglobin 7.9 #L 11.5-16.0 g/dL Hematocrit 24 L 35-52 % Mean Corpuscular Volume 95 80-99 fL Mean Corpuscular Hemoglobin 31 25-34 pg Mean Corpuscular Hemoglobin Concent 33 32-36 g/dL Red Cell Distribution Width 12.9 10.0-14.5 % Platelet Count 385 130-400 10^3/uL Mean Platelet Volume 10.0 9.0-12.2 fL Immature Granulocyte % (Auto) 2 % Neutrophils (%) (Auto) 79 H 42-75 % Lymphocytes (%) (Auto) 11 L 12-44 % Monocytes (%) (Auto) 7 0-12 % Eosinophils (%) (Auto) 0 0-10 % Basophils (%) (Auto) 0 0-10 % Neutrophils # (Auto) 14.7 H 1.8-7.8 10^3/uL Lymphocytes # (Auto) 2.1 1.0-4.0 10^3/uL Monocytes # (Auto) 1.3 H 0.0-1.0 10^3/uL Eosinophils # (Auto) 0.1 0.0-0.3 10^3/uL Basophils # (Auto) 0.1 0.0-0.1 10^3/uL Immature Granulocyte # (Auto) 0.4 H 0.0-0.1 10^3/uL Corrected Calcium 8.8 8.5-10.1 MG/DL Total Bilirubin 0.3 0.1-1.0 MG/DL Aspartate Amino Transf (AST/SGOT) 27 5-34 U/L Alanine Aminotransferase (ALT/SGPT) 16 0-55 U/L Alkaline Phosphatase 115 40-136 U/L Total Protein 6.5 6.4-8.2 GM/DL Albumin 2.7 L 3.2-4.5 GM/DL cxs--presumed MSSA L hip dressing intact. NVI distally s/p I and D left hip to OR tomorrow for repeat I and D and hardware exchange NPO after midnight Final Diagnosis feeling much better denies hip pain Laboratory Tests Test 06/24/20 13:15 06/25/20 05:10 Range/Units Lab Scanned Report Transfusion Reaction Form [id number] White Blood Count 19.3 H 4.3-11.0 10^3/uL Red Blood Count 2.19 L 3.80-5.11 10^6/uL Hemoglobin 6.9 *L 11.5-16.0 g/dL Hematocrit 20 *L 35-52 % Mean Corpuscular Volume 93 80-99 fL Mean Corpuscular Hemoglobin 32 25-34 pg Mean Corpuscular Hemoglobin Concent 34 32-36 g/dL Red Cell Distribution Width 14.1 10.0-14.5 % Platelet Count 336 130-400 10^3/uL Mean Platelet Volume 9.3 9.0-12.2 fL Sodium Level 131 L 135-145 MMOL/L Potassium Level 3.4 L 3.6-5.0 MMOL/L Chloride Level 101 98-107 MMOL/L Carbon Dioxide Level 20 L 21-32 MMOL/L Anion Gap 10 5-14 MMOL/L Blood Urea Nitrogen 26 H 7-18 MG/DL Creatinine 0.91 0.60-1.30 MG/DL Estimat Glomerular Filtration Rate 59 BUN/Creatinine Ratio 29 Glucose Level 88 70-105 MG/DL Calcium Level 8.6 8.5-10.1 MG/DL Vital Signs Date Time Temp Pulse Resp B/P (MAP) Pulse Ox O2 Delivery O2 Flow Rate FiO2 06/25/20 06:48 93 Vapotherm 30.00 50 06/25/20 03:59 37.0 83 16 110/61 (77) 98 Vapotherm 35.00 75.00 06/25/20 01:23 93 Vapotherm 30.00 75 06/25/20 01:00 73 06/24/20 23:56 36.8 72 16 128/60 (82) 98 Vapotherm 35.00 75.00 06/24/20 21:49 73 106/58 (74) 97 Vapotherm 35.00 75.00 06/24/20 21:45 94 Vapotherm 30.00 75 06/24/20 20:20 95 Vapotherm 30.00 75 06/24/20 20:00 36.4 84 18 107/61 (76) 95 Vapotherm 40.00 80.00 06/24/20 19:00 71 06/24/20 18:16 94 Vapotherm 40.00 80 06/24/20 16:00 36.6 87 18 91/52 (65) 95 Vapotherm 40.00 90.00 06/24/20 14:33 92 Vapotherm 40.00 90 06/24/20 12:39 79 06/24/20 12:00 36.7 80 24 102/52 (69) 100 Vapotherm 40.00 33.00 06/24/20 11:25 94 Vapotherm 40.00 100 I & O 06/25/20 06:59 Intake Total 3183.25 ml Output Total 1300 ml Balance 1883.25 ml L hip incision clean and dry. No calf tenderness s/p I and D left hip continue abx mobilize ZAHIDA MONTAÑO MD Jun 25, 2020 08:08
[2020-06-25] MEDS: LACTOBACILLUS ACIDOPHILUS (PROBIOTIC) CAPSULE PO SCH ×3 (08:22→19:20)
[2020-06-25] MEDS: oxyCODONE/APAP 5/325MG (PERCOCET 5) TABLET PO PRN ×3 (08:22→23:39)
[2020-06-25] MEDS: ENOXAPARIN 40 MG/0.4 ML (LOVENOX) SYR SC SCH (08:24)
[2020-06-25] MEDS: polyethylene glycoL POWDER 17 GM (MIRALAX) PACK PO SCH ×2 (08:24→19:48)
--- NOTE | 2020-06-25 08:51 | Progress Note ---
Subjective Subjective Date Seen by Provider: Jun 25, 2020 Time Seen by Provider: 08:50 PT IS AN 84 Y/O FEMALE WHO IS KNOWN TO ME FROM CLINIC. SHE PRESENTED TO THE EMERGENCY DEPARTMENT AFTER HAVING SEVERE AND PROGRESSIVE HIP PAIN. THE PATIENT WAS STATUS POST LEFT HIP FRACTURE WITH REPAIR AROUND 05/05/2021 AND DID WELL POST-OPERATIVELY UNTIL THIS WEEKEND WHEN SHE STARTED TO HAVE AN INCREASE IN HER PAIN. SHE WAS FOUND TO HAVE A LARGE PUSTULAR COLLECTION AT THE SURGICAL SITE WHICH WAS EVACUATED IN THE OPERATING ROOM. PT REPORTS THAT SHE IS FEELING SHORT OF BREATH, DENIES ABDOMINAL PAIN, CHEST PAIN, NAUSEA, SHE REPORTS THAT SHE IS A LITTLE BIT BETTER TODAY COMPARED TO YESTERDAY. Review of Systems General: No Chills; Fatigue, Malaise HEENT: No Head Aches, No Visual Changes Pulmonary: Dyspnea; No Cough; Pleuritic Chest Pain (BOTH LOWER RIBS) Cardiovascular: Chest Pain; No: Palpitations, Edema Gastrointestinal: No: Nausea, Abdominal Pain Genitourinary: Other (CORTES IN PLACE) Musculoskeletal: leg pain (LEFT HIP) Neurological: Weakness; No: Confusion All Other Systems Reviewed All Other Systems Reviewed: Yes Objective Exam Vital Signs Vital Signs - First Documented 06/21/20 06/21/20 06/24/20 00:50 03:20 01:17 Temp 36.8 Pulse 75 Resp 18 B/P (MAP) 162/87 (112) Pulse Ox 91 O2 Delivery Room Air O2 Flow Rate 2.00 FiO2 100 Capillary Refill : Less Than 3 SecondsLess Than 3 Seconds General Appearance: No Apparent Distress, WD/WN, Other (FACE VERY FLUSHED, SKIN WARM) HEENT: PERRL/EOMI, Other (ORAL MUCOSA DRY) Neck: Full Range of Motion, Non Tender, Supple Respiratory: Chest Non Tender, No Respiratory Distress, Decreased Breath Sounds Cardiovascular: Regular Rate, Rhythm, No Murmur Gastrointestinal: Normal Bowel Sounds, Non Tender, Soft Rectal: Deferred Extremity: Pedal Edema (1+ EDEMA ON LEFT, TRACE EDEMA ON RIGHT; ), Other (LEFT HIP SURGICAL DRESSING IN PLACE) Neurologic/Psychiatric: Alert, Oriented x3, No Motor/Sensory Deficits, Normal Mood/Affect Skin: Warm/Dry Lymphatic: No Adenopathy Results Lab Laboratory Tests 06/24/20 13:15: Lab Scanned Report Transfusion Reaction Form 06/25/20 05:10: White Blood Count 19.3H, Red Blood Count 2.19L, Hemoglobin 6.9*L, Hematocrit 20*L, Mean Corpuscular Volume 93, Mean Corpuscular Hemoglobin 32, Mean Corpuscular Hemoglobin Concent 34, Red Cell Distribution Width 14.1, Platelet Count 336, Mean Platelet Volume 9.3, Sodium Level 131L, Potassium Level 3.4L, Chloride Level 101, Carbon Dioxide Level 20L, Anion Gap 10, Blood Urea Nitrogen 26H, Creatinine 0.91, Estimat Glomerular Filtration Rate 59, BUN/Creatinine Ratio 29, Glucose Level 88, Calcium Level 8.6 Microbiology 06/24/20 C. difficile GDH Antigen & Toxins - Final, Complete 06/23/20 Gram Stain - Final, Resulted 06/23/20 Anaerobic Culture, Resulted Pending 06/23/20 Surgical Culture - Preliminary, Resulted Staphylococcus aureus 06/21/20 Gram Stain - Final, Complete 06/21/20 Body Fluid Culture - Final, Complete Staphylococcus aureus 06/21/20 Blood Culture - Final, Complete Staphylococcus aureus Assessment/Plan Assessment/Plan Problems: (1) Left hip postoperative wound infection Assessment & Plan: STATUS POST SURGICAL EVACUATION AND CLEANING. DEFER TO DR. MONTAÑO (2) Septic arthritis Qualifiers: Qualified Codes: M00.052 - Staphylococcal arthritis, left hip (3) Hypertension Qualifiers: Qualified Codes: I10 - Essential (primary) hypertension (4) Hyponatremia Assessment & Plan: IMPROVED WITH FLUIDS, MONITOR SERIAL LABS. (5) Leukocytosis Qualifiers: Qualified Codes: D72.829 - Elevated white blood cell count, unspecified Assessment & Plan: ELEVATED WHITE COUNT DUE TO ACUTE LEFT HIP INFECTION (6) Anemia Qualifiers: Qualified Codes: D64.89 - Other specified anemias Assessment & Plan: WILL GET BLOOD IN OR TODAY AND IV IRON POST-OPERATIVELY (7) Hyperlipidemia Qualifiers: Qualified Codes: E78.2 - Mixed hyperlipidemia (8) Dehydration (9) Hypothyroidism Qualifiers: Qualified Codes: E03.9 - Hypothyroidism, unspecified Assessment & Plan: RESUMED HOME REGIMEN ISADORA MALAGON MD Jun 25, 2020 08:51
[2020-06-25] MEDS ORDERED: cloNIDine 0.1 MG (CATAPRES) TAB PO SCH (09:00)
[2020-06-25] MEDS ORDERED: FUROSEMIDE 40 MG/4 ML INJ (LASIX) IVP ONE (10:00)
--- NOTE | 2020-06-25 11:32 | Physical Therapy Daily Note ---
PT Daily Note-Current Subjective Patient agrees to PT. Pain Numeric Pain Scale: 5-Moderate Pain Location: Left Location Body Site: Hip Pain Description: Acute Mental Status Patient Orientation: Normal For Age Attachments: SCD's, Oxygen (vapotherm), Crowley Catheter, IV Transfers SCALE: Activities may be completed with or without assistive devices. 1-Cyvjkvgzou-jfcazan completes the activity by him/herself with no assistance from a helper. 5-Set-up or Clean-up Assistance-helper sets up or cleans up; patient completes activity. [place] assists only prior to or following the activity. 4-Supervision or Touching Assistance-helper provides verbal cues and/or touching/steadying and/or contact guard assistance as patient completes activity. Assistance may be provided throughout the activity or intermittently. 3-Partial/Moderate Assistance-helper does LESS THAN HALF the effort. [place] lifts, holds or supports trunk or limbs, but provides less than half the effort. 2-Substantial/Maximal Assistance-helper does MORE THAN HALF the effort. [place] lifts or holds trunk or limbs and provides more than half the effort. 7-Obqsohrfi-aqbzkf does ALL the effort. Patient does none of the effort to complete the activity. Or, the assistance of 2 or more helpers is required for the patient to complete the activity. If activity was not attempted, code reason: 7-Patient Refused. 9-Not Applicable-not attempted and the patient did not perform the activity before the current illness, exacerbation or injury. 10-Not Attempted due to Environmental Limitations-(lack of equipment, weather restraints, etc.). 88-Not Attempted due to Medical Conditions or Safety Concerns. Lying to Sitting/Side of Bed(Q: 1 Sit to Stand (QC): 2 Chair/Ytx-wn-Viyay Xfer(QC): 2 Toilet Transfer (QC): 2 sit to stand to FWW x 3 sets Weight Bearing Right Lower Extremity: Right Weight Bearing/Tolerated Left Lower Extremity: Left Weight Bearing/Tolerated Hip precautions. Gait Training Does the Patient Walk?: No and Walking Goal IS indicated Distance: 5' Gait Assistive Device: FWW shuffle gait sequence Exercises Supine Ex: Ankle pumps, Quad Set, Heel Slides, Straight leg raise Supine Reps: 12 (AAROM) Seated Therapy Exercises: Long arc quads Seated Reps: 12 (AAROM) Assessment Patient requires time to complete all functional tasks. PT to increase activity as tolerated by patient. Noted left knee edema. PT Usp Goals Usp Goals PT Rental Agent Goals Time Frame: Jul 01, 2020 Sit to Lying (QC): 4 Lying-Sitting on Side/Bed(QC): 4 Sit to Stand (QC): 4 Walk 50ft with 2 Turns (QC): 4 PT Plan Treatment/Plan Treatment Plan: Continue Plan of Care Treatment Plan: Bed Mobility, Education, Functional Activity Geri, Functional Strength, Gait, Safety, Therapeutic Exercise, Transfers Treatment Duration: Jul 01, 2020 Frequency: 11 times per week Estimated Hrs Per Day: .5 hour per day Patient and/or Family Agrees t: Yes Time/GCodes Time In: 930 Time Out: 953 Total Billed Treatment Time: 23 Total Billed Treatment 1 visit FA 13 min EX 10 min JOELLE GARZON PT Jun 25, 2020 11:32
--- NOTE | 2020-06-25 11:32 | Diagnostic Imaging Report ---
INDICATION: Fluid overload COMPARISON: 06/24/2020 FINDINGS: There have been mixed interval changes. There is increased right greater than left subpulmonic pleural effusions, however vascular congestion is largely resolved and there is resolution of pulmonary edema. IMPRESSION: Resolving congestion and edema however increased pleural fluid. Dictated by: Dictated on workstation # [id number]
[2020-06-25] MEDS ORDERED: NS IV 500 ML 500 ML ONE (12:38)
--- NOTE | 2020-06-25 13:15 | NUR ---
CM/SS follow up. Plan: The patient is being assessed for the Swing Bed program (SWB). Aubree Swing Bed Coordinator, RN to see patient and speak with family. VCV: ROEL/MARLIN received call from Tiffany at [facility]. She reports they have accepted patient for admission. CM/SS informed Tiffany that if they are agreeable with a skilled stay, it is an anticipated discharge for next week. CM/SS notified Aubree of patient's acceptance to facility if placement is needed. CM/SS will follow with Aubree for discharge planning.
--- NOTE | 2020-06-25 13:54 | NUR ---
Swing Bed Note: Swing bed evaluation request received. Patient qualifies for swing bed for continued need of IV abx (L hip postoperative infection) with continued need for Physical therapy, et continued oxygen monitoring and weaning. Please also consider Occupational Therapy for continued strengthening. Ultimate goal is to return home at prior independent level of functioning. Discussed continued care plans with Dr. Barton and then discussed those potential plans with patient and four family members at bedside. Patient has Medicare insurance as her only insurance provider. Swing bed/skilled benefits explained to patient/family and questions answered. If patient does continue to need skilled benefits after day 20 then days 21-100 would be $185.50/per day for the 20% co-pay required. Patient and family expressed hopefulness that she would be able to tolerate intensive therapies and admit to inpatient rehabilitation at some point vs. able to rehabilitate from swing bed vs group home home placement and return home. They all appear to understand the multiple different care plans discussed and appear to be agreeable with whatever Dr. Barton recommends as the appropriate next steps. Anticipate admission to swing bed tomorrow 06/26/20.
--- NOTE | 2020-06-25 13:56 | Physical Therapy Daily Note ---
PT Daily Note-Current Subjective Patient agrees to PT. Mental Status Patient Orientation: Normal For Age Attachments: Oxygen, Crowley Catheter Transfers SCALE: Activities may be completed with or without assistive devices. 5-Ltjzrofkdz-wtcnawe completes the activity by him/herself with no assistance from a helper. 5-Set-up or Clean-up Assistance-helper sets up or cleans up; patient completes activity. [place] assists only prior to or following the activity. 4-Supervision or Touching Assistance-helper provides verbal cues and/or touching/steadying and/or contact guard assistance as patient completes activity. Assistance may be provided throughout the activity or intermittently. 3-Partial/Moderate Assistance-helper does LESS THAN HALF the effort. [place] l ifts, holds or supports trunk or limbs, but provides less than half the effort. 2-Substantial/Maximal Assistance-helper does MORE THAN HALF the effort. [place] lifts or holds trunk or limbs and provides more than half the effort. 9-Ualoekmzo-aiimmv does ALL the effort. Patient does none of the effort to complete the activity. Or, the assistance of 2 or more helpers is required for t he patient to complete the activity. If activity was not attempted, code reason: 7-Patient Refused. 9-Not Applicable-not attempted and the patient did not perform the activity before the current illness, exacerbation or injury. 10-Not Attempted due to Environmental Limitations-(lack of equipment, weather restraints, etc.). 88-Not Attempted due to Medical Conditions or Safety Concerns. Sit to Lying (QC): 2 Sit to Stand (QC): 2 Chair/Asi-bg-Gatis Xfer(QC): 3 Weight Bearing Right Lower Extremity: Right Weight Bearing/Tolerated Left Lower Extremity: Left Weight Bearing/Tolerated Hip precautions. Gait Training Does the Patient Walk?: Yes Distance: 10' Walk 10 feet (QC): 3 Walk 50 ft with 2 Turns(QC): 88 Walk 150 ft (QC): 88 Gait Assistive Device: FWW functional gait sequence Exercises Seated Therapy Exercises: Ankle pumps, Long arc quads Seated Reps: 10 Assessment Patient to receive PRBC this p.m. due to critical Hgb. PT to increase activity as tolerated by patient. 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 Assisted Goals PT Assisted Goals Time Frame: Jul 01, 2020 Sit to Lying (QC): 4 Lying-Sitting on Side/Bed(QC): 4 Sit to Stand (QC): 4 Walk 50ft with 2 Turns (QC): 4 PT Plan Treatment/Plan Treatment Plan: Continue Plan of Care Treatment Plan: Bed Mobility, Education, Functional Activity Geri, Functional Strength, Gait, Safety, Therapeutic Exercise, Transfers Treatment Duration: Jul 01, 2020 Frequency: 11 times per week Estimated Hrs Per Day: .5 hour per day Patient and/or Family Agrees t: Yes Time/GCodes Time In: 1317 Time Out: 1330 Total Billed Treatment Time: 13 Total Billed Treatment 1 visit FA 13 min JOELLE GARZON PT Jun 25, 2020 13:56
[2020-06-25] MEDS ORDERED: FUROSEMIDE 40 MG/4 ML INJ (LASIX) ONE ×2 (17:11→23:56)
[2020-06-25] MEDS: eZETimibe 10 MG (ZETIA) TABLET PO SCH (19:47)
[2020-06-25] MEDS: NS IV 1000 ML 1,000 ML IV SCH (19:55)
--- NOTE | 2020-06-25 20:50 | NUR ---
STAT CXR RESULTS COMPLETED AND CALLED TO DR. MALAGON. DR. MALAGON IS GOING TO NOTIFY DR. TRACEY OF RESULTS. NO NEW ORDERS AT THIS TIME. Addendum: 06/25/20 at 2058 by JOSÉ ROBLES RN WRONG PATIENT. DISREGARD NOTE
[2020-06-26] VITALS: BP 139/65
--- NOTE | 2020-06-26 | NUR ---
02 89-90% ON 4L, LUNGS SOUND WHEEZY. DR. MALAGON NOTIFIED, NEW ORDERS RECEIVED: LASIX 20MG IV ONCE, RT TO DETERMINE IF NEED FOR VAPOTHERM. WILL CONTINUE TO MONITOR.
[2020-06-26] MEDS: RT-ALBUTEROL SULF 2.5 MG/3 ML PRE-MIX VIAL IH PRN ×2 (00:02→09:16)
[2020-06-26] MEDS: oxyCODONE/APAP 5/325MG (PERCOCET 5) TABLET PO PRN ×2 (03:26→08:54)
[2020-06-26 03:51] VITALS: BP 119/59
[2020-06-26] MEDS: LEVOTHYROXINE 50 MCG (LEVOTHROID) TAB PO SCH (05:41)
[2020-06-26] MEDS: ceFAZolin 2 GM IV Premixed 50 ML IV SCH (05:41)
[2020-06-26 05:53] LABS: HEMOGLOBIN 8.6 g/dL (11.5-16.0); MEAN PLATELET VOLUME 9.3 fL (9.0-12.2); WHITE BLOOD COUNT 21.3 10^3/uL (4.3-11.0)
[2020-06-26 06:03] LABS: CHLORIDE 100 MMOL/L (98-107); POTASSIUM 3.2 MMOL/L (3.6-5.0); SODIUM 133 MMOL/L (135-145)
[2020-06-26 06:04] LABS: CALCIUM 9.4 MG/DL (8.5-10.1); GLUCOSE 92 MG/DL (70-105)
[2020-06-26 06:06] LABS: CARBON DIOXIDE 21 MMOL/L (21-32)
[2020-06-26 06:08] LABS: CREATININE SERUM 0.82 MG/DL (0.60-1.30); GFR ESTIMATED > 60
[2020-06-26 06:09] LABS: BUN/CREATININE RATIO 26
--- NOTE | 2020-06-26 07:10 | Progress Note ---
Standard Progress Note Progress Notes/Assess & Plan Date Seen by a Provider: Jun 26, 2020 Time Seen by a Provider: 07:08 Progress/Assessment & Plan feeling better Vital Signs Date Time Temp Pulse Resp B/P (MAP) Pulse Ox O2 Delivery O2 Flow Rate FiO2 06/22/20 04:00 36.6 64 16 152/67 (95) 96 Nasal Cannula 2.50 06/22/20 01:00 60 06/22/20 00:08 36.8 65 17 133/61 (85) 97 Nasal Cannula 2.50 06/21/20 20:20 Nasal Cannula 2.00 06/21/20 20:14 37.2 74 18 134/64 (87) 93 Nasal Cannula 2.00 06/21/20 19:00 76 06/21/20 17:00 Nasal Cannula 2.00 06/21/20 16:00 37.0 77 18 178/64 (102) 95 Nasal Cannula 3.00 06/21/20 13:40 36.6 74 18 148/75 (99) 98 Nasal Cannula 3.00 06/21/20 13:00 71 06/21/20 12:53 36.5 74 176/65 (102) 93 Nasal Cannula 3.00 06/21/20 12:35 Nasal Cannula 4 06/21/20 12:35 36.5 20 150/81 (104) 96 Nasal Cannula 4 06/21/20 12:30 20 150/81 (104) 96 Nasal Cannula 4 06/21/20 12:25 Nasal Cannula 4 06/21/20 12:20 21 164/64 (97) 96 Nasal Cannula 4 06/21/20 12:10 Nasal Cannula 4 06/21/20 12:10 22 156/69 (98) 94 Nasal Cannula 4 06/21/20 12:00 18 149/62 (91) 96 OxyMask 4 06/21/20 11:55 OxyMask 4 06/21/20 11:50 22 125/61 (82) 96 OxyMask 4 06/21/20 11:40 36.2 16 113/41 (65) 96 OxyMask 10 06/21/20 11:40 OxyMask 10 06/21/20 09:22 80 06/21/20 08:13 Nasal Cannula 2.00 I & O 06/22/20 07:00 Intake Total 620 ml Output Total 1600 ml Balance -980 ml Laboratory Tests Test 06/21/20 10:30 06/21/20 13:06 06/22/20 06:02 Range/Units Coronavirus (COVID-19)(PCR) Negative Negative Sodium Level 125 *L 128 L 135-145 MMOL/L Potassium Level 5.0 4.3 3.6-5.0 MMOL/L Chloride Level 94 L 96 L 98-107 MMOL/L Carbon Dioxide Level 19 L 22 21-32 MMOL/L Anion Gap 12 10 5-14 MMOL/L Blood Urea Nitrogen 40 H 37 H 7-18 MG/DL Creatinine 0.99 1.07 0.60-1.30 MG/DL Estimat Glomerular Filtration Rate 53 49 BUN/Creatinine Ratio 40 35 Glucose Level 130 H 111 H 70-105 MG/DL Calcium Level 8.4 L 7.8 L 8.5-10.1 MG/DL White Blood Count 18.6 H 4.3-11.0 10^3/uL Red Blood Count 2.52 L 3.80-5.11 10^6/uL Hemoglobin 7.9 #L 11.5-16.0 g/dL Hematocrit 24 L 35-52 % Mean Corpuscular Volume 95 80-99 fL Mean Corpuscular Hemoglobin 31 25-34 pg Mean Corpuscular Hemoglobin Concent 33 32-36 g/dL Red Cell Distribution Width 12.9 10.0-14.5 % Platelet Count 385 130-400 10^3/uL Mean Platelet Volume 10.0 9.0-12.2 fL Immature Granulocyte % (Auto) 2 % Neutrophils (%) (Auto) 79 H 42-75 % Lymphocytes (%) (Auto) 11 L 12-44 % Monocytes (%) (Auto) 7 0-12 % Eosinophils (%) (Auto) 0 0-10 % Basophils (%) (Auto) 0 0-10 % Neutrophils # (Auto) 14.7 H 1.8-7.8 10^3/uL Lymphocytes # (Auto) 2.1 1.0-4.0 10^3/uL Monocytes # (Auto) 1.3 H 0.0-1.0 10^3/uL Eosinophils # (Auto) 0.1 0.0-0.3 10^3/uL Basophils # (Auto) 0.1 0.0-0.1 10^3/uL Immature Granulocyte # (Auto) 0.4 H 0.0-0.1 10^3/uL Corrected Calcium 8.8 8.5-10.1 MG/DL Total Bilirubin 0.3 0.1-1.0 MG/DL Aspartate Amino Transf (AST/SGOT) 27 5-34 U/L Alanine Aminotransferase (ALT/SGPT) 16 0-55 U/L Alkaline Phosphatase 115 40-136 U/L Total Protein 6.5 6.4-8.2 GM/DL Albumin 2.7 L 3.2-4.5 GM/DL cxs--presumed MSSA L hip dressing intact. NVI distally s/p I and D left hip to OR tomorrow for repeat I and D and hardware exchange NPO after midnight Final Diagnosis reports no hip pain Vital Signs Date Time Temp Pulse Resp B/P (MAP) Pulse Ox O2 Delivery O2 Flow Rate FiO2 06/26/20 03:51 36.4 74 18 119/59 (79) 94 Vapotherm 20.00 40.00 06/26/20 01:00 94 Nasal Cannula 5.00 06/26/20 01:00 80 06/26/20 00:20 90 Nasal Cannula 4.00 06/26/20 00:02 91 Nasal Cannula 4.00 06/26/20 00:00 36.5 86 17 139/65 (89) 90 Nasal Cannula 3.00 06/25/20 20:00 36.5 77 18 127/68 (87) 91 Nasal Cannula 3.00 06/25/20 19:50 High Flow N/C 3.00 06/25/20 19:16 Nasal Cannula 3.00 06/25/20 19:00 80 06/25/20 16:00 36.7 93 18 134/63 (86) 93 Nasal Cannula 3.00 06/25/20 15:53 37.0 109 18 144/63 94 High Flow N/C 4.00 06/25/20 13:50 37.3 97 123/61 94 High Flow N/C 5.00 06/25/20 13:25 36.7 91 18 138/64 96 High Flow N/C 5.00 06/25/20 13:00 79 06/25/20 09:18 68 06/25/20 08:00 36.3 78 20 125/57 (79) 95 Vapotherm 30.00 33.00 06/25/20 08:00 93 Vapotherm 25.00 45 I & O 06/26/20 07:00 Intake Total 1490 ml Output Total 1950 ml Balance -460 ml Laboratory Tests Test 06/26/20 05:45 Range/Units White Blood Count 21.3 H 4.3-11.0 10^3/uL Red Blood Count 2.75 L 3.80-5.11 10^6/uL Hemoglobin 8.6 #L 11.5-16.0 g/dL Hematocrit 25 L 35-52 % Mean Corpuscular Volume 91 80-99 fL Mean Corpuscular Hemoglobin 31 25-34 pg Mean Corpuscular Hemoglobin Concent 35 32-36 g/dL Red Cell Distribution Width 14.6 H 10.0-14.5 % Platelet Count 348 130-400 10^3/uL Mean Platelet Volume 9.3 9.0-12.2 fL Sodium Level 133 L 135-145 MMOL/L Potassium Level 3.2 L 3.6-5.0 MMOL/L Chloride Level 100 98-107 MMOL/L Carbon Dioxide Level 21 21-32 MMOL/L Anion Gap 12 5-14 MMOL/L Blood Urea Nitrogen 21 H 7-18 MG/DL Creatinine 0.82 0.60-1.30 MG/DL Estimat Glomerular Filtration Rate > 60 BUN/Creatinine Ratio 26 Glucose Level 92 70-105 MG/DL Calcium Level 9.4 8.5-10.1 MG/DL L hip incision clean and dry without erythema or warmth s/p I and D L hip--much improved clinically will follow ZAHIDA MONTAÑO MD Jun 26, 2020 07:10
[2020-06-26 08:00] VITALS: BP 116/76
[2020-06-26] MEDS: LACTOBACILLUS ACIDOPHILUS (PROBIOTIC) CAPSULE PO SCH (08:52)
[2020-06-26] MEDS: ENOXAPARIN 40 MG/0.4 ML (LOVENOX) SYR SC SCH (08:55)
[2020-06-26] MEDS: polyethylene glycoL POWDER 17 GM (MIRALAX) PACK PO SCH (09:04)
[2020-06-26] MEDS ORDERED: FUROSEMIDE 40 MG/4 ML INJ (LASIX) ONE (09:05)
[2020-06-26] MEDS ORDERED: FUROSEMIDE 40 MG/4 ML INJ (LASIX) IVP ONE ×2 (09:15)
--- NOTE | 2020-06-26 09:56 | Discharge Summary ---
Diagnosis/Chief Complaint Date of Admission Jun 21, 2020 at 04:05 Date of Discharge 06/26/2020 Discharge Date: Jun 26, 2020 Discharge Time: 09:50 Admission Diagnosis Admission Diagnosis LEFT HIP SEPTIC ARTHRITIS HYPERTENSION HYPONATREMIA LEUKOCYTOSIS ANEMIA HYPERLIPIDEMIA DEHYDRATION HYPOTHYROIDISM Discharge Diagnosis LEFT HIP SEPTIC ARTHRITIS HYPERTENSION HYPONATREMIA LEUKOCYTOSIS ANEMIA HYPERLIPIDEMIA DEHYDRATION HYPOTHYROIDISM DIARRHEA RESPIRATORY DISTRESS PNEUMONIA Reason Hospital Visit Patient is an 84yo female with a PMH of HTN, AV block with pacemaker, and hypothyroidism who is s/p L hip bipolar replacement on 05/05/[address] Montaño c/o increasing pain for the last week. She had been ambulating with a walker without complications until the last week when she began having pain in her left hip, back, and behind her knees. She had a follow up appointment with Dr. Montaño on 06/18/20 and was having some pain then, but this has progressed and become severe since then. She denies fevers, chills, CP, SOB. X-rays were obtained at her follow up appointment, but due to her pacemaker CT or MRI were not obtained. She denies any recent injury or trauma since the surgery. X-rays obtained in the ED revealed hardware intact and no bony abnormalities. Per radiology, CT of the L hip revealed a large fluid collection in the subcutaneous tissues resembling an abscess or other nonspecific collection. She was started on Zosyn and vancomycin, and Dr. Montaño was consulted. The area was aspirated and 230mL of fluid was obtained, 30mL of which was purulent. She is NPO in preparation for irrigation and debridement. Discharge Summary Discharge Physical Examination Allergies: Coded Allergies: hydrocodone (Verified Allergy, Unknown, Rash, 05/08/20) Vitals & I&Os Vital Signs Date Time Temp Pulse Resp B/P (MAP) Pulse Ox O2 Delivery O2 Flow Rate FiO2 06/26/20 10:57 Vapotherm 30.00 65 06/26/20 09:16 96 06/26/20 08:00 36.4 92 22 116/76 (89) General Appearance: Alert, Oriented X3, Cooperative HEENT: Atraumatic Respiratory: Other (DECREASED IN BASES, FAINT CRACKLES) Cardiovascular: Regular Rate, Normal S1 Abdominal: Normal Bowel Sounds, Soft, No Tenderness Skin: No Rashes Neuro: Cranial Nerves 3-12 NL Psych/Mental Status: Mental Status NL, Mood NL Hospital Course LEFT HIP SEPTIC ARTHRITIS HYPERTENSION HYPONATREMIA LEUKOCYTOSIS ANEMIA HYPERLIPIDEMIA DEHYDRATION HYPOTHYROIDISM DIARRHEA RESPIRATORY DISTRESS PNEUMONIA (1) Left hip postoperative wound infection Assessment & Plan: STATUS POST SURGICAL EVACUATION AND CLEANING. DEFER TO DR. MONTAÑO (2) Septic arthritis Qualifiers: Qualified Codes: M00.052 - Staphylococcal arthritis, left hip Assessment & Plan: STATUS POST SURGICAL HARDWARE REPLACEMENT OF PARTS AND ANTIBIOTIC BEAD PLACEMENT. DISCUSSED WITH PT AND HER DTR, WILL NEED TO BE ON IV ANTIBIOTICS FOR AT LEAST 6 WEEKS POST-OP AND WE WILL NEED TO RE-EVAL FREQUENTLY. (3) Hypertension Qualifiers: Qualified Codes: I10 - Essential (primary) hypertension Assessment & Plan: RESUMED HOME REGIMEN (4) Hyponatremia Assessment & Plan: IMPROVED WITH FLUIDS, MONITOR SERIAL LABS. (5) Leukocytosis Qualifiers: Qualified Codes: D72.829 - Elevated white blood cell count, unspecified Assessment & Plan: ELEVATED WHITE COUNT DUE TO ACUTE LEFT HIP INFECTION (6) Anemia Qualifiers: Qualified Codes: D64.89 - Other specified anemias Assessment & Plan: PT RECEIVED BLOOD YESTERDAY, SHE HAD SO MUCH FLUID THAT I HAD THEM HOLD OFF ON IV IRON UNTIL TODAY, REPEAT LABS (7) Hyperlipidemia Qualifiers: Qualified Codes: E78.2 - Mixed hyperlipidemia (8) Dehydration (9) Hypothyroidism Qualifiers: Qualified Codes: E03.9 - Hypothyroidism, unspecified Assessment & Plan: RESUMED HOME REGIMEN (10) Diarrhea Qualifiers: Qualified Codes: R19.7 - Diarrhea, unspecified Assessment & Plan: CHECK STOOL FOR CDIFF, WILL NEED TO BE ON CONTACT PRECAUTION UNTIL STOOL REPORT IS BACK (11) Pneumonia CXR, IV ANTIBIOTICS, MONITOR SYMPTOMS. INCREASE BREATHING TREATMENTS, DISCUSSED WITH RT, NEED TO BE MORE AGGRESSIVE WITH RESPIRATORY TOILET , WILL CHECK SWALLOW STUDY DUE TO PT HAVING WORSENING SYMPTOMS OF COUGH WITH LYING DOWN POST MEAL. Pending Labs Laboratory Tests 06/26/20 05:45: White Blood Count 21.3, Red Blood Count 2.75, Hemoglobin 8.6, Hematocrit 25, Mean Corpuscular Volume 91, Mean Corpuscular Hemoglobin 31, Mean Corpuscular Hemoglobin Concent 35, Red Cell Distribution Width 14.6, Platelet Count 348, Mean Platelet Volume 9.3, Sodium Level 133, Potassium Level 3.2, Chloride Level 100, Carbon Dioxide Level 21, Anion Gap 12, Blood Urea Nitrogen 21, Creatinine 0.82, Estimat Glomerular Filtration Rate > 60, BUN/Creatinine Ratio 26, Glucose Level 92, Calcium Level 9.4 Discharge Condition at discharge STABLE, NEEDS IV ANTIBIOTICS Instructions to patient/family Please see electronic discharge instructions given to patient. Discharge Medications Reviewed and agree with Discharge Medication list on patient's Discharge Instruction sheet ISADORA MALAGON MD Jun 26, 2020 09:56
== END 2020-06-26 09:59 | disposition swing bed (61) | DRG 480 ==
LOC: EDUNIT# 00:50 → ER 00:51 → 4TH 04:05
PROVIDERS: ADMIT Family Medicine; ATTEND Family Medicine
PROC: 0SBB0ZZ Excision of Left Hip Joint, Open Approach (ICD-10-PCS; 2020-06-21)
PROC: 0S9B3ZX Drainage of Left Hip Joint, Percutaneous Approach, Diagnostic (ICD-10-PCS; 2020-06-21)
PROC: 0QP Lower Bones, Removal (ICD-10-PCS; 2020-06-23)
PROC: 0QR70JZ Replacement of Left Upper Femur with Synthetic Substitute, Open Approach (ICD-10-PCS; principal; 2020-06-23 09:27)
DX: T84.52XA Infection and inflammatory reaction due to internal left hip prosthesis, initial encounter (principal); J18.9 Pneumonia, unspecified organism; M00.052 Staphylococcal arthritis, left hip; E87.1 Hypo-osmolality and hyponatremia; E86.0 Dehydration; I10 Essential (primary) hypertension; I44.30 Unspecified atrioventricular block; E03.9 Hypothyroidism, unspecified; G47.30 Sleep apnea, unspecified; K59.00 Constipation, unspecified; E87.5 Hyperkalemia; D64.9 Anemia, unspecified; E78.5 Hyperlipidemia, unspecified; R19.7 Diarrhea, unspecified; Z79.82 Long term (current) use of aspirin; Z79.891 Long term (current) use of opiate analgesic; Z88.6 Allergy status to analgesic agent; Z82.49 Family history of ischemic heart disease and other diseases of the circulatory system; Z95.0 Presence of cardiac pacemaker
CPT/HCPCS: 36415; 36569; 51702; 71045; 71046; 73700; 76937; 80048; 80053; 81000; 82728; 83540; 83605; 84145; 85007; 85025; 85027; 85610; 85730; 86850; 86900; 86901; 86920; 87040; 87070; 87075; 87077; 87186; 87205; 87324; 87449; 87635; 89051; 93041; 94640; 94664; 94760; 96361; 96365; 96367; 96375; 96376

== ENCOUNTER 2020-06-28 10:47 | Inpatient (IN) | payer MEDICARE ==
[2020-06-28] VITALS (8 sets, daily range): BP systolic 129–148; BP diastolic 57–91
[~2020-06-28 10:47] MED LIST changes: +AMLO-251 PO; +ASCO100024 PO; +ASPI-1238 PO; +CARV25TA PO; +CLN.2T PO; +EZET10TA49 PO; +HYDR25TA4 PO; +IRBE300T17 PO; +LEVO50TA6 PO; +MULT-1136 PO; +OMG1KC PO; +OXYC5TAB PO; +VITA100033 PO
[2020-06-28] MEDS ORDERED: POTASSIUM CL 10 MEQ/50 ML IVPB (PRE-MIX) IV SCH (11:03)
[2020-06-28] MEDS ORDERED: MAGNESIUM 1 GM/D5W 100 ML IVPB IV SCH (11:03)
[2020-06-28] MEDS ORDERED: fentaNYL INJECTION 100 MCG/2 ML AMP IV PRN (11:27)
[2020-06-28] MEDS ORDERED: LACTOBACILLUS ACIDOPHILUS (PROBIOTIC) CAPSULE PO SCH (13:00)
[2020-06-28] MEDS ORDERED: NS IV 1000 ML 1,000 ML IV SCH (13:42)
[2020-06-28] MEDS ORDERED: RT-ALBUTEROL/IPRATROPIUM 3 ML (DUONEB) VIAL IH SCH (14:00)
[2020-06-28] MEDS ORDERED: ALBUMIN IV ONE (17:28)
[2020-06-28] MEDS ORDERED: BUMETANIDE 1 MG/4 ML (BUMEX) VIAL IV ONE (18:00)
[2020-06-28] MEDS ORDERED: cloNIDine 0.1 MG (CATAPRES) TAB PO SCH (19:45)
[2020-06-28] MEDS ORDERED: SODIUM BICARB 8.4% 50 MEQ/50 ML VIAL IV ONE (20:36)
[2020-06-28] MEDS ORDERED: eZETimibe 10 MG (ZETIA) TABLET PO SCH (21:00)
[2020-06-29] MEDS ORDERED: LACTATED RINGERS 1,000 ML IV ONE (04:08)
[2020-06-29] MEDS ORDERED: PIPERACILLIN/TAZO 4.5 GM/NS 100 ML IV SCH ×4 (04:08→12:00)
[2020-06-29] MEDS ORDERED: PANTOPRAZOLE 40 MG (PROTONIX) VIAL IV SCH (04:08)
[2020-06-29] MEDS ORDERED: SODIUM BICARB 8.4% 50 MEQ/50 ML VIAL IV ONE (04:12)
[2020-06-29] MEDS ORDERED: PIPERACILLIN/TAZO 4.5 GM/NS 100 ML IV NR ×2 (04:28)
[2020-06-29] MEDS ORDERED: PROMETHAZINE INJ 25 MG/ML (PHENERGAN) AMP IV PRN (04:38)
[2020-06-29] MEDS ORDERED: LEVOTHYROXINE 50 MCG (LEVOTHROID) TAB PO SCH (06:30)
[2020-06-29] MEDS ORDERED: KCL 20 MEQ TAB (K-DUR) PO SCH (07:00)
[2020-06-29] MEDS ORDERED: ENOXAPARIN 40 MG/0.4 ML (LOVENOX) SYR SC SCH (08:40)
[2020-06-29] MEDS ORDERED: LINEZOLID 600MG/300ML IVPB (PRE-MIX) IV SCH (09:00)
[2020-06-29] MEDS ORDERED: FLUCONAZOLE 100 MG/50 ML 50 ML IV NR (09:15)
[2020-06-29] MEDS ORDERED: fentaNYL INJECTION 100 MCG/2 ML AMP IV PRN (10:07)
[2020-06-29] MEDS ORDERED: BISACODYL 10 MG SUPP (DULCOLAX) PR PRN (10:21)
[2020-06-29] MEDS ORDERED: SALIVA STIMULANT MOUTH SPRAY (BIOTENE) 1.5 OZ MM PRN (10:21)
[2020-06-30] MEDS: fentaNYL INJECTION 100 MCG/2 ML AMP IV SCH ×4 (11:07→20:01)
--- NOTE | 2020-06-30 14:22 | History & Physical ---
History of Present Illness History of Present Illness Reason for visit/HPI 84 yo F with left hip septic arthritis s/p surgery with Dr. Restrepo on 06/24/20 for irrigation/debridement/exchange of components; Since she was going to need nursing home antibiotics IV and was still on vapotherm for respiratory support she was changed to swing bed status. But she started to have worsening of her respiratory failure on 06/28/20 and needed ICU care. She is to be discharged from swing bed due to acute respiratory failure and re-admitted to ICU. Patient also was noted to have acute kidney failure due to multifactorial issues- one including her respiratory decline. She will be continued on her IV antibiotics, BiPAP, and bumex with albumin. Date of Admission Jun 28, 2020 at 10:47 Date Seen by a Provider: Jun 28, 2020 Time Seen by a Provider: 10:47 I consulted on this patient on 06/30/20 14:21 Attending Physician Gwendolyn Barton MD Admitting Physician Gwendolyn Barton MD Consult Allergies and Home Medications Allergies Coded Allergies: hydrocodone (Verified Allergy, Unknown, Rash, 05/08/20) Home Medications Amlodipine Besylate 10 Mg Tablet, 10 MG PO DAILY, (Reported) Ascorbic Acid 1,000 Mg Tablet, 1,000 MG PO DAILY, (Reported) Aspirin 81 Mg Tablet.dr, 81 MG PO HS, (Reported) Carvedilol 25 Mg Tablet, 25 MG PO BID, (Reported) Clonidine HCl 0.2 Mg Tablet, 0.2 MG PO TID, (Reported) Ezetimibe 10 Mg Tablet, 10 MG PO DAILY, (Reported) Hydrochlorothiazide 25 Mg Tablet, 25 MG PO DAILY, (Reported) Irbesartan 300 Mg Tablet, 300 MG PO DAILY, (Reported) Levothyroxine Sodium 50 Mcg Tablet, 50 MCG PO DAILY, (Reported) Multivitamin 1 Each Tablet, 1 EACH PO DAILY, (Reported) [place] 3 Polyunsat Fatty Acids 1,000 Mg Cap, 1,000 MG PO TID, (Reported) Oxycodone HCl 5 Mg Tablet, 5 MG PO Q4H PRN for PAIN-SEVERE (8-10), (Reported) Pantoprazole Sodium 40 Mg Tablet.dr, 40 MG PO DAILY, (Reported) Tramadol HCl 50 Mg Tablet, 50 MG PO Q4H, (Reported) Vitamin E Mixed 1,000 Unit Capsule, 1,000 UNIT PO BID, (Reported) Patient Home Medication List Home Medication List Reviewed: Yes Past Phrgiba-Ujgbmu-Ddwjtb Hx Patient Social History 2nd Hand Smoke Exposure: No Recent Hopitalizations: No Immunizations Up To Date Tetanus Booster (TDap): Unknown Pediatric: No Seasonal Allergies Seasonal Allergies: No Surgeries Yes (TUBAL LIGATION; PACEMAKER (BY DR ALCARAZ); LEFT HIP FX/REPLACEMENT ) Joint Replacement, Orthopedic, Pacemaker, Tubal Ligation Respiratory No (CPAP- NO O2) Currently Using CPAP: No Currently Using BIPAP: No Cardiovascular Yes ( HEART BLOCK--S/P PACEMAKER) Hypertension Neurological No Reproductive System Hx Reproductive Disorders: Yes (HX TUBAL LIGATION) Sexually Transmitted Disease: No HIV/AIDS: No Female Reproductive Disorders: Denies STRATEGY INTERN History: Tubal Ligation, Menopausal Genitourinary No Gastrointestinal Yes (CONSTIPATION) Chronic Constipation Musculoskeletal Yes (UNDIAGNOSED LEG PAIN, TESTING REVEALED GOOD CIRCULATION;L HIP FX) Fractures Endocrine History of Endocrine Disorders: Yes Endocrine Disorders: Hypothyroidsim HEENT History of HEENT Disorders: Yes HEENT Disorders: Cataract Hearing Impairment: Denies Cancer No Psychosocial History of Psychiatric Problem: No Integumentary History of Skin or Integumenta: No Blood Transfusions History of Blood Disorders: No Adverse Reaction to a Blood Tr: No Family Medical History Significant Family History: Heart Disease, CAD Over 55 Years Old, Hypertension, Vascular Disease Other Significan Family Hx: PAST SURGICAL HISTORY: -LEFT HIP/FEMORAL NECK FRACTURE WITH BIPOLAR REPLACEMENT BY DR. RESTREPO 05/05/20 Family Hx: Family history: Cardiovascular disease 19 MOTHER (PT'S MOTHER AND 6 OR 8 SISTERS ALL WITH HEART ATTACKS) G8 SISTER Family history: Coronary thrombosis 19 MOTHER (PT'S MOM AND 6-8 SISTERS ALL FROM HEART ATTACKS) G8 SISTER Review of Systems Review of Systems General: No Chills, No Night Sweats HEENT: No Head Aches, No Visual Changes Pulmonary: Dyspnea Cardiovascular: No: Chest Pain Gastrointestinal: No: Nausea, Vomiting Genitourinary: No Dysuria Neurological: Weakness Physical Exam Vital Signs Vital Signs - First Documented 06/28/20 06/29/20 20:00 08:10 Pulse Ox 88 O2 Delivery Vapotherm O2 Flow Rate 25.00 FiO2 60 Capillary Refill : Height, Weight, BMI Height: 5'2.00" Weight: 161lbs. oz. 73.535233xm; 29.26 BMI Method: General Appearance: Mild Distress HEENT: PERRL/EOMI Neck: Non Tender, Supple Respiratory: Chest Non Tender, Decreased Breath Sounds Cardiovascular: Regular Rate, Rhythm Gastrointestinal: Non Tender, Soft Rectal: Deferred Extremity: Non Tender Neurologic/Psychiatric: Alert, Oriented x3 Skin: Warm/Dry Assessment/Plan Assessment/Plan Admission Dx acute respiratory failure with hypoxia Admission Status: Inpatient Order (span 2 midnights) Reason for Inpatient Admission: admitted to ICU for worsening respiratory status and kidney failure- will require 2 midnights. Assessment and Plan 06/28/20- "discharged" from swing bed and admitted to ICU- for escalation of care -RT consulted -continue BiPAP -ICU protocols. monitor lytes. -diuresis -monitor urine output. If renal function and urine output continue to decline- will need transferred out. -follow up am labs. Dispo: guarded. Problems: (1) Acute kidney failure (2) Acute respiratory failure with hypoxia (3) Hypothyroidism (4) Hyponatremia (5) Septic arthritis CHRISTINA LAURA MD Jun 30, 2020 14:22
[2020-06-30] MEDS: LORazepam INJ 2 MG/ML (ATIVAN) VIAL IV PRN (20:01)
[2020-07-01] MEDS: fentaNYL INJECTION 100 MCG/2 ML AMP IV SCH ×6 (00:01→19:58)
[2020-07-01] MEDS: LORazepam INJ 2 MG/ML (ATIVAN) VIAL IV PRN ×3 (02:14→20:02)
--- NOTE | 2020-07-01 08:24 | Progress Note ---
Standard Progress Note Progress Notes/Assess & Plan Date Seen by a Provider: Jul 01, 2020 Time Seen by a Provider: 07:30 Progress/Assessment & Plan patient on comfort care resting without distress spoke with pt's daughter at bedside. she is comfortable with plan will follow as needed ZAHIDA MONTAÑO MD Jul 01, 2020 08:24
--- NOTE | 2020-07-01 08:34 | Progress Note ---
Subjective Subjective Date Seen by Provider: Jul 01, 2020 Time Seen by Provider: 08:50 PT WAS ADMITTED FOR SEPTIC LEFT HIP, WAS INITIALLY TREATED WITH CLEAN OUT OF WOUND AND PLASTIC PART REMOVAL AND REPLACEMENT WITH ANTIBIOTIC BEADS PLACED WELL. SHE WAS STARTED ON IV ANTIBIOTICS, AND TREATED AGGRESSIVELY FOR HER INFECTION. MARA WAS MADE SWING BED, THEN HAD PULMONARY DECOMPENSATION AND WAS TRANSFERRED TO THE ICU, SHE WAS PLANNED FOR TRANSFER TO [place] FROM THE ICU ON 06/29/2020, BUT SHE REFUSED TRANSFER AND REPORTED THAT SHE WANTED TO BE MADE COMFORT CARE. Review of Systems General: No Chills, No Night Sweats HEENT: No Head Aches, No Visual Changes Pulmonary: Dyspnea Cardiovascular: No: Chest Pain Gastrointestinal: No: Nausea, Vomiting Genitourinary: No Dysuria Neurological: Weakness Objective Exam Vital Signs Vital Signs - First Documented 06/28/20 06/29/20 20:00 08:10 Pulse Ox 88 O2 Delivery Vapotherm O2 Flow Rate 25.00 FiO2 60 Capillary Refill : General Appearance: Mild Distress HEENT: PERRL/EOMI Neck: Non Tender, Supple Respiratory: Chest Non Tender, Decreased Breath Sounds Cardiovascular: Regular Rate, Rhythm Gastrointestinal: Non Tender, Soft Rectal: Deferred Extremity: Non Tender Neurologic/Psychiatric: Alert, Oriented x3 Skin: Warm/Dry Assessment/Plan Assessment/Plan Assessment and Plan pt is comfort care in the hospital - appears to be slowly progressing, will continue with fentanyl for pain, ativan for air hunger/comfort pt uncomfortable over night- i was not called, medications adjusted today to increase pt's comfort family at bedside Problems: (1) Acute kidney failure (2) Acute respiratory failure with hypoxia (3) Hypothyroidism (4) Hyponatremia (5) Septic arthritis ISADORA MALAGON MD Jul 01, 2020 08:34
--- NOTE | 2020-07-01 08:39 | Diagnostic Imaging Report ---
PROCEDURE: US Venous Lower Ext Shaheen. TECHNIQUE: Multiple real-time grayscale images were obtained over the lower extremities in various projections, bilaterally. Additional duplex Doppler and color Doppler images were also obtained. INDICATION: Renal failure. Bilateral lower extremity edema. COMPARISON: None FINDINGS: The bilateral common femoral vein, femoral vein, deep femoral vein, and popliteal vein are normal in appearance. These vessels show normal compressibility, color flow and doppler augmentation. The visualized deep calf veins demonstrate no distinct intraluminal thrombus. There is mild subcutaneous edema in the lower extremities bilaterally. IMPRESSION: 1. No sonographic evidence of deep venous thrombosis in the bilateral lower extremities. Dictated by: Dictated on workstation # [id number]
--- NOTE | 2020-07-01 10:16 | Diagnostic Imaging Report ---
INDICATION: Followup pneumonia. COMPARISON: 06/28/2020 FINDINGS: Single frontal radiographic view of the chest was obtained and again demonstrates mild cardiomegaly and moderate vascular congestion. Lungs also continue to show moderate bibasilar effusions and associated airspace disease. There is no pneumothorax. Overall, aeration is stable. Left-sided 2-lead pacemaker is again noted. Right upper extremity PICC line is seen with tip in the high SVC. Osseous structures show no acute adverse interval change. IMPRESSION: 1. Cardiomegaly with sequela of CHF including moderate bibasilar pleural effusions. Dictated by: Dictated on workstation # [id number]
[2020-07-01] MEDS: LORazepam INJ 2 MG/ML (ATIVAN) VIAL IVP SCH ×2 (11:37→19:01)
[2020-07-02] MEDS: fentaNYL INJECTION 100 MCG/2 ML AMP IV SCH ×7 (00:21→23:26)
[2020-07-02] MEDS: LORazepam INJ 2 MG/ML (ATIVAN) VIAL IVP SCH ×5 (00:21→23:25)
[2020-07-02] MEDS: LORazepam INJ 2 MG/ML (ATIVAN) VIAL IV PRN ×2 (03:59→19:59)
[2020-07-02] MEDS: SCOPOLAMINE 1.5 MG (TRANSDERM-SCOP) PATCH TOP SCH ×2 (08:29→10:00)
--- NOTE | 2020-07-02 09:12 | Progress Note ---
Subjective Subjective Date Seen by Provider: Jul 02, 2020 Time Seen by Provider: 08:30 PT WAS ADMITTED FOR SEPTIC LEFT HIP, WAS INITIALLY TREATED WITH CLEAN OUT OF WOUND AND PLASTIC PART REMOVAL AND REPLACEMENT WITH ANTIBIOTIC BEADS PLACED WELL. SHE WAS STARTED ON IV ANTIBIOTICS, AND TREATED AGGRESSIVELY FOR HER INFECTION. MARA WAS MADE SWING BED, THEN HAD PULMONARY DECOMPENSATION AND WAS TRANSFERRED TO THE ICU, SHE WAS PLANNED FOR TRANSFER TO [place] FROM THE ICU ON 06/29/2020, BUT SHE REFUSED TRANSFER AND REPORTED THAT SHE WANTED TO BE MADE COMFORT CARE. Review of Systems General: No Chills, No Night Sweats HEENT: No Head Aches, No Visual Changes Pulmonary: Dyspnea, Cough Cardiovascular: No: Chest Pain Gastrointestinal: No: Nausea, Vomiting Genitourinary: No Dysuria Neurological: Weakness Objective Exam Vital Signs Vital Signs - First Documented 06/28/20 06/29/20 20:00 08:10 Pulse Ox 88 O2 Delivery Vapotherm O2 Flow Rate 25.00 FiO2 60 Capillary Refill : General Appearance: Mild Distress HEENT: PERRL/EOMI Neck: Non Tender, Supple Respiratory: Decreased Breath Sounds Cardiovascular: Regular Rate, Rhythm Gastrointestinal: Non Tender, Soft Rectal: Deferred Extremity: Non Tender Neurologic/Psychiatric: Alert, Oriented x3 Skin: Warm/Dry Assessment/Plan Assessment/Plan Assessment and Plan pt is comfort care in the hospital - appears to be slowly progressing, will continue with fentanyl for pain, ativan for air hunger/comfort (1) Left hip postoperative wound infection Assessment & Plan: STATUS POST SURGICAL EVACUATION AND CLEANING. DEFER TO DR. MONTAÑO (2) Septic arthritis Qualifiers: Qualified Codes: M00.052 - Staphylococcal arthritis, left hip (3) Hypertension Qualifiers: Qualified Codes: I10 - Essential (primary) hypertension (4) Hyponatremia Assessment & Plan: IMPROVED WITH FLUIDS, MONITOR SERIAL LABS. (5) Leukocytosis Qualifiers: Qualified Codes: D72.829 - Elevated white blood cell count, unspecified Assessment & Plan: ELEVATED WHITE COUNT DUE TO ACUTE LEFT HIP INFECTION (6) Anemia Qualifiers: Qualified Codes: D64.89 - Other specified anemias Assessment & Plan: WILL GET BLOOD IN OR TODAY AND IV IRON POST-OPERATIVELY (7) Hyperlipidemia Qualifiers: Qualified Codes: E78.2 - Mixed hyperlipidemia (8) Dehydration (9) Hypothyroidism Qualifiers: Qualified Codes: E03.9 - Hypothyroidism, unspecified Assessment & Plan: RESUMED HOME REGIMEN Problems: (1) Septic arthritis (2) Acute kidney failure (3) Acute respiratory failure with hypoxia (4) Hypothyroidism (5) Hyponatremia ISADORA MALAGON MD Jul 02, 2020 09:12
[2020-07-02] MEDS ORDERED: SALIVA STIMULANT MOUTH SPRAY (BIOTENE) 1.5 OZ MM PRN (09:15)
[2020-07-02] MEDS ORDERED: ARTIFICAL TEARS 0.4 ML UNIT DOSE (REFRESH PLUS) OU PRN (09:15)
[2020-07-02] MEDS ORDERED: SCOPOLAMINE PATCH REMOVAL TP SCH (09:59)
[2020-07-02] MEDS: GLYCOPYRROLATE 0.2 MG/ML (ROBINUL) 2 ML VIAL IV PRN ×3 (12:04→19:52)
[2020-07-02] MEDS: fentaNYL INJECTION 100 MCG/2 ML AMP IV PRN ×3 (14:23→18:48)
[2020-07-03] MEDS: fentaNYL INJECTION 100 MCG/2 ML AMP IV PRN ×4 (00:33→10:31)
[2020-07-03] MEDS: LORazepam INJ 2 MG/ML (ATIVAN) VIAL IV PRN ×2 (01:33→09:34)
[2020-07-03] MEDS: GLYCOPYRROLATE 0.2 MG/ML (ROBINUL) 2 ML VIAL IV PRN ×4 (03:34→20:01)
[2020-07-03] MEDS: fentaNYL INJECTION 100 MCG/2 ML AMP IV SCH ×2 (03:37→07:53)
[2020-07-03] MEDS: LORazepam INJ 2 MG/ML (ATIVAN) VIAL IVP SCH ×6 (05:30→23:58)
--- NOTE | 2020-07-03 09:26 | Progress Note ---
Subjective Subjective Date Seen by Provider: Jul 03, 2020 Time Seen by Provider: 09:00 PT WAS ADMITTED FOR SEPTIC LEFT HIP, WAS INITIALLY TREATED WITH CLEAN OUT OF WOUND AND PLASTIC PART REMOVAL AND REPLACEMENT WITH ANTIBIOTIC BEADS PLACED WELL. SHE WAS STARTED ON IV ANTIBIOTICS, AND TREATED AGGRESSIVELY FOR HER INFECTION. MARA WAS MADE SWING BED, THEN HAD PULMONARY DECOMPENSATION AND WAS TRANSFERRED TO THE ICU, SHE WAS PLANNED FOR TRANSFER TO [place] FROM THE ICU ON 06/29/2020, BUT SHE REFUSED TRANSFER AND REPORTED THAT SHE WANTED TO BE MADE COMFORT CARE. TODAY STAFF NOTES THAT SHE IS HAVING MORE WORK OF BREATHING, HER DTR NOTES THAT HER MOM HAS BECOME INCREASINGLY LESS RESPONSIVE. MINIMAL TO NO OUTPUT OF URINE Review of Systems General: No Chills, No Night Sweats HEENT: No Head Aches, No Visual Changes Pulmonary: Dyspnea Cardiovascular: No: Chest Pain Gastrointestinal: No: Nausea, Vomiting Genitourinary: No Dysuria Neurological: Weakness Objective Exam Vital Signs Vital Signs - First Documented 06/28/20 06/28/20 11:00 20:00 Pulse 113 B/P (MAP) 148/90 (109) Pulse Ox 94 O2 Delivery NIV Bilevel O2 Flow Rate 21.00 FiO2 60 Capillary Refill : General Appearance: Moderate Distress HEENT: PERRL/EOMI Neck: Non Tender, Supple Respiratory: Chest Non Tender, Decreased Breath Sounds Cardiovascular: Tachycardia Gastrointestinal: Non Tender, Soft Rectal: Deferred Extremity: Non Tender Neurologic/Psychiatric: Other (NO ORIENTATION, PT OBTUNDED) Skin: Cool Assessment/Plan Assessment/Plan Assessment and Plan pt is comfort care in the hospital - appears to be slowly progressing, PT'S FENTANYL WILL BE DISCONTINUED DUE TO HER LACK OF ADEQUATE RESPONSE TO THE MEDICATION. HER DOSING HAS BEEN ESCALATED WITHOUT NOTABLE BENEFIT. PT TO BE TRANSITIONED TO [facility], PT IS ON SCHEDULED [facility]IV[facility] FOR [employer]. Problems: (1) Septic arthritis (2) Acute kidney failure (3) Acute respiratory failure with hypoxia (4) Hypothyroidism (5) Hyponatremia ISADORA MALAGON MD Jul 03, 2020 09:26
[2020-07-03] MEDS ORDERED: fentaNYL INJECTION 100 MCG/2 ML AMP IVP ONE ×2 (10:30→13:15)
[2020-07-03] MEDS ORDERED: fentaNYL INJECTION 100 MCG/2 ML AMP IV PRN (11:07)
[2020-07-03] MEDS ORDERED: fentaNYL INJECTION 100 MCG/2 ML AMP IV SCH (12:00)
[2020-07-03] MEDS: morphine PCA 100 MG/100 ML BAG IV PRN ×2 (13:52→22:41)
[2020-07-03] MEDS ORDERED: LORazepam INJ 2 MG/ML (ATIVAN) VIAL IV PRN (16:21)
[2020-07-04] MEDS: LORazepam INJ 2 MG/ML (ATIVAN) VIAL IVP SCH (04:41)
== END 2020-07-04 09:35 | disposition expired | DRG 189 ==
LOC: ICU 10:47 → 4TH 06-29 11:15
PROVIDERS: ADMIT Family Medicine; ATTEND Family Medicine
PROC: 5A09357 Assistance with Respiratory Ventilation, Less than 24 Consecutive Hours, Continuous Positive Airway Pressure (ICD-10-PCS; principal; 2020-06-28)
DX: J96.01 Acute respiratory failure with hypoxia (principal); N17.9 Acute kidney failure, unspecified; E87.1 Hypo-osmolality and hyponatremia; E03.9 Hypothyroidism, unspecified; Z79.82 Long term (current) use of aspirin; Z95.0 Presence of cardiac pacemaker; I10 Essential (primary) hypertension; Z51.5 Encounter for palliative care
CPT/HCPCS: 71045; 93970